=== PATIENT | female | born 1965 | race Caucasian/White ===

== ENCOUNTER 2017-03-19 07:57 | Day surgery (SDC) | payer MEDICARE, BC ==
[2017-03-17 13:07] VITALS: BMI 36.9
[2017-03-19] MEDS ORDERED: LACTATED RINGERS 1,000 ML IV SCH (08:45)
[2017-03-19 08:46] VITALS: RESP 16; TEMP 98.1
[2017-03-19] MEDS ORDERED: LIDOCAINE 1% 20 ML VIAL (10MG/ML) FOR IV START INTRADERMA ONE (08:51)
[2017-03-19] MEDS ORDERED: TRIAMCINOLONE ACETONIDE 40 MG/ML 1 ML VIAL ONE (08:53)
[2017-03-19] MEDS ORDERED: MIDAZOLAM 2 MG/2 ML VIAL ONE (08:53)
[2017-03-19] MEDS ORDERED: BUPIVACAINE (PF) 0.5% 30 ML VIAL ONE (08:53)
[2017-03-19] MEDS ORDERED: fentaNYL (PF) 50 MCG/ML 2 ML AMP ONE (08:53)
--- NOTE | 2017-03-19 09:04 | P.PCN ---
Date of Procedure: 03/19/17 Preoperative Diagnosis: Right sacroiliitis Postoperative Diagnosis: Right sacroiliitis Procedure(s) Performed: Right sacroiliac joint steroid injection under fluoroscopic guidance Anesthesia: other (Moderate sedation with Versed and fentanyl) Surgeon: Pieter Benson Pathology: none sent Condition: stable Disposition: PACU Description of Procedure: The patient was seen in preoperative holding area consent was obtained then she was brought into the procedure room and placed in prone position. Skin was prepped with Betadine 3 and draped in a sterile manner. Lidocaine 1% was used to numb the skin up at the entry site which was chosen the following Manner: The right sacroiliac joint was identified on the AP view of fluoroscopy then the C-arm was tilted to the left oblique position to superimpose the anterior and posterior joint lines on each other then the C-arm was tilted slightly cephalad to get a clear view of the inferior one third of this unified joint line. I then used Quincke spinal needle 22-gauge 3-1/2 inch to go through the skin and into the sacroiliac joint at the inferior one third of the joint line. I then injected 40 mg of Kenalog +2 MLS of Marcaine 0.5%. Patient tolerated procedure well.
--- NOTE | 2017-03-19 09:19 | FL ---
EXAMINATION TYPE: FL guided pain mgmt statistic DATE OF EXAM: 03/19/2017 9:08 AM HISTORY: Pain 1 image scanned, 9 sec fl time. rt si rachelt inj.
[2017-03-19 09:42] VITALS: BP 114/75; PULSE 55
[2017-03-19] MEDS ORDERED: IV FLUID CONTINUATION 1,000 ML IV ONE (09:47)
== END 2017-03-19 09:58 | disposition home or self-care (01) ==
LOC: ORPAIN 07:57
PROVIDERS: ATTEND Anesthesiology
DX: M46.1 Sacroiliitis, not elsewhere classified (principal); Z88.5 Allergy status to narcotic agent; Z88.8 Allergy status to other drugs, medicaments and biological substances
CPT/HCPCS: J2250; J3301; J3010; G0260; 27096

== ENCOUNTER → 2017-04-08 | Outpatient (CLI) | payer MEDICARE, BC ==
[2017-04-08 12:09] VITALS: BP 117/79; PULSE 80; RESP 18; TEMP 98.9
--- NOTE | 2017-04-08 12:48 | P.PN ---
Progress Note - Text Patient returns for followup for chronic neck and right-sided low back and hip pain. Patient recently underwent R SIJ injection, which provided some relief for XXX interval. Patient continues on [place] and Lyrica medications from her PCP for pain with good relief. Patient denies adverse drug effects from medications. Today, pt denies new-onset weakness, bowel/bladder incontinence, or any other signs or symptoms of cauda equina syndrome. There are no signs of acute intoxication, and no indications of medication diversion or overuse. In addition to above, 13-point review of systems is also negative for chest pain , shortness of breath, changes in vision, changes in hearing, new onset weakness , abdominal pain, diarrhea, extreme fatigue, malaise, fever, skin changes, homicidal or suicidal ideation, or bowel or bladder incontinence. Vital Signs: Reviewed in EMR Gen: WDWN, AAOx3, NAD HEENT: NCAT, EOMI, hearing grossly normal Pulm: resp unlabored Abd: soft, NT, ND Neck: supple, trachea midline ROM in flexion cervical spine: reduced ROM in extension cervical spine: reduced Cervical paravertebral tenderness: + Cervical Facet tenderness: + bilateral Spurling's: + RUE Upper extremity: decreased pump erector strength secondary to pain ROM in flexion lumbar spine: reduced ROM in extension lumbar spine: reduced Lumbar paravertebral tenderness: + Facet loading: + bilateral SI joint tenderness: + R >> L Lobo's test: + R >> L Straight leg raise: neg Neuro: CN II-XII grossly intact, muscle strength lower extremities PRESERVED Imaging: Reviewed in EMR Assessment: 1. cervical PLPS 2. SIJ dysfunction 3. chronic pain syndrome Plan: 1. Explanation: Opioid and psychological risk scores were reviewed. Diagnoses , prognoses, and multiple treatment options including but not limited to physical therapy, interventional therapies, adjuvant medical therapies, narcotic medication therapies, and surgery were discussed with the patient and all questions were answered to the patient's satisfaction. 2. Opioid agreement: no opioids prescribed today 3. Counseling: The patient was counseled extensively on SMOKING CESSATION, BODY MASS INDEX, EXERCISE. Specifically, the patient was instructed regarding the importance of smoking cessation, obesity, and exercise in the context of both chronic pain and overall health. 4. Procedures: repeat R SIJ injection, then cervical CHETAN 4-6 weeks after that 5. Consultations: None 6. Investigations: None 7. Medications: none prescribed 8. Disposition: f/u for procedure as scheduled PQRS measures: 1-Patient's medications are documented in the chart. 2-Tobacco use is negative 3-Patient has not had a pneumococcal vaccine. 4-Advanced care planning discussed, patient unable to give. 5-Opioid contract NOT signed with the patient. 6-Pain positive, follow-up visit or procedure scheduled 7-Patient's blood pressure measured and documented, and WNL. 8-Patient's weight was measured, and body mass index ABOVE the normal limits, and counseling was done. Patient instructed to follow up with PCP. 9-Patient WAS NOT identified as an unhealthy alcohol user.
== END | disposition home or self-care (01) ==
LOC: PNWHC3 11:56
PROVIDERS: ATTEND Anesthesiology
DX: M53.86 Other specified dorsopathies, lumbar region (principal); M53.3 Sacrococcygeal disorders, not elsewhere classified; G89.4 Chronic pain syndrome
CPT/HCPCS: 99211

== ENCOUNTER 2017-04-15 06:34 | Day surgery (SDC) | payer MEDICARE, BC ==
[2017-04-10 15:06] VITALS: BMI 36.6
[2017-04-15 06:42] VITALS: RESP 16; TEMP 98.3
[2017-04-15] MEDS ORDERED: LACTATED RINGERS 1,000 ML IV ONE (06:56)
[2017-04-15] MEDS ORDERED: LIDOCAINE 1% 20 ML VIAL (10MG/ML) FOR IV START INTRADERMA ONE (06:56)
[2017-04-15] MEDS ORDERED: MIDAZOLAM 2 MG/2 ML VIAL ONE (07:20)
[2017-04-15] MEDS ORDERED: IOHEXOL 180 MG/ML 1 ML ML ONE (07:20)
[2017-04-15] MEDS ORDERED: fentaNYL (PF) 50 MCG/ML 2 ML AMP ONE (07:20)
[2017-04-15] MEDS ORDERED: BUPIVACAINE (PF) 0.5% 30 ML VIAL ONE (07:20)
[2017-04-15] MEDS ORDERED: TRIAMCINOLONE ACETONIDE 40 MG/ML 1 ML VIAL ONE (07:20)
[2017-04-15] MEDS ORDERED: LACTATED RINGERS 1,000 ML IV SCH (07:30)
[2017-04-15] MEDS ORDERED: IV FLUID CONTINUATION 700 ML IV ONE (07:37)
--- NOTE | 2017-04-15 07:45 | P.PCN ---
Date of Procedure: 04/15/17 Preoperative Diagnosis: Postoperative Diagnosis: Procedure(s) Performed: Implants: Surgeon: Reddy Crystal Pathology: none sent Condition: stable Disposition: PACU Indications for Procedure: Operative Findings: Description of Procedure: PREOPERATIVE DIAGNOSIS: 1-Bilateral sacroiliitis. 2 Lumbar DDD POSTOPERATIVE DIAGNOSIS:. 1-Bilateral sacroiliitis. 2 Lumbar DDD PROCEDURES: RIGHT only Sacroiliac joint steroid injection with fluoroscopic guidance ANESTHESIA: Local with 1% lidocaine; conscious sedation EBL: Minimal. PROCEDURE INDICATIONS: This patient with a history of low back pain secondary to sacroiliitis and lumbar DDD unresponsive to conservative management. Patient had good relief for three weeks from previous R SIJ injection #1. No use of blood thinners. PROCEDURE DESCRIPTION: The patient was seen and identified in the preoperative area. Risks, benefits, complications, and alternatives were discussed with the patient (including but not limited to incomplete pain relief, bleeding, infection, nerve damage, and allergies to medications), the patient agreed to proceed with the procedure and signed the consent after all questions were answered. Patient was taken to the OR and time out was completed to verify proper patient , position, laterality of pain, and allergies. Pt was placed in the prone position and a pillow was placed under the abdomen to reduce lumbar lordosis. The lumbosacral area was prepped and draped in the usual sterile fashion. Critical pause was taken. Vital signs were closely monitored during the procedure. The fluoroscopic camera was placed in contralateral oblique view and right sacroiliiac joint lower pole was identified. After local infiltration with 1% lidocaine 2 ml, Subsequently, a 22-gauge 3.5 inch spinal needle was introduced into the posteroinferior aspect of the right sacroiliac joint under direct fluoroscopic visualization. Subsequently, 4 ml of a solution of a total of 4 ml solution containing total 2 mL of 0.5% preservative-free bupivicaine mixed with 80 mg of Kenalog was injected after negative aspiration for CSF, blood, and air and negative for paresthesia. Needle was withdrawn intact. Skin was cleansed, and bandages were applied. COMPLICATIONS: None. COMMENTS: DISPOSITION / PLANS: The patient was placed in a supine position and transferred to the recovery area in a stable condition for observation and was discharged from the recovery room after meeting discharge criteria. Home discharge instructions given to the patient by the staff. The patient was reexamined prior to discharge and already had significant relief. The patient will schedule a follow up in the clinic in 2-4 weeks.
[2017-04-15 08:03] VITALS: BP 128/75; PULSE 57
--- NOTE | 2017-04-15 10:09 | FL ---
EXAMINATION TYPE: FL guided pain mgmt statistic DATE OF EXAM: 04/15/2017 7:36 AM FLUOROSCOPY Fluoroscopy time of 28 seconds was used during right SI joint injection. 2 image/s document/s the luigi long.
== END 2017-04-15 08:25 | disposition home or self-care (01) ==
LOC: ORPAIN 06:34
PROVIDERS: ATTEND Anesthesiology
DX: M46.1 Sacroiliitis, not elsewhere classified (principal); M51.36 Other intervertebral disc degeneration, lumbar region; G89.4 Chronic pain syndrome; Z79.891 Long term (current) use of opiate analgesic; Z79.899 Other long term (current) drug therapy
CPT/HCPCS: 81025; J2250; J3301; Q9965; J3010; G0260; 27096

== ENCOUNTER 2017-05-13 08:23 | Day surgery (SDC) | payer MEDICARE, BC ==
[2017-05-09 10:25] VITALS: BMI 36.6
[~2017-05-13 08:23] MED LIST: LACTATED RINGERS 1,000 ML IV SCH
[2017-05-13 08:36] VITALS: TEMP 96.8
[2017-05-13] MEDS ORDERED: LIDOCAINE 1% 20 ML VIAL (10MG/ML) FOR IV START INTRADERMA ONE (08:44)
[2017-05-13] MEDS ORDERED: MIDAZOLAM 2 MG/2 ML VIAL ONE (09:30)
[2017-05-13] MEDS ORDERED: DEXAMETHASONE SOD PHOS (MDV) 100 MG/10 ML VIAL ONE (09:30)
[2017-05-13] MEDS ORDERED: fentaNYL (PF) 50 MCG/ML 2 ML AMP ONE (09:30)
[2017-05-13] MEDS ORDERED: IOHEXOL 180 MG/ML 1 ML ML ONE (09:30)
--- NOTE | 2017-05-13 09:50 | P.PCN ---
Date of Procedure: 05/13/17 Preoperative Diagnosis: Postoperative Diagnosis: Procedure(s) Performed: . PROCEDURE 1. Cervical epidural steroid injection under fluoroscopic guidance, C7-T1 2. Cervical epidurogram. PREOPERATIVE DIAGNOSIS: 1- Cervical radiculopathy. POSTOPERATIVE DIAGNOSIS: : 1-Cervical radiculopathy. ANESTHESIA: Local anesthesia with 1% lidocaine3 ml , and IV sedation with Versed 1 mg and Fentanyl 50 mcg. EBL 0 PROCEDURE INDICATION: The patient with neck pain and radiculitis unresponsive to conservative treatment consents for procedure. PROCEDURE DESCRIPTION / TECHNIQUE: The patient was seen and identified in the preoperative area. Risks, benefits, complications, including but not limited to infections ,bleeding , allergic reactions to the medications ,and not complete pain releife, and alternatives were discussed with the patient, the patient agreed to proceed with the procedure and signed the consent. Patient was taken to the OR and time out was completed. The patient was placed in the prone position on the procedure table. A pillow was placed under the patients chest to increase the cervical interlaminar space. The cervical area was prepped and draped in the usual sterile fashion. Vital signs were closely monitored during the procedure. Conscious sedation was used during the procedure to decrease patients anxiety. Using anterior-posterior fluoroscopy, the C7-T1 interlaminar space was identified and the skin over this site was marked and then infiltrated with 1% lidocaine subcutaneously. Subsequently, a 20-gauge 3-1/2-inch Tuohy epidural needle was inserted and advanced toward the epidural space by means of the `` hanging-drop technique and guided by AP and lateral fluoroscopy. The correct needle position in the epidural space was verified with the injection of 2 mL of the water soluble contrast dye Isovue-180 and observing an excellent epidurogram with the epidural spread of the dye, after negative aspiration for blood and CSF and in the absence of paresthesias. Again after negative aspiration, mixture containing 20 mg Dexamethasone and 2 ml of preservative- free normal saline injected and a washout of epidurogram was seen. Needle was withdrawn intact, skin was cleansed, and bandages were applied. Complications= none. Disposition= patient was placed in supine position and transferred to the recovery room area in stable condition and there was no evidence of upper or lower extremity motor or sensory deficit after the procedure patient was discharged from recovery room after discharge criteria met and home discharge instructions was given by the staff and patient will follow with the pain clinic in 2-4 weeks Implants: Indications for Procedure: Operative Findings: Description of Procedure:
[2017-05-13] MEDS ORDERED: IV FLUID CONTINUATION 1,000 ML IV ONE ×2 (09:55)
[2017-05-13 10:23] VITALS: BP 128/78; PULSE 61; RESP 20
--- NOTE | 2017-05-13 10:50 | FL ---
Fluoroscopy HISTORY: Pain 4 seconds fluoroscopy time supplied to the referring clinician. 2 intraoperative C-arm images docume nt the procedure. See dictated report from anesthesia.
== END 2017-05-13 10:33 | disposition home or self-care (01) ==
LOC: ORPAIN 08:23
PROVIDERS: ATTEND Specialist
DX: M54.12 Radiculopathy, cervical region (principal); I10 Essential (primary) hypertension; M79.7 Fibromyalgia; Z88.1 Allergy status to other antibiotic agents; Z88.5 Allergy status to narcotic agent
CPT/HCPCS: 62321; J2250; Q9965; J3010; J1100

== ENCOUNTER → 2017-06-03 | Outpatient (CLI) | payer MEDICARE, BC ==
[2017-06-03 14:46] VITALS: BP 128/91; RESP 16; TEMP 99.2
--- NOTE | 2017-06-03 15:01 | P.PN ---
Progress Note - Text Patient returns for followup for chronic neck and back pain with radiation to hips. Patient recently underwent LYNNE x 1 with some relief, but went home and lifted a 40-lb bag and had severe pain in her back and little relief in the neck. Patient has had several SIJ injections and CESIs, but noted that she got the most relief from lumbar RFAs done in 2013, which have not been repeated since then. Patient continues on [place] medications for pain with good relief. Patient denies adverse drug effects from medications. Today, pt denies new- onset weakness, bowel/bladder incontinence, or any other signs or symptoms of cauda equina syndrome. There are no signs of acute intoxication, and no indications of medication diversion or overuse. In addition to above, 13-point review of systems is also negative for chest pain , shortness of breath, changes in vision, changes in hearing, new onset weakness , abdominal pain, diarrhea, extreme fatigue, malaise, fever, skin changes, homicidal or suicidal ideation, or bowel or bladder incontinence. Vital Signs: Reviewed in EMR Gen: WDWN, AAOx3, NAD HEENT: NCAT, EOMI, hearing grossly normal Pulm: resp unlabored Abd: soft, NT, ND Neck: supple, trachea midline ROM in flexion lumbar spine: reduced ROM in extension lumbar spine: full Lumbar paravertebral tenderness: + Facet loading: + bilateral, R > L SI joint tenderness: neg Lobo's test: + R side Straight leg raise: neg Neuro: CN II-XII grossly intact, muscle strength lower extremities PRESERVED Imaging: Reviewed in EMR Assessment: 1. cervical radic 2. lumbar spondylosis without myelopathy 3. chronic pain syndrome Plan: 1. Explanation: Opioid and psychological risk scores were reviewed. Diagnoses , prognoses, and multiple treatment options including but not limited to physical therapy, interventional therapies, adjuvant medical therapies, narcotic medication therapies, and surgery were discussed with the patient and all questions were answered to the patient's satisfaction. 2. Opioid agreement: no opioids prescribed today 3. Counseling: The patient was counseled extensively on BODY MASS INDEX, EXERCISE. Specifically, the patient was instructed regarding the importance of weight control, and exercise in the context of both chronic pain and overall health. 4. Procedures: R lumbar RFA, then left 5. Consultations: None 6. Investigations: None 7. Medications: none prescribed 8. Disposition: f/u for procedure as scheduled PQRS measures: 1-Patient's medications are documented in the chart. 2-Tobacco use is negative 3-Patient has not had a pneumococcal vaccine. 4-Advanced care planning discussed, patient unable to give. 5-Opioid contract NOT signed with the patient. 6-Pain positive, follow-up visit or procedure scheduled 7-Patient's blood pressure measured and documented, and patient will follow up with the primary care due to hypertension. 8-Patient's weight was measured, and body mass index ABOVE the normal limits, and counseling was done. Patient instructed to follow up with PCP. 9-Patient WAS NOT identified as an unhealthy alcohol user.
== END | disposition home or self-care (01) ==
LOC: PNWHC3 14:26
PROVIDERS: ATTEND Anesthesiology
DX: M47.816 Spondylosis without myelopathy or radiculopathy, lumbar region (principal); G89.4 Chronic pain syndrome
CPT/HCPCS: 99211

== ENCOUNTER 2017-07-03 09:26 | Day surgery (SDC) | payer MEDICARE, BC ==
[2017-06-30 09:31] VITALS: BMI 36.9
[2017-07-03 09:37] VITALS: RESP 16; TEMP 98.6
[2017-07-03] MEDS ORDERED: LACTATED RINGERS 1,000 ML IV ONE (09:40)
[2017-07-03] MEDS ORDERED: LIDOCAINE 1% 20 ML VIAL (10MG/ML) FOR IV START INTRADERMA ONE (09:43)
[2017-07-03] MEDS ORDERED: LACTATED RINGERS 1,000 ML IV SCH (10:15)
[2017-07-03] MEDS ORDERED: IV FLUID CONTINUATION 1,000 ML IV ONE (10:57)
--- NOTE | 2017-07-03 11:07 | FL ---
EXAMINATION TYPE: FL guided pain mgmt statistic DATE OF EXAM: 07/03/2017 CLINICAL HISTORY: Low back pain. TECHNIQUE: Fluoroscopy. COMPARISON: None. FINDINGS: Fluoroscopic guidance was provided during pain relief procedure performed by Dr. Crystal . A total of 13 seconds of fluoroscopic time was utilized during the procedure and 3 spot images are ac quired. Images acquired shows needle localization at several levels in the lower lumbar spine. IMPRESSION: As Above.
[2017-07-03 11:13] VITALS: BP 119/78; PULSE 71
--- NOTE | 2017-07-03 12:30 | P.PCN ---
Date of Procedure: 07/03/17 Preoperative Diagnosis: Postoperative Diagnosis: Procedure(s) Performed: Implants: Surgeon: Reddy Crystal Pathology: none sent Condition: stable Disposition: PACU Indications for Procedure: Operative Findings: Description of Procedure: PREOPERATIVE DIAGNOSIS: Lumbar spondylosis without myelopathy and facet arthropathy POSTOPERATIVE DIAGNOSIS: Lumbar spondylosis without myelopathy and facet arthropathy PROCEDURES: Right Radiofrequency thermocoagulation, L3-L4, L4-L5, and L5-S1 medial branch, with fluoroscopic guidance. ANESTHESIA: 1% lidocaine plain; Conscious sedation with versed/fentanyl EBL: Minimal PROCEDURE INDICATION: The patient with low back pain secondary to lumbar arthropathy who had more than 50% relief of pain with previous diagnostic lumbar medial branch block with bupivacaine. Patient presents for RFA today after having good relief from lumbar RFAs in the past; no use of blood thinners. PROCEDURE DESCRIPTION / TECHNIQUE: The patient was seen and identified in the preoperative area. Risks, benefits, complications, and alternatives were discussed with the patient (including but not limited to incomplete pain relief , bleeding, infection, nerve damage, and allergies to medications), the patient agreed to proceed with the procedure and signed the consent after all questions were answered. Patient was taken to the OR and time out was completed to verify proper patient , position, laterality of pain, and allergies. Pt was placed in the prone position. IV was started. Vital signs remained stable throughout the procedure. A pillow was placed under the patients chest to decrease lordosis. The lumbosacral area was prepped and draped in the usual sterile fashion. Vital signs were closely monitored during the procedure. Conscious sedation was used during the procedure to decrease patients anxiety. Using AP and then oblique fluoroscopy, the eye of the Lawrence dog corresponding to the connection between the superior and transverse articular processes of right L4, L5 and top of the sacrum were identified, marked, and localized with 1% lidocaine. Subsequently, a 20 gauge, 100-mm radiofrequency cannula with a 10-mm active tip was advanced guided by fluoroscopy to each of the eyes of the Lawrence dog at right L3, L4, and L5 medial branches. Each site then underwent sensory testing at 50 Hz and 0 to 1 volt and motor testing at 2 Hz and 0 to 3 volt with local stimulation, but no radicular symptoms down the legs. Thereafter the right L3, L4, and L5 medial branch sites underwent radiofrequency thermocoagulation at 80 degrees Celsius for 90 seconds after injecting 0.5 ml of PF lidocaine 1%. After thermocoagulation, 1 ml of the block solution containing Kenalog 40 mg and 2 mL of preservative-free normal saline was injected at the right L3, L4, and L5 medial branch levels after negative aspiration of CSF and blood and with no paresthesias. Cannulas were retracted while injecting lidocaine 1% until the needles were removed. At the end of the procedure, the skin was cleansed and bandages were applied. COMPLICATIONS: No acute complications. DISPOSITION / PLANS: The patient was placed in a supine position and transferred to the recovery area in a stable condition for observation and was discharged from the recovery room after meeting discharge criteria. Home discharge instructions given to the patient by the staff. The patient was reexamined prior to discharge and there were no issues. The patient will schedule a left lumbar RFA at next visit.
== END 2017-07-03 11:28 | disposition home or self-care (01) ==
LOC: ORPAIN 09:26
PROVIDERS: ATTEND Anesthesiology
DX: G89.4 Chronic pain syndrome (principal); M47.816 Spondylosis without myelopathy or radiculopathy, lumbar region; M46.96 Unspecified inflammatory spondylopathy, lumbar region; Z79.891 Long term (current) use of opiate analgesic; Z88.6 Allergy status to analgesic agent; Z88.1 Allergy status to other antibiotic agents; Z88.7 Allergy status to serum and vaccine
CPT/HCPCS: 64635; 64636 ×2; 99152; J2250; J3010; 99153

== ENCOUNTER 2017-07-31 09:28 | Day surgery (SDC) | payer MEDICARE, BC ==
[2017-07-31 10:18] VITALS: RESP 16; TEMP 98.3
[2017-07-31] MEDS ORDERED: LIDOCAINE 1% 20 ML VIAL (10MG/ML) FOR IV START INTRADERMA ONE (10:22)
[2017-07-31] MEDS ORDERED: IV FLUID CONTINUATION 1,000 ML IV ONE (11:35)
--- NOTE | 2017-07-31 11:38 | FL ---
EXAMINATION TYPE: FL guided pain mgmt statistic DATE OF EXAM: 07/31/2017 CLINICAL HISTORY: Low back pain. TECHNIQUE: Fluoroscopy. COMPARISON: None. FINDINGS: Fluoroscopic guidance was provided during pain relief procedure performed by Dr. Jessica . A total of 12 seconds of fluoroscopic time was utilized during the procedure and 3 spot images are acquired. Images acquired shows needle localization at several levels off the midline in the lower lumbar spine. IMPRESSION: As Above.
[2017-07-31 11:53] VITALS: BP 127/70; PULSE 66
--- NOTE | 2017-07-31 13:04 | P.PCN ---
Date of Procedure: 07/31/17 Preoperative Diagnosis: Postoperative Diagnosis: Procedure(s) Performed: PREOPERATIVE DIAGNOSIS: 1-Lumbar Spondylosis with Facet Arthropathy without myelopathy. POSTOPERATIVE DIAGNOSIS: 1- Lumbar Spondylosis with Facet Arthropathy without myelopathy. PROCEDURES : Left Radiofrequency thermocoagulation, L3-L4, L4-L5, and L5-S1 medial branch, with fluoroscopic guidance ANESTHESIA: IV sedation with versed 2 mg and fentaneyl 100 mcg and local infiltration with lidocaine 1% 6 ml EBL: Minimal PROCEDURE INDICATION: The patient with low back pain secondary to lumbar facet arthropathy who had more than 50% relief of her pain with previous diagnostic lumbar medial branch block with bupivacaine. PROCEDURE DESCRIPTION / TECHNIQUE: The patient was seen and identified in the preoperative area. Risks, benefits, complications, including but not limited to risk of infection ,bleeding , allergic reactions to the medications and no complete pain releife , and alternatives were discussed with the patient, the patient agreed to proceed with the procedure and signed the consent. IV was started. Vital signs remained stable throughout the procedure. Patient was taken to the OR and time out was completed. The patient was placed in the prone position on the procedure table. The lumber area was prepped and draped in the usual sterile fashion. . Vital signs were closely monitored during the procedure .IV sedation was used during the procedure to decrease patients anxiety. Using AP and then oblique fluoroscopy, the ``eye of the [place] dog corresponding to the connection between the superior and transverse articular processes of left L3, L4, and L5 were identified, marked, and localized with 1 % lidocaine. Subsequently, a 18 [id number] radiofrequency cannula with a 10- mm active tip was advanced guided by fluoroscopy to each of the ``eyes of the Lawrence dog at left L3, L4, and L5. Each site then underwent sensory testing at 50 Hz and 0 to 1 volt and motor testing at 2.5 Hz and 0 to 3 volt with local stimulation, but no radicular symptoms down the legs. Thereafter the left L3-4, L4-5, and L5-S1 sites underwent radiofrequency thermocoagulation at 80 degrees celsius for 90 seconds after injecting 0.5 ml of PF lidocaine 1%. then After the thermocoagulation done , 1 ml of the block solution containing Kenalog 40 mg and 3 ml of marain 0.5% was injected at the left L3-4 , L4-5 , and L5-S1, levels after negative aspiration of CSF and blood and with no paresthesias. Cannulas were retracted while injecting lidocaine 1% until the needle is out. At the end of the procedure, the skin was cleansed and bandages were applied. COMPLICATIONS: No acute complications. DISPOSITION / PLANS: The patient was placed in a supine position and transferred to the recovery area in a stable condition for observation and was discharged from the recovery room after meeting discharge criteria. Home discharge instructions given to the patient by the staff. The patient was reexamined prior to discharge. The patient will schedule a follow up in the clinic in 2-4 weeks. Implants: Indications for Procedure: Operative Findings: Description of Procedure:
== END 2017-07-31 12:06 | disposition home or self-care (01) ==
LOC: ORPAIN 09:28
PROVIDERS: ATTEND Specialist
DX: M47.816 Spondylosis without myelopathy or radiculopathy, lumbar region (principal); M46.96 Unspecified inflammatory spondylopathy, lumbar region; I10 Essential (primary) hypertension; G47.33 Obstructive sleep apnea (adult) (pediatric); Z88.6 Allergy status to analgesic agent; Z88.5 Allergy status to narcotic agent; Z88.8 Allergy status to other drugs, medicaments and biological substances
CPT/HCPCS: 64635; 64636 ×2; 99152; J2250; J3301; J3010; 99153

== ENCOUNTER → 2017-10-23 | Outpatient (CLI) | payer MEDICARE, BC ==
[2017-10-23 12:42] VITALS: BP 126/75; PULSE 67; RESP 16
--- NOTE | 2017-10-23 13:54 | P.PN ---
Subjective Progress Note Date: 10/23/17 This is follow-up visit for this patient with a history of severe and chronic low back pain secondary to lumbar degenerative disc disease, lumbar facet arthropathy, we did interventional pain management injection,, radiofrequency ablation of the medial branch lumbar area , this helped her low back pain significantly , currently she is complaining of severe neck pain with radiation to the shoulder blade area bilaterally , she had cervical fusion surgery done in 2008 , and currently most of the pain localized in the cervical area , he denies any motor or sensory deficit she denies any liver or night sweats and there is no change in the bowel movement or urination , the pain is constant and increases with any activity Objective - Vital Signs Vital signs: Vital Signs Temp Pulse 67 10/23/17 12:37 Resp 16 10/23/17 12:37 BP 126/75 10/23/17 12:37 Pulse Ox 97 10/23/17 12:37 Intake & Output 10/22/17 10/23/17 10/23/17 18:59 06:59 18:59 Weight 91.626 kg - Exam Physical Examinations : 1-Constitutiona : Cooperative , not in acute distress . 2-HEENT : nech ; supple , no Lymphadenopathy , normal thyroid size . eyes : no ptosis , no icterus, no photophobia . ENT : normal of hearing , normal oropharynx , no Thrush . 3- Respiratory : Chest clear to auscultations Bilaterally , no wheezing , no Rhonchi . 4- Cardiovascular : regular rate and rhythem , S1 , S2 , no S3 , no S4. 5- Gastrointestinal : abdomen soft no tenderness , bowel sounds positive all four quadrents , no organomegally . 6- Genitourinary : Defferred . 7- neurologic : Cranial nerve II to XII intact , no focal neurological deffecit . 8-psychatric : alert , oriented X 3 , appropriate affect , intact judgment and insight . 9-Lymphatic : no Lymphadenopathy . 10- musculoskeltal : cervical spine = motor stregnth in the deltoid and biceps, motor stregnth biceps and the wrist extensors (C6) . motor stregnth in the triceps muscle . deep tendon reflexes normal at the biceps , normal at Brachioradialis , normal at the Triceps positive cervical facet loading test . 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
== END | disposition home or self-care (01) ==
LOC: PNWHC3 12:00
PROVIDERS: ATTEND Specialist
DX: M51.36 Other intervertebral disc degeneration, lumbar region (principal); M47.816 Spondylosis without myelopathy or radiculopathy, lumbar region; M46.86 Other specified inflammatory spondylopathies, lumbar region; M50.30 Other cervical disc degeneration, unspecified cervical region; Z79.899 Other long term (current) drug therapy; Z79.891 Long term (current) use of opiate analgesic
CPT/HCPCS: 99211

== ENCOUNTER 2017-12-16 06:30 | Day surgery (SDC) | payer MEDICARE, BC ==
[2017-12-10 11:46] VITALS: BMI 36.9
[2017-12-16 06:54] VITALS: TEMP 97.7
[2017-12-16] MEDS ORDERED: LIDOCAINE 1% 20 ML VIAL (10MG/ML) FOR IV START INTRADERMA ONE (07:09)
--- NOTE | 2017-12-16 07:30 | P.PCN ---
Date of Procedure: 12/16/17 Surgeon: Reddy Crystal Pathology: none sent Condition: stable Disposition: PACU Description of Procedure: PREOPERATIVE DIAGNOSIS: Cervical radiculopathy. POSTOPERATIVE DIAGNOSIS: Cervical radiculopathy. PROCEDURE 1. Cervical/high thoracic epidural steroid injection under fluoroscopic guidance , T1-T2 level. 2. Cervical epidurogram. ANESTHESIA: Local anesthesia with 1% lidocaine and IV sedation with Versed. EBL: Minimal PROCEDURE INDICATION: The patient with neck pain and radiculitis unresponsive to conservative treatment consents for procedure. No use of blood thinners. PROCEDURE DESCRIPTION / TECHNIQUE: The patient was seen and identified in the preoperative area. Risks, benefits, complications, and alternatives were discussed with the patient (including but not limited to incomplete pain relief, bleeding, infection, nerve damage, and allergies to medications), the patient agreed to proceed with the procedure and signed the consent after all questions were answered. Patient was taken to the OR and time out was completed to verify proper patient , position, laterality of pain, and allergies. Pt was placed in the prone position. A pillow was placed under the patients chest to increase the cervical interlaminar space. The cervical area was prepped and draped in the usual sterile fashion. Critical pause was taken. Vital signs were closely monitored during the procedure. Conscious sedation was used during the procedure to decrease patients anxiety. Using anterior-posterior fluoroscopy, the T1-T2 interlaminar space was identified and the skin over this site was marked and then infiltrated with 1% lidocaine subcutaneously in a paramedian fashion. Subsequently, a 20-gauge 3-1/2 -inch Tuohy epidural needle was inserted and advanced toward the epidural space by means of the loss of resistance technique and guided by AP and lateral fluoroscopy. After negative aspiration for blood or CSF and in the absence of paresthesias, the correct needle position in the epidural space was verified with the injection of 1 mL of the water soluble contrast dye Omnipaque-180 and observing an excellent epidurogram with the epidural spread of the dye, after negative aspiration for blood and CSF and in the absence of paresthesias. Again after negative aspiration, a 4 ml mixture containing 20 mg of Decadron and 2 ml of preservative free Normal Saline solution was injected and a washout of epidurogram was seen. Needle was withdrawn intact, skin was cleansed, and bandages were applied. COMPLICATIONS: None COMMENTS: DISPOSITION / PLANS: The patient was placed in a supine position and transferred to the recovery area in a stable condition for observation. There was no evidence of upper extremity motor or sensory deficit after the procedure. Patient was discharged from the recovery room after meeting discharge criteria. Home discharge instructions were given to the patient by the staff. The patient was reexamined prior to discharge and there were no issues. The patient will schedule a follow up in the clinic in 2-4 weeks.
[2017-12-16 07:41] VITALS: RESP 20
[2017-12-16 08:03] VITALS: BP 117/78; PULSE 56
[2017-12-16] MEDS ORDERED: IV FLUID CONTINUATION 1,000 ML IV ONE (08:03)
--- NOTE | 2017-12-16 08:31 | FL ---
EXAMINATION TYPE: FL guided pain mgmt statistic DATE OF EXAM: 12/16/2017 HISTORY: Pain 7 sec fl time used during rt side rt lumbar
== END 2017-12-16 08:12 | disposition home or self-care (01) ==
LOC: ORPAIN 06:30
PROVIDERS: ATTEND Anesthesiology
DX: M54.12 Radiculopathy, cervical region (principal); I10 Essential (primary) hypertension; E78.5 Hyperlipidemia, unspecified; F32.9 Major depressive disorder, single episode, unspecified; Z79.891 Long term (current) use of opiate analgesic; Z79.899 Other long term (current) drug therapy; Z88.1 Allergy status to other antibiotic agents; Z88.5 Allergy status to narcotic agent; Z88.8 Allergy status to other drugs, medicaments and biological substances
CPT/HCPCS: 62321; J2250; J1100; Q9965

== ENCOUNTER → 2018-01-07 | Outpatient (CLI) | payer MEDICARE, BC ==
[2018-01-07 12:37] VITALS: BP 117/82; PULSE 79; RESP 20; TEMP 98.9
--- NOTE | 2018-01-08 09:12 | P.PN ---
Subjective Progress Note Date: 01/07/18 This is a follow-up visit for this 52 years old female with a chronic history of severe neck pain, diagnosed with cervical degenerative disc disease and failed back surgery syndrome and cervical area, we have done a cervical epidural steroid injections , she had some improvement in her neck pain, and also patient complaining of severe low back pain , and she stayed closed with lumbar spondylosis we did radiofrequency ablation of the medial branch lumbar area, the most of the pain in the neck area and also between the shoulder blade area, he denies any motor or sensory deficit she denies any fever or night sweats and there is no change in the bowel movement or urination, she is currently on Neurontin 300 mg 2 times a day ,and [place] 5/325 every 12 hours when necessary, he denies any side effect of the medication she denies any excessive drowsiness and sleepiness and she reports the current medication is working to control her pain she denies any fever or night sweats and there is no motor or sensory deficit Objective - Vital Signs Vital signs: Vital Signs Temp 98.9 F 01/07/18 12:31 Pulse 79 01/07/18 12:31 Resp 20 01/07/18 12:31 BP 117/82 01/07/18 12:31 Pulse Ox 97 01/07/18 12:31 Intake & Output 01/07/18 01/08/18 01/08/18 18:59 06:59 18:59 Weight 93.44 kg - Exam Physical Examinations : 1-Constitutiona : Cooperative , not in acute distress . 2-HEENT : nech ; supple , no Lymphadenopathy , normal thyroid size . eyes : no ptosis , no icterus, no photophobia . ENT : normal of hearing , normal oropharynx , no Thrush . 3- Respiratory : Chest clear to auscultations Bilaterally , no wheezing , no Rhonchi . 4- Cardiovascular : regular rate and rhythem , S1 , S2 , no S3 , no S4. 5- Gastrointestinal : abdomen soft no tenderness , bowel sounds positive all four quadrents , no organomegally . 6- Genitourinary : Defferred . 7- neurologic : Cranial nerve II to XII intact , no focal neurological deffecit . 8-psychatric : alert , oriented X 3 , appropriate affect , intact judgment and insight . 9-Lymphatic : no Lymphadenopathy . 10- musculoskeltal : cervical spine = motor stregnth in the deltoid and biceps, motor stregnth biceps and the wrist extensors (C6) . motor stregnth in the triceps muscle . deep tendon reflexes normal at the biceps , normal at Brachioradialis , normal at the Triceps positive cervical facet loading test . , Lumber spine = normal moter stegnth lower extremities ,thigh and legs .5/5 Assessment and Plan Plan: Assessment and plan= Chronic neck pain, cervical failed back surgery syndrome, cervical degenerative disc disease chronic low back pain secondary to lumbar degenerative disc disease , lumbar spondylosis with lumbar facet arthropathy chronic and current use of high-risk medication (opioids) Patient denies any side effects of the current pain medication and the current treatment/medication ML and the patient to do activity of daily living , Diagnoses, prognosis, treatment options, including but not limited to physical therapy, medication management, interventional therapies, and surgery, were discussed with the patient All the questions answered Patient signed the narcotic agreement, and he was orally counseled, not to overuse, not to abuse, not to Divert , not tp sell pain medication, and to take it as prescribed only, Patient was counseled not to drive or operate heavy equipment while using narcotic medication, and advised not to use alcohol or any Illicit drugs while using the narcotis, the patient's verbalized understanding that lack of compliance with any of the above instructions and will likely to cause discharge from the pain service, not to renew his narcotic prescriptions Medication managements= patient will be given prescription refills for Neurontin 300 mg twice a day, [place] 5/325 every 12 hours dispense 30 with one refill Patient was referred to have physical therapy for evaluation and treatment, if she continued to have severe neck pain then we should consider doing diagnostic medial branch block cervical area , Time with Patient: Less than 30
== END | disposition home or self-care (01) ==
LOC: PNWHC3 12:17
PROVIDERS: ATTEND Specialist
DX: G89.29 Other chronic pain (principal); M54.2 Cervicalgia; M50.30 Other cervical disc degeneration, unspecified cervical region; M51.36 Other intervertebral disc degeneration, lumbar region; M47.816 Spondylosis without myelopathy or radiculopathy, lumbar region; M46.86 Other specified inflammatory spondylopathies, lumbar region; M96.1 Postlaminectomy syndrome, not elsewhere classified; Z79.899 Other long term (current) drug therapy; Z79.891 Long term (current) use of opiate analgesic
CPT/HCPCS: 99211

== ENCOUNTER → 2018-03-04 | Outpatient (CLI) | payer MEDICARE, BC ==
[2018-03-04 12:58] VITALS: BP 155/83; PULSE 88; RESP 18
--- NOTE | 2018-03-04 13:11 | P.PN ---
Progress Note - Text Progress Note Date: 03/04/18 Patient returns for followup for chronic neck and back pain with radiation to hips. Patient has had increasing pain in her low back that improved substantially after lumbar RFAs done in and is requesting them again. Patient consistently takes Klonopin daily and was prescribed Mumford for the last two months that she takes inconsistently. Patient denies adverse drug effects from medications. Today, pt denies new-onset weakness, bowel/bladder incontinence, or any other signs or symptoms of cauda equina syndrome. There are no signs of acute intoxication, and no indications of medication diversion or overuse. In addition to above, 13-point review of systems is also negative for chest pain , shortness of breath, changes in vision, changes in hearing, new onset weakness , abdominal pain, diarrhea, extreme fatigue, malaise, fever, skin changes, homicidal or suicidal ideation, or bowel or bladder incontinence. Vital Signs: Reviewed in EMR Gen: WDWN, AAOx3, NAD HEENT: NCAT, EOMI, hearing grossly normal Pulm: resp unlabored Abd: soft, NT, ND Neck: supple, trachea midline ROM in flexion lumbar spine: reduced ROM in extension lumbar spine: full Lumbar paravertebral tenderness: + Facet loading: + bilateral, R > L SI joint tenderness: + R side Lobo's test: neg Straight leg raise: neg Neuro: CN II-XII grossly intact, muscle strength lower extremities PRESERVED Imaging: Reviewed in EMR Assessment: 1. cervical radic 2. lumbar spondylosis without myelopathy 3. chronic pain syndrome Plan: 1. Explanation: Opioid and psychological risk scores were reviewed. Diagnoses , prognoses, and multiple treatment options including but not limited to physical therapy, interventional therapies, adjuvant medical therapies, narcotic medication therapies, and surgery were discussed with the patient and all questions were answered to the patient's satisfaction. 2. Opioid agreement: no opioids prescribed today 3. Counseling: The patient was counseled extensively on BODY MASS INDEX, EXERCISE. Specifically, the patient was instructed regarding the importance of weight control, and exercise in the context of both chronic pain and overall health. 4. Procedures: R lumbar RFA, then left 5. Consultations: None 6. Investigations: None 7. Medications: Neurontin 300 mg #60 with two refills. Will stop Mumford today as patient is taking Klonopin daily for anxiety and I am concerned for respiratory depression, which I did explain to the patient. 8. Disposition: f/u for procedure as scheduled PQRS measures: 1-Patient's medications are documented in the chart. 2-Tobacco use is negative 3-Patient has not had a pneumococcal vaccine. 4-Advanced care planning discussed, patient unable to give. 5-Opioid contract NOT signed with the patient. 6-Pain positive, follow-up visit or procedure scheduled 7-Patient's blood pressure measured and documented, and patient will follow up with the primary care due to hypertension. 8-Patient's weight was measured, and body mass index ABOVE the normal limits, and counseling was done. Patient instructed to follow up with PCP. 9-Patient WAS NOT identified as an unhealthy alcohol user.
== END | disposition home or self-care (01) ==
LOC: PNWHC3 12:14
PROVIDERS: ATTEND Anesthesiology
DX: G89.4 Chronic pain syndrome (principal); M47.816 Spondylosis without myelopathy or radiculopathy, lumbar region; M54.12 Radiculopathy, cervical region; Z79.899 Other long term (current) drug therapy
CPT/HCPCS: 99211

== ENCOUNTER 2018-04-01 08:41 | Day surgery (SDC) | payer MEDICARE, BC ==
[2018-03-30 10:32] VITALS: BMI 36.9
[2018-04-01 10:44] VITALS: TEMP 97.9
--- NOTE | 2018-04-01 11:10 | P.PCN ---
Date of Procedure: 04/01/18 Procedure(s) Performed: PREOPERATIVE DIAGNOSIS: 1-Lumbar spondylosis with Facet arthropathy without myelopathy POSTOPERATIVE DIAGNOSIS: Same as preoperative diagnosis . PROCEDURE 1. Lumbar epidural steroid injection under fluoroscopic guidance at the L5-S1 level. 2. Lumbar epidurogram. ANESTHESIA: Local with 1% lidocaine 3 ml and , moderate sedation with intravenous Versed 2 mg ,and fentanyle 100 Mcg EBL: Minimal PROCEDURE INDICATION: The patient with low back pain and radiculitis symptoms unresponsive to conservative treatment. Fluoroscopy was used to optimize visualization of the needle placement and to maximize safety. PROCEDURE DESCRIPTION / TECHNIQUE: The patient was seen and identified in the preoperative area. Risks, benefits , complications including but not limited to infections ,bleeding ,allergic reaction to the medications ,nerve damage and not complete pain releife , and alternatives were discussed with the patient. The patient agreed to proceed with the procedure and signed the consent. IV was started, and vital signs were stable. Patient was taken to the OR and time out was completed. The patient was placed in the prone position on procedure table and a pillow was placed under the abdomen to reduce lumbar lordosis. The lumbosacral area was prepped and draped in the usual sterile fashion.ere closely monitored during the procedure. Conscious sedation was used during the procedure to decrease patients anxiety. Vital signs was monitered during the entire procedure. Using anterior-posterior fluoroscopy, the L5-S1 interlaminar space was identified and the skin over this site was marked and then infiltrated with 1% lidocaine subcutaneously. Subsequently, a 20-gauge Tuohy epidural needle was inserted and advanced toward the epidural space using the ``Loss of resistance technique and guided by AP and lateral fluoroscopy. The correct needle position in the epidural space was verified with the injection of 2 mL of the water soluble contrast dye Isovue 200 contrast and observing an excellent epidurogram with the epidural spread of the dye, after negative aspiration for blood and CSF and in the absence of paresthesias. Again after negative aspiration, a 6 ml mixture containing 80 mg kenalog , and 2 ml of preservative free Normal Saline, and 2 ml of preservative free lidocaine 1% solution was injected and a washout of epidurogram was seen. Needle was withdrawn intact, skin was cleansed, and bandages were applied. COMPLICATIONS: None DISPOSITION / PLANS: The patient was placed in a supine position and transferred to the recovery area in a stable condition for observation. There was no evidence of lower extremity motor or sensory deficit after the procedure. Patient was discharged from the recovery room after meeting discharge criteria. Home discharge instructions were given to the patient by the staff. The patient was reexamined prior to discharge. The patient will schedule a follow up in the clinic in 2-4 weeks.
[2018-04-01] MEDS ORDERED: IV FLUID CONTINUATION 1,000 ML IV ONE ×2 (11:16)
[2018-04-01 11:20] VITALS: RESP 18
--- NOTE | 2018-04-01 11:31 | FL ---
EXAMINATION TYPE: FL guided pain mgmt statistic DATE OF EXAM: 04/01/2018 CLINICAL HISTORY: Low back pain. TECHNIQUE: Fluoroscopy. COMPARISON: None. FINDINGS: Fluoroscopic guidance was provided during pain relief procedure performed by Dr. Jessica . A total of 3 seconds of fluoroscopic time was utilized during the procedure and single spot image is acquired. Single image acquired shows needle localization at L5 level. IMPRESSION: As Above.
[2018-04-01 11:38] VITALS: BP 120/70; PULSE 68
== END 2018-04-01 11:50 | disposition home or self-care (01) ==
LOC: ORPAIN 08:41
PROVIDERS: ATTEND Specialist
DX: M47.816 Spondylosis without myelopathy or radiculopathy, lumbar region (principal); M51.16 Intervertebral disc disorders with radiculopathy, lumbar region; M47.812 Spondylosis without myelopathy or radiculopathy, cervical region; I10 Essential (primary) hypertension; G47.33 Obstructive sleep apnea (adult) (pediatric); R56.9 Unspecified convulsions; Z79.899 Other long term (current) drug therapy; Z88.1 Allergy status to other antibiotic agents; Z88.5 Allergy status to narcotic agent; Z88.8 Allergy status to other drugs, medicaments and biological substances
CPT/HCPCS: 62323; J2250; J3301; J3010; Q9966

== ENCOUNTER 2018-04-27 09:23 | Day surgery (SDC) | payer MEDICARE, BC ==
[2018-04-21 15:49] VITALS: BMI 37.8
[2018-04-27 09:59] VITALS: RESP 16; TEMP 98.1
[2018-04-27] MEDS ORDERED: LIDOCAINE 1% 20 ML VIAL (10MG/ML) FOR IV START INTRADERMA ONE (10:00)
--- NOTE | 2018-04-27 11:08 | P.PCN ---
Date of Procedure: 04/27/18 Procedure(s) Performed: PREOPERATIVE DIAGNOSIS: 1-Lumbar spondylosis with Facet arthropathy without myelopathy POSTOPERATIVE DIAGNOSIS: same as pre op diagnosis . PROCEDURE 1. Lumbar epidural steroid injection under fluoroscopic guidance at the L4-5 level. 2. Lumbar epidurogram. ANESTHESIA: Local with 1% lidocaine 3 ml and , moderate sedation with intravenous Versed 2 mg ,and fentanyle 100 Mcg EBL: Minimal PROCEDURE INDICATION: The patient with low back pain and radiculitis symptoms unresponsive to conservative treatment. Fluoroscopy was used to optimize visualization of the needle placement and to maximize safety. PROCEDURE DESCRIPTION / TECHNIQUE: The patient was seen and identified in the preoperative area. Risks, benefits , complications including but not limited to infections ,bleeding ,allergic reaction to the medications ,nerve damage and not complete pain releife , and alternatives were discussed with the patient. The patient agreed to proceed with the procedure and signed the consent. IV was started, and vital signs were stable. Patient was taken to the OR and time out was completed. The patient was placed in the prone position on procedure table and a pillow was placed under the abdomen to reduce lumbar lordosis. The lumbosacral area was prepped and draped in the usual sterile fashion.ere closely monitored during the procedure. Conscious sedation was used during the procedure to decrease patients anxiety. Vital signs was monitered during the entire procedure. Using anterior-posterior fluoroscopy, the L4-5 interlaminar space was identified and the skin over this site was marked and then infiltrated with 1% lidocaine subcutaneously. Subsequently, a 20-gauge Tuohy epidural needle was inserted and advanced toward the epidural space using the ``Loss of resistance technique and guided by AP and lateral fluoroscopy. The correct needle position in the epidural space was verified with the injection of 2 mL of the water soluble contrast dye Isovue 200 contrast and observing an excellent epidurogram with the epidural spread of the dye, after negative aspiration for blood and CSF and in the absence of paresthesias. Again after negative aspiration, a 6 ml mixture containing 80 mg of Depomedrol and 2 ml of preservative free Normal Saline, and 2 ml of preservative free lidocaine 1% solution was injected and a washout of epidurogram was seen. Needle was withdrawn intact, skin was cleansed, and bandages were applied. COMPLICATIONS: None DISPOSITION / PLANS: The patient was placed in a supine position and transferred to the recovery area in a stable condition for observation. There was no evidence of lower extremity motor or sensory deficit after the procedure. Patient was discharged from the recovery room after meeting discharge criteria. Home discharge instructions were given to the patient by the staff. The patient was reexamined prior to discharge. The patient will schedule a follow up in the clinic in 2-4 weeks.
--- NOTE | 2018-04-27 11:18 | FL ---
EXAMINATION TYPE: FL guided pain mgmt statistic DATE OF EXAM: 04/27/2018 HISTORY: Pain 2 secs fl time. [address] Oliver.
[2018-04-27] MEDS ORDERED: IV FLUID CONTINUATION 1,000 ML IV ONE (11:30)
[2018-04-27 11:39] VITALS: BP 127/74; PULSE 63
== END 2018-04-27 11:46 | disposition home or self-care (01) ==
LOC: ORPAIN 09:23
PROVIDERS: ATTEND Specialist
DX: M47.816 Spondylosis without myelopathy or radiculopathy, lumbar region (principal); I10 Essential (primary) hypertension; M51.36 Other intervertebral disc degeneration, lumbar region; Z88.1 Allergy status to other antibiotic agents; Z88.8 Allergy status to other drugs, medicaments and biological substances; Z88.6 Allergy status to analgesic agent
CPT/HCPCS: 62323; J2250; J1030; J3010; Q9966

== ENCOUNTER → 2018-05-19 | Outpatient (CLI) | payer MEDICARE, BC ==
[2018-05-19 13:13] VITALS: BP 123/83; PULSE 85; RESP 16
--- NOTE | 2018-05-19 13:58 | P.PAINPG ---
Subjective Progress Note Date: 05/19/18 This is follow-up visit for this patient with a history of severe and chronic low back pain secondary to lumbar degenerative disc disease, lumbar facet arthropathy, Status post lumbar epidural steroid injections and she had only short-term and partial benefit from it, then radiofrequency ablation of the median branch lumbar area than 6 months ago And she had good benefit from it, also patient diagnosed with cervical degenerative disc disease, cervical postlaminectomy pain syndrome and we have done in the past cervical epidural steroid injections The patient currently on [place] 7.5/325 every 8 hours when necessary, Neurontin 300 mg twice a day Patient denies any side effect of the medication , patient denies any excessive drowsiness or sleepiness, patient denies any suicidal ideation, Patient reported that the current medication is helping to control the pain and improve the activity of daily livings, Patient denies any motor or sensory deficit, denies any change in the bowel movement or urination, patient denies any fever or night sweats. Patient here today for follow-up visit and medication refill Objective - Vital Signs Vital signs: Vital Signs Temp Pulse 85 05/19/18 13:01 Resp 16 05/19/18 13:01 BP 123/83 05/19/18 13:01 Pulse Ox 95 05/19/18 13:01 Intake & Output 05/18/18 05/19/18 05/19/18 18:59 06:59 18:59 Weight 92.986 kg - Exam Physical Examinations : 1-Constitutiona : Cooperative , not in acute distress . 2-HEENT : nech ; supple , no Lymphadenopathy , normal thyroid size . eyes : no ptosis , no icterus , no photophobia . ENT : normal of hearing , normal oropharynx , no Thrush . 3- Respiratory : Chest clear to auscultations Bilaterally , no wheezing , no Rhonchi . 4- Cardiovascular : regular rate and rhythem , S1 , S2 , no S3 , no S4. 5- Gastrointestinal : abdomen soft no tenderness , bowel sounds , no organomegally . 6- Genitourinary : Defferred . 7- neurologic : Cranial nerve II to XII intact , no focal neurological deffecit . 8-psychatric : alert , oriented X 3 , appropriate affect , intact judgment and insight . 9-Lymphatic : no Lymphadenopathy . 10- musculoskeltal : cervical spine = motor stregnth in the deltoid and biceps, motor stregnth biceps and the wrist extensors (C6) . motor stregnth in the triceps muscle . deep tendon reflexes normal at the biceps Right , Left normal at the brachioradia Right , Left Normal at the triceps Right ,Left cervical facet loading test positive. , Lumber spine = normal moter stegnth lower extremities ,thigh and legs .5/5 deep tendon reflexes : normal Knee Jerk , normal ankle Jerk . lumber facet Loading Test positive strait leg raising test positive at 30 degree Right , positve at 30 degree Left Fabere test positive Right and positive Left Sever tenderness over the Sacroiliac joint on the Right , and Left side Assessment and Plan Plan: Assessment and plan= chronic low back pain secondary to lumbar degenerative disc disease , lumbar spondylosis with lumbar facet arthropathy . She had short-term benefit from lumbar epidural steroid injection 3, and she had good result after the radiofrequency ablation of the medial branch lumbar area done more than a year ago chronic and current use of high-risk medication (opioids) Patient denies any side effects of the current pain medication and the current treatment/medication helping the patient to do activity of daily living , Diagnoses, prognosis, treatment options, including but not limited to physical therapy, medication management, interventional therapies, and surgery, were discussed with the patient All the questions answered The narcotic consent was signed and patient agreed and understood the side effects and complications of opioid treatment. Patient signed the narcotic agreement, and was orally counseled, not to overuse, not to abuse, not to Divert , not tp sell pain medication, and to take it as prescribed only, Patient was counseled not to drive or operate heavy equipment while using narcotic medication, and advised not to use alcohol or any Illicit drugs while using the narcotis, the patient's verbalized understanding that lack of compliance with any of the above instructions, will likely to cause discharge from, the pain service, not to renew his narcotic prescriptions Medication managements= patient will be given prescription refills for [place] 7.5/325 one tablet by mouth every 8 hours dispense 20 with 1 refill, and Neurontin 300 mg every 12 hours dispense 60 with 1 refill, and she will be scheduled to have repeat radiofrequency ablation of the medial branch lumbar area at L3/L4 5/L5-S1 we will start the right side later on to the left side , Time with Patient: Less than 30 PQRS Measure Charge Sheet Measure #130: Documentation of Current Meds in Medical Chart: Patient's medications documented in chart Measure #226: Tobacco Use: Screen & Cessation Intervention: Pt not a tobacco user Measure #111: Pneumonia Vaccination: Pneumococcal vaccine NOT administered or previously given Measure #47: Advance Care Plan: Advance care planning discussed & documented, plan or surrogate given Measure #412: Opioid Treatment Agreement: Documented signed opioid trtmnt agreemnt min once during opioid trtmnt Measure #408: Opioid Therapy Follow-up Evaluation: Patient had f/u eval minimum every 3 months during opioid therapy Measure #317: Preventitive Care & Scrn High Bld Press & F/U: Normal blood pressure, f/u not required Measure #128: Body Mass Index (BMI) Screening & Follow-up: BMI documented ABOVE normal parameters - f/u documented Measure #131: Pain Assessment & Follow-up: Pain positive & plan documented, Follow-up scheduled Measure #431: Unhealthy Alcohol Use Preventative Care & Scrn: Patient not identified as an unhealthy alcohol user PQRS Narrative: Smoking Status Never smoker Blood Pressure 123/83 Pain Intensity [Bilateral 4 Lower Back] Scale Used Numeric (1 - 10) Hx Alcohol Use (MH) No Home Medications: Ambulatory Orders Metoprolol Succinate [Toprol XL] 50 mg PO HS 04/14/14 PARoxetine HCL [Paxil Cr] 37.5 mg PO QAM 04/14/14 clonazePAM [KlonoPIN] 1 mg PO BID 04/14/14 [place]-3 Fatty Acids [[place]-3] 2 cap PO TID 11/15/15 Atorvastatin Calcium [Lipitor] 20 mg PO AC-SUPPER 05/22/16 Multivitamins, Thera [Multivitamin] 1 tab PO DAILY 06/17/16 Ziprasidone [Geodon] 40 mg PO BID 06/17/16 Diclofenac Sodium Gel [Voltaren Gel] 1 applic TOPICAL DIRECTED 10/23/17 Hydrocodone/Acetaminophen [[place] 7.5-325] 1 each PO Q6HR PRN #30 tab 01/07/18 Gabapentin [Neurontin] 300 mg PO BID #60 cap 03/04/18 Controlled Substance Measures - Controlled Substance Measures Is patient prescribed a controlled substance at discharge?: Yes When asked, does pt state using other controlled substances?: Yes If prescribed controlled substance>3 days was MAPS reviewed?: Yes If Rx opioid, was Start Talking consent form obtained?: Yes If opioid is for acute pain is fill amount 7 days or less?: No Was information provided regarding opioid addiction?: Yes
== END | disposition home or self-care (01) ==
LOC: PNWHC3 12:27
PROVIDERS: ATTEND Specialist
DX: G89.29 Other chronic pain (principal); M51.36 Other intervertebral disc degeneration, lumbar region; M47.816 Spondylosis without myelopathy or radiculopathy, lumbar region; M46.96 Unspecified inflammatory spondylopathy, lumbar region; Z79.891 Long term (current) use of opiate analgesic; Z79.899 Other long term (current) drug therapy
CPT/HCPCS: 99211

== ENCOUNTER 2018-06-11 06:53 | Day surgery (SDC) | payer MEDICARE, BC ==
[2018-06-08 10:59] VITALS: BMI 37.6
[2018-06-11 07:15] VITALS: TEMP 98
[2018-06-11] MEDS ORDERED: LIDOCAINE 1% 20 ML VIAL (10MG/ML) FOR IV START INTRADERMA ONE (07:15)
[2018-06-11] MEDS ORDERED: LACTATED RINGERS 1,000 ML IV ONE ×2 (07:15→09:03)
--- NOTE | 2018-06-11 09:13 | FL ---
EXAMINATION TYPE: FL guided pain mgmt statistic DATE OF EXAM: 06/11/2018 FLUOROSCOPY Fluoroscopy time of 11 seconds was used during right lumbar radiofrequency ablation. 3 image/s docum ent/s the procedure.
[2018-06-11 09:18] VITALS: BP 124/85; PULSE 80; RESP 18
--- NOTE | 2018-06-11 09:19 | P.PCN ---
Date of Procedure: 06/11/18 Procedure(s) Performed: PREOPERATIVE DIAGNOSIS: 1-Lumbar Spondylosis with Facet Arthropathy without myelopathy. POSTOPERATIVE DIAGNOSIS: 1- Lumbar Spondylosis with Facet Arthropathy without myelopathy. PROCEDURES : Right Radiofrequency thermocoagulation, L3-L4, L4-L5, and L5-S1 medial branch, with fluoroscopic guidance ANESTHESIA: Moderate sedation with intravenous versed 2 mg and fentaneyl 100 mcg and local infiltration with lidocaine 1% 6 ml EBL: Minimal PROCEDURE INDICATION: The patient with low back pain secondary to lumbar facet arthropathy who had more than 50% relief of her pain with previous diagnostic lumbar medial branch block with bupivacaine. PROCEDURE DESCRIPTION / TECHNIQUE: The patient was seen and identified in the preoperative area. Risks, benefits, complications, including but not limited to risk of infection ,bleeding , allergic reactions to the medications and no complete pain releife , and alternatives were discussed with the patient, the patient agreed to proceed with the procedure and signed the consent. IV was started. Vital signs remained stable throughout the procedure. Patient was taken to the OR and time out was completed. The patient was placed in the prone position on the procedure table. The lumber area was prepped and draped in the usual sterile fashion. . Vital signs were closely monitored during the procedure .IV sedation was used during the procedure to decrease patients anxiety. Using AP and then oblique fluoroscopy, the ``eye of the [place] dog corresponding to the connection between the superior and transverse articular processes of right L3, L4, and L5 were identified, marked, and localized with 1 % lidocaine. Subsequently, a 18 -ak radiofrequency cannula with a 10- mm active tip was advanced guided by fluoroscopy to each of the ``eyes of the [place] dog at right L3, L4, and L5. Each site then underwent sensory testing at 50 Hz and 0 to 1 volt and motor testing at 2.5 Hz and 0 to 3 volt with local stimulation, but no radicular symptoms down the legs. Thereafter the right L3-4, L4-5, and L5-S1 sites underwent radiofrequency thermocoagulation at 80 degrees celsius for 90 seconds after injecting 0.5 ml of PF lidocaine 1%. then After the thermocoagulation done , 1 ml of the block solution containing Kenalog 40 mg and 3 ml of marcain 0.5% was injected at the right L3-4 , L4-5 , and L5-S1, levels after negative aspiration of CSF and blood and with no paresthesias. Cannulas were retracted while injecting lidocaine 1% until the needle is out. At the end of the procedure, the skin was cleansed and bandages were applied. COMPLICATIONS: No acute complications. DISPOSITION / PLANS: The patient was placed in a supine position and transferred to the recovery area in a stable condition for observation and was discharged from the recovery room after meeting discharge criteria. Home discharge instructions given to the patient by the staff. The patient was reexamined prior to discharge. The patient will schedule a follow up in the clinic in 2-4 weeks.
== END 2018-06-11 09:31 | disposition home or self-care (01) ==
LOC: ORPAIN 06:53
PROVIDERS: ATTEND Specialist
DX: M47.816 Spondylosis without myelopathy or radiculopathy, lumbar region (principal)
CPT/HCPCS: 64635; 64636 ×2; J3301; 99152

== ENCOUNTER 2018-07-01 07:26 | Day surgery (SDC) | payer MEDICARE, BC ==
[2018-06-24 16:40] VITALS: BMI 37.3
[2018-07-01 07:48] VITALS: RESP 18; TEMP 97.8
--- NOTE | 2018-07-01 08:46 | P.PCN ---
Date of Procedure: 07/01/18 Procedure(s) Performed: PREOPERATIVE DIAGNOSIS: 1-Lumbar Spondylosis with Facet Arthropathy without myelopathy. POSTOPERATIVE DIAGNOSIS: 1- Lumbar Spondylosis with Facet Arthropathy without myelopathy. PROCEDURES : Left Radiofrequency thermocoagulation, L3-L4, L4-L5, and L5-S1 medial branch, with fluoroscopic guidance ANESTHESIA: Moderate sedation with intravenous versed 2 mg and fentaneyl 50 mcg and local infiltration with lidocaine 1% 6 ml EBL: Minimal PROCEDURE INDICATION: The patient with low back pain secondary to lumbar facet arthropathy who had more than 50% relief of her pain with previous diagnostic lumbar medial branch block with bupivacaine. PROCEDURE DESCRIPTION / TECHNIQUE: The patient was seen and identified in the preoperative area. Risks, benefits, complications, including but not limited to risk of infection ,bleeding , allergic reactions to the medications and no complete pain releife , and alternatives were discussed with the patient, the patient agreed to proceed with the procedure and signed the consent. IV was started. Vital signs remained stable throughout the procedure. Patient was taken to the OR and time out was completed. The patient was placed in the prone position on the procedure table. The lumber area was prepped and draped in the usual sterile fashion. . Vital signs were closely monitored during the procedure .IV sedation was used during the procedure to decrease patients anxiety. Using AP and then oblique fluoroscopy, the ``eye of the [place] dog corresponding to the connection between the superior and transverse articular processes of left L3, L4, and L5 were identified, marked, and localized with 1 % lidocaine. Subsequently, a 18 -sr radiofrequency cannula with a 10- mm active tip was advanced guided by fluoroscopy to each of the ``eyes of the [place] dog at left L3, L4, and L5. Each site then underwent sensory testing at 50 Hz and 0 to 1 volt and motor testing at 2.5 Hz and 0 to 3 volt with local stimulation, but no radicular symptoms down the legs. Thereafter the leftL3-4, L4-5, and L5-S1 sites underwent radiofrequency thermocoagulation at 80 degrees celsius for 90 seconds after injecting 0.5 ml of PF lidocaine 1%. then After the thermocoagulation done , 1 ml of the block solution containing Kenalog 40 mg and 3 ml of Ropivacaine 0.5% was injected at the left L3-4 , L4-5 , and L5-S1, levels after negative aspiration of CSF and blood and with no paresthesias. Cannulas were retracted while injecting lidocaine 1% until the needle is out. . At the end of the procedure, the skin was cleansed and bandages were applied. COMPLICATIONS: No acute complications. DISPOSITION / PLANS: The patient was placed in a supine position and transferred to the recovery area in a stable condition for observation and was discharged from the recovery room after meeting discharge criteria. Home discharge instructions given to the patient by the staff. The patient was reexamined prior to discharge. The patient will schedule a follow up in the clinic in 2-4 weeks.
--- NOTE | 2018-07-01 09:03 | FL ---
EXAMINATION TYPE: FL guided pain mgmt statistic DATE OF EXAM: 07/01/2018 CLINICAL HISTORY: Low back pain. TECHNIQUE: Fluoroscopy. COMPARISON: None. FINDINGS: Fluoroscopic guidance was provided during pain relief procedure performed by Dr. Jessica . A total of 10 seconds of fluoroscopic time was utilized during the procedure and 3 spot images are acquired. Images acquired shows needle localization at several levels in the lower lumbar spine. IMPRESSION: As Above.
[2018-07-01] MEDS ORDERED: IV FLUID CONTINUATION 1,000 ML IV ONE (09:09)
[2018-07-01 09:12] VITALS: PULSE 63
[2018-07-01 09:51] VITALS: BP 131/73
== END 2018-07-01 09:57 | disposition home or self-care (01) ==
LOC: ORPAIN 07:26
PROVIDERS: ATTEND Anesthesiology
DX: M47.816 Spondylosis without myelopathy or radiculopathy, lumbar region (principal); Z79.51 Long term (current) use of inhaled steroids; Z88.1 Allergy status to other antibiotic agents; Z88.5 Allergy status to narcotic agent; Z88.8 Allergy status to other drugs, medicaments and biological substances
CPT/HCPCS: 64635; 64636 ×2; J2250; J3301; J3010; 99152

== ENCOUNTER → 2018-07-22 | Outpatient (CLI) | payer MEDICARE, BC ==
[2018-07-22 13:40] VITALS: BP 119/75; RESP 16
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
== END | disposition home or self-care (01) ==
LOC: PNWHC3 12:38
PROVIDERS: ATTEND Specialist
DX: G89.29 Other chronic pain (principal); M51.36 Other intervertebral disc degeneration, lumbar region; M47.816 Spondylosis without myelopathy or radiculopathy, lumbar region; M46.96 Unspecified inflammatory spondylopathy, lumbar region; Z79.899 Other long term (current) drug therapy; Z79.891 Long term (current) use of opiate analgesic
CPT/HCPCS: 99211

== ENCOUNTER → 2018-08-13 | Outpatient (CLI) | payer MEDICARE, BC ==
--- NOTE | 2018-08-13 22:57 | MR ---
MRI CERVICAL SPINE: CLINICAL HISTORY: Spondylosis without myelopathy per order. Neck pain with history of cervical fusion per order. Headache with neck pain and stiffness with prior surgery per patient. TECHNIQUE: Multiplanar, multisequence imaging of the cervical spine is performed without and with IV contrast, 9 cc of gadolinium was given intravenously. COMPARISON: Prior MRI cervical spine February 20, 2016.. FINDINGS: Sagittal images of the cervical spine show the craniocervical junction to remain within nor mal limits. The cervical and upper thoracic spinal cord remains normal in course, caliber, and signa l. Vertebral alignment is stable and satisfactory. There is redemonstration of artifact from anterio r fusion plate C4-C7 levels. Vertebral body heights and disc space heights are preserved above and be low surgical levels. There is persistent small hemangioma in the inferior T3 vertebra sagittal image 8. No suspicious new posterior disc herniations are seen. No suspicious enhancement is noted. Axial images show the C2-C3 level to remain within normal limits. Axial images at C3-C4 level redemonstrate small right paracentral disc protrusion mildly effacing the anterior thecal sac with right-sided uncovertebral facet degenerative changes causing mild right-roosevelt ed neural foraminal narrowing. Left-sided neural foramen is patent. No significant change from prior. Axial images at C4-C5 level shows a right paracentral focal intense projection presumed bony mildly e ffacing anterior thecal sac and estimates 40, no significant change from prior. Bilateral neural fora ahsan are patent. Axial images at the C5-C6 level show loculated paracentral/foraminal disc protrusions are ossific pro jections effacing anterolateral thecal sac and adnexa measures 32 this is not significantly changed f rom prior and is causing [id number] bilateral neural foraminal narrowing. Axial images at C6-C7 and C7-T1 levels redemonstrated artifact from surgical change but otherwise are felt within normal limits. Somewhat poorly visualized small thyroid is redemonstrated. IMPRESSION: Postsurgical changes C4-C7 level redemonstrated. Overall stable findings from prior MRI. No significant interval progression is noted.
== END | disposition home or self-care (01) ==
LOC: RADMRIMAIN 16:05
PROVIDERS: ATTEND Specialist
DX: M54.2 Cervicalgia (principal); Z98.890 Other specified postprocedural states
CPT/HCPCS: 82565; 72156; 36415; A9581

== ENCOUNTER → 2018-09-16 | Outpatient (CLI) | payer MEDICARE, BC ==
[2018-09-16 12:43] VITALS: BP 121/81; PULSE 92; RESP 18
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
== END | disposition home or self-care (01) ==
LOC: PNWHC3 12:04
PROVIDERS: ATTEND Specialist
DX: G89.29 Other chronic pain (principal); M54.5 Low back pain; M51.36 Other intervertebral disc degeneration, lumbar region; M47.816 Spondylosis without myelopathy or radiculopathy, lumbar region; M46.86 Other specified inflammatory spondylopathies, lumbar region; M99.71 Connective tissue and disc stenosis of intervertebral foramina of cervical region; M96.1 Postlaminectomy syndrome, not elsewhere classified; M46.82 Other specified inflammatory spondylopathies, cervical region; F11.90 Opioid use, unspecified, uncomplicated; Z98.890 Other specified postprocedural states; Z98.1 Arthrodesis status; Z79.899 Other long term (current) drug therapy
CPT/HCPCS: 99211

== ENCOUNTER → 2018-10-13 | Day surgery (SDC) | payer MEDICARE, BC ==
[2018-10-08 11:34] VITALS: BMI 38.0
[~2018-10-13] MED LIST changes: -LACTATED RINGERS 1,000 ML IV SCH; +SODIUM CHLORIDE 0.9% 500 ML 500 ML IV ONE
[2018-10-13 07:47] VITALS: TEMP 98.1
[2018-10-13 08:14] LABS: Glucose,Whole Blood 110 mg/dL (75-99)
--- NOTE | 2018-10-13 08:46 | P.PCN ---
Date of Procedure: 10/13/18 Surgeon: Christopher Deshpande Description of Procedure: PREOPERATIVE DIAGNOSIS: Cervical radiculopathy Cervical degenerative disc disease POSTOPERATIVE DIAGNOSIS: Cervical radiculopathy Cervical degenerative disc disease PROCEDURE Cervical epidural steroid injection under fluoroscopic guidance at the C7-T1 interspace. ANESTHESIA: Local with 1% lidocaine 3 ml and IV sedation with Versed 2 mg and fentanyl 50 mg EBL: Minimal PROCEDURE INDICATION: The patient with cervical radicular symptoms unresponsive to conservative treatment. Fluoroscopy was used to optimize visualization of the needle placement and to maximize safety. Her pain is mainly in her neck and radiating into both shoulders. Her MRI demonstrates a new disc bulge at C3 4. PROCEDURE DESCRIPTION / TECHNIQUE: The patient was seen and identified in the preoperative area. Risks, benefits , complications including but not limited to infections ,bleeding ,allergic reaction to the medications ,nerve damage and incomplete pain relief, and alternatives were discussed with the patient. The patient agreed to proceed with the procedure and signed the consent. IV was started, and vital signs were stable. Patient was taken to the OR and time out was completed. The patient was placed in the prone position on procedure table and a pillow was placed under the chest area.. The cervical area was prepped and draped in the usual sterile fashion. Conscious sedation was used during the procedure to decrease patient s anxiety. Vital signs was monitered during the entire procedure. Using anterior-posterior fluoroscopy, the C7-T1 interlaminar space was identified and the skin over this site was marked and then infiltrated with 1% lidocaine subcutaneously. Subsequently, a 20-gauge Tuohy epidural needle was inserted and advanced toward the epidural space using the loss of resistance technique and guided by AP and lateral fluoroscopy. The correct needle position in the epidural space was verified with the injection of contrast and observing an excellent epidurogram with the epidural spread of the dye, after negative aspiration for blood and CSF and in the absence of paresthesias. Again after negative aspiration, a 4 ml mixture containing 20 mg of Dexamethasone was injected. Needle was withdrawn intact, skin was cleansed, and bandages were applied. COMPLICATIONS: None DISPOSITION / PLANS: The patient was placed in a supine position and transferred to the recovery area in a stable condition for observation. There was no evidence of lower extremity motor or sensory deficit after the procedure. Patient was discharged from the recovery room after meeting discharge criteria. Home discharge instructions were given to the patient by the staff. The patient was reexamined prior to discharge. The patient will schedule a follow up in the clinic in 2-4 weeks.
[2018-10-13 08:56] VITALS: PULSE 77
--- NOTE | 2018-10-13 09:08 | FL ---
EXAMINATION TYPE: FL guided pain mgmt statistic DATE OF EXAM: 10/13/2018 CLINICAL HISTORY: Neck pain. TECHNIQUE: Fluoroscopy. COMPARISON: None. FINDINGS: Fluoroscopic guidance was provided during pain relief procedure performed by Dr. Deshpande . A total of 2 seconds of fluoroscopic time was utilized during the procedure and single spot fluorosc opic image is acquired. Single image acquired shows needle localization near cervicothoracic junctio n with cervical fusion hardware noted. IMPRESSION: As Above.
[2018-10-13 09:29] VITALS: BP 113/70; RESP 18
== END | disposition home or self-care (01) ==
LOC: ORPAIN 07:34
PROVIDERS: ATTEND Pain Medicine Pain Medicine
DX: G89.29 Other chronic pain (principal); M50.10 Cervical disc disorder with radiculopathy, unspecified cervical region; M96.1 Postlaminectomy syndrome, not elsewhere classified; M48.02 Spinal stenosis, cervical region; Z79.899 Other long term (current) drug therapy; Z88.5 Allergy status to narcotic agent; Z88.1 Allergy status to other antibiotic agents; Z88.8 Allergy status to other drugs, medicaments and biological substances
CPT/HCPCS: 62321; J2250; J1100; J3010; 99152

== ENCOUNTER 2018-11-02 09:45 | Day surgery (SDC) | payer MEDICARE, BC ==
[2018-10-29 14:24] VITALS: BMI 37.5
[~2018-11-02 09:45] MED LIST changes: -SODIUM CHLORIDE 0.9% 500 ML 500 ML IV ONE; +SODIUM CHLORIDE 0.9% 500 ML 500 ML IV SCH
[2018-11-02] MEDS ORDERED: LACTATED RINGERS 1,000 ML IV ONE (10:41)
[2018-11-02 10:43] VITALS: TEMP 98.2
[2018-11-02 10:50] LABS: Glucose,Whole Blood 117 mg/dL (75-99)
--- NOTE | 2018-11-02 11:49 | P.PCN ---
Date of Procedure: 11/02/18 Procedure(s) Performed: . PROCEDURE 1. Cervical epidural steroid injection under fluoroscopic guidance, C7-T1 2. Cervical epidurogram. PREOPERATIVE DIAGNOSIS: 1- Cervical Degenerative Disc Diseases 2- Cervical radiculopathy. POSTOPERATIVE DIAGNOSIS: : 1- Cervical Degenerative Disc Diseases , 2- Cervical radiculopathy. ANESTHESIA: Local anesthesia with lidocaine 1 % , and moderate sedation, with Versed 2 mg and Fentanyl 50 mcg. EBL 0 PROCEDURE INDICATION: The patient with neck pain and radiculitis unresponsive to conservative treatment consents for procedure. PROCEDURE DESCRIPTION / TECHNIQUE: The patient was seen and identified in the preoperative area. Risks, benefits, complications, including but not limited to infections ,bleeding , allergic reactions to the medications ,and not complete pain releife, and alternatives were discussed with the patient, the patient agreed to proceed with the procedure and signed the consent. Patient was taken to the OR and time out was completed. The patient was placed in the prone position on the procedure table. A pillow was placed under the patients chest to increase the cervical interlaminar space. The cervical area was prepped and draped in the usual sterile fashion. Vital signs were closely monitored during the procedure. Conscious sedation was used during the procedure to decrease patients anxiety. Using anterior-posterior fluoroscopy, the C7-T1 interlaminar space was identified and the skin over this site was marked and then infiltrated with 1% lidocaine subcutaneously. Subsequently, a 20-gauge 3-1/2-inch Tuohy epidural needle was inserted and advanced toward the epidural space by means of the `` hanging-drop technique and guided by AP and lateral fluoroscopy. The correct needle position in the epidural space was verified with the injection of 2 mL of the water soluble contrast dye Isovue-200 and observing an excellent epidurogram with the epidural spread of the dye, after negative aspiration for blood and CSF and in the absence of paresthesias. Again after negative aspiration, mixture containing 20 mg Dexamethasone and 2 ml of preservative- free normal saline injected and a washout of epidurogram was seen. Needle was withdrawn intact, skin was cleansed, and bandages were applied. Complications= none. Disposition= patient was placed in supine position and transferred to the recovery room area in stable condition and there was no evidence of upper or lower extremity motor or sensory deficit after the procedure patient was discharged from recovery room after discharge criteria met and home discharge instructions was given by the staff and patient will follow with the pain clinic in 2-4 weeks
[2018-11-02] MEDS ORDERED: IV FLUID CONTINUATION 800 ML IV ONE (11:54)
[2018-11-02 12:03] VITALS: PULSE 72; RESP 18
[2018-11-02 12:15] VITALS: BP 111/79
--- NOTE | 2018-11-02 13:19 | FL ---
Fluoroscopy HISTORY: Pain 2 seconds fluoroscopy time supplied to the referring clinician. 2 intraoperative C-arm images docume nt the procedure. See dictated report from anesthesia.
== END 2018-11-02 12:24 | disposition home or self-care (01) ==
LOC: ORPAIN 09:45
PROVIDERS: ATTEND Specialist
DX: M50.10 Cervical disc disorder with radiculopathy, unspecified cervical region (principal); I10 Essential (primary) hypertension; G47.33 Obstructive sleep apnea (adult) (pediatric); E11.9 Type 2 diabetes mellitus without complications; Z88.1 Allergy status to other antibiotic agents; Z88.5 Allergy status to narcotic agent; Z88.8 Allergy status to other drugs, medicaments and biological substances
CPT/HCPCS: 62321; J2250; J1100; J3010; Q9966

== ENCOUNTER → 2018-11-11 | Outpatient (CLI) | payer MEDICARE, BC ==
[2018-11-11 13:16] VITALS: BP 107/69; PULSE 81; RESP 18
--- NOTE | 2018-11-11 14:18 | P.PN ---
Subjective Progress Note Date: 11/11/18 Gali Ramirez is a 53-year-old female presents today for follow-up. She has a history of neck pain and low back pain. She recently had a cervical epidural steroid injection with significantly improved her pain. She's also had radiofrequency ablation done to her lumbar spine with excellent relief. She also has a long history of seizures which she's been doing well and is stable on with her medications. She currently uses Verdon 7.5 mg as needed sometimes once a day for her pain. Her urine drug screens have been appropriate in the past. She denies any side effects from the current medications. She does use Klonopin 1-2 mg per day chronically for her seizure disorder. She denies any side effects from the medication and understands the risks associated with taking the medications together. On today's visit she continues to complain of some low back pain which she reports a started come back since her radiofrequency ablation is starting to wear off. She had the right side radiofrequency ablation done in May in the left side was done in June. She reports pain with extension and flexion of the lumbar spine and with side bending. She denies any significant radicular symptoms down her lower extremities. She also denies any weakness in her lower extremities. Also 12 point review of systems was done and is negative except as noted in the HPI Objective - Vital Signs Vital signs: Vital Signs Temp Pulse 81 11/11/18 13:05 Resp 18 11/11/18 13:05 BP 107/69 11/11/18 13:05 Pulse Ox 95 11/11/18 13:05 Intake & Output 11/10/18 11/11/18 11/11/18 18:59 06:59 18:59 Weight 96.162 kg - Exam General: Awake and alert oriented 3 no distress Respiratory exam: No audible wheezing no accessory muscle usage Cardiovascular exam: regular rate, palpable bilateral pulses, no lower extremity edema Abdominal exam: No distention nontender to palpation Cervical spine: Normal alignment, Spurling's negative, facet loading negative Lumbar spine: Loss of lumbar lordosis, normal alignment, tender to palpation over bilateral paraspinal muscles, facet loading is positive bilaterally. Straight leg raise is negative. Sacroiliac joints: Nontender to palpation, ANAT is negative, [place] negative Neuro exam: Normal sensation in bilateral upper extremities, deep tendon reflexes are 2+ bilateral upper extremities. Normal sensation in bilateral lower extremities. Deep tendon reflexes are 2+ in lower extremities Psych exam: Cooperative, appropriate mood Assessment and Plan Assessment: #1 lumbar spondylosis without myelopathy #2 cervical radiculopathy #3 obesity #4 chronic seizure disorder Plan: After discussion and physical exam patient is requesting to repeat her radiofrequency ablation of lumbar spine. I discussed with her that the right side was done about 6 months ago we can repeat that at this time. We'll continue her medications as prescribed in the past. I discussed the risk of using benzodiazepines and narcotics as they can increase the risk of respiratory depression as well as . Patient understands risks associated the medication is willing to accept the risk because she does not use the opioids regularly. Urine drug screen was taken on today's visit she could follow up on the results the next visit. Maps was checked and is appropriate. Opioid start talking forms also noted in the chart. Schedule patient for right- sided radiofrequency ablation repeat as soon as possible and then a left side repeat in the future.
== END | disposition home or self-care (01) ==
LOC: PNWHC3 12:41
PROVIDERS: ATTEND Hospitalist
DX: M47.816 Spondylosis without myelopathy or radiculopathy, lumbar region (principal); M54.12 Radiculopathy, cervical region; E66.9 Obesity, unspecified; M54.2 Cervicalgia; G40.909 Epilepsy, unspecified, not intractable, without status epilepticus; Z79.891 Long term (current) use of opiate analgesic; Z98.890 Other specified postprocedural states; Z79.899 Other long term (current) drug therapy
CPT/HCPCS: 80307; G0482; G0463; 99211

== ENCOUNTER 2018-12-02 09:20 | Day surgery (SDC) | payer MEDICARE, BC ==
[2018-11-30 14:32] VITALS: BMI 37.6
[2018-12-02 10:02] VITALS: RESP 18; TEMP 98
[2018-12-02] MEDS ORDERED: LACTATED RINGERS 1,000 ML IV ONE (10:02)
[2018-12-02] MEDS ORDERED: LIDOCAINE 1% 20 ML VIAL (10MG/ML) FOR IV START INTRADERMA ONE (10:02)
[2018-12-02 10:16] LABS: Glucose,Whole Blood 106 mg/dL (75-99)
--- NOTE | 2018-12-02 11:33 | P.PCN ---
Date of Procedure: 12/02/18 Procedure(s) Performed: PREOPERATIVE DIAGNOSIS: 1-Lumbar Spondylosis with Facet Arthropathy without myelopathy. POSTOPERATIVE DIAGNOSIS: 1- Lumbar Spondylosis with Facet Arthropathy without myelopathy. PROCEDURES : Right Radiofrequency thermocoagulation, L3-L4, L4-L5, and L5-S1 medial branch, with fluoroscopic guidance ANESTHESIA: Moderate sedation with intravenous versed 2 mg and fentaneyl 50 mcg and local infiltration with lidocaine 1% 6 ml EBL: Minimal PROCEDURE INDICATION: The patient with low back pain secondary to lumbar facet arthropathy who had more than 50% relief of her pain with previous diagnostic lumbar medial branch block with bupivacaine. PROCEDURE DESCRIPTION / TECHNIQUE: The patient was seen and identified in the preoperative area. Risks, benefits, complications, including but not limited to risk of infection ,bleeding , allergic reactions to the medications and no complete pain releife , and alternatives were discussed with the patient, the patient agreed to proceed with the procedure and signed the consent. IV was started. Vital signs remained stable throughout the procedure. Patient was taken to the OR and time out was completed. The patient was placed in the prone position on the procedure table. The lumber area was prepped and draped in the usual sterile fashion. . Vital signs were closely monitored during the procedure .IV sedation was used during the procedure to decrease patients anxiety. Using AP and then oblique fluoroscopy, the ``eye of the Lawrence dog corresponding to the connection between the superior and transverse articular processes of right L3, L4, and L5 were identified, marked, and localized with 1 % lidocaine. Subsequently, a 18 [id number] radiofrequency cannula with a 10- mm active tip was advanced guided by fluoroscopy to each of the ``eyes of the [place] dog at right L3, L4, and L5. Each site then underwent sensory testing at 50 Hz and 0 to 1 volt and motor testing at 2.5 Hz and 0 to 3 volt with local stimulation, but no radicular symptoms down the legs. Thereafter the right L3-4, L4-5, and L5-S1 sites underwent radiofrequency thermocoagulation at 80 degrees celsius for 90 seconds after injecting 0.5 ml of PF lidocaine 1%. then After the thermocoagulation done , 1 ml of the block solution containing Kenalog 40 mg and 3 ml of marcain 0.5% was injected at the right L3-4 , L4-5 , and L5-S1, levels after negative aspiration of CSF and blood and with no paresthesias. Cannulas were retracted while injecting lidocaine 1% until the needle is out. At the end of the procedure, the skin was cleansed and bandages were applied. COMPLICATIONS: No acute complications. DISPOSITION / PLANS: The patient was placed in a supine position and transferred to the recovery area in a stable condition for observation and was discharged from the recovery room after meeting discharge criteria. Home discharge instructions given to the patient by the staff. The patient was reexamined prior to discharge. The patient will schedule a follow up in the clinic in few weeks.
--- NOTE | 2018-12-02 11:46 | FL ---
EXAMINATION TYPE: FL guided pain mgmt statistic DATE OF EXAM: 12/02/2018 CLINICAL HISTORY: Low back pain. TECHNIQUE: Fluoroscopy. COMPARISON: None. FINDINGS: Fluoroscopic guidance was provided during pain relief procedure performed by Dr. Jessica . A total of seconds of fluoroscopic time was utilized during the procedure and 3 spot images are ac quired. Images acquired shows needle localization at several levels in the lower lumbar spine. IMPRESSION: As Above.
[2018-12-02 12:07] VITALS: BP 130/60; PULSE 70
[2018-12-02] MEDS ORDERED: IV FLUID CONTINUATION 1,000 ML IV ONE (12:15)
== END 2018-12-02 12:24 | disposition home or self-care (01) ==
LOC: ORPAIN 09:20
PROVIDERS: ATTEND Specialist
DX: M47.816 Spondylosis without myelopathy or radiculopathy, lumbar region (principal); Z88.8 Allergy status to other drugs, medicaments and biological substances; Z88.1 Allergy status to other antibiotic agents; Z88.5 Allergy status to narcotic agent
CPT/HCPCS: 64636 ×2; 64635; J2250; J3301; J3010; 99152

== ENCOUNTER → 2019-01-06 | Outpatient (CLI) | payer MEDICARE, BC ==
[2019-01-06 13:35] VITALS: BP 130/88; PULSE 70; RESP 18
--- NOTE | 2019-01-06 14:25 | P.PN ---
Subjective Progress Note Date: 01/06/19 This is a follow-up visit for this 53-year-old female , She has a history of neck pain, and low back pain. She recently had a cervical epidural steroid injection with significantly improved her pain. She's also had radiofrequency ablation done to her lumbar spine with excellent relief. She also has a long history of seizures which she's been doing well and is stable on with her medications. She currently uses [place] 7.5 mg as needed sometimes once a day for her pain. Neurontin 300 mg twice a day and Voltaren gel to be applied to the low back area Her urine drug screens have been appropriate in the past. She denies any side effects from the current medications. She does use Klonopin 1-2 mg per day chronically for her seizure disorder. She denies any side effects from the medication and understands the risks associated with taking the medications together. She is very satisfied with the results of the radiofrequency Also 12 point review of systems was done and is negative except as noted in the HPI Physical Examinations : -Constitutiona : Cooperative , not in acute distress . -HEENT : nech ; supple , no Lymphadenopathy , normal thyroid size . eyes : no ptosis , no icterus, no photophobia . - neurologic : Cranial nerve II to XII intact , no focal neurological deffecit . -psychatric : alert , oriented X 3 , appropriate affect , intact judgment and insight . -Lymphatic : no Lymphadenopathy . - musculoskeltal : . Lumber spine moter stegnth lower extremities ,thigh and legs 5/5 Right side , 5/5 Left side Assessment and Plan Assessment: #1 lumbar spondylosis without myelopathy #2 cervical radiculopathy #3 obesity #4 chronic seizure disorder Plan: Neck pain Improved after cervical epidural steroid injection Low back pain improved after the radiofrequency ablation of the right-sided medial branch lumbar area Patient currently using [place] 7.5 when necessary daily, and Neurontin 300 mg twice a day and Voltaren gel to be applied to the lumbar area twice a day Prescription refills given for 2 months and she will follow up in the pain clinic in 2 months - PQRS measures = - Patient's medications are documented in the chart. -Tobacco use is negative and counseling.Given. -Patient's has not received pneumococcal vaccine. -Advanced care planning discussed, patient not eligible. -Opiate contract signed. -Pain positive and follow-up visit/procedure is scheduled. -Patient's blood pressure measured [ 130/88 ] , and documented in the record ,and patient will follow up with the primary care. -Patient's weight was measured and body mass index [ 36.4 ] above the, within the normal limits and counseling was done. and patient instructed to follow-up with the primary care physician. -Patient was not identified as an unhealthy alcohol user Objective - Vital Signs Vital signs: Vital Signs Temp Pulse 70 01/06/19 13:33 Resp 18 01/06/19 13:33 BP 130/88 01/06/19 13:33 Pulse Ox 96 01/06/19 13:33 Intake & Output 01/05/19 01/06/19 01/06/19 18:59 06:59 18:59 Weight 90.265 kg
== END | disposition home or self-care (01) ==
LOC: PNWHC3 12:55
PROVIDERS: ATTEND Specialist
DX: M47.816 Spondylosis without myelopathy or radiculopathy, lumbar region (principal); M54.12 Radiculopathy, cervical region; G40.909 Epilepsy, unspecified, not intractable, without status epilepticus; E66.9 Obesity, unspecified; Z79.891 Long term (current) use of opiate analgesic; Z79.899 Other long term (current) drug therapy; Z68.36 Body mass index [BMI] 36.0-36.9, adult
CPT/HCPCS: 99211

== ENCOUNTER → 2019-02-23 | Outpatient (CLI) | payer MEDICARE, BC ==
[2019-02-23 12:54] VITALS: BP 125/83; PULSE 73; RESP 16
--- NOTE | 2019-02-23 13:08 | P.PAINPG ---
Subjective Progress Note Date: 02/23/19 Gali is a 53-year-old female presents today for follow-up. She continues to have back pain as well as neck pain. She reports her back feels significantly better after the last ablation. She reports that she uses pain medication only as needed as well as a heating pad. Were set her neck is starting to bother her significantly. She had an epidural injection in October of last year and the pain is starting to come back now. She reports pain with extension and flexion of her cervical spine. She's had multiple neck surgeries in the past including anterior cervical fusion. She reports she uses [place] as needed as well as Voltaren gel as needed. She denies any side effects from the pain medications. She is interested in having another cervical epidural steroid injection. Objective - Vital Signs Vital signs: Vital Signs Temp Pulse 73 02/23/19 12:45 Resp 16 02/23/19 12:45 BP 125/83 02/23/19 12:45 Pulse Ox 98 02/23/19 12:45 Intake & Output 02/22/19 02/23/19 02/23/19 18:59 06:59 18:59 Weight 92.986 kg - Exam General: Awake and alert oriented 3 no distress Respiratory exam: No audible wheezing no accessory muscle usage Cardiovascular exam: regular rate, palpable bilateral pulses, no lower extremity edema Abdominal exam: No distention nontender to palpation Cervical spine: Normal alignment, cervical straining his present, Spurling's positive bilateral. Anterior cervical scar is well-healed Lumbar spine: Loss of lumbar lordosis, normal alignment, tender to palpation over bilateral paraspinal muscles, facet loading is positive bilaterally. Straight leg raise is negative. Sacroiliac joints: Nontender to palpation, ANAT is negative, [place] negative Neuro exam: Normal sensation in bilateral upper extremities, deep tendon reflexes are 1+ + bilateral upper extremities. Normal sensation in bilateral lower extremities. Deep tendon reflexes are 2+ in lower extremities Psych exam: Cooperative, appropriate mood Assessment and Plan Assessment: #1 cervical radiculopathy #2 lumbar spondylosis without myelopathy #3 chronic opioid dependence Plan: At this point we will move forward the cervical epidural steroid injection. I refill the patient's [place] with 1 refill after reviewing the maps and appropriate documentation. We'll follow-up with the patient in about 8 weeks' time after the procedure. I again discussed the importance of diet and exercise at the patient. I discussed that she should increase exercise incrementally daily in order to improve her overall health and her pain. Patient is agreement and will work on moving a little bit more than she normally does. PQRS Measure Charge Sheet Measure #130: Documentation of Current Meds in Medical Chart: Patient's medications documented in chart Measure #226: Tobacco Use: Screen & Cessation Intervention: Pt not a tobacco user Measure #111: Pneumonia Vaccination: Pneumococcal vaccine administered or previously received Measure #47: Advance Care Plan: Advance care planning discussed & documented, plan or surrogate given Measure #412: Opioid Treatment Agreement: Documented signed opioid trtmnt agreemnt min once during opioid trtmnt Measure #408: Opioid Therapy Follow-up Evaluation: Patient had f/u eval minimum every 3 months during opioid therapy Measure #317: Preventitive Care & Scrn High Bld Press & F/U: Normal blood pressure, f/u not required Measure #128: Body Mass Index (BMI) Screening & Follow-up: BMI documented ABOVE normal parameters - f/u documented Measure #131: Pain Assessment & Follow-up: Pain positive & plan documented, Follow-up scheduled Measure #431: Unhealthy Alcohol Use Preventative Care & Scrn: Patient not identified as an unhealthy alcohol user PQRS Narrative: Smoking Status Never smoker Do You Want the Pneumonia No Vaccine AT THIS TIME? Narcotic Agreement Date Signed 05/19/18 Blood Pressure 125/83 Pain Intensity [Bilateral 6 Posterior Neck] Scale Used Numeric (1 - 10) Hx Alcohol Use (MH) No Home Medications: Ambulatory Orders Metoprolol Succinate [Toprol XL] 50 mg PO HS 04/14/14 clonazePAM [KlonoPIN] 1 mg PO BID 04/14/14 Atorvastatin Calcium [Lipitor] 20 mg PO PC-SUPPER 05/22/16 Multivitamins, Thera [Multivitamin] 1 tab PO DAILY 06/17/16 Ziprasidone [Geodon] 40 mg PO BID 06/17/16 Diclofenac Sodium Gel [Voltaren Gel] 1 applic TOPICAL DIRECTED PRN 10/23/17 Gabapentin [Neurontin] 300 mg PO BID #60 cap 05/19/18 Ascorbic Acid [Vitamin C] 500 mg PO DAILY 06/08/18 Cholecalciferol [Vitamin D3] 5,000 unit PO DAILY 06/08/18 Cyanocobalamin (Vitamin B-12) [Vitamin B12] 2,500 mcg PO DAILY 06/08/18 [place] Xl 600 mg PO TID 06/08/18 PARoxetine HCL [Paxil Cr] 50 mg PO DAILY 06/08/18 Vitamin C/Biotin [Hair, Skin and Nails] 2 tab PO DAILY 06/08/18 Hydrocodone/Acetaminophen [[place] 7.5-325] 1 each PO DAILY PRN 02/23/19 Controlled Substance Measures - Controlled Substance Measures Is patient prescribed a controlled substance at discharge?: Yes When asked, does pt state using other controlled substances?: No If prescribed controlled substance>3 days was MAPS reviewed?: Yes If Rx opioid, was Start Talking consent form obtained?: Yes Was information provided regarding opioid addiction?: Yes
== END | disposition home or self-care (01) ==
LOC: PNWHC3 12:28
PROVIDERS: ATTEND Hospitalist
DX: M47.816 Spondylosis without myelopathy or radiculopathy, lumbar region (principal); M54.12 Radiculopathy, cervical region; F11.20 Opioid dependence, uncomplicated; Z98.1 Arthrodesis status; Z98.890 Other specified postprocedural states; Z79.899 Other long term (current) drug therapy
CPT/HCPCS: 99211

== ENCOUNTER → 2019-03-18 | Day surgery (SDC) | payer MEDICARE, BC ==
[2019-03-16 11:01] VITALS: BMI 38.2
[~2019-03-18] MED LIST changes: +IV FLUID CONTINUATION 1,000 ML IV ONE; +LACTATED RINGERS 1,000 ML IV SCH; +LIDOCAINE 1% 20 ML VIAL (10MG/ML) FOR IV START INTRADERMA ONE; -SODIUM CHLORIDE 0.9% 500 ML 500 ML IV SCH
[2019-03-18 10:08] VITALS: TEMP 98.5
[2019-03-18 10:23] LABS: Glucose,Whole Blood 129 mg/dL (75-99)
--- NOTE | 2019-03-18 10:56 | P.PCN ---
Date of Procedure: 03/18/19 Procedure(s) Performed: . PROCEDURE 1. Cervical epidural steroid injection under fluoroscopic guidance, C7-T1 2. Cervical epidurogram. PREOPERATIVE DIAGNOSIS: 1- Cervical failed back surgery syndrome 2- Cervical radiculopathy. POSTOPERATIVE DIAGNOSIS: : 1- Cervical failed back surgery syndrome 2- Cervical radiculopathy. ANESTHESIA: Local anesthesia with lidocaine 1 % , and moderate sedation, with Versed 2 mg and Fentanyl 50 mcg. EBL 0 PROCEDURE INDICATION: The patient with neck pain and radiculitis unresponsive to conservative treatment consents for procedure. PROCEDURE DESCRIPTION / TECHNIQUE: The patient was seen and identified in the preoperative area. Risks, benefits, complications, including but not limited to infections ,bleeding , allergic reactions to the medications ,and not complete pain releife, and alternatives were discussed with the patient, the patient agreed to proceed with the procedure and signed the consent. Patient was taken to the OR and time out was completed. The patient was placed in the prone position on the procedure table. A pillow was placed under the patients chest to increase the cervical interlaminar space. The cervical area was prepped and draped in the usual sterile fashion. Vital signs were closely monitored during the procedure. Conscious sedation was used during the procedure to decrease patients anxiety. Using anterior-posterior fluoroscopy, the C7-T1 interlaminar space was identified and the skin over this site was marked and then infiltrated with 1% lidocaine subcutaneously. Subsequently, a 20-gauge 3-1/2-inch Tuohy epidural needle was inserted and advanced toward the epidural space by means of the ``hanging-drop technique and guided by AP and lateral fluoroscopy. The correct needle position in the epidural space was verified with the injection of 2 mL of the water soluble contrast dye Isovue-200 and observing an excellent epidurogram with the epidural spread of the dye, after negative aspiration for blood and CSF and in the absence of paresthesias. Again after negative aspiration, mixture containing 20 mg Dexamethasone and 2 ml of preservative- free normal saline injected and a washout of epidurogram was seen. Needle was withdrawn intact, skin was cleansed, and bandages were applied. Complications= none. Disposition= patient was placed in supine position and transferred to the recovery room area in stable condition and there was no evidence of upper or lower extremity motor or sensory deficit after the procedure patient was discharged from recovery room after discharge criteria met and home discharge instructions was given by the staff and patient will follow with the pain clinic in 2-4 weeks
[2019-03-18 11:16] VITALS: BP 111/67; PULSE 70; RESP 16
--- NOTE | 2019-03-18 11:36 | FL ---
EXAMINATION TYPE: FL guided pain mgmt statistic DATE OF EXAM: 03/18/2019 CLINICAL HISTORY: Neck pain. TECHNIQUE: Fluoroscopy. COMPARISON: None. FINDINGS: Fluoroscopic guidance was provided during pain relief procedure performed by Dr. Jessica . A total of 2 seconds of fluoroscopic time was utilized during the procedure and 1 spot image was a cquired. Image acquired shows needle localization of the cervical spine and partial visualization of a cervical fusion device. IMPRESSION: As Above.
== END ==
LOC: ORPAIN 09:18
PROVIDERS: ATTEND Specialist
DX: M96.1 Postlaminectomy syndrome, not elsewhere classified (principal); M50.10 Cervical disc disorder with radiculopathy, unspecified cervical region; Z88.1 Allergy status to other antibiotic agents; Z88.8 Allergy status to other drugs, medicaments and biological substances
CPT/HCPCS: 62321; J2250; J1100; J3010; Q9966

== ENCOUNTER 2019-04-13 09:24 | Day surgery (SDC) | payer MEDICARE, BC ==
[2019-04-09 10:09] VITALS: BMI 37.3
[2019-04-13 09:45] VITALS: RESP 16; TEMP 97.3
--- NOTE | 2019-04-13 10:08 | P.PCN ---
Date of Procedure: 04/13/19 Anesthesia: none Description of Procedure: PROCEDURE 1. Cervical epidural steroid injection under fluoroscopic guidance, C7-T1 2. Cervical epidurogram. PREOPERATIVE DIAGNOSIS: Cervical radiculopathy POSTOPERATIVE DIAGNOSIS: Cervical radiculopathy ANESTHESIA: Local anesthesia with 1% lidocaine PROCEDURE DESCRIPTION / TECHNIQUE: The patient was seen and identified in the preoperative area. Risks, benefits, and alternatives were discused with the patient and the patient has consented to the procedure. Risks of the procedure include potential for bleeding, infection, nerve damage, and incomplete pain relief Rall discussed with the patient. All questions were answered for the patient Patient was taken to the OR and time out was completed. The patient was placed in the prone position on the procedure table. A pillow was placed under the patients chest to increase the cervical interlaminar space. The cervical area was prepped and draped in the usual sterile fashion. Vital signs were closely monitored during the procedure. Using anterior-posterior fluoroscopy, the C7-T1 interlaminar space was identified and the skin over this site was marked and then infiltrated with 1% lidocaine subcutaneously. Subsequently, a 20-gauge 3-1/2-inch Tuohy epidural needle was inserted and advanced toward the epidural space by means of the [id number] technique and guided by AP and lateral fluoroscopy. The correct needle position in the epidural space was verified with the injection of 1 mL of the water soluble contrast dye Isovue-180 and observing an excellent epidurogram with the epidural spread of the dye, after negative aspiration for blood and CSF and in the absence of paresthesias. Again after negative aspiration, a mixture containing 10 mg Dexamethasone and 2 ml of preservative- free normal saline injected and a washout of epidurogram was seen. Needle was withdrawn intact, skin was cleansed, and bandages were applied. Complications: none. Disposition: patient was placed in supine position and transferred to the recovery room area in stable condition and there was no evidence of upper or lower extremity motor or sensory deficit after the procedure patient was discharged from recovery room after discharge criteria met and home discharge instructions was given by the staff and patient will follow with the pain as directed.
--- NOTE | 2019-04-13 10:14 | FL ---
EXAMINATION TYPE: FL guided pain mgmt statistic DATE OF EXAM: 04/13/2019 HISTORY: Flouroscopy time 3 seconds of fluoroscopy provided. IMPRESSION: 1. Fluoroscopy time.
[2019-04-13 10:37] VITALS: BP 120/60; PULSE 74
== END 2019-04-13 10:39 | disposition home or self-care (01) ==
LOC: ORPAIN 09:24
PROVIDERS: ATTEND Hospitalist
DX: M54.12 Radiculopathy, cervical region (principal)
CPT/HCPCS: 62321; J1100; Q9966

== ENCOUNTER → 2019-04-22 | Outpatient (CLI) | payer MEDICARE, BC ==
--- NOTE | 2019-04-22 14:36 | P.PN ---
Subjective Progress Note Date: 04/22/19 This is follow-up visit for this patient with a history of severe and chronic low back pain secondary to lumbar degenerative disc disease, lumbar facet arthropathy, We have done an interventional pain procedure frequency ablation of the medial branch lumbar area, the pain improved significantly , also patient complaining of neck pain , and she is diagnosed with cervical radiculopathy, and failed back surgery syndrome cervical, recently we have done cervical epidural steroid injections 2, and she reported that her neck pain improved significantly ,Currently she is on [place] 7.5/325 every 6 hours when necessary , and Voltaren gel to be applied to the lumbar area twice a day Patient denies any side effect of the medication , patient denies any excessive drowsiness or sleepiness, patient denies any suicidal ideation, Patient reported that the current medication is helping to control the pain and improve the activity of daily livings, Patient denies any motor or sensory deficit, denies any change in the bowel movement or urination, patient denies any fever or night sweats. Patient here today for follow-up visit and medication refill Physical Examinations : 1-Constitutiona : Cooperative , not in acute distress . 2-HEENT : nech ; supple , no Lymphadenopathy , normal thyroid size . eyes : no ptosis , no icterus, no photophobia . ENT : normal of hearing , normal oropharynx , no Thrush . 3- Respiratory : Chest clear to auscultations Bilaterally , no wheezing , no Rhonchi . 4- Cardiovascular : regular rate and rhythem , S1 , S2 , no S3 , no S4. 5- Gastrointestinal : abdomen soft no tenderness , bowel sounds , no organomegally . 6- Genitourinary : Defferred . 7- neurologic : Cranial nerve II to XII intact , no focal neurological deffecit . 8-psychatric : alert , oriented X 3 , appropriate affect , intact judgment and insight . 9-Lymphatic : no Lymphadenopathy . 10- musculoskeltal : Cervical Spine motor stregnth in the deltoid and biceps, normal right side , normal Left side motor stregnth biceps and the wrist extensors normal right side ,normal left side . motor stregnth in the triceps muscle . normal Right side , normal Left side deep tendon reflexes normal at the biceps , normal at Brachioradialis , normal at triceps. positive cervical facet loading test . Lumber spine moter stegnth lower extremities ,thigh and legs 5/5 Right side , 5/5 Left side deep tendon reflexes : normal Knee Jerk , normal ankle Jerk Assessment and Plan Plan: Assessment and plan= chronic low back pain secondary to lumbar degenerative disc disease , lumbar spondylosis with lumbar facet arthropathy . Pain improved ,after the radiofrequency . 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, cervical radiculopathy , pain improved after cervical epidural steroid injections chronic and current use of high-risk medication (opioids) Patient denies any side effects of the current pain medication and the current treatment/medication helping the patient to do activity of daily living , Diagnoses, prognosis, treatment options, including but not limited to physical therapy, medication management, interventional therapies, and surgery, were discussed with the patient All the questions answered The narcotic consent was signed and patient agreed and understood the side effects and complications of opioid treatment. Patient signed the narcotic agreement, and was orally counseled, not to overuse, not to abuse, not to Divert , not tp sell pain medication, and to take it as prescribed only, Patient was counseled not to drive or operate heavy equipment while using narcotic medication, and advised not to use alcohol or any Illicit drugs while using the narcotis, the patient's verbalized understanding that lack of compliance with any of the above instructions, will likely to cause discharge from, the pain service, not to renew his narcotic prescriptions Medication managements= patient will be given prescription refills for [place] 7.5/325 dispense 15 with 2 refill, Voltaren gel 1% to be applied to the painful area every 8 hours PRN Interventions= none MAPS reviewed and it was appropriat - PQRS measures = - Patient's medications are documented in the chart. -Tobacco use is negative and counseling.Given. -Patient's has not received pneumococcal vaccine. -Advanced care planning discussed, patient not eligible. -Opiate contract signed. -Pain positive and follow-up visit/procedure is scheduled. -Patient's blood pressure measured [ 125/88 ] , and documented in the record ,and patient will follow up with the primary care. -Patient's weight was measured and body mass index above the normal li mits and counseling was done. and patient instructed to follow-up with the primary care physician. -Patient was not identified as an unhealthy alcohol user Objective - Vital Signs Vital signs: Intake & Output 04/21/19 04/22/19 04/22/19 18:59 06:59 18:59 Weight 205 kg
== END ==
LOC: PNWHC3 13:42
PROVIDERS: ATTEND Specialist
DX: G89.29 Other chronic pain (principal); M51.16 Intervertebral disc disorders with radiculopathy, lumbar region; M47.26 Other spondylosis with radiculopathy, lumbar region; M46.96 Unspecified inflammatory spondylopathy, lumbar region; M96.1 Postlaminectomy syndrome, not elsewhere classified; M54.12 Radiculopathy, cervical region; Z79.891 Long term (current) use of opiate analgesic; Z79.899 Other long term (current) drug therapy
CPT/HCPCS: 99211

== ENCOUNTER → 2019-07-15 | Outpatient (CLI) | payer MEDICARE, BC ==
[2019-07-15 13:27] VITALS: BP 100/67; PULSE 77; RESP 16
--- NOTE | 2019-07-15 14:14 | P.PN ---
Subjective Progress Note Date: 07/15/19 This is follow-up visit for this patient with a history of severe and chronic low back pain secondary to lumbar degenerative disc disease, lumbar spondylosis with facet arthropathy, We have done an interventional pain procedure frequency ablation of the medial branch lumbar area, and she gets excellent pain relief for 6 months,, also patient complaining of severe low back pain ,Currently she is on Eagle Nest 7.5/325 every 6 hours when necessary , and Voltaren gel to be applied to the lumbar area twice a day , Neurontin 300 mg daily Patient denies any side effect of the medication , patient denies any excessive drowsiness or sleepiness, patient denies any suicidal ideation, Patient reported that the current medication is helping to control the pain and improve the activity of daily livings, Patient denies any motor or sensory deficit, denies any change in the bowel movement or urination, patient denies any fever or night sweats. Patient here today for follow-up visit and medication refill Physical Examinations : 1-Constitutiona : Cooperative , not in acute distress . 2-HEENT : nech ; supple , no Lymphadenopathy , normal thyroid size . eyes : no ptosis , no icterus, no photophobia . ENT : normal of hearing , normal oropharynx , no Thrush . 3- Respiratory : Chest clear to auscultations Bilaterally , no wheezing , no Rhonchi . 4- Cardiovascular : regular rate and rhythem , S1 , S2 , no S3 , no S4. 5- Gastrointestinal : abdomen soft no tenderness , bowel sounds , no organomegally . 6- Genitourinary : Defferred . 7- neurologic : Cranial nerve II to XII intact , no focal neurological deffecit . 8-psychatric : alert , oriented X 3 , appropriate affect , intact judgment and insight . 9-Lymphatic : no Lymphadenopathy . 10- musculoskeltal : Cervical Spine motor stregnth in the deltoid and biceps, normal right side , normal Left side motor stregnth biceps and the wrist extensors normal right side ,normal left side . motor stregnth in the triceps muscle . normal Right side , normal Left side deep tendon reflexes normal at the biceps , normal at Brachioradialis , normal at triceps. positive cervical facet loading test . Lumber spine moter stegnth lower extremities ,thigh and legs 5/5 Right side , 5/5 Left side deep tendon reflexes : normal Knee Jerk , normal ankle Jerk Facet loading test positive bilaterally. Straight leg raising test negative bilaterally. Lobo test negative bilaterally Assessment and plan= chronic low back pain secondary to lumbar degenerative disc disease , lumbar spondylosis with lumbar facet arthropathy . 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, cervical radiculopathy , pain improved after cervical epidural steroid injections chronic and current use of high-risk medication (opioids) Patient denies any side effects of the current pain medication and the current treatment/medication helping the patient to do activity of daily living , Diagnoses, prognosis, treatment options, including but not limited to physical therapy, medication management, interventional therapies, and surgery, were discussed with the patient All the questions answered The narcotic consent was signed and patient agreed and understood the side effects and complications of opioid treatment. Patient signed the narcotic agreement, and was orally counseled, not to overuse, not to abuse, not to Divert , not tp sell pain medication, and to take it as prescribed only, Patient was counseled not to drive or operate heavy equipment while using narcotic medication, and advised not to use alcohol or any Illicit drugs while using the narcotis, the patient's verbalized understanding that lack of compliance with any of the above instructions, will likely to cause discharge from, the pain service, not to renew his narcotic prescriptions Medication managements= patient will be given prescription refills for Eagle Nest 7.5/325 dispense 60 with 1 refill, Voltaren gel 1% to be applied to the painful area every 8 hours PRN Neurontin 300 mg 3 times a day Interventions= patient could benefit from repeat radiofrequency ablation of the medial branch lumbar area L3, L4, L5 (to cover the facet joint at L4-L5/L5-S1 ) right side first then left MAPS reviewed and it was appropriat - PQRS measures = - Patient's medications are documented in the chart. -Tobacco use is negative and counseling.Given. -Patient's has not received pneumococcal vaccine. -Advanced care planning discussed, patient not eligible. -Opiate contract signed. -Pain positive and follow-up visit/procedure is scheduled. -Patient's blood pressure measured [100/67 ] , and documented in the record ,and patient will follow up with the primary care. -Patient's weight was measured and body mass index above the normal limits and counseling was done. and patient instructed to follow-up with the primary care physician. -Patient was not identified as an unhealthy alcohol user Objective - Vital Signs Vital signs: Vital Signs Temp Pulse 77 07/15/19 13:19 Resp 16 07/15/19 13:19 BP 100/67 07/15/19 13:19 Pulse Ox 95 07/15/19 13:19 Intake & Output 07/14/19 07/15/19 07/15/19 18:59 06:59 18:59 Weight 89.811 kg
== END | disposition home or self-care (01) ==
LOC: PNWHC3 12:43
PROVIDERS: ATTEND Specialist
DX: G89.29 Other chronic pain (principal); M51.36 Other intervertebral disc degeneration, lumbar region; M47.816 Spondylosis without myelopathy or radiculopathy, lumbar region; M46.96 Unspecified inflammatory spondylopathy, lumbar region; M54.12 Radiculopathy, cervical region; M96.1 Postlaminectomy syndrome, not elsewhere classified; Z98.890 Other specified postprocedural states; Z79.891 Long term (current) use of opiate analgesic
CPT/HCPCS: 99211

== ENCOUNTER 2019-07-28 09:30 | Day surgery (SDC) | payer MEDICARE, BC ==
[2019-07-21 11:04] VITALS: BMI 36.2
[~2019-07-28 09:30] MED LIST changes: -IV FLUID CONTINUATION 1,000 ML IV ONE; -LIDOCAINE 1% 20 ML VIAL (10MG/ML) FOR IV START INTRADERMA ONE
[2019-07-28 10:11] LABS: Glucose,Whole Blood 113 mg/dL (75-99)
[2019-07-28 10:12] VITALS: TEMP 97.3
--- NOTE | 2019-07-28 11:14 | P.PCN ---
Date of Procedure: 07/28/19 Procedure(s) Performed: PREOPERATIVE DIAGNOSIS: 1-Lumbar Spondylosis with Facet Arthropathy without myelopathy. 2- Lumber degenerative disc disease POSTOPERATIVE DIAGNOSIS: 1- Lumbar Spondylosis with Facet Arthropathy without myelopathy. 2- Lumber degenerative disc disease PROCEDURES : Right Radiofrequency thermocoagulation, L3, L4, and L5 medial branch, with fluoroscopic guidance (fluoroscopy images available in the radiology department) (To cover the right facet joint at L4- 5, and L5-S1 ) ANESTHESIA: Moderate sedation with intravenous versed 2 mg and fentaneyl 50 mcg, and local infiltration with Ropivacaine 0.5 % . EBL: Minimal PROCEDURE INDICATION: The patient with low back pain secondary to lumbar facet arthropathy who had more than 50% relief of her pain with previous diagnostic lumbar medial branch block with bupivacaine. PROCEDURE DESCRIPTION / TECHNIQUE: The patient was seen and identified in the preoperative area. Risks, benefits, complications, including but not limited to risk of infection ,bleeding , allergic reactions to the medications and no complete pain releife , and alternatives were discussed with the patient, the patient agreed to proceed with the procedure and signed the consent. IV was started. Vital signs remained stable throughout the procedure. Patient was taken to the OR and time out was completed. The patient was placed in the prone position on the procedure table. The lumber area was prepped and draped in the usual sterile fashion. . Vital signs were closely monitored during the procedure .IV sedation was used during the procedure to decrease patients anxiety. Using AP and then oblique fluoroscopy, the ``eye of the Lawrence dog corresponding to the connection between the superior and transverse articular processes of right L3, L4, and L5 were identified, marked, and localized with 1% lidocaine. Subsequently, a 18 -qi radiofrequency cannula with a 10- mm active tip was advanced guided by fluoroscopy to each of the``eyes of the [place] dog at right L3, L4, and L5. Each site then underwent sensory testing at 50 Hz and 0 to 1 volt and motor testing at 2.5 Hz and 0 to 3 volt with local stimulation, but no radicular symptoms down the legs. Thereafter the right L3, L4, and L5 sites underwent radiofrequency thermocoagulation at 80 degrees celsius for 90 seconds after injecting 0.5 ml of PF Ropivacaine 1ml, then after the thermocoagulation done , 1 ml of the block solution containing Depo-Medrol 40 mg and 3 ml of Ropivacaine 0.5% was injected at the right L3 , L4 , and L5, levels after negative aspiration of CSF and blood and with no paresthesias. Cannulas were retracted while injecting lidocaine 1% until the needle is out. At the end of the procedure, the skin was cleansed and bandages were applied. COMPLICATIONS: No acute complications. DISPOSITION / PLANS: The patient was placed in a supine position and transferred to the recovery area in a stable condition for observation and was discharged from the recovery room after meeting discharge criteria. Home discharge instructions given to the patient by the staff. The patient was reexamined prior to discharge. The patient will schedule a follow up in the clinic in 2-4 weeks.
[2019-07-28] MEDS ORDERED: IV FLUID CONTINUATION 1,000 ML IV ONE ×2 (11:25)
[2019-07-28 11:32] VITALS: RESP 18
--- NOTE | 2019-07-28 11:51 | FL ---
Fluoroscopy INDICATION: Pain FINDINGS: Fluoroscopy time: 6 seconds. Images obtained: 3 IMPRESSIONS: 1. Documentation of fluoroscopy.
[2019-07-28 12:06] VITALS: BP 116/68; PULSE 65
== END 2019-07-28 11:55 | disposition home or self-care (01) ==
LOC: ORPAIN 09:30
PROVIDERS: ATTEND Specialist
DX: M47.816 Spondylosis without myelopathy or radiculopathy, lumbar region (principal); M51.36 Other intervertebral disc degeneration, lumbar region; Z88.8 Allergy status to other drugs, medicaments and biological substances; R56.9 Unspecified convulsions
CPT/HCPCS: 64635; 64636; J2250; J1030; J3010; 99152

== ENCOUNTER → 2019-08-18 | Day surgery (SDC) | payer MEDICARE, BC ==
[2019-08-16 15:15] VITALS: BMI 36.7
[~2019-08-18] MED LIST changes: +IV FLUID CONTINUATION 1,000 ML IV ONE; +LIDOCAINE 1% 20 ML VIAL (10MG/ML) FOR IV START INTRADERMA ONE
[2019-08-18 08:39] LABS: Glucose,Whole Blood 112 mg/dL (75-99)
[2019-08-18 08:40] VITALS: RESP 16; TEMP 98.2
--- NOTE | 2019-08-18 09:45 | FL ---
EXAMINATION TYPE: FL guided pain mgmt statistic DATE OF EXAM: 08/18/2019 CLINICAL HISTORY: Low back pain. TECHNIQUE: Fluoroscopy. COMPARISON: None. FINDINGS: Fluoroscopic guidance was provided during pain relief procedure performed by Dr. Sauer . A total of 14 seconds of fluoroscopic time was utilized during the procedure and 7 spot images are acqu ired. Images acquired shows needle localization at multiple levels in the lower lumbar spine and upp er sacrum. IMPRESSION: As Above.
[2019-08-18 09:46] VITALS: BP 98/67; PULSE 69
--- NOTE | 2019-08-18 10:01 | P.PCN ---
Date of Procedure: 08/18/19 Procedure(s) Performed: PREOPERATIVE DIAGNOSIS: Lumbar Spondylosis POSTOPERATIVE DIAGNOSIS: Same PROCEDURES: Radiofrequency ablation of the L3, L4, L5 medial branches for facets L4-5 and L5-S1 with fluoroscopic guidance on the left side SURGEON: Avelina Sauer MD. ANESTHESIA: Lidocaine 1% 5 mL, Moderate sedation with intravenous Versed and fentanyl, sedation time 22 minutes EBL: Minimal Fluoroscopy was used for the procedure and images were saved in the radiology portion of the chart. PROCEDURE INDICATION: The patient with low back pain secondary to lumbar facet arthropathy who had more than 50% relief of pain with previous diagnostic lumbar medial branch block X2. PROCEDURE DESCRIPTION / TECHNIQUE: The patient was seen and identified in the preoperative area. Risks, benefits, complications, including but not limited to risk of infection ,bleeding , allergic reactions to the medications and incomplete pain relief , and alternatives were discussed with the patient, the patient agreed to proceed with the procedure and signed the consent. IV was started. The operative site was marked. Patient was taken to the OR and time out was completed. The patient was placed in the prone position on the procedure table. The lumbar area was prepped and draped in the usual sterile fashion. . Vital signs were closely monitored during the procedure .IV sedation was used during the procedure to decrease patients anxiety. Using AP and then oblique fluoroscopy, the "eye of the Lawrence dog" corresponding to the connection between the superior and transverse articular processes of the left L4 and L5 as well as the sacral ala were identified, marked, and localized with 1% lidocaine. Subsequently, an 18 guage and 150-mm radiofrequency cannula with a 10-mm active tip was advanced guided by fluoroscopy to the identified target at each site. Needle positioning was confirmed on AP, oblique and lateral fluoroscopy. Motor testing at 2.5 Hz was done with paraspinal muscle stimulation only, and no radicular symptoms down the legs. Then 1 mL of 4% lidocaine was injected in each site. Radiofrequency thermocoagulation at 80 degrees celsius for 90 seconds was then performed. [place] were removed. Sterile dressings were applied. COMPLICATIONS: No acute complications. DISPOSITION / PLANS: The patient was placed in a supine position and transferred to the recovery area in a stable condition for observation and was discharged from the recovery room after meeting discharge criteria. Home discharge instructions given to the patient by the staff. The patient will follow up in clinic in 4 weeks.
== END ==
LOC: ORPAIN 08:03
PROVIDERS: ATTEND Anesthesiology
DX: M47.816 Spondylosis without myelopathy or radiculopathy, lumbar region (principal); R73.03 Prediabetes; Z78.0 Asymptomatic menopausal state
CPT/HCPCS: 64635; 64636; J2250; J3010; 99152

== ENCOUNTER → 2019-09-07 | Outpatient (CLI) | payer MEDICARE, BC ==
[2019-09-07 14:46] VITALS: BP 123/75; PULSE 76; RESP 15
--- NOTE | 2019-09-14 11:00 | P.PAINPG ---
Subjective Progress Note Date: 09/07/19 This is a follow-up visit for this patient with a history of severe and chronic low back pain secondary to lumbar degenerative disc disease, lumbar spondylosis with facet arthropathy, We have recently done radiofrequency ablation of the medial branch lumbar area, and she reports that her pain score is down to 2/10. Currently she is on Schlater 7.5/325 every 6 hours when necessary , and Voltaren gel to be applied to the lumbar area twice a day , Neurontin 300 mg 3 times a day Patient denies any side effect of the medication , patient denies any excessive drowsiness or sleepiness, patient denies any suicidal ideation, Patient reported that the current medication is helping to control the pain and improve the activity of daily living, Patient denies any motor or sensory deficit, denies any change in the bowel movement or urination, patient denies any fever or night sweats. Patient here today for follow-up visit and medication management Review of systems is negative for chest pain, shortness of breath, new onset weakness, numbness/tingling, abdominal pain, malaise, fever, night sweats, chills, homicidal or suicidal ideation, or bowel or bladder incontinence. Physical exam: Vitals: Reviewed in EMR GENERAL: Well appearing, in no acute distress, obese PSYCH: Mood and affect is appropriate. Awake, alert, and oriented SKIN: Skin color, texture, turgor normal, no rashes or lesions HEENT: Normocephalic, atraumatic. EOM intact CV: No pedal edema RESP: Respirations are unlabored, no audible wheezing GI: Abdomen non-distended MUSCULOSKELETAL: Bilateral lower extremity strength is normal and symmetric. No atrophy or tone abnormalities are noted. Lumbar spine: Straight leg raising in the sitting position is negative for radicular pain. Tenderness to palpation over the lumbar spine and paraspinous muscles bilaterally. Erythema from rich from heating pad present over entire l ow back. Negative for pain with facet loading and back extension/rotation. Buttocks: No pain to palpation over the PSIS, sacroiliac joint maneuvers are negative for pain. Extremities: Peripheral joint ROM is full and pain free without obvious instability or laxity in all four extremities. No edema or skin discolorations noted. Gait: Gait is normal NEUR: Bilateral upper and lower extremity coordination and muscle stretch reflexes are physiologic and symmetric. Negative clonus bilaterally. No loss of sensation is noted. Assessment and plan= chronic low back pain secondary to lumbar degenerative disc disease , lumbar spondylosis with lumbar facet arthropathy, pain has improved following lumbar radiofrequency ablation . 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 MAPS reviewed and it was appropriate The narcotic consent was signed and patient agreed and understood the side effects and complications of opioid treatment. UDS ordered today Medication management= patient will be given prescription refills for Schlater 5/325 dispense 60 with 1, this is reduced from 7.5 mg twice a day Neurontin 300 mg 3 times a day, she was also counseled to take Tylenolup to 5 tablets of extra strength Tylenol per day. Interventions= none currently, in the future we will plan on using low-dose steroids for any further injections as the patient does obtain steroid injections in the shoulders with other providers. Counseling: On weight loss and the importance of exercise as it pertains to pain Referrals: To physical therapy for low back strengthening and core strengthening exercises. - PQRS measures = - Patient's medications are documented in the chart. -Tobacco use is negativ -Patient's has not received pneumococcal vaccine. -Advanced care planning discussed, patient not eligible. -Opiate contract signed. -Pain positive and follow-up visit/procedure is scheduled. -Patient's blood pressure measured, normal blood pressure follow-up not required -Patient's weight was measured and body mass index above the normal limits and counseling was done. and patient instructed to follow-up with the primary care physician. -Patient was not identified as an unhealthy alcohol user PQRS Measure Charge Sheet PQRS Narrative: Smoking Status Never smoker Narcotic Agreement Date Signed 05/19/18 Pain Intensity [None] 0 Hx Alcohol Use (MH) No Home Medications: Ambulatory Orders Metoprolol Succinate [Toprol XL] 50 mg PO HS 04/14/14 clonazePAM [KlonoPIN] 1 mg PO BID 04/14/14 Atorvastatin Calcium [Lipitor] 20 mg PO PC-SUPPER 05/22/16 Multivitamins, Thera [Multivitamin] 2 tab PO DAILY 06/17/16 Ziprasidone [Geodon] 40 mg PO BID 06/17/16 Diclofenac Sodium Gel [Voltaren Gel] 1 applic TOPICAL DIRECTED PRN 10/23/17 Cholecalciferol [Vitamin D3] 5,000 unit PO DAILY 06/08/18 Cyanocobalamin (Vitamin B-12) [Vitamin B12] 2,500 mcg PO DAILY 06/08/18 [place] Xl 600 mg PO TID 06/08/18 PARoxetine HCL [Paxil Cr] 50 mg PO DAILY 06/08/18 Vitamin C/Biotin [Hair, Skin and Nails] 2 tab PO DAILY 06/08/18 Hydrocodone/Acetaminophen [Schlater 7.5-325] 1 each PO BID PRN 02/23/19 Gabapentin [Neurontin] 300 mg PO TID 03/16/19 metFORMIN HCL [Glucophage] 500 mg PO BID 04/13/19 Ascorbic Acid [Vitamin C] 500 mg PO DAILY 07/21/19 Controlled Substance Measures - Controlled Substance Measures Is patient prescribed a controlled substance at discharge?: Yes When asked, does pt state using other controlled substances?: No If prescribed controlled substance>3 days was MAPS reviewed?: Yes If Rx opioid, was Start Talking consent form obtained?: Yes If opioid is for acute pain is fill amount 7 days or less?: No Was information provided regarding opioid addiction?: Yes
== END | disposition home or self-care (01) ==
LOC: PNWHC3 13:08
PROVIDERS: ATTEND Anesthesiology
DX: G89.29 Other chronic pain (principal); M51.36 Other intervertebral disc degeneration, lumbar region; M47.816 Spondylosis without myelopathy or radiculopathy, lumbar region; M46.96 Unspecified inflammatory spondylopathy, lumbar region; M96.1 Postlaminectomy syndrome, not elsewhere classified; M54.12 Radiculopathy, cervical region; Z79.1 Long term (current) use of non-steroidal anti-inflammatories (NSAID); Z79.891 Long term (current) use of opiate analgesic; Z79.84 Long term (current) use of oral hypoglycemic drugs; Z79.899 Other long term (current) drug therapy
CPT/HCPCS: 80307; G0482; G0463; 99211

== ENCOUNTER → 2019-11-25 | Outpatient (CLI) | payer MEDICARE, BC ==
[2019-11-25 13:21] VITALS: BP 115/79; PULSE 81
--- NOTE | 2019-11-26 09:46 | P.PAINPG ---
Subjective Progress Note Date: 11/25/19 This is a follow-up visit for this patient with a history of severe and chronic low back pain secondary to lumbar degenerative disc disease, lumbar spondylosis with facet arthropathy. She is managed with common additional interventional pain procedures and medication management. At her last visit, [place] was reduced from 7.5 to 5 mg twice a day when necessary. She was also given a referral to physical therapy. She returns today for follow-up. She reports that the physical therapy has been working well. She would like a renewal in physical therapy. Today, her primary complaint is bilateral hip pain, radiating to bilateral groin, described as sharp and stabbing, worse on the left side. This pain has been present for approximately one month, she denies any inciting events. Pain is rated as 2-6/10. Most recently, in terms of procedures, we have done radiofrequency ablation of the medial branch lumbar area. Currently she is on [place] 5/325 every 12 hours when necessary , and Voltaren gel to be applied to the lumbar area twice a day , Neurontin 300 mg 3 times a day Patient denies any side effect of the medication , patient denies any excessive drowsiness or sleepiness, patient denies any suicidal ideation, Patient reported that the current medication is helping to control the pain and improve the activity of daily living, Patient denies any motor or sensory deficit, denies any change in the bowel movement or urination, patient denies any fever or night sweats. Patient here today for follow-up visit and medication management Review of systems is negative for chest pain, shortness of breath, new onset weakness, numbness/tingling, abdominal pain, malaise, fever, night sweats, chills, homicidal or suicidal ideation, or bowel or bladder incontinence. Physical exam: Vitals: Reviewed in EMR GENERAL: Well appearing, in no acute distress, obese PSYCH: Mood and affect is appropriate. Awake, alert, and oriented SKIN: Skin color, texture, turgor normal, no rashes or lesions HEENT: Normocephalic, atraumatic. EOM intact CV: No pedal edema RESP: Respirations are unlabored, no audible wheezing GI: Abdomen non-distended MUSCULOSKELETAL: Bilateral lower extremity strength is normal and symmetric. No atrophy or tone abnormalities are noted. Bilateral FADIR test is positive. Bilateral greater trochanter bursa tenderness noted. Lumbar spine: Straight leg raising in the sitting position is negative for radicular pain. Tenderness to palpation over the lumbar spine and paraspinous muscles bilaterally. Erythema from rich from heating pad present over entire low back. Negative for pain with facet loading and back extension/rotation. Buttocks: Tenderness to palpation over the bilateral PSIS, sacroiliac joint maneuvers are negative for pain. Extremities: Peripheral joint ROM is full and pain free without obvious instability or laxity in all four extremities. No edema or skin discolorations noted. Gait: Gait is normal NEUR: Bilateral lower extremity coordination and muscle stretch reflexes are physiologic and symmetric. Negative clonus bilaterally. No loss of sensation is noted. Assessment and plan= chronic low back pain secondary to lumbar degenerative disc disease , lumbar spondylosis with lumbar facet arthropathy, pain has improved following lumbar radiofrequency ablation . 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 MAPS reviewed and it was appropriate The narcotic consent was signed and patient agreed and understood the side effects and complications of opioid treatment. UDS reviewed, of note gabapentin was not present, however patient reports that she was running low on the gabapentin at the time of UDS. We will plan on rechecking at next visit. Also, of note, she is on Klonopin for bipolar disorder. Medication management= patient will be given prescription refills for [place] 5/325 dispense 60 with 1 refill. This was weaned from [place] 7.5/325 at last visit. We will plan on continuing to wean, next wean Will be at her next visit. She is amenable to this plan She was also given prescriptions for Neurontin 300 mg 3 times a day, Interventions= none currently, in the future we will plan on using low-dose steroids for any further injections as the patient does obtain steroid injections in the shoulders with other providers. She will likely benefit from bilateral hip injections, hip x-rays were ordered today, to be reviewed at next visit. Counseling: On weight loss and the importance of exercise as it pertains to pain, physical therapy prescription was refilled today - PQRS measures = - Patient's medications are documented in the chart. -Tobacco use is negative -Patient's has not received pneumococcal vaccine. -Advanced care planning discussed, patient not eligible. -Opiate contract signed. -Pain positive and follow-up visit/procedure is scheduled. -Patient's blood pressure measured, normal blood pressure follow-up not required -Patient's weight was measured and body mass index above the normal limits and counseling was done. and patient instructed to follow-up with the primary care physician. -Patient was not identified as an unhealthy alcohol user Objective - Vital Signs Vital signs: Intake & Output 11/22/19 11/23/19 11/23/19 18:59 06:59 18:59 Weight 91.626 kg PQRS Measure Charge Sheet PQRS Narrative: Smoking Status Never smoker Narcotic Agreement Date Signed 05/19/18 Pain Intensity [Neck] 4 Pain Intensity [Bilateral Hip] 8 Pain Intensity [Lower Back] 4 Scale Used Numeric (1 - 10) Hx Alcohol Use (MH) Yes Home Medications: Ambulatory Orders Metoprolol Succinate [Toprol XL] 50 mg PO HS 04/14/14 clonazePAM [KlonoPIN] 1 mg PO BID 04/14/14 Atorvastatin Calcium [Lipitor] 20 mg PO PC-SUPPER 05/22/16 Multivitamins, Thera [Multivitamin] 2 tab PO DAILY 06/17/16 Ziprasidone [Geodon] 40 mg PO BID 06/17/16 Diclofenac Sodium Gel [Voltaren Gel] 1 applic TOPICAL DIRECTED PRN 10/23/17 Cholecalciferol [Vitamin D3] 5,000 unit PO DAILY 06/08/18 Cyanocobalamin (Vitamin B-12) [Vitamin B12] 2,500 mcg PO DAILY 06/08/18 [place] Xl 600 mg PO TID 06/08/18 PARoxetine HCL [Paxil Cr] 50 mg PO DAILY 06/08/18 Vitamin C/Biotin [Hair, Skin and Nails] 2 tab PO DAILY 06/08/18 Hydrocodone/Acetaminophen [[place] 7.5-325] 1 each PO BID PRN 02/23/19 Gabapentin [Neurontin] 300 mg PO TID 03/16/19 metFORMIN HCL [Glucophage] 500 mg PO BID 04/13/19 Ascorbic Acid [Vitamin C] 500 mg PO DAILY 07/21/19 Timolol 0.5% Ophth Soln [Timoptic 0.5% Ophth Soln] 1 drop BOTH EYES DAILY 11/22/19 Controlled Substance Measures - Controlled Substance Measures Is patient prescribed a controlled substance at discharge?: Yes When asked, does pt state using other controlled substances?: No If prescribed controlled substance>3 days was MAPS reviewed?: Yes If Rx opioid, was Start Talking consent form obtained?: Yes If opioid is for acute pain is fill amount 7 days or less?: No Was information provided regarding opioid addiction?: Yes
== END | disposition home or self-care (01) ==
LOC: PNWHC3 12:58
PROVIDERS: ATTEND Anesthesiology
DX: G89.29 Other chronic pain (principal); M51.36 Other intervertebral disc degeneration, lumbar region; M47.816 Spondylosis without myelopathy or radiculopathy, lumbar region; M46.96 Unspecified inflammatory spondylopathy, lumbar region; Z98.890 Other specified postprocedural states; M96.1 Postlaminectomy syndrome, not elsewhere classified; M54.12 Radiculopathy, cervical region; Z79.891 Long term (current) use of opiate analgesic; Z79.1 Long term (current) use of non-steroidal anti-inflammatories (NSAID); Z79.4 Long term (current) use of insulin; Z79.899 Other long term (current) drug therapy
CPT/HCPCS: 99211

== ENCOUNTER → 2020-01-20 | Outpatient (CLI) | payer MEDICARE, BC ==
[2020-01-20 13:58] VITALS: BP 118/80; PULSE 77; RESP 18
--- NOTE | 2020-01-20 14:29 | P.PAINPG ---
Subjective Progress Note Date: 01/20/20 This is a follow-up visit for this patient with a history of severe and chronic low back pain secondary to lumbar degenerative disc disease, lumbar spondylosis with facet arthropathy. She is managed with interventional pain procedures and medication management. She is currently on Neurontin 300 mg 3 times a day, and [place] 5/325 every 12 hours. She finished 2 courses of physical therapy. Which helped her low back pain, patient continued to have some hip pain more prominent on the left side and increased with any movement, she had bilateral hip x-ray which showed that she had osteoarthritis of both hips. Patient denies any side effect of the medication , patient denies any excessive drowsiness or sleepiness, patient denies any suicidal ideation,Patient reported that the current medication is helping to control the pain and improve the activity of daily living,Patient denies any motor or sensory deficit, denies any change in the bowel movement or urination, patient denies any fever or night sweats.Patient here today for follow-up visit and medication management Review of systems is negative for chest pain, shortness of breath, new onset weakness, numbness/tingling, abdominal pain, malaise, fever, night sweats, chills, homicidal or suicidal ideation, or bowel or bladder incontinence. Objective - Vital Signs Vital signs: Vital Signs Temp Pulse 77 01/20/20 13:44 Resp 18 01/20/20 13:44 BP 118/80 01/20/20 13:44 Pulse Ox 98 01/20/20 13:44 - Exam Physical Examinations : -Constitutiona : Cooperative , not in acute distress . -HEENT : nech : supple , no Lymphadenopathy , normal thyroid size . : eyes : no ptosis , no icterus, no photophobia . - neurologic : Cranial nerve II to XII intact , no focal neurological deffecit . -psychatric : alert , oriented X 3 , appropriate affect , intact judgment and insight . -Lymphatic : no Lymphadenopathy . - musculoskeltal : Lumber spine moter stegnth lower extremities ,thigh and legs 5/5 Right side , 5/5 Left side deep tendon reflexes : normal Knee Jerk , normal ankle Jerk lumber facet Loading Test =positive Right , positive Left Range of motion of the lumbar spine Flexion 30 degrees, extension 10 degrees strait leg raising test = positive at 60 degree Fabere test= positive Right , and positive LT . Sever tenderness over the trochanteric bursa on the Left sides Flexion, abduction and adduction of the left hip associated with severe pain Assessment and Plan Plan: Assessment and plan= chronic low back pain secondary to lumbar degenerative disc disease , lumbar spondylosis with lumbar facet arthropathy . 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, cervical foraminal stenosis, cervical facet arthropathy Neck pain, mostly secondary to cervical spondylosis, pain increased over the last few weeks chronic and current use of high-risk medication (opioids) Patient denies any side effects of the current pain medication and the current treatment/medication helping the patient to do activity of daily living , Diagnoses, prognosis, treatment options, including but not limited to physical therapy, medication management, interventional therapies, and surgery, were discussed with the patient All the questions answered The narcotic consent was signed and patient agreed and understood the side effects and complications of opioid treatment. Patient signed the narcotic agreement, and was orally counseled, not to overuse, not to abuse, not to Divert , not tp sell pain medication, and to take it as prescribed only, Patient was counseled not to drive or operate heavy equipment while using narcotic medication, and advised not to use alcohol or any Illicit drugs while using the narcotis, the patient's verbalized understanding that lack of compliance with any of the above instructions, will likely to cause discharge from, the pain service, not to renew his narcotic prescriptions Medication managements= patient will be given prescription refills for [place] 5/325 dispense 60 with 1 refill, Neurontin 300 mg 3 times a day Interventions= patient could benefit from left trochanteric bursa steroid injection, and left hip joints intra-articular steroid injection MAPS reviewed and it was appropriate Time with Patient: Less than 30 PQRS Measure Charge Sheet Measure #130: Documentation of Current Meds in Medical Chart: Patient's medications documented in chart Measure #226: Tobacco Use: Screen & Cessation Intervention: Pt not a tobacco user Measure #111: Pneumonia Vaccination: Pneumococcal vaccine NOT administered or previously given Measure #47: Advance Care Plan: Advance care planning discussed & documented, pt chose/unable to give Measure #412: Opioid Treatment Agreement: Documented signed opioid trtmnt agreemnt min once during opioid trtmnt Measure #408: Opioid Therapy Follow-up Evaluation: Patient had f/u eval minimum every 3 months during opioid therapy Measure #317: Preventitive Care & Scrn High Bld Press & F/U: Normal blood pressure, f/u not required Measure #128: Body Mass Index (BMI) Screening & Follow-up: BMI documented ABOVE normal parameters - f/u documented Measure #131: Pain Assessment & Follow-up: Pain positive & plan documented, Follow-up scheduled Measure #431: Unhealthy Alcohol Use Preventative Care & Scrn: Patient not identified as an unhealthy alcohol user PQRS Narrative: Smoking Status Never smoker Narcotic Agreement Date Signed 07/15/19 Blood Pressure 118/80 Pain Intensity [Left Hip] 10 Pain Intensity [Lower Back] 3 Scale Used Numeric (1 - 10) Hx Alcohol Use (MH) Yes: RARE Home Medications: Ambulatory Orders Metoprolol Succinate [Toprol XL] 50 mg PO HS 04/14/14 clonazePAM [KlonoPIN] 1 mg PO BID 04/14/14 Atorvastatin Calcium [Lipitor] 20 mg PO PC-SUPPER 05/22/16 Multivitamins, Thera [Multivitamin] 2 tab PO DAILY 06/17/16 Ziprasidone [Geodon] 40 mg PO BID 06/17/16 Diclofenac Sodium Gel [Voltaren Gel] 1 applic TOPICAL QID 10/23/17 Cholecalciferol [Vitamin D3] 5,000 unit PO DAILY 06/08/18 Cyanocobalamin (Vitamin B-12) [Vitamin B12] 2,500 mcg PO DAILY 06/08/18 [place] Xl 600 mg PO TID 06/08/18 PARoxetine HCL [Paxil Cr] 50 mg PO DAILY 06/08/18 Vitamin C/Biotin [Hair, Skin and Nails] 2 tab PO DAILY 06/08/18 metFORMIN HCL [Glucophage] 500 mg PO BID 04/13/19 Ascorbic Acid [Vitamin C] 500 mg PO DAILY 07/21/19 Timolol 0.5% Ophth Soln [Timoptic 0.5% Ophth Soln] 1 drop BOTH EYES DAILY 11/22/19 Gabapentin [Neurontin] 300 mg PO TID #90 cap 01/20/20 HYDROcodone/APAP 5-325MG [[place] 5-325] 1 tab PO Q8HR PRN 30 Days #60 tab 01/20/20 HYDROcodone/APAP 5-325MG [[place] 5-325] 1 tab PO Q8HR PRN 30 Days #60 tab 01/20/20 Controlled Substance Measures - Controlled Substance Measures Is patient prescribed a controlled substance at discharge?: Yes When asked, does pt state using other controlled substances?: No If prescribed controlled substance>3 days was MAPS reviewed?: Yes If Rx opioid, was Start Talking consent form obtained?: Yes If opioid is for acute pain is fill amount 7 days or less?: No Was information provided regarding opioid addiction?: Yes
== END | disposition home or self-care (01) ==
LOC: PNWHC3 13:29
PROVIDERS: ATTEND Specialist
DX: G89.29 Other chronic pain (principal); M48.02 Spinal stenosis, cervical region; M51.36 Other intervertebral disc degeneration, lumbar region; M47.816 Spondylosis without myelopathy or radiculopathy, lumbar region; M46.92 Unspecified inflammatory spondylopathy, cervical region; M46.96 Unspecified inflammatory spondylopathy, lumbar region; M70.62 Trochanteric bursitis, left hip; M16.0 Bilateral primary osteoarthritis of hip; M96.1 Postlaminectomy syndrome, not elsewhere classified; Z79.891 Long term (current) use of opiate analgesic; Z79.1 Long term (current) use of non-steroidal anti-inflammatories (NSAID); Z79.84 Long term (current) use of oral hypoglycemic drugs; Z79.899 Other long term (current) drug therapy
CPT/HCPCS: 99211

== ENCOUNTER 2020-01-31 08:14 | Day surgery (SDC) | payer MEDICARE, BC ==
[2020-01-28 09:55] VITALS: BMI 36.7
[2020-01-31] MEDS ORDERED: LACTATED RINGERS 1,000 ML IV SCH (08:31)
[2020-01-31 08:56] VITALS: TEMP 96.8
[2020-01-31 08:56] LABS: Glucose,Whole Blood 119 mg/dL (75-99)
--- NOTE | 2020-01-31 09:12 | P.PCN ---
Date of Procedure: 01/31/20 Description of Procedure: Preoperative diagnoses: 1. Left hip osteoarthritis Postoperative diagnoses: 1. Left hip osteoporosis Procedure: Right hip intra-articular steroid injection with fluoroscopy Anesthesia: IV conscious sedation with Versed 2 mg Description of the procedure: Patient was seen and identified in the preoperative holding area, risk and benefits, complications ,and alternatives of the procedure were discussed with the patient and patient agreed with the preceding, patient signed the consent and IV was started and vital signs were monitored throughout the procedure and it was stable. The patient was taken to the operating room and placed in supine position the groin area was prepped with chlorhexidine 3 and draped with the standard fashion. Local anesthetic was used with lidocaine 1% then using 25 -gauge needle, under direct fluoroscopy and anterior posterior image of the hip joint was ascertained. A 22-gauge Quincke needle was then advanced to the femoral neck until contact with bone was made. After negative aspiration for blood, 2 mL of Isovue 200 was then injected to confirm placement of needle into the joint capsule. Once correct position was confirmed and after negative aspiration for blood, a solution consisting of 5 ML's of 0.5% Marcaine with 40 mg/1 mL of Depo- Medrol 40 mg was administered. A washout image was then obtained to confirm adequate spread within the joint capsule. Needle was removed, and a Band-Aid was placed. Patient tolerated procedure well with no complications Disposition: We'll see patient in clinic in 4 weeks' time to assess efficacy of right hip injection, patient will also have an MRI of her lumbar spine without contrast to evaluate for her radicular pain in her left leg as well.
--- NOTE | 2020-01-31 09:14 | P.PCN ---
Date of Procedure: 01/31/20 Preoperative Diagnosis: Trochanteric bursitis Postoperative Diagnosis: Greater trochanteric bursitis Procedure(s) Performed: Left greater trochanteric bursa injection Surgeon: Genaro Meza Condition: stable Disposition: PACU Description of Procedure: Patient was brought into the procedure room and appropriate asymmetry monitors were placed. Under direct fluoroscopy the left trochanteric bursa was identified and local anesthetic with 1% lidocaine 3 ML's was given with a 25- gauge needle. A 22-gauge 3-1/2 inch spinal needle was then advanced to the la teral aspect of the left trochanteric bursa. Once bone was contacted it was withdrawn half an inch. After negative aspiration for blood solution consisting of 3 ML's of half percent Marcaine and 40 mg Depo-Medrol was then injected. Patient tolerated procedure well with no complications. Imaging was saved and stored.
[2020-01-31] MEDS ORDERED: BUPIVACAINE (PF) 0.5% 30 ML VIAL ONE (09:17)
[2020-01-31] MEDS ORDERED: methylPREDNISolone ACETATE 80 MG/ML 1 ML VIAL ONE (09:17)
[2020-01-31] MEDS ORDERED: IOPAMIDOL M200 10 ML VIAL ONE (09:17)
[2020-01-31] MEDS ORDERED: MIDAZOLAM 2 MG/2 ML VIAL ONE (09:17)
[2020-01-31] MEDS ORDERED: LIDOCAINE 4% (PF) 5 ML AMP ONE (09:20)
[2020-01-31] MEDS ORDERED: IV FLUID CONTINUATION 700 ML IV ONE (09:36)
[2020-01-31 09:55] VITALS: BP 115/79; PULSE 72; RESP 18
--- NOTE | 2020-01-31 12:09 | FL ---
EXAMINATION TYPE: FL guided pain mgmt statistic DATE OF EXAM: 01/31/2020 FLUOROSCOPY Fluoroscopy time of 7 seconds was used during left hip injection. 2 image/s document/s the procedure .
--- NOTE | 2020-02-02 10:22 | CDI ---
Date: 02.02.20 CDS/Detailer Furniture Name: Beverly Rivera Phone: If any questions, call Virgie Galeas Drift Miner at [phone] Patient Name: Gali Ramirez Admit Date: 01.31.20 Discharge Date: 01.31.20 ATTENTION: The [facility] Coding Staff appreciate your assistance in clarifying documentation. Please respond to the clarification below the line at the bottom and electronically sign. The [facility] Coding staff will review the response and follow-up if needed. Please note: Queries are made part of the Legal Health Record. If you have any questions, please contact the Drift Miner. Dear Dr. Seaman On your Procedure note for steroid injection of the hip intra-articular the preop dx is left hip OA, but the post op dx is left hip osteoporosis. Was this a typographical error? What is the post op dx for clarification. Thank you for your kind consideration. MTDD
--- NOTE | 2020-02-24 11:10 | CDI ---
Date: 02.07.20 CDS/Rougher For [employer]ement Name: Beverly Rivera Phone: If any questions, call Virgie Galeas Vendor Representatives at [phone] Patient Name: Gali Ramirez Admit Date: 01.31.20 Discharge Date: 01.31.20 ATTENTION: The [facility] Coding Staff appreciate your assistance in clarifying documentation. Please respond to the clarification below the line at the bottom and electronically sign. The [facility] Coding staff will review the response and follow-up if needed. Please note: Queries are made part of the Legal Health Record. If you have any questions, please contact the Vendor Representatives. Dear Dr. Meza On your Procedure note for steroid injection of the hip intra-articular the preop dx is left hip OA, but the post op dx is left hip osteoporosis. Was this a typographical error? What is the post op dx for clarification. Thank you for your kind consideration. typo MTDD
== END 2020-01-31 10:10 | disposition home or self-care (01) ==
LOC: ORPAIN 08:14
PROVIDERS: ATTEND Anesthesiology
DX: M70.62 Trochanteric bursitis, left hip (principal); M16.12 Unilateral primary osteoarthritis, left hip; Z88.8 Allergy status to other drugs, medicaments and biological substances
CPT/HCPCS: 20610; 77002; J2001; J2250; J1040; Q9966; J2795

== ENCOUNTER → 2020-04-26 | Outpatient (CLI) | payer MEDICARE, BC ==
--- NOTE | 2020-04-26 13:05 | P.PAINPG ---
Subjective Progress Note Date: 04/26/20 Gali braga is 54 y/o female seen via telemedicine visit. She reports her pain is ok when at rest, but with any activity she begins to have back and neck pain, mostly when standing to long, walking to long, or bending over for long periods. She finds walking does help a bit, but unable to go for long periods. No new radicular symptoms. She uses the pain medication without any side effects, she uses voltaren gel as well. She had bursa injections b/l done at the orthopedic surgeon 2 weeks ago. Objective - Exam GENERAL: Awake, alert, oriented, no distress HENT: atraumatic, normocephalic, trachea midline, nose midline RESP: NO audible wheezing, no coughing CARDIO: Reg rate (per patient palpation), no edema ABDOMEN: Non tender (per patient), no distension CERVICAL SPINE: Range of motion limited secondary to pain, Spurling Negative LUMBAR SPINE: Limited range of motion secondary to pain, pain with flexion and extension of the Lumbar spine. TTP over trochanteric bursa b/l. NEURO: Gait is Normal, Sensation in Lower ext normal (per patient) PSYCH: Cooperative, normal affect. Assessment and Plan Assessment: Cervical spondylosis without myelopathy lumbar spondylosis without myelopathy hip osteoarthritis trochanteric bursitis opioid dependence Plan: We will refill meds for 4-6 weeks, f/u in 6 weeks. no injections at this time since she recently had injections. She has an MRI l spine scheduled soon. PQRS Measure Charge Sheet Measure #130: Documentation of Current Meds in Medical Chart: Patient's medications documented in chart Measure #226: Tobacco Use: Screen & Cessation Intervention: Pt not a tobacco user Measure #111: Pneumonia Vaccination: Pneumococcal vaccine administered or previously received Measure #47: Advance Care Plan: Advance care planning discussed & documented, plan or surrogate given Measure #412: Opioid Treatment Agreement: Documented signed opioid trtmnt agreemnt min once during opioid trtmnt Measure #408: Opioid Therapy Follow-up Evaluation: Patient had f/u eval minimum every 3 months during opioid therapy Measure #317: Preventitive Care & Scrn High Bld Press & F/U: Blood pressure not documented, patient not eligible Measure #128: Body Mass Index (BMI) Screening & Follow-up: BMI documented within normal parameters Measure #131: Pain Assessment & Follow-up: Pain positive & plan documented Measure #431: Unhealthy Alcohol Use Preventative Care & Scrn: Patient not identified as an unhealthy alcohol user PQRS Narrative: Smoking Status Never smoker Narcotic Agreement Date Signed 07/15/19 Pain Intensity [Lower Back] 4 Pain Intensity [Neck] 4 Scale Used Numeric (1 - 10) Hx Alcohol Use (MH) Yes: RARE Home Medications: Ambulatory Orders Metoprolol Succinate [Toprol XL] 50 mg PO HS 04/14/14 clonazePAM [KlonoPIN] 1 mg PO BID 04/14/14 Atorvastatin Calcium [Lipitor] 20 mg PO PC-SUPPER 05/22/16 Multivitamins, Thera [Multivitamin] 2 tab PO DAILY 06/17/16 Ziprasidone [Geodon] 40 mg PO BID 06/17/16 Diclofenac Sodium Gel [Voltaren Gel] 1 applic TOPICAL QID 10/23/17 Cholecalciferol [Vitamin D3] 5,000 unit PO DAILY 06/08/18 Cyanocobalamin (Vitamin B-12) [Vitamin B12] 2,500 mcg PO DAILY 06/08/18 [place] Xl 600 mg PO TID 06/08/18 PARoxetine HCL [Paxil Cr] 50 mg PO DAILY 06/08/18 Vitamin C/Biotin [Hair, Skin and Nails] 2 tab PO DAILY 06/08/18 metFORMIN HCL [Glucophage] 500 mg PO BID 04/13/19 Ascorbic Acid [Vitamin C] 500 mg PO DAILY 07/21/19 Timolol 0.5% Ophth Soln [Timoptic 0.5% Ophth Soln] 1 drop BOTH EYES DAILY 11/22/19 Biotin 10,000 mcg PO DAILY 01/28/20 Ciprofloxacin Ophth Soln [Cipro 0.3% Ophth Soln] 1 drops LEFT EYE Q6H 04/24/20 Gabapentin [Neurontin] 300 mg PO TID #90 cap 04/26/20 HYDROcodone/APAP 5-325MG [[place] 5-325] 1 tab PO Q8HR PRN 30 Days #60 tab 04/26/20 Controlled Substance Measures - Controlled Substance Measures Is patient prescribed a controlled substance at discharge?: Yes When asked, does pt state using other controlled substances?: No If prescribed controlled substance>3 days was MAPS reviewed?: Yes If Rx opioid, was Start Talking consent form obtained?: Yes If opioid is for acute pain is fill amount 7 days or less?: No Was information provided regarding opioid addiction?: Yes
== END | disposition home or self-care (01) ==
LOC: PNWHC3 07:04
PROVIDERS: ATTEND Hospitalist
DX: Z53.9 Procedure and treatment not carried out, unspecified reason (principal)

== ENCOUNTER → 2020-05-03 | Outpatient (CLI) | payer MEDICARE, BC ==
--- NOTE | 2020-05-03 13:25 | MR ---
EXAMINATION TYPE: MR lumbar spine wo con DATE OF EXAM: 05/03/2020 COMPARISON: 07/08/2014 HISTORY: Lower back pain, lumbar radiculopathy TECHNIQUE: T1 and T2 axial and sagittal images of the lumbar spine are submitted. FINDINGS: There is no abnormal signal seen within the visualized spinal cord or paraspinal soft tissu es. Alignment is anatomic. Vertebral hemangiomas are seen at multiple levels. There is a mass seen in the anterior margin of the left kidney measuring 2.3 cm. Does not meet the criteria of a simple cyst . Possibly related to hemorrhagic or complicated cyst. Incidental note made of a retroaortic left giorgio al vein. At L1-2 there is no disc herniation or canal stenosis. No foraminal encroachment. At L2-3 there is no disc herniation or canal stenosis. No foraminal encroachment. At L3-4 there is no disc herniation or canal stenosis. No foraminal encroachment. Mild hypertrophic c hanges facets. At L4-5 there is there is mild to moderate facet arthropathy. No disc herniation. Mild circumferentia l disc bulging with no canal stenosis. Neural foramina remain patent. No nerve root impingement. At L5-S1 there is mild to moderate facet arthropathy with no disc herniation or canal stenosis. Neura l foramina remain patent IMPRESSION: 1. Multilevel mild degenerative disc disease. No evidence of canal stenosis or foraminal encroachment . Mild circumferential disc bulging L4-L5. 2. There is a mass measuring 2.3 cm within the left kidney which does not meet the criteria of a simp le cyst. Still likely benign as appears to been present on the exam of 2013 but does appear to be sli ghtly increased in size. Recommend follow-up CT scan of the abdomen. 3. Multilevel facet arthropathy
== END | disposition home or self-care (01) ==
LOC: RADMRIMAIN 12:28
PROVIDERS: ATTEND Anesthesiology
DX: M51.26 Other intervertebral disc displacement, lumbar region (principal); M51.16 Intervertebral disc disorders with radiculopathy, lumbar region; M47.26 Other spondylosis with radiculopathy, lumbar region
CPT/HCPCS: 72148

== ENCOUNTER → 2020-05-24 | Outpatient (CLI) | payer MEDICARE, BC ==
--- NOTE | 2020-05-24 15:01 | P.PAINPG ---
Subjective Progress Note Date: 05/24/20 This is a follow-up visit for this patient with a history of severe and chronic low back pain secondary to lumbar degenerative disc disease, lumbar spondylosis with facet arthropathy, left hip osteoarthritis, left greater trochanter bursitis. She is managed with interventional pain procedures and medication management. She most recently underwent left hip and left greater trochanter injections on 01/31/2020. In March, she underwent bursa injections with orthopedic surgeon. He last underwent lumbar radiofrequency ablation in July 2019. She reports excellent benefit from this procedure, lasting more than 6 months. She is interested in having the procedure repeated. Today, her pain is located in the low back, rated as 4/10, pain is worse with bending, standing, turning and better with medications. Pain is described as aching and throbbing. She is currently on Neurontin 300 mg 3 times a day, and [place] 5/325 every 12 hours. Patient denies any side effect of the medication ,Patient reports that the current medication is helping to control the pain and improve the activity of daily living Patient denies any motor or sensory deficit, denies any change in the bowel movement or urination Review of systems is negative for chest pain, shortness of breath, new onset weakness, numbness/tingling, abdominal pain, malaise, fever, night sweats, chills, homicidal or suicidal ideation, or bowel or bladder incontinence. Objective Physical exam: Vitals: Reviewed in EMR GENERAL: Well appearing, in no acute distress, obese PSYCH: Mood and affect is appropriate. Awake, alert, and oriented SKIN: Skin color, texture, turgor normal, no rashes or lesions HEENT: Normocephalic, atraumatic. EOM intact CV: No pedal edema RESP: Respirations are unlabored, no audible wheezing GI: Abdomen non-distended MUSCULOSKELETAL: Bilateral lower extremity strength is normal and symmetric. No atrophy or tone abnormalities are noted. Lumbar spine: Straight leg raising in the sitting position is negative for radicular pain. Tenderness to palpation over the lumbar spine and paraspinous muscles bilaterally. Positive for pain with facet loading and back extension/rotation. Extremities: Peripheral joint ROM is full and pain free without obvious instability or laxity in all four extremities. No edema or skin discolorations noted. Gait: Gait is normal NEUR: Cranial nerves are grossly intact. No loss of sensation is noted. Imaging: MRI lumbar spine done at [facility] in April 2020 shows stable multilevel mild degenerative disc disease, multilevel facet arthropathy. Incidental renal mass noted which is also present in MRI from 2013. She is following with primary care physician regarding this. Assessment and Plan Plan: Assessment and plan= chronic low back pain secondary to lumbar degenerative disc disease , lumbar spondylosis with lumbar facet arthropathy . 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, cervical foraminal stenosis, cervical facet arthropathy chronic and current use of high-risk medication (opioids) Patient denies any side effects of the current pain medication and the current treatment/medication helping the patient to do activity of daily living , Patient signed the narcotic agreement, and this is on file Medication managements= patient will be given prescription refills for [place] 5/325 dispense 60 with 1 refill, Neurontin 300 mg 3 times a day dispense 90 with one refill, Voltaren gel with one refill Interventions= patient will be scheduled for repeat lumbar radiofrequency ablation, on the right side, L3, L4, L5 for facets L4-5 and L5-S1 MAPS reviewed and it was appropriate, urine drug screen ordered today PQRS Measure Charge Sheet Measure #130: Documentation of Current Meds in Medical Chart: Patient's medications documented in chart Measure #226: Tobacco Use: Screen & Cessation Intervention: Pt not a tobacco user Measure #111: Pneumonia Vaccination: Pneumococcal vaccine NOT administered or previously given Measure #47: Advance Care Plan: Advance care planning discussed & documented, pt chose/unable to give Measure #412: Opioid Treatment Agreement: Documented signed opioid trtmnt agreemnt min once during opioid trtmnt Measure #408: Opioid Therapy Follow-up Evaluation: Patient had f/u eval minimum every 3 months during opioid therapy Measure #317: Preventitive Care & Scrn High Bld Press & F/U: Normal blood pressure, f/u not required Measure #128: Body Mass Index (BMI) Screening & Follow-up: BMI documented ABOVE normal parameters - f/u documented Measure #131: Pain Assessment & Follow-up: Pain positive & plan documented, Follow-up scheduled Measure #431: Unhealthy Alcohol Use Preventative Care & Scrn: Patient not identified as an unhealthy alcohol user PQRS Measure Charge Sheet PQRS Narrative: Smoking Status Never smoker Narcotic Agreement Date Signed 07/15/19 Pain Intensity [Right Neck] 4 Pain Intensity [Lower Back] 4 Hx Alcohol Use (MH) Yes: RARE Home Medications: Ambulatory Orders Metoprolol Succinate [Toprol XL] 50 mg PO HS 04/14/14 clonazePAM [KlonoPIN] 1 mg PO BID 04/14/14 Atorvastatin Calcium [Lipitor] 20 mg PO PC-SUPPER 05/22/16 Multivitamins, Thera [Multivitamin] 2 tab PO DAILY 06/17/16 Ziprasidone [Geodon] 40 mg PO BID 06/17/16 Cholecalciferol [Vitamin D3] 5,000 unit PO DAILY 06/08/18 Cyanocobalamin (Vitamin B-12) [Vitamin B12] 2,500 mcg PO DAILY 06/08/18 [place] Xl 600 mg PO TID 06/08/18 PARoxetine HCL [Paxil Cr] 50 mg PO DAILY 06/08/18 Vitamin C/Biotin [Hair, Skin and Nails] 2 tab PO DAILY 06/08/18 metFORMIN HCL [Glucophage] 500 mg PO BID 04/13/19 Ascorbic Acid [Vitamin C] 500 mg PO DAILY 07/21/19 Timolol 0.5% Ophth Soln [Timoptic 0.5% Ophth Soln] 1 drop BOTH EYES DAILY 11/22/19 Biotin 10,000 mcg PO DAILY 01/28/20 Diclofenac Sodium Gel [Voltaren Gel] 1 applic TOPICAL QID PRN #2 tube 05/24/20 Gabapentin [Neurontin] 300 mg PO TID #90 cap 05/24/20 HYDROcodone/APAP 5-325MG [[place] 5-325] 1 tab PO Q8HR PRN 30 Days #60 tab 05/24/20 HYDROcodone/APAP 5-325MG [[place] 5-325] 1 tab PO Q8HR PRN 30 Days #60 tab 05/24/20 Controlled Substance Measures - Controlled Substance Measures Is patient prescribed a controlled substance at discharge?: Yes When asked, does pt state using other controlled substances?: No If prescribed controlled substance>3 days was MAPS reviewed?: Yes If Rx opioid, was Start Talking consent form obtained?: Yes If opioid is for acute pain is fill amount 7 days or less?: No Was information provided regarding opioid addiction?: Yes
[2020-05-24 15:24] VITALS: PULSE 89; RESP 16; TEMP 98.2
== END | disposition home or self-care (01) ==
LOC: PNWHC3 13:51
PROVIDERS: ATTEND Anesthesiology
DX: M51.36 Other intervertebral disc degeneration, lumbar region (principal); M47.816 Spondylosis without myelopathy or radiculopathy, lumbar region; M46.96 Unspecified inflammatory spondylopathy, lumbar region; M70.62 Trochanteric bursitis, left hip; M16.0 Bilateral primary osteoarthritis of hip; M96.1 Postlaminectomy syndrome, not elsewhere classified; M48.02 Spinal stenosis, cervical region; Z79.891 Long term (current) use of opiate analgesic; Z79.899 Other long term (current) drug therapy; Z79.84 Long term (current) use of oral hypoglycemic drugs
CPT/HCPCS: 99211

== ENCOUNTER 2020-06-13 06:48 | Day surgery (SDC) | payer MEDICARE, BC ==
[2020-06-09 15:23] VITALS: BMI 36.3
[~2020-06-13 06:48] MED LIST changes: -IV FLUID CONTINUATION 1,000 ML IV ONE; -LIDOCAINE 1% 20 ML VIAL (10MG/ML) FOR IV START INTRADERMA ONE
[2020-06-13] MEDS ORDERED: LIDOCAINE 1% (10MG/ML) FOR IV START INTRADERMA ONE (07:25)
[2020-06-13 07:30] VITALS: TEMP 97.1
[2020-06-13 07:33] LABS: Glucose,Whole Blood 113 mg/dL (75-99)
[2020-06-13] MEDS ORDERED: MIDAZOLAM 2 MG/2 ML VIAL ONE (08:19)
[2020-06-13] MEDS ORDERED: LIDOCAINE 4% (PF) 5 ML AMP ONE (08:19)
[2020-06-13] MEDS ORDERED: fentaNYL (PF) 50 MCG/ML 2 ML AMP ONE (08:19)
--- NOTE | 2020-06-13 08:47 | P.PCN ---
Date of Procedure: 06/13/20 Procedure(s) Performed: PREOPERATIVE DIAGNOSIS: Lumbar Spondylosis POSTOPERATIVE DIAGNOSIS: Same PROCEDURES: Radiofrequency ablation of the L3, L4, L5 medial branches with fluoroscopic guidance on the right side SURGEON: Avelina Sauer MD. ANESTHESIA: Lidocaine 1% 5 mL, Moderate sedation with intravenous Versed and fentanyl, sedation time 17 minutes EBL: Minimal Fluoroscopy was used for the procedure and images were saved in the radiology portion of the chart. PROCEDURE INDICATION: The patient with low back pain secondary to lumbar facet arthropathy who had more than 50% relief of pain with previous diagnostic lumbar medial branch block X2. PROCEDURE DESCRIPTION / TECHNIQUE: The patient was seen and identified in the preoperative area. Risks, benefits, complications, including but not limited to risk of infection ,bleeding , allergic reactions to the medications and incomplete pain relief , and alternatives were discussed with the patient, the patient agreed to proceed with the procedure and signed the consent. IV was started. The operative site was marked. Patient was taken to the OR and time out was completed. The patient was placed in the prone position on the procedure table. The lumbar area was prepped and draped in the usual sterile fashion. . Vital signs were closely monitored during the procedure .IV sedation was used during the procedure to decrease patients anxiety. Using AP and then oblique fluoroscopy, the "eye of the [place] dog" corresponding to the connection between the superior and transverse articular processes of the L4 and L5 as well as the sacral ala were identified, marked, and localized with 1% lidocaine. Subsequently, an 18 guage 100 mm radiofrequency cannula with a 10-mm active tip was advanced guided by fluoroscopy to the identified target at each site. Needle positioning was confirmed on AP, oblique and lateral fluoroscopy. Motor testing at 2.5 Hz was done with paraspinal muscle stimulation only, and no radicular symptoms down the legs. Then 1 mL of 4% lidocaine was injected in each site. Radiofrequency thermocoagulation at 80 degrees celsius for 90 seconds was then performed. [place] were removed. Sterile dressings were applied. COMPLICATIONS: No acute complications. DISPOSITION / PLANS: The patient was placed in a supine position and transferred to the recovery area in a stable condition for observation and was discharged from the recovery room after meeting discharge criteria. Home discharge instructions given to the patient by the staff. The patient will follow up in clinic in 4 weeks.
[2020-06-13] MEDS ORDERED: IV FLUID CONTINUATION 300 ML IV ONE (08:53)
[2020-06-13 09:10] VITALS: RESP 20
--- NOTE | 2020-06-13 09:15 | FL ---
Fluoroscopy HISTORY: Pain 9 seconds fluoroscopy time supplied to the referring clinician. 7 intraoperative C-arm images docume nt the procedure. See dictated report from anesthesia.
[2020-06-13 09:20] VITALS: BP 108/78; PULSE 77
== END 2020-06-13 09:20 | disposition home or self-care (01) ==
LOC: ORPAIN 06:48
PROVIDERS: ATTEND Anesthesiology
DX: G89.29 Other chronic pain (principal); M47.896 Other spondylosis, lumbar region; M51.36 Other intervertebral disc degeneration, lumbar region; M70.62 Trochanteric bursitis, left hip; M16.0 Bilateral primary osteoarthritis of hip; M54.2 Cervicalgia; M96.1 Postlaminectomy syndrome, not elsewhere classified; M48.02 Spinal stenosis, cervical region; M47.892 Other spondylosis, cervical region; E11.9 Type 2 diabetes mellitus without complications; Z98.890 Other specified postprocedural states; Z79.899 Other long term (current) drug therapy; Z79.891 Long term (current) use of opiate analgesic; Z79.84 Long term (current) use of oral hypoglycemic drugs; Y93.9 Activity, unspecified
CPT/HCPCS: 64635; 64636; J2001; J2250; J3010; 99152

== ENCOUNTER → 2020-07-19 | Outpatient (CLI) | payer MEDICARE, BC ==
[2020-07-19 13:37] VITALS: BP 109/71; PULSE 79; RESP 18; TEMP 98.3
--- NOTE | 2020-07-20 08:52 | P.PAINPG ---
Subjective Progress Note Date: 07/19/20 This is a follow-up visit for this patient with a history of severe and chronic low back pain secondary to lumbar degenerative disc disease, lumbar spondylosis with facet arthropathy. She is managed with interventional pain procedures and medication management. She is currently on Neurontin 300 mg 3 times a day, and [place] 5/325 every 12 hours, patient currently complaining of severe neck pain mainly on the right side with radiation to the right shoulder blade area increased with any movement. Previously she has done physical therapy with some improvement Patient denies any side effect of the medication , patient denies any excessive drowsiness or sleepiness, patient denies any suicidal ideation,Patient reported that the current medication is helping to control the pain and improve the activity of daily living,Patient denies any motor or sensory deficit, denies any change in the bowel movement or urination, patient denies any fever or night sweats.Patient here today for follow-up visit and medication management Review of systems is negative for chest pain, shortness of breath, new onset weakness, numbness/tingling, abdominal pain, malaise, fever, night sweats, chills, homicidal or suicidal ideation, or bowel or bladder incontinence. Objective - Vital Signs Vital signs: Vital Signs Temp 98.3 F 07/19/20 13:24 Pulse 79 07/19/20 13:24 Resp 18 07/19/20 13:24 BP 109/71 07/19/20 13:24 Pulse Ox 96 07/19/20 13:24 - Exam -Constitutiona : Cooperative , not in acute distress . -HEENT : nech : supple , no Lymphadenopathy , normal thyroid size . : eyes : no ptosis , no icterus, no photophobia . - neurologic : Cranial nerve II to XII intact , no focal neurological deffecit . -psychatric : alert , oriented X 3 , appropriate affect , intact judgment and insight . -Lymphatic : no Lymphadenopathy . - musculoskeltal : Examination of the cervical spine: Normal motor strength in the upper extremity Normal sensation. Multiple trigger point identified in the right side cervical paraspinal muscles, and the right shoulder blade area. Lumber spine moter stegnth lower extremities ,thigh and legs 5/5 Right side , 5/5 Left side deep tendon reflexes : normal Knee Jerk , normal ankle Jerk lumber facet Loading Test =positive Right , positive Left Range of motion of the lumbar spine Flexion 30 degrees, extension 10 degrees strait leg raising test = positive at 60 degree Fabere test= positive Right , and positive LT . tenderness over the trochanteric bursa on the Left sides Flexion, abduction and adduction of the left hip associated with severe pain Assessment and Plan Plan: chronic low back pain secondary to lumbar degenerative disc disease , lumbar spondylosis with lumbar facet arthropathy . 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, cervical foraminal stenosis, cervical facet arthropathy Myofascial pain syndrome and cervical area and right shoulder blade area cervical spondylosis, pain increased over the last few weeks chronic and current use of high-risk medication (opioids) Patient denies any side effects of the current pain medication and the current treatment/medication helping the patient to do activity of daily living , Diagnoses, prognosis, treatment options, including but not limited to physical therapy, medication management, interventional therapies, and surgery, were discussed with the patient All the questions answered The narcotic consent was signed and patient agreed and understood the side effects and complications of opioid treatment. Patient signed the narcotic agreement, and was orally counseled, not to overuse, not to abuse, not to Divert , not tp sell pain medication, and to take it as prescribed only, Patient was counseled not to drive or operate heavy equipment while using narcotic medication, and advised not to use alcohol or any Illicit drugs while using the narcotis, the patient's verbalized understanding that lack of compliance with any of the above instructions, will likely to cause discharge from, the pain service, not to renew his narcotic prescriptions Medication managements= patient will be given prescription refills for [place] 5/325 dispense 60 with 1 refill, Neurontin 300 mg 3 times a day Interventions= patient could benefit from trigger point injection right side cervical paraspinal and shoulder blade., Also she could benefit from physical therapy referral for physical therapy was given MAPS reviewed and it was appropriate Time with Patient: Less than 30 PQRS Measure Charge Sheet Measure #130: Documentation of Current Meds in Medical Chart: Patient's medications documented in chart Measure #226: Tobacco Use: Screen & Cessation Intervention: Pt not a tobacco user Measure #111: Pneumonia Vaccination: Pneumococcal vaccine NOT administered or previously given Measure #47: Advance Care Plan: Advance care planning discussed & documented, pt chose/unable to give Measure #412: Opioid Treatment Agreement: Documented signed opioid trtmnt agreemnt min once during opioid trtmnt Measure #408: Opioid Therapy Follow-up Evaluation: Patient had f/u eval minimum every 3 months during opioid therapy Measure #317: Preventitive Care & Scrn High Bld Press & F/U: Normal blood pressure, f/u not required Measure #128: Body Mass Index (BMI) Screening & Follow-up: BMI documented ABOVE normal parameters - f/u documented Measure #131: Pain Assessment & Follow-up: Pain positive & plan documented, Follow-up scheduled Measure #431: Unhealthy Alcohol Use Preventative Care & Scrn: Patient not identified as an unhealthy alcohol user PQRS Narrative: Smoking Status Never smoker Narcotic Agreement Date Signed 05/24/20 Blood Pressure 109/71 Pain Intensity [Neck] 4 Pain Intensity [Right Lower 4 Back] Scale Used Numeric (1 - 10) Hx Alcohol Use (MH) Yes: RARE Home Medications: Ambulatory Orders Metoprolol Succinate [Toprol XL] 50 mg PO HS 04/14/14 clonazePAM [KlonoPIN] 1 mg PO BID 04/14/14 Atorvastatin Calcium [Lipitor] 20 mg PO PC-SUPPER 05/22/16 Multivitamins, Thera [Multivitamin] 2 tab PO DAILY 06/17/16 Ziprasidone [Geodon] 40 mg PO BID 06/17/16 Cholecalciferol [Vitamin D3] 5,000 unit PO DAILY 06/08/18 Cyanocobalamin (Vitamin B-12) [Vitamin B12] 2,500 mcg PO DAILY 06/08/18 [place] Xl 600 mg PO TID 06/08/18 PARoxetine HCL [Paxil Cr] 50 mg PO DAILY 06/08/18 metFORMIN HCL [Glucophage] 850 mg PO BID 04/13/19 Ascorbic Acid [Vitamin C] 500 mg PO DAILY 07/21/19 Timolol 0.5% Ophth Soln [Timoptic 0.5% Ophth Soln] 1 drop BOTH EYES DAILY 11/22/19 Biotin 10,000 mcg PO DAILY 07/12/20 Diclofenac Sodium Gel [Voltaren Gel] 1 applic TOPICAL QID PRN #2 tube 07/19/20 Gabapentin [Neurontin] 300 mg PO TID #90 cap 07/19/20 HYDROcodone/APAP 5-325MG [[place] 5-325] 1 tab PO Q8HR PRN 30 Days #60 tab 07/19/20 HYDROcodone/APAP 5-325MG [[place] 5-325] 1 tab PO Q8HR PRN 30 Days #60 tab 07/19/20 Controlled Substance Measures - Controlled Substance Measures Is patient prescribed a controlled substance at discharge?: Yes
== END | disposition home or self-care (01) ==
LOC: PNWHC3 12:56
PROVIDERS: ATTEND Specialist
DX: G89.29 Other chronic pain (principal); M48.02 Spinal stenosis, cervical region; M51.36 Other intervertebral disc degeneration, lumbar region; M47.812 Spondylosis without myelopathy or radiculopathy, cervical region; M47.816 Spondylosis without myelopathy or radiculopathy, lumbar region; M96.1 Postlaminectomy syndrome, not elsewhere classified; M70.62 Trochanteric bursitis, left hip; M16.0 Bilateral primary osteoarthritis of hip; M79.18 Myalgia, other site; F11.90 Opioid use, unspecified, uncomplicated; Z79.899 Other long term (current) drug therapy; Z79.1 Long term (current) use of non-steroidal anti-inflammatories (NSAID)
CPT/HCPCS: 99211

== ENCOUNTER 2020-08-15 09:01 | Day surgery (SDC) | payer MEDICARE, BC ==
[2020-08-11 15:27] VITALS: BMI 37.3
[2020-08-15 09:32] VITALS: RESP 18; TEMP 96.9
[2020-08-15 09:33] LABS: Glucose,Whole Blood 98 mg/dL (75-99)
[2020-08-15] MEDS ORDERED: LACTATED RINGERS 1,000 ML IV SCH (09:36)
[2020-08-15] MEDS ORDERED: ROPIVACAINE 5MG/ML 20ML VIAL ONE (09:51)
[2020-08-15] MEDS ORDERED: TRIAMCINOLONE ACETONIDE 40 MG/ML 1 ML VIAL ONE (09:51)
[2020-08-15 10:02] VITALS: PULSE 70
[2020-08-15 10:19] VITALS: BP 117/79
--- NOTE | 2020-08-18 12:52 | P.PCN ---
Date of Procedure: 08/15/20 Preoperative Diagnosis: Myofascial pain Postoperative Diagnosis: Cervical myofascial pain Procedure(s) Performed: Right paraspinal, levator scapula, rhomboid trigger point injections 4 muscles Anesthesia: none Surgeon: Michoacano Hahn Condition: stable Disposition: same day Indications for Procedure: Myofascial pain Description of Procedure: Patient is brought to the procedure area and monitors were attached. Patient was cleaned with chlorhexidine swab in the right neck, shoulder, cervical, paraspinal region. 4 trigger point were palpated and identified with a positive jump sign. A total of 4 mL of ropivacaine 0.5% (3 mL) and 40 mg of Kenalog were injected into 4 specific trigger points located in the cervical rhomboid, levator scapulae, paraspinal musculature. Patient tolerated the procedure well with no complications. Patient is due for clinic follow-up in one month.
== END 2020-08-15 10:24 | disposition home or self-care (01) ==
LOC: ORPAIN 09:01
PROVIDERS: ATTEND Anesthesiology
DX: M79.18 Myalgia, other site (principal); Z78.0 Asymptomatic menopausal state; Z88.5 Allergy status to narcotic agent; Z88.8 Allergy status to other drugs, medicaments and biological substances; Z91.040 Latex allergy status
CPT/HCPCS: 20553; J3301; J2795

== ENCOUNTER → 2020-09-13 | Outpatient (CLI) | payer MEDICARE, BC ==
[2020-09-13 14:06] VITALS: BP 127/86; PULSE 76; RESP 18; TEMP 98.5
--- NOTE | 2020-09-14 11:37 | P.PN ---
Subjective Progress Note Date: 09/13/20 This is a follow-up visit for this patient with a history of severe and chronic low back pain secondary to lumbar degenerative disc disease, lumbar spondylosis with facet arthropathy. She is managed with interventional pain procedures and medication management. She is currently on Neurontin 300 mg 3 times a day, and [place] 5/325 every 12 hours, patient currently complaining of severe neck pain mainly on the right side with radiation to the right shoulder blade area increased with any movement. Previously she has done physical therapy with some improvement Patient denies any side effect of the medication , patient denies any excessive drowsiness or sleepiness, patient denies any suicidal ideation,Patient reported that the current medication is helping to control the pain and improve the activity of daily living,Patient denies any motor or sensory deficit, denies any change in the bowel movement or urination, patient denies any fever or night sweats.Patient here today for follow-up visit and medication management Review of systems is negative for chest pain, shortness of breath, new onset weakness, numbness/tingling, abdominal pain, malaise, fever, night sweats, chills, homicidal or suicidal ideation, or bowel or bladder incontinence. Physical examination -Constitutiona : Cooperative , not in acute distress . -HEENT : nech : supple , no Lymphadenopathy , normal thyroid size . : eyes : no ptosis , no icterus, no photophobia . - neurologic : Cranial nerve II to XII intact , no focal neurological deffecit . -psychatric : alert , oriented X 3 , appropriate affect , intact judgment and insight . -Lymphatic : no Lymphadenopathy . - musculoskeltal : Examination of the cervical spine: Normal motor strength in the upper extremity Normal sensation. Multiple trigger point identified in the right side cervical paraspinal muscles, and the right shoulder blade area. Lumber spine moter stegnth lower extremities ,thigh and legs 5/5 Right side , 5/5 Left side deep tendon reflexes : normal Knee Jerk , normal ankle Jerk lumber facet Loading Test =positive Right , positive Left Range of motion of the lumbar spine Flexion 30 degrees, extension 10 degrees strait leg raising test = positive at 60 degree Fabere test= positive Right , and positive LT . tenderness over the trochanteric bursa on the Left sides Flexion, abduction and adduction of the left hip associated with severe pain Assessment and Plan= chronic low back pain secondary to lumbar degenerative disc disease , lumbar spondylosis with lumbar facet arthropathy . 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, cervical foraminal stenosis, cervical facet arthropathy Myofascial pain syndrome and cervical area and right shoulder blade area cervical spondylosis, pain increased over the last few weeks chronic and current use of high-risk medication (opioids) Patient denies any side effects of the current pain medication and the current treatment/medication helping the patient to do activity of daily living , Diagnoses, prognosis, treatment options, including but not limited to physical therapy, medication management, interventional therapies, and surgery, were discussed with the patient All the questions answered The narcotic consent was signed and patient agreed and understood the side effects and complications of opioid treatment. Patient signed the narcotic agreement, and was orally counseled, not to overuse, not to abuse, not to Divert , not tp sell pain medication, and to take it as prescribed only, Patient was counseled not to drive or operate heavy equipment while using narcotic medication, and advised not to use alcohol or any Illicit drugs while using the narcotis, the patient's verbalized understanding that lack of compliance with any of the above instructions, will likely to cause discharge from, the pain service, not to renew his narcotic prescriptions Medication managements= patient will be given prescription refills for [place] 5/325 dispense 60 with 1 refill, Neurontin 300 mg 3 times a day dispense 90 with 1 refill Interventions= none MAPS reviewed and it was appropriate Time with Patient: Less than 30 PQRS Measure Charge Sheet Measure #130: Documentation of Current Meds in Medical Chart: Patient's medications documented in chart Measure #226: Tobacco Use: Screen & Cessation Intervention: Pt not a tobacco user Measure #111: Pneumonia Vaccination: Pneumococcal vaccine NOT administered or previously given Measure #47: Advance Care Plan: Advance care planning discussed & documented, pt chose/unable to give Measure #412: Opioid Treatment Agreement: Documented signed opioid trtmnt agreemnt min once during opioid trtmnt Measure #408: Opioid Therapy Follow-up Evaluation: Patient had f/u eval minimum every 3 months during opioid therapy Measure #317: Preventitive Care & Scrn High Bld Press & F/U: Normal blood pressure, f/u not required Measure #128: Body Mass Index (BMI) Screening & Follow-up: BMI documented ABOVE normal parameters - f/u documented Measure #131: Pain Assessment & Follow-up: Pain positive & plan documented, Follow-up scheduled Measure #431: Unhealthy Alcohol Use Preventative Care & Scrn: Patient not identified as an unhealthy alcohol user PQRS Narrative: Objective - Vital Signs Vital signs: Vital Signs Temp 98.5 F 09/13/20 14:01 Pulse 76 09/13/20 14:01 Resp 18 09/13/20 14:01 BP 127/86 09/13/20 14:01 Pulse Ox 95 09/13/20 14:01
== END | disposition home or self-care (01) ==
LOC: PNWHC3 13:09
PROVIDERS: ATTEND Specialist
DX: M96.1 Postlaminectomy syndrome, not elsewhere classified (principal); M48.02 Spinal stenosis, cervical region; M51.36 Other intervertebral disc degeneration, lumbar region; M47.816 Spondylosis without myelopathy or radiculopathy, lumbar region; M16.0 Bilateral primary osteoarthritis of hip; M79.18 Myalgia, other site
CPT/HCPCS: 99211

== ENCOUNTER → 2020-10-12 | Outpatient (CLI) | payer MEDICARE, BC ==
[2020-10-12 10:37] VITALS: BP 104/73; PULSE 91; RESP 18
--- NOTE | 2020-10-12 10:52 | P.PAINPG ---
Subjective Progress Note Date: 10/12/20 This is a follow-up visit for this patient with a history of severe and chronic low back pain secondary to lumbar degenerative disc disease, lumbar spondylosis with facet arthropathy. She is managed with interventional pain procedures and medication management. She complains of severe left groin pain that has been going on for several weeks. He is described as burning and constant and even present as rest. Only located in the groin and occasionally in the low back. She said that this pain is not necessarily new, she has had this pain in the past on the right side which is helped lumbar radiofrequency ablation. She also complains that she is having a little bit of neck pain although she is scheduled to do physical therapy so she'll address her pain after that. She is also scheduled to have her greater trochanteric bursa was injected bilaterally by her orthopedic doctor. She is currently on Neurontin 300 mg 3 times a day, and [place] 5/325 every 12 hours, patient currently complaining of severe neck pain mainly on the right side with radiation to the right shoulder blade area increased with any movement. Previously she has done physical therapy with some improvement Patient denies any side effect of the medication , patient denies any excessive drowsiness or sleepiness, patient denies any suicidal ideation,Patient reported that the current medication is helping to control the pain and improve the activity of daily living,Patient denies any motor or sensory deficit, denies any change in the bowel movement or urination, patient denies any fever or night sweats.Patient here today for follow-up visit and medication management Review of systems is negative for chest pain, shortness of breath, new onset weakness, numbness/tingling, abdominal pain, malaise, fever, night sweats, chills, homicidal or suicidal ideation, or bowel or bladder incontinence. Physical examination -Constitutiona : Cooperative , not in acute distress . -HEENT : nech : supple , no Lymphadenopathy , normal thy roid size . : eyes : no ptosis , no icterus, no photophobia . - neurologic : Cranial nerve II to XII intact , no focal neurological deffecit . -psychatric : alert , oriented X 3 , appropriate affect , intact judgment and insight . -Lymphatic : no Lymphadenopathy . - musculoskeltal : Examination of the cervical spine: Normal motor strength in the upper extremity Normal sensation. Multiple trigger point identified in the right side cervical paraspinal muscles, and the right shoulder blade area. Lumber spine moter stegnth lower extremities ,thigh and legs 5/5 Right side , 5/5 Left side deep tendon reflexes : normal Knee Jerk , normal ankle Jerk lumber facet Loading Test =positive Right , positive Left Range of motion of the lumbar spine Flexion 30 degrees, extension 10 degrees strait leg raising test = positive at 60 degree Fabere test= positive Right , and positive LT . tenderness over the trochanteric bursa on the Left sides Flexion, abduction and adduction of the left hip associated with severe pain Assessment and Plan= chronic low back pain secondary to lumbar degenerative disc disease , lumbar spondylosis with lumbar facet arthropathy . 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, cervical foraminal stenosis, cervical facet arthropathy Myofascial pain syndrome and cervical area and right shoulder blade area cervical spondylosis, pain increased over the last few weeks chronic and current use of high-risk medication (opioids) Patient denies any side effects of the current pain medication and the current treatment/medication helping the patient to do activity of daily living , Diagnoses, prognosis, treatment options, including but not limited to physical therapy, medication management, interventional therapies, and surgery, were discussed with the patient All the questions answered The narcotic consent was signed and patient agreed and understood the side effects and complications of opioid treatment. Patient signed the narcotic agreement, and was orally counseled, not to overuse, not to abuse, not to Divert , not tp sell pain medication, and to take it as prescribed only, Patient was counseled not to drive or operate heavy equipment while using narcotic medication, and advised not to use alcohol or any Illicit drugs while using the narcotis, the patient's verbalized understanding that lack of compliance with any of the above instructions, will likely to cause discharge from, the pain service, not to renew his narcotic prescriptions Schedule her for left RFA at L3-L4, L4-5, L5-S1. She had this procedure last in July of last year. She had the same exact groin pain stated above on her right side which was helped by right-sided RFA slime hopeful that the artificial hope the pain this time. If this is not working consider ilioinguinal nerve block. Medication managements= patient is on [place] 5/325 dispense 60 with 1 refill, Neurontin 300 mg 3 times a day dispense 90 with 1 refill. no refills needed today MAPS reviewed and it was appropriate PQRS Measure Charge Sheet Measure #130: Documentation of Current Meds in Medical Chart: Patient's medications documented in chart Measure #226: Tobacco Use: Screen & Cessation Intervention: Pt not a tobacco user Measure #111: Pneumonia Vaccination: Pneumococcal vaccine NOT administered or previously given Measure #47: Advance Care Plan: Advance care planning discussed & documented, pt chose/unable to give Measure #412: Opioid Treatment Agreement: Documented signed opioid trtmnt agreemnt min once during opioid trtmnt Measure #408: Opioid Therapy Follow-up Evaluation: Patient had f/u eval minimum every 3 months during opioid therapy Measure #317: Preventitive Care & Scrn High Bld Press & F/U: Normal blood pressure, f/u not required Measure #128: Body Mass Index (BMI) Screening & Follow-up: BMI documented ABOVE normal parameters - f/u documented Measure #131: Pain Assessment & Follow-up: Pain positive & plan documented, Follow-up scheduled Measure #431: Unhealthy Alcohol Use Preventative Care & Scrn: Patient not identified as an unhealthy alcohol user PQRS Narrative: PQRS Measure Charge Sheet PQRS Narrative: Smoking Status Never smoker Narcotic Agreement Date Signed 05/24/20 Hx Alcohol Use (MH) Yes: RARE Home Medications: Ambulatory Orders Metoprolol Succinate [Toprol XL] 50 mg PO HS 04/14/14 clonazePAM [KlonoPIN] 1 mg PO BID 04/14/14 Atorvastatin Calcium [Lipitor] 20 mg PO PC-SUPPER 05/22/16 Multivitamins, Thera [Multivitamin] 2 tab PO DAILY 06/17/16 Ziprasidone [Geodon] 40 mg PO BID 06/17/16 Cholecalciferol [Vitamin D3] 5,000 unit PO DAILY 06/08/18 Cyanocobalamin (Vitamin B-12) [Vitamin B12] 2,500 mcg PO DAILY 06/08/18 [place] Xl 600 mg PO TID 06/08/18 metFORMIN HCL [Glucophage] 850 mg PO BID 04/13/19 Ascorbic Acid [Vitamin C] 500 mg PO DAILY 07/21/19 Timolol 0.5% Ophth Soln [Timoptic 0.5% Ophth Soln] 1 drop BOTH EYES DAILY 11/22/19 Biotin 10,000 mcg PO DAILY 07/12/20 PARoxetine HCL [Paxil Cr] 50 mg PO DAILY 09/11/20 Diclofenac Sodium Gel [Voltaren Gel] 1 applic TOPICAL QID PRN #2 tube 09/13/20 Gabapentin [Neurontin] 300 mg PO TID #90 cap 09/13/20 HYDROcodone/APAP 5-325MG [[place] 5-325] 1 tab PO Q8HR PRN 30 Days #60 tab 09/13/20 HYDROcodone/APAP 5-325MG [[place] 5-325] 1 tab PO Q8HR PRN 30 Days #60 tab 09/13/20 Dicyclomine [Bentyl] 10 mg PO BID 10/11/20 Controlled Substance Measures - Controlled Substance Measures Is patient prescribed a controlled substance at discharge?: No
== END | disposition home or self-care (01) ==
LOC: PNWHC3 10:24
PROVIDERS: ATTEND Anesthesiology
DX: M47.816 Spondylosis without myelopathy or radiculopathy, lumbar region (principal); M51.36 Other intervertebral disc degeneration, lumbar region; M70.62 Trochanteric bursitis, left hip; M16.0 Bilateral primary osteoarthritis of hip; M96.1 Postlaminectomy syndrome, not elsewhere classified; M48.02 Spinal stenosis, cervical region; M79.18 Myalgia, other site; M47.812 Spondylosis without myelopathy or radiculopathy, cervical region; G89.29 Other chronic pain; Z79.891 Long term (current) use of opiate analgesic; Z79.899 Other long term (current) drug therapy; Z79.52 Long term (current) use of systemic steroids
CPT/HCPCS: 99211

== ENCOUNTER 2020-11-03 06:33 | Day surgery (SDC) | payer MEDICARE, BC ==
[2020-11-03 07:35] LABS: Glucose,Whole Blood 118 mg/dL (75-99)
[2020-11-03 07:39] VITALS: RESP 16; TEMP 98.5
[2020-11-03] MEDS ORDERED: methylPREDNISolone ACETATE 40 MG/ML 1 ML VIAL ONE (07:58)
[2020-11-03] MEDS ORDERED: MIDAZOLAM 2 MG/2 ML VIAL ONE (07:58)
[2020-11-03] MEDS ORDERED: ROPIVACAINE 5MG/ML 20ML VIAL ONE (07:58)
[2020-11-03] MEDS ORDERED: TRIAMCINOLONE ACETONIDE 40 MG/ML 1 ML VIAL ONE ×2 (07:58)
--- NOTE | 2020-11-03 08:21 | P.PCN ---
Date of Procedure: 11/03/20 Procedure(s) Performed: PREOPERATIVE DIAGNOSIS: 1-Lumbar Spondylosis with Facet Arthropathy without myelopathy. POSTOPERATIVE DIAGNOSIS: 1- Lumbar Spondylosis with Facet Arthropathy without myelopathy. PROCEDURES : Left Radiofrequency thermocoagulation, L3 , L4 , and L5 medial branch, with fluoroscopic guidance (fluoroscopy images available in the radiology department) ( to denervate the facet joint at left L4-5 ,and L5-S1 levels ). ANESTHESIA: Monitored anesthesia care ,provided by anesthesia department. EBL: Minimal PROCEDURE INDICATION: The patient with low back pain secondary to lumbar facet arthropathy who had more than 50% relief of her pain with previous diagnostic lumbar medial branch block with bupivacaine. PROCEDURE DESCRIPTION / TECHNIQUE: The patient was seen and identified in the preoperative area. Risks, benefits, complications, including but not limited to risk of infection ,bleeding , allergic reactions to the medications and no complete pain releife , and alternatives were discussed with the patient, the patient agreed to proceed with the procedure and signed the consent. IV was started. Vital signs remained stable throughout the procedure. Patient was taken to the OR and time out was completed. The patient was placed i n the prone position on the procedure table. The lumber area was prepped and draped in the usual sterile fashion. . Vital signs were closely monitored during the procedure .IV sedation was used during the procedure to decrease patients anxiety. Using AP and then oblique fluoroscopy, the ``eye of the [place] dog corresponding to the connection between the superior and transverse articular processes of Left L3, L4, and L5 were identified, marked, and localized with 1% lidocaine. Subsequently, a [id number] radiofrequency cannula with a 10-mm active tip was advanced guided by fluoroscopy to each of the``eyes of the [place] dog at Left L3, L4, and L5. Each site then underwent sensory testing at 50 Hz and 0 to 1 volt and motor testing at 2.5 Hz and 0 to 3 volt with local stimulation, but no radicular symptoms down the legs. Thereafter each sites underwent radiofrequency thermocoagulation at 80 degrees celsius for 90 seconds after injecting 0.5 ml of PF Ropivacaine 1ml, then after the thermocoagulation done , 1 ml of the block solution containing Depo-Medrol 40 mg and 3 ml of Ropivacaine 0.5% was injected at the Left L3,L4, L5 , levels after negative aspiration of CSF and blood and with no paresthesias. Cannulas were retracted while injecting lidocaine 1% until the needle is out. At the end of the procedure, the skin was cleansed and bandages were applied. COMPLICATIONS: No acute complications. DISPOSITION / PLANS: The patient was placed in a supine position and transferred to the recovery area in a stable condition for observation and was discharged from the recovery room after meeting discharge criteria. Home discharge instructions given to the patient by the staff. The patient was reexamined prior to discharge. The patient will schedule a follow up in the clinic in 2-4 weeks.
[2020-11-03] MEDS ORDERED: IV FLUID CONTINUATION 700 ML IV ONE (08:29)
--- NOTE | 2020-11-03 08:33 | FL ---
EXAMINATION TYPE: FL guided pain mgmt statistic DATE OF EXAM: 11/03/2020 FLUOROSCOPY Fluoroscopy time of 10 seconds was used during left lumbar radiofrequency ablation. 3 image/s docume nt/s the procedure.
[2020-11-03 08:47] VITALS: BP 123/82; PULSE 57
== END 2020-11-03 09:07 | disposition home or self-care (01) ==
LOC: ORPAIN 06:33
PROVIDERS: ATTEND Specialist
DX: M47.816 Spondylosis without myelopathy or radiculopathy, lumbar region (principal); I10 Essential (primary) hypertension; E78.5 Hyperlipidemia, unspecified; G47.33 Obstructive sleep apnea (adult) (pediatric); E11.9 Type 2 diabetes mellitus without complications; M79.7 Fibromyalgia; Z88.5 Allergy status to narcotic agent; Z88.6 Allergy status to analgesic agent; Z99.89 Dependence on other enabling machines and devices; Z86.69 Personal history of other diseases of the nervous system and sense organs; Z79.84 Long term (current) use of oral hypoglycemic drugs; Z79.899 Other long term (current) drug therapy; Z78.0 Asymptomatic menopausal state
CPT/HCPCS: 64635; 64636; J2250; J3301; J2795

== ENCOUNTER → 2020-11-08 | Outpatient (CLI) | payer MEDICARE, BC ==
[2020-11-08 13:11] VITALS: BP 138/90; PULSE 81; RESP 18; TEMP 99
--- NOTE | 2020-11-08 13:37 | P.PN ---
Subjective Progress Note Date: 11/08/20 This is a follow-up visit for this patient with a history of severe and chronic low back pain secondary to lumbar degenerative disc disease, lumbar spondylosis with facet arthropathy. She is managed with interventional pain procedures and medication management. She is currently on Neurontin 300 mg 3 times a day, and [place] 5/325 every 12 hours, recently we have done RFA of the medial branch lumbar area on the left side ,and her pain improved significantly Patient denies any side effect of the medication , patient denies any excessive drowsiness or sleepiness, patient denies any suicidal ideation,Patient reported that the current medication is helping to control the pain and improve the ac tivity of daily living,Patient denies any motor or sensory deficit, denies any change in the bowel movement or urination, patient denies any fever or night sweats.Patient here today for follow-up visit and medication management Review of systems is negative for chest pain, shortness of breath, new onset weakness, numbness/tingling, abdominal pain, malaise, fever, night sweats, chills, homicidal or suicidal ideation, or bowel or bladder incontinence. Objective - Vital Signs Vital signs: Vital Signs Temp 99.0 F 11/08/20 13:08 Pulse 81 11/08/20 13:08 Resp 18 11/08/20 13:08 BP 138/90 11/08/20 13:08 Pulse Ox 96 11/08/20 13:08 Intake & Output 11/07/20 11/08/20 11/08/20 18:59 06:59 18:59 Weight 90.265 kg - Exam -Constitutiona : Cooperative , not in acute distress . -HEENT : nech : supple , no Lymphadenopathy , normal thyroid size . : eyes : no ptosis , no icterus, no photophobia . - neurologic : Cranial nerve II to XII intact , no focal neurological deffecit . -psychatric : alert , oriented X 3 , appropriate affect , intact judgment and insight . -Lymphatic : no Lymphadenopathy . - musculoskeltal : Examination of the cervical spine: Normal motor strength in the upper extremity Normal sensation. Multiple trigger point identified in the right side cervical paraspinal muscles, and the right shoulder blade area. Lumber spine moter stegnth lower extremities ,thigh and legs 5/5 Right side , 5/5 Left side Assessment and Plan Plan: chronic low back pain secondary to lumbar degenerative disc disease , lumbar spondylosis with lumbar facet arthropathy . 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, cervical foraminal stenosis, cervical facet arthropathy Myofascial pain syndrome and cervical area and right shoulder blade area cervical spondylosis, pain increased over the last few weeks chronic and current use of high-risk medication (opioids) Patient denies any side effects of the current pain medication and the current treatment/medication helping the patient to do activity of daily living , Diagnoses, prognosis, treatment options, including but not limited to physical therapy, medication management, interventional therapies, and surgery, were discussed with the patient All the questions answered The narcotic consent was signed and patient agreed and understood the side effects and complications of opioid treatment. Patient signed the narcotic agreement, and was orally counseled, not to overuse, not to abuse, not to Divert , not tp sell pain medication, and to take it as prescribed only, Patient was counseled not to drive or operate heavy equipment while using narcotic medication, and advised not to use alcohol or any Illicit drugs while using the narcotis, the patient's verbalized understanding that lack of compliance with any of the above instructions, will likely to cause discharge from, the pain service, not to renew his narcotic prescriptions Medication managements= patient will be given prescription refills for [place] 5/325 dispense 60 with 1 refill, Neurontin 300 mg 3 times a day dispense 90 with 1 refill Interventions= none, status post RFA of the medial branch lumbar area on the left side MAPS reviewed and it was appropriate Time with Patient: Less than 30 PQRS Measure Charge Sheet Measure #130: Documentation of Current Meds in Medical Chart: Patient's medications documented in chart Measure #226: Tobacco Use: Screen & Cessation Intervention: Pt not a tobacco user Measure #111: Pneumonia Vaccination: Pneumococcal vaccine NOT administered or previously given Measure #47: Advance Care Plan: Advance care planning discussed & documented, pt chose/unable to give Measure #412: Opioid Treatment Agreement: Documented signed opioid trtmnt agreemnt min once during opioid trtmnt Measure #408: Opioid Therapy Follow-up Evaluation: Patient had f/u eval minimum every 3 months during opioid therapy Measure #317: Preventitive Care & Scrn High Bld Press & F/U: Normal blood pressure, f/u not required Measure #128: Body Mass Index (BMI) Screening & Follow-up: BMI documented ABOVE normal parameters - f/u documented Measure #131: Pain Assessment & Follow-up: Pain positive & plan documented, Follow-up scheduled Measure #431: Unhealthy Alcohol Use Preventative Care & Scrn: Patient not identified as an unhealthy alcohol user PQRS Narrative: Time with Patient: Less than 30
== END | disposition home or self-care (01) ==
LOC: PNWHC3 13:00
PROVIDERS: ATTEND Specialist
DX: M48.02 Spinal stenosis, cervical region (principal); M47.812 Spondylosis without myelopathy or radiculopathy, cervical region; M51.36 Other intervertebral disc degeneration, lumbar region; M47.816 Spondylosis without myelopathy or radiculopathy, lumbar region; M96.1 Postlaminectomy syndrome, not elsewhere classified; M79.18 Myalgia, other site; G89.29 Other chronic pain; M70.62 Trochanteric bursitis, left hip; M16.0 Bilateral primary osteoarthritis of hip; Z79.891 Long term (current) use of opiate analgesic
CPT/HCPCS: 99211

== ENCOUNTER → 2020-11-09 | Outpatient (CLI) | payer MEDICARE, BC ==
--- NOTE | 2020-11-09 15:57 | CONS ---
CONSULTATION DATE OF SERVICE: 11/09/2020 A 55-year-old lady who has been evaluated in the [facility] for obstructive sleep apnea-hypopnea syndrome. HISTORY OF PRESENT ILLNESS/SLEEP-WAKE EVALUATION: Patient has history of obstructive sleep apnea for about 8 years, since that time on treatment with CPAP. About 2 months ago she had a home sleep apnea test which confirmed obstructive sleep apnea. Her sleep schedule from 11 p.m. to 9:30 am basically 7 days a week. Sometimes she has problems with falling asleep, although no TV in bedroom. She usually sleeps on the side position. She wakes up from sleep up to 4 times with one episode of nocturia and sometimes snoring when she is using her CPAP equipment. She may feel sleepiness and tiredness during the day and take a nap, usually in the morning hours. She usually feels refreshed after nap. No history of hypnagogic hallucinations, sleep paralysis or cataplexy. Butterfield Sleepiness Scale significantly increased to 14. She has problems with concentration, irritability, episodes of depression and anxiety. PAST MEDICAL HISTORY: Hypertension, hyperlipidemia, arthritis, diabetes mellitus, fibromyalgia. PAST SURGICAL HISTORY: Cervical fusion on different levels. MEDICATIONS: Toprol-XL 50 mg once a day, Lipitor 20 mg once a day, Klonopin 1 mg 1-2 times a day, Neurontin 300 mg 3 times a day and Geodon 40 mg twice a day, metformin 500 mg once a day, Paxil 25 mg twice a day, timolol once a day. SOCIAL HISTORY: Negative for smoking, alcohol consumption occasional. FAMILY HISTORY: Hypertension, hyperlipidemia, asthma, cancer, diabetes, mental illness. REVIEW OF SYSTEMS: Awakenings from sleep, sleepiness during the day. PHYSICAL EXAM: lady without distress, BP 146/77, HR 76, RR 15, height 5 foot, 2-1/2 inches, weight 197 pounds, BMI 35.4, temperature 97.1, oxygen saturation at room air 96%. OROPHARYNX: Extremely low position of soft palate. Mallampati 4. NECK: 16 inches in circumference. ABDOMEN: Obese. LUNGS: Clear to percussion and to auscultation. Good air exchange. No wheezing or rhonchi. HEART: S1, S2 regular. No murmurs, gallops, or rubs. EXTREMITIES: No clubbing or cyanosis. 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 Cranial nerves 2 to 7 intact. There is no fasciculation or atrophy. noted. No focal deficits observed. IMPRESSION: 1. Obstructive sleep apnea for 8 years. Patient continues to use her CPAP, but has awakenings from sleep. Occasional snoring and sleepiness. Extremely low position of soft palate. wide neck. Butterfield Sleepiness Scale increased to 14. Obstructive sleep apnea-hypopnea syndrome. 2. Obesity. BMI 35.4. 3. Hypertension. 4. Hyperlipidemia. 5. Diabetes mellitus. 6. Fibromyalgia. 7. History of polyarthritis. 8. History of depression. 9. History of anxiety. 10.History of seizures. 11.Status post cervical fusion. PLAN: 1. We will get the results of previous sleep studies. 2. Will repeat CPAP titration for re-evaluation of effective CPAP pressure at the present time, proper fitting mask. 3. Following plan after reviewing results of sleep study and titration. 4. I will see patient for followup visit to explain the results of the test and make a decision about this necessity to replace her CPAP unit to new one. 5. No driving if feeling sleepiness. Thank you very much for referring this patient for consultation. Sincerely, John Queen MD, PhD, FAASM Diplomat of [employer] [facility] [place] MMODL / CAINN: [id number] /
== END | disposition home or self-care (01) ==
LOC: SLEEP 13:24
PROVIDERS: ATTEND Internal Medicine
DX: G47.33 Obstructive sleep apnea (adult) (pediatric) (principal); E66.9 Obesity, unspecified; I10 Essential (primary) hypertension; E78.5 Hyperlipidemia, unspecified; E11.9 Type 2 diabetes mellitus without complications; M79.7 Fibromyalgia; Z99.89 Dependence on other enabling machines and devices; Z79.899 Other long term (current) drug therapy; Z79.84 Long term (current) use of oral hypoglycemic drugs; Z68.35 Body mass index [BMI] 35.0-35.9, adult; Z86.59 Personal history of other mental and behavioral disorders; Z87.39 Personal history of other diseases of the musculoskeletal system and connective tissue; Z98.1 Arthrodesis status

== ENCOUNTER → 2021-01-15 | Outpatient (CLI) | payer MEDICARE, BC ==
[2021-01-15 13:27] VITALS: BP 124/85; PULSE 85; RESP 18; TEMP 98.4
--- NOTE | 2021-01-15 13:36 | P.PN ---
Subjective Progress Note Date: 01/15/21 This is a 55-year-old lady with history of chronic lower back pain and left groin pain. The patient had RFA on the lumbar medial branch which has not helped her pain well. She is going to see an orthopedic surgeon for greater trochanter bursa steroid injection on the left side as she states. She has sky in pain for 6 months now on the medial aspect of her left groin anteriorly. The patient takes Nenzel 5 mg twice a day plus Neurontin 300 mg 3 times a day. She denies any side effects to these medications. Patient denies new-onset weakness, bowel/bladder incontinence, or any other signs or symptoms of cauda equina syndrome. There are no signs of acute intoxi cation, and no indications of medication diversion or overuse. In addition to above, 13-point review of systems is also negative for chest pain, shortness of breath, changes in vision, changes in hearing, new onset weakness, abdominal pain, diarrhea, extreme fatigue, malaise, fever, skin changes, homicidal or suicidal ideation, or bowel or bladder incontinence. Vital Signs: Reviewed in EMR Gen: AAOx3, NAD HEENT: PERRLA,hearing grossly normal Pulm: resp unlabored Neck: supple, trachea midline Neuro exam of the lower extremities: Normal muscle strength in the lower extremities bilaterally Straight leg raising test: Lobo's test: Range of motion of the lumbar spine: Facet loading test: Tenderness in the paravertebral musculature: Positive on the left side of the lumbar spine Positive tenderness around the left greater trochanter Neuro: CN II-XII grossly intact, Imaging: Reviewed in EMR/chart Assessment: Morbid obesity Lumbar spondylosis without myelopathy Left greater trochanter bursitis Cervical spondylosis without myelopathy Plan: 1. Explanation: Opioid and psychological risk scores were reviewed. Diagnoses, prognoses, and multiple treatment options including but not limited to physical therapy, interventional therapies, adjuvant medical therapies, narcotic medication therapies, and surgery were discussed with the patient and all questions were answered to the patient's satisfaction. 2. Opioid agreement: Signed with the patient and the patient is warned not to use opioids while driving or before driving and not to combine opioids with benzodiazepines or alcohol. 3. Counseling: The patient was counseled extensively on SMOKING CESSATION, BODY MASS INDEX, EXERCISE. Specifically, the patient was instructed regarding the importance of smoking cessation, obesity, and exercise in the context of both chronic pain and overall health. 4. Procedures: None for now 5. Consultations: None 6. Investigations: None 7. Medications: Continue Nenzel 5 mg twice a day, Neurontin 300 mg 3 times a day and I will add Flexeril 5 mg at night 8. Disposition: Return to clinic in 2 months 9. Maps were reviewed and were appropriate. Controlled Substance Measures Is patient prescribed a controlled substance at discharge?: Yes When asked, does pt state using other controlled substances?: No If prescribed controlled substance>3 days was MAPS reviewed?: Yes If Rx opioid, was Start Talking consent form obtained?: Yes If opioid is for acute pain is fill amount 7 days or less?: No Was information provided regarding opioid addiction?: Yes Objective - Vital Signs Vital signs: Vital Signs Temp 98.4 F 01/15/21 13:18 Pulse 85 01/15/21 13:18 Resp 18 01/15/21 13:18 BP 124/85 01/15/21 13:18 Pulse Ox 95 01/15/21 13:18
== END | disposition home or self-care (01) ==
LOC: PNWHC3 13:01
PROVIDERS: ATTEND Anesthesiology
DX: M47.812 Spondylosis without myelopathy or radiculopathy, cervical region (principal); M47.816 Spondylosis without myelopathy or radiculopathy, lumbar region; E66.01 Morbid (severe) obesity due to excess calories; M70.62 Trochanteric bursitis, left hip; Z79.891 Long term (current) use of opiate analgesic; Z79.899 Other long term (current) drug therapy
CPT/HCPCS: 80307; G0482; G0463; 99212

== ENCOUNTER → 2021-03-12 | Outpatient (CLI) | payer MEDICARE, BC ==
[2021-03-12 13:26] VITALS: BP 137/89; PULSE 83; RESP 18; TEMP 98
--- NOTE | 2021-03-12 13:39 | P.PN ---
Subjective Progress Note Date: 03/12/21 This is a follow-up visit for this patient with a history of severe, and chronic low back pain secondary to lumbar degenerative disc disease, lumbar spondylosis with facet arthropathy. She is managed with interventional pain procedures and medication management. She is currently on Neurontin 300 mg 3 times a day, and [place] 5/325 every 12 hours, previously we have done RFA of the medial branch lumbar area Patient denies any side effect of the medication , patient denies any excessive drowsiness or sleepiness, patient denies any suicidal ideation,Patient reported that the current medication is helping to control the pain and improve the activity of daily living,Patient denies any motor or sensory deficit, denies any change in the bowel movement or urination, patient denies any fever or night sweats.Patient here today for follow-up visit and medication management Review of systems is negative for chest pain, shortness of breath, new onset weakness, numbness/tingling, abdominal pain, malaise, fever, night sweats, chills, homicidal or suicidal ideation, or bowel or bladder incontinence. Physical examination= -Constitutiona : Cooperative , not in acute distress . -HEENT : nech : supple , no Lymphadenopathy , normal thyroid size . : eyes : no ptosis , no icterus, no photophobia . - neurologic : Cranial nerve II to XII intact , no focal neurological deffecit . -psychatric : alert , oriented X 3 , appropriate affect , intact judgment and insight . -Lymphatic : no Lymphadenopathy . - musculoskeltal : Examination of the cervical spine: Normal motor strength in the upper extremity Normal sensation. Multiple trigger point identified in the right side cervical paraspinal muscles, and the right shoulder blade area. Lumber spine moter stegnth lower extremities ,thigh and legs 5/5 Right side , 5/5 Left side Assessment and Plan= chronic low back pain secondary to lumbar degenerative disc disease , lumbar spondylosis with lumbar facet arthropathy . Bilateral hips artharalgia 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, cervical foraminal stenosis, cervical facet arthropathy Myofascial pain syndrome and cervical area and right shoulder blade area cervical spondylosis, pain increased over the last few weeks chronic and current use of high-risk medication (opioids) Patient denies any side effects of the current pain medication and the current treatment/medication helping the patient to do activity of daily living , Diagnoses, prognosis, treatment options, including but not limited to physical therapy, medication management, interventional therapies, and surgery, were discussed with the patient All the questions answered The narcotic consent was signed and patient agreed and understood the side effects and complications of opioid treatment. Patient signed the narcotic agreement, and was orally counseled, not to overuse, not to abuse, not to Divert , not tp sell pain medication, and to take it as prescribed only, Patient was counseled not to drive or operate heavy equipment while using narcotic medication, and advised not to use alcohol or any Illicit drugs while using the narcotis, the patient's verbalized understanding that lack of compliance with any of the above instructions, will likely to cause discharge from, the pain service, not to renew his narcotic prescriptions Medication managements= patient will be given prescription refills for [place] 5/325 dispense 60 with 1 refill, Neurontin 300 mg 3 times a day dispense 90 with 1 refill Interventions= none. MAPS reviewed and it was appropriate Time with Patient: Less than 30 PQRS Measure Charge Sheet Measure #130: Documentation of Current Meds in Medical Chart: Patient's medications documented in chart Measure #226: Tobacco Use: Screen & Cessation Intervention: Pt not a tobacco user Measure #111: Pneumonia Vaccination: Pneumococcal vaccine NOT administered or previously given Measure #47: Advance Care Plan: Advance care planning discussed & documented, pt chose/unable to give Measure #412: Opioid Treatment Agreement: Documented signed opioid trtmnt agreemnt min once during opioid trtmnt Measure #408: Opioid Therapy Follow-up Evaluation: Patient had f/u eval minimum every 3 months during opioid therapy Measure #317: Preventitive Care & Scrn High Bld Press & F/U: Normal blood pressure, f/u not required Measure #128: Body Mass Index (BMI) Screening & Follow-up: BMI documented ABOVE normal parameters - f/u documented Measure #131: Pain Assessment & Follow-up: Pain positive & plan documented, Follow-up scheduled Measure #431: Unhealthy Alcohol Use Preventative Care & Scrn: Patient not identified as an unhealthy alcohol user PQRS Narrative: Objective - Vital Signs Vital signs: Vital Signs Temp 98.0 F 03/12/21 13:24 Pulse 83 03/12/21 13:24 Resp 18 03/12/21 13:24 BP 137/89 03/12/21 13:24 Pulse Ox 95 03/12/21 13:24
== END ==
LOC: PNWHC3 13:11
PROVIDERS: ATTEND Specialist
DX: M47.816 Spondylosis without myelopathy or radiculopathy, lumbar region (principal); M51.36 Other intervertebral disc degeneration, lumbar region; G89.29 Other chronic pain; M25.552 Pain in left hip; M25.551 Pain in right hip; M96.1 Postlaminectomy syndrome, not elsewhere classified; M48.02 Spinal stenosis, cervical region; M79.18 Myalgia, other site; M47.812 Spondylosis without myelopathy or radiculopathy, cervical region; Z79.891 Long term (current) use of opiate analgesic
CPT/HCPCS: 99211

== ENCOUNTER → 2021-03-28 | Outpatient (CLI) | payer MEDICARE, BC ==
--- NOTE | 2021-03-28 22:00 | SFUN ---
SLEEP CENTER FOLLOW UP NOTE DATE OF SERVICE: 03/28/2021 This 55-year-old lady has been followed in Sleep Center for treatment of obstructive sleep apnea-hypopnea syndrome. This is the first visit after the patient received her new CPAP unit. She likes her will ice her machine. It is working well for her. She is using it every night. No complaints about equipment or supplies. I checked her CPAP unit. CPAP pressure is 6 cm of water, usage 29/30 nights for more than 4 hours with average usage 8.2 hours per night. Leak is 18 L/minute. Apnea- hypopnea index is 3.4. MEDICATIONS: 1. Toprol-XL 50 mg once a day. 2. Lipitor 20 mg once a day. 3. Klonopin 1 mg one to two times a day. 4. Neurontin 300 mg 3 times a day. 5. Geodon 40 mg twice a day. 6. Metformin 500 mg once a day. 7. Paxil 25 mg twice a day. 8. Timolol once a day. PHYSICAL EXAMINATION: GENERAL: A pleasant patient in no distress. VITAL SIGNS: BP 118/68, HR 83, RR 16, weight 203.8, temperature 98.5, oxygen saturation at room air 93%. HEENT: PERRLA, EOMI. Evaluation of oropharynx showed tongue protrudes midline. Extremely low position of soft palate. Mallampati IV. NECK: Supple. No JVD. Thyroid is not palpable. LUNGS: Clear to percussion and to auscultation. Good air exchange. No wheezing or rhonchi. HEART: S1, S2 regular. No murmurs, gallops or rubs. ABDOMEN: Obese. EXTREMITIES: No clubbing or cyanosis. INDUSTRIAL PARAMEDIC: Awake, alert, and oriented X3. Cranial nerves 2 to 7 intact. There is no fasciculation or atrophy. noted. No focal deficits observed. IMPRESSION: 1. Obstructive sleep apnea-hypopnea syndrome. Patient demonstrated 100% compliance with treatment, benefitting from treatment. 2. Obesity. 3. Hypertension. 4. Hyperlipidemia. 5. Diabetes mellitus. 6. Fibromyalgia. 7. History of polyarthritis. 8. History of depression. 9. History of anxiety. 10.History of seizures. 11.Status post cervical fusion. PLAN: 1. Patient will continue to use PAP equipment every night for the whole night. 2. Sleep hygiene with regular time in bed for at least 7-1/2 to 8 hours. 3. Precautions related to driving. No driving if feeling sleepiness. 4. I will maintain all necessary prescription for PAP supplies including mask, tube, filters. 5. Watching weight. 6. Follow-up visit in 6 months or earlier if patient has any problems. Thank you very much for allowing me to participate in the management of your patient. Sincerely, John Queen MD, PhD, FAASM Diplomat of [place] [facility] [place] MMODL / IJN: [id number] /
== END ==
LOC: SLEEP 16:38
PROVIDERS: ATTEND Internal Medicine
DX: G47.33 Obstructive sleep apnea (adult) (pediatric) (principal); E66.9 Obesity, unspecified; I10 Essential (primary) hypertension; E78.5 Hyperlipidemia, unspecified; E11.9 Type 2 diabetes mellitus without complications; M79.7 Fibromyalgia; Z87.39 Personal history of other diseases of the musculoskeletal system and connective tissue; F41.9 Anxiety disorder, unspecified; F32.9 Major depressive disorder, single episode, unspecified; M96.1 Postlaminectomy syndrome, not elsewhere classified; Z86.69 Personal history of other diseases of the nervous system and sense organs

== ENCOUNTER → 2021-05-07 | Outpatient (CLI) | payer MEDICARE, BC ==
--- NOTE | 2021-05-08 12:37 | P.PN ---
Subjective Progress Note Date: 05/07/21 This is a follow-up visit for this patient with a history of severe, and chronic low back pain secondary to lumbar degenerative disc disease, lumbar spondylosis with facet arthropathy. She is managed with interventional pain procedures and medication management. She is currently on Neurontin 300 mg 3 times a day, and Balm 5/325 every 12 hours, previously we have done RFA of the medial branch lumbar area ,she is complaining of severe low back pain in the low back area with radiation to the buttock bilaterally, the pain increases with any activity and interfere with activities of daily livings, Patient denies any side effect of the medication , patient denies any excessive drowsiness or sleepiness, patient denies any suicidal ideation,Patient reported that the current medication is helping to control the pain and improve the activity of daily living,Patient denies any motor or sensory deficit, denies any change in the bowel movement or urination, patient denies any fever or night sweats.Patient here today for follow-up visit and medication management Review of systems is negative for chest pain, shortness of breath, new onset weakness, numbness/tingling, abdominal pain, malaise, fever, night sweats, chills, homicidal or suicidal ideation, or bowel or bladder incontinence. Objective - Vital Signs Vital signs: Vital Signs Temp 97.9 F 05/07/21 13:27 Pulse 80 05/07/21 13:27 Resp 18 05/07/21 13:27 BP 112/77 05/07/21 13:27 Pulse Ox 96 05/07/21 13:27 - Exam Physical Examinations : -Constitutiona : Cooperative , not in acute distress . -HEENT : nech : supple , no Lymphadenopathy , normal thyroid size . : eyes : no ptosis , no icterus, no p hotophobia . - neurologic : Cranial nerve II to XII intact , no focal neurological deffecit . -psychatric : alert , oriented X 3 , appropriate affect , intact judgment and insight . -Lymphatic : no Lymphadenopathy . - musculoskeltal : . Lumber spine moter stegnth lower extremities ,thigh and legs 5/5 Right side , 5/5 Left side deep tendon reflexes : normal Knee Jerk , normal ankle Jerk lumber facet Loading Test =positive Right , positive Left Range of motion of the lumbar spine Flexion 30 degrees, extension 10 degrees strait leg raising test = positive at 45 degree Fabere test= positive Right , and positive LT . Sever tenderness over the Sacroiliac joint on the Right , and Left sides Gaenslen test= positive right ,and p ositive left . Seated flexion test= positive right ,and positive Left . Distraction test= positive bilaterally Assessment and Plan Plan: Assessment and Plan= chronic low back pain secondary to lumbar degenerative disc disease , lumbar spondylosis with lumbar facet arthropathy . 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, cervical foraminal stenosis, cervical facet arthropathy Myofascial pain syndrome and cervical area and right shoulder blade area cervical spondylosis, pain increased over the last few weeks chronic and current use of high-risk medication (opioids) Patient denies any side effects of the current pain medication and the current treatment/medication helping the patient to do activity of daily living , Diagnoses, prognosis, treatment options, including but not limited to physical therapy, medication management, interventional therapies, and surgery, were discussed with the patient All the questions answered The narcotic consent was signed and patient agreed and understood the side effects and complications of opioid treatment. Patient signed the narcotic agreement, and was orally counseled, not to overuse, not to abuse, not to Divert , not tp sell pain medication, and to take it as prescribed only, Patient was counseled not to drive or operate heavy equipment while using narcotic medication, and advised not to use alcohol or any Illicit drugs while using the narcotis, the patient's verbalized understanding that lack of compliance with any of the above instructions, will likely to cause discharge from, the pain service, not to renew his narcotic prescriptions Medication managements= patient will be given prescription refills for Balm 5/325 dispense 60 with 1 refill, Neurontin 300 mg 3 times a day dispense 90 with 1 refill Interventions= she couls benefit from bilateral sacroiliac joint steroid injections under fluoroscopy guidance MAPS reviewed and it was appropriate Time with Patient: Less than 30 PQRS Measure Charge Sheet Measure #130: Documentation of Current Meds in Medical Chart: Patient's medicat ions documented in chart Measure #226: Tobacco Use: Screen & Cessation Intervention: Pt not a tobacco user Measure #111: Pneumonia Vaccination: Pneumococcal vaccine NOT administered or previously given Measure #47: Advance Care Plan: Advance care planning discussed & documented, pt chose/unable to give Measure #412: Opioid Treatment Agreement: Documented signed opioid trtmnt agreemnt min once during opioid trtmnt Measure #408: Opioid Therapy Follow-up Evaluation: Patient had f/u eval minimum every 3 months during opioid therapy Measure #317: Preventitive Care & Scrn High Bld Press & F/U: Normal blood pressure, f/u not required Measure #128: Body Mass Index (BMI) Screening & Follow-up: BMI documented ABOVE normal parameters - f/u documented Measure #131: Pain Assessment & Follow-up: Pain positive & plan documented, Follow-up scheduled Measure #431: Unhealthy Alcohol Use Preventative Care & Scrn: Patient not identified as an unhealthy alcohol user Time with Patient: Less than 30
== END ==
CPT/HCPCS: 99211

== ENCOUNTER 2021-05-24 11:13 | Day surgery (SDC) | payer MEDICARE, BC ==
[2021-05-23 13:00] VITALS: BMI 37.5
[2021-05-24 11:34] VITALS: RESP 16; TEMP 97.5
[2021-05-24 11:37] LABS: Glucose,Whole Blood 117 mg/dL (75-99)
[2021-05-24] MEDS ORDERED: methylPREDNISolone ACETATE 40 MG/ML 1 ML VIAL ONE (12:17)
[2021-05-24] MEDS ORDERED: ROPIVACAINE 5MG/ML 20ML VIAL ONE (12:17)
--- NOTE | 2021-05-24 12:33 | P.PCN ---
Date of Procedure: 05/24/21 Procedure(s) Performed: Procedure= bilateral sacroiliac joints steroid injection under fluoroscopy guidance (fluoroscopy image stored on file in the radiology Department ) Preoperative diagnosis= 1-sacroiliitis 2-lumbar spondylosis with facet arthropathy Postoperative diagnosis=Same as preop Diagnosis . Complication = none Condition= stable Anesthesia= local infiltrations with Lidocaine 1% 4 ml only . Indication for the procedure= patient complaining of low back pain , examination was positive for severe tenderness over the sacroiliac joints bilaterally and patient diagnosed with sacroiliitis, for this reason, she was good candidate for sacroiliac joint steroid injection. Description of the procedure= procedure risk and benefits discussed with the patient, including but not limited, risk of infection and bleeding, and ALLERGIC reaction to the medication and not complete pain relief and patient agreed with the preceding patient taken to the operating room, placed in prone position or standard monitors applied to the patient then after induction of anesthesia back prepped with chlorhexidine 3 times , Then under strict sterile technique, first I did the right sacroiliac joint the which was identified under fluoroscopy guidance been local infiltration of the skin and subcu interstitial with lidocaine 1% then 25-gauge Quincke Needle advanced slowly under fluoroscopy and placed in the right sacroiliac joint needle placement confirmed with AP and oblique and lateral view and after appropriate needle placement confirmed and after negative aspiration, or heme , then Ropivacaine 0.5% 4 mL, and 40 mg of Depo-Medrol mixed together and injected in the right sacroiliac joint after negative aspiration patient tolerated the procedure well without any complication. Then the left sacroiliac joint steroid injection done under strict sterile technique local infiltration of the skin and subcu interstitial at the location of the left sacroiliac joint then a 22-gauge Quincke Needle advanced slowly under fluoroscopy time placed in the left sacroiliac joint, needle placement confirmed with AP and oblique and lateral view then after appropriate needle placement confirmed and after negative aspiration 0.5% Ropivacaine 4 mL and 40 mg of Depo-Medrol injected in the left sacroiliac joint after negative aspiration patient tolerated the procedure well that any complications and she will follow up in clinic 3 weeks
[2021-05-24 13:02] VITALS: BP 110/77; PULSE 71
--- NOTE | 2021-05-24 19:36 | FL ---
EXAMINATION TYPE: FL guided pain mgmt statistic DATE OF EXAM: 05/24/2021 FLUOROSCOPY Fluoroscopy time of 9 seconds was used during bilateral SI joint injections. 2 image/s document/s th e procedure.
== END 2021-05-24 13:05 | disposition home or self-care (01) ==
LOC: ORPAIN 11:13
PROVIDERS: ATTEND Specialist
DX: M46.1 Sacroiliitis, not elsewhere classified (principal); M47.816 Spondylosis without myelopathy or radiculopathy, lumbar region; Z88.6 Allergy status to analgesic agent; Z88.5 Allergy status to narcotic agent; Z88.8 Allergy status to other drugs, medicaments and biological substances
CPT/HCPCS: J1030; J2795; G0260

== ENCOUNTER → 2021-07-02 | Outpatient (CLI) | payer MEDICARE, BC ==
[2021-07-02 14:06] VITALS: BP 117/69; PULSE 80; RESP 18; TEMP 98.2
--- NOTE | 2021-07-02 14:15 | P.PAINPG ---
Subjective Progress Note Date: 07/02/21 This is a follow-up visit for this patient with a history of severe, and chronic low back pain secondary to lumbar degenerative disc disease, lumbar spondylosis with facet arthropathy. She is managed with interventional pain procedures and medication management. She is currently on Neurontin 300 mg 3 times a day, and [place] 5/325 every 12 hours, previously we have done RFA of the medial branch lumbar area ,she is complaining of severe low back pain in the low back area with radiation to the buttock bilaterally, the pain increases with any activity and interfere with activities of daily livings. Recently we performed bilateral SIJ injections for her. She experienced 100% relief with these procedures. Since then she is at about 50% relief level and is happy with the results overall. She would like to hold off on any injections for now. Overall she is satisfied with her medication regimen and no changes in her overall health. Patient denies any side effect of the medication , patient denies any excessive drowsiness or sleepiness, patient denies any suicidal ideation,Patient reported that the current medication is helping to control the pain and improve the activity of daily living,Patient denies any motor or sensory deficit, denies any change in the bowel movement or urination, patient denies any fever or night sweats.Patient here today for follow-up visit and medication management Review of systems is negative for chest pain, shortness of breath, new onset weakness, numbness/tingling, abdominal pain, malaise, fever, night sweats, chills, homicidal or suicidal ideation, or bowel or bladder incontinence. Objective - Exam Physical Examinations : -Constitutiona : Cooperative , not in acute distress . -HEENT : nech : supple , no Lymphadenopathy , normal thyroid size . : eyes : no ptosis , no icterus, no photophobia . - neurologic : Cranial nerve II to XII intact , no focal neurological deffecit . -psychatric : alert , oriented X 3 , appropriate affect , intact judgment and insight . -Lymphatic : no Lymphadenopathy . - musculoskeltal : . Lumber spine moter stegnth lower extremities ,thigh and legs 5/5 Right side , 5/5 Left side deep tendon reflexes : normal Knee Jerk , normal ankle Jerk lumber facet Loading Test =positive Right , positive Left Range of motion of the lumbar spine Flexion 30 degrees, extension 10 degrees strait leg raising test = positive at 45 degree Fabere test= positive Right , and positive LT . Sever tenderness over the Sacroiliac joint on the Right , and Left sides Gaenslen test= positive right ,and positive left . Seated flexion test= positive right ,and positive Left . Assessment and Plan Plan: Assessment and Plan= chronic low back pain secondary to lumbar degenerative disc disease , lumbar spondylosis with lumbar facet arthropathy . 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, ce rvical foraminal stenosis, cervical facet arthropathy Myofascial pain syndrome and cervical area and right shoulder blade area cervical spondylosis, pain increased over the last few weeks chronic and current use of high-risk medication (opioids) Patient denies any side effects of the current pain medication and the current treatment/medication helping the patient to do activity of daily living , Diagnoses, prognosis, treatment options, including but not limited to physical therapy, medication management, interventional therapies, and surgery, were discussed with the patient All the questions answered The narcotic consent was signed and patient agreed and understood the side effects and complications of opioid treatment. Patient signed the narcotic agreement, and was orally counseled, not to overuse, not to abuse, not to Divert , not tp sell pain medication, and to take it as prescribed only, Patient was counseled not to drive or operate heavy equipment while using narcotic medication, and advised not to use alcohol or any Illicit drugs while using the narcotis, the patient's verbalized understanding that lack of compliance with any of the above instructions, will likely to cause discharge from, the pain service, not to renew his narcotic prescriptions Medication managements= patient will be given prescription refills for [place] 5/325 dispense 60 with 1 refill, Neurontin 300 mg 3 times a day dispense 90 with 1 refill Interventions= repeat bilateral SIJ injection as needed. MAPS reviewed and it was appropriate I have spent 25 minutes on patient care today. The time was used to review the medical records including relevant urine studies and prescription history, review of the available imaging, evaluation and examination of the patient, coordination of care with the medical staff and if applicable referring physicians, as well as creation of the medical record. PQRS Measure Charge Sheet Measure #130: Documentation of Current Meds in Medical Chart: Patient's medications documented in chart Measure #226: Tobacco Use: Screen & Cessation Intervention: Pt not a tobacco user Measure #111: Pneumonia Vaccination: Pneumococcal vaccine NOT administered or previously given Measure #47: Advance Care Plan: Advance care planning discussed & documented, pt chose/unable to give Measure #412: Opioid Treatment Agreement: Documented signed opioid trtmnt agreemnt min once during opioid trtmnt Measure #408: Opioid Therapy Follow-up Evaluation: Patient had f/u eval minimum every 3 months during opioid therapy Measure #317: Preventitive Care & Scrn High Bld Press & F/U: Normal blood pressure, f/u not required Measure #128: Body Mass Index (BMI) Screening & Follow-up: BMI documented ABOVE normal parameters - f/u documented Measure #131: Pain Assessment & Follow-up: Pain positive & plan documented, Follow-up scheduled Measure #431: Unhealthy Alcohol Use Preventative Care & Scrn: Patient not identified as an unhealthy alcohol user PQRS Measure Charge Sheet PQRS Narrative: Smoking Status Never smoker Narcotic Agreement Date Signed 05/24/20 Pain Intensity [Back] 3 Hx Alcohol Use (MH) Yes: RARE Home Medications: Ambulatory Orders Metoprolol Succinate [Toprol XL] 50 mg PO HS 04/14/14 clonazePAM [KlonoPIN] 1 mg PO QAM 04/14/14 Atorvastatin Calcium [Lipitor] 20 mg PO PC-SUPPER 05/22/16 Multivitamins, Thera [Multivitamin] 2 tab PO DAILY 06/17/16 Ziprasidone [Geodon] 40 mg PO BID 06/17/16 Cholecalciferol [Vitamin D3] 2,000 unit PO DAILY 06/08/18 Cyanocobalamin (Vitamin B-12) [Vitamin B12] 2,500 mcg PO DAILY 06/08/18 [place] Xl 300 mg PO TID 06/08/18 Ascorbic Acid [Vitamin C] 500 mg PO DAILY 07/21/19 Timolol 0.5% Ophth Soln [Timoptic 0.5% Ophth Soln] 1 drop BOTH EYES DAILY 11/22/19 Biotin 10,000 mcg PO DAILY 07/12/20 PARoxetine HCL [Paxil Cr] 50 mg PO QAM 09/11/20 Diclofenac Sodium Gel [Voltaren Gel] 1 applic TOPICAL QID PRN #2 tube 09/13/20 Dicyclomine [Bentyl] 10 mg PO BID 10/11/20 Neuro B Complex 1 tab PO DAILY 11/02/20 clonazePAM [KlonoPIN] 1 mg PO HS 03/07/21 metFORMIN HCL [Glucophage XR] 750 mg PO BID 06/28/21 Gabapentin [Neurontin] 300 mg PO TID #90 cap 07/02/21 HYDROcodone/APAP 5-325MG [Jackman 5-325] 1 tab PO Q12HR PRN 30 Days #60 tab HYDROcodone/APAP 5-325MG [[place] 5-325] 1 tab PO Q6HR PRN 3 Days #12 tab 07/02/21 Controlled Substance Measures - Controlled Substance Measures Is patient prescribed a controlled substance at discharge?: Yes When asked, does pt state using other controlled substances?: No If prescribed controlled substance>3 days was MAPS reviewed?: Yes If Rx opioid, was Start Talking consent form obtained?: Yes If opioid is for acute pain is fill amount 7 days or less?: No Was information provided regarding opioid addiction?: No
== END | disposition home or self-care (01) ==
LOC: PNWHC3 13:51
PROVIDERS: ATTEND Anesthesiology
DX: M51.36 Other intervertebral disc degeneration, lumbar region (principal); M47.896 Other spondylosis, lumbar region; M46.96 Unspecified inflammatory spondylopathy, lumbar region; M46.1 Sacroiliitis, not elsewhere classified; M48.02 Spinal stenosis, cervical region; M79.18 Myalgia, other site
CPT/HCPCS: 80307; G0482; G0463; 99212

== ENCOUNTER → 2021-08-27 | Outpatient (CLI) | payer MEDICARE, BC ==
--- NOTE | 2021-08-27 14:35 | P.PAINPG ---
Subjective Progress Note Date: 08/27/21 Principal diagnosis: Lumbar back pain Mrs. Ramirez is a 56-year-old pleasant female came to the [facility] pain clinic for prescription refill. Patient has ongoing pain for many years. Patient describes pain is aching, throbbing, constant type of pain. Pain is radiating to up to mid thigh area. Patient rated pain levels are 7-8 out of 10 in severity. With the help of medications pain levels are 4-5 out of 10 in severity. Activities making pain worse. Medications, resting, interventional procedures helping in relieving patient's pain. Patient pain some days better than others. Overall activities decreased secondary to pain. Because of the pain sometimes patient is feeling lack of sleep, interest, and energy. With the help of pain medication she can able to perform her activities at home as tolerated. Denied any side effects with the medications. Denied any bowel or bladder problems at this time. Patient is not using any for walking support. Patient denies any suicidal or homicidal ideations intent or plan. Patient mynor es any auditory or visual hallucinations. Patient denied any red flag symptoms related to pain. Objective - Vital Signs Vital signs: Intake & Output 08/26/21 08/27/21 08/27/21 18:59 06:59 18:59 Weight 92.986 kg - Exam General: Well-developed, well-nourished, no acute distress HEENT: Normocephalic, and atraumatic Neck: Supple, no neck swelling Psychiatric: Appropriate mood, and affect ALUMINUM POLISHER: No noticeable focal neurological deficits Musculoskeletal: Upper extremity: Normal strength, and range of motion. Sensation grossly intact Lower extremity: Normal strength, and decreased range of motion secondary to pain Lumbar spine: Paravertebral tenderness: positive Lumbar facet load test : positive Sacroiliac joint tenderness: Positive Thigh thrust test: Not done Multiple trigger points positive and lumbar area [ ] - Constitutional Constitutional Comment(s): 13 point review of symptoms negative except as mentioned in the history of present illness Assessment and Plan Assessment: Lumbar spondylosis without myelopathy Chronic pain syndrome, and myofascial pain syndrome Sacroiliac joint dysfunction History of depression and anxiety Plan: 1 Opioid, and psychological risk tools, and scores were reviewed. Diagnoses, prognosis, and multiple treatment options including but not limited to physical therapy, interventional therapy, adjunct medication therapy, narcotic medication, and surgical options were discussed with the patient. And all quest ions were answered to the patient's satisfaction. #2 Opioid agreement: Patient was discussed regarding the medication side effects, and complications associated with narcotic use. Also counsels against driving while using narcotic medications, and also against using any alcohol or illicit or recreational drugs in conjunction with opioids. Patient understood the consequences. Patient has signed narcotic agreement and was again asked to re-read this document and will be given a copy to take home if requested. This document outlines the policies of the [facility]. It specifically counsels the patient to not misuse, overuse, abuse, divert, or sell medications, and to take them as prescribed by only one healthcare provider and store the medications in a safe and preferably locked location. This document also counsels against driving while using narcotic medications and also against using any alcohol or illicit or recreational drugs in conjunction with opioids. The patient verbalized understanding to staff that lack of compliance with any of the above will likely result in failure to renew narcotic prescriptions, possible discharge from the clinic, and possible legal ramifications thereafter. #3 Patient was counseled on importance of regular exercise. Including fior chi, aerobic exercises as tolerated. Which helps for chronic pain, and overall well-being. Patient also counseled regarding importance of weight control rolling chronic pain, and overall other health issues. By altering diet habits, minimizing sugar intake, and processed foods helps in minimizing Inflammation. Also discussed with the patient regarding intermittent fasting. Patient also counseled regarding the importance of regular use of CPAP at home any time during the sleep while on narcotic medications. #4 consultation: None #5 investigations: MAPS , urine drug test- reviewed #6 interventional procedures: Patient refused. #7 medications #1 [place] 5/325 by mouth every 12 hours as needed dispense 60 with no refill #2 Neurontin 300 mg by mouth every 12 hours and decreased from every 8 hours as patient wants to lose weight dispense 60 with no refill #3 naloxone 4 mg intranasal for respiratory depression dispense #2, discussed with the patient how to use it by family member if needed. #4 Klonopin 1 mg by mouth every 8 hours from her primary care physician Medication side effects, complications, long-term consequences discussed with the patient. Patient recommended to contact the pain clinic if noticed any issues with given medications. Had a lengthy discussion with the patient regarding Klonopin, and other pain medication interactions including respiratory depression and . Patient clearly understood.. Patient wants to talk to her primary care physician and sutured to the different anti-depressant medication in future visits. Patient also increased not to discontinue Klonopin certainly need to taper slowly to avoid history of seizures disc patient. #8 morphine milligrams equivalents dose ( MME) per day: 10. #09 disposition scheduled to follow up with pain clinic in 4 weeks duration. I have spent 20 minutes with this patient. Including but not limited to: [id number] time, on physical examination, electronic medical record review, counseling, and documentation. Time with Patient: Less than 30 PQRS Measure Charge Sheet Measure #130: Documentation of Current Meds in Medical Chart: Patient's medications documented in chart Measure #226: Tobacco Use: Screen & Cessation Intervention: Pt not a tobacco user Measure #111: Pneumonia Vaccination: Pneumococcal vaccine NOT administered or previously given Measure #47: Advance Care Plan: Advance care planning discussed & documented, pt chose/unable to give Measure #412: Opioid Treatment Agreement: Documented signed opioid trtmnt agreemnt min once during opioid trtmnt Measure #408: Opioid Therapy Follow-up Evaluation: Patient had f/u eval minimum every 3 months during opioid therapy Measure #317: Preventitive Care & Scrn High Bld Press & F/U: Pre-hypertensive or hypertensive BP documented, pt will f/u with PCP Measure #128: Body Mass Index (BMI) Screening & Follow-up: BMI documented ABOVE normal parameters - f/u documented Measure #131: Pain Assessment & Follow-up: Pain positive & plan documented Measure #431: Unhealthy Alcohol Use Preventative Care & Scrn: Patient not identified as an unhealthy alcohol user PQRS Narrative: Smoking Status Never smoker Narcotic Agreement Date Signed 07/02/21 Hx Alcohol Use (MH) Yes: RARE Home Medications: Ambulatory Orders Metoprolol Succinate [Toprol XL] 50 mg PO HS 04/14/14 clonazePAM [KlonoPIN] 1 mg PO QAM 04/14/14 Atorvastatin Calcium [Lipitor] 20 mg PO PC-SUPPER 05/22/16 Multivitamins, Thera [Multivitamin] 2 tab PO DAILY 06/17/16 Ziprasidone [Geodon] 40 mg PO BID 06/17/16 Cholecalciferol [Vitamin D3] 2,000 unit PO DAILY 06/08/18 Cyanocobalamin (Vitamin B-12) [Vitamin B12] 2,500 mcg PO DAILY 06/08/18 [place] Xl 300 mg PO TID 06/08/18 Ascorbic Acid [Vitamin C] 500 mg PO DAILY 07/21/19 Timolol 0.5% Ophth Soln [Timoptic 0.5% Ophth Soln] 1 drop BOTH EYES DAILY 11/22/19 Biotin 10,000 mcg PO DAILY 07/12/20 PARoxetine HCL [Paxil Cr] 50 mg PO QAM 09/11/20 Diclofenac Sodium Gel [Voltaren Gel] 1 applic TOPICAL QID PRN #2 tube 09/13/20 Dicyclomine [Bentyl] 10 mg PO BID 10/11/20 Neuro B Complex 1 tab PO DAILY 11/02/20 clonazePAM [KlonoPIN] 1 mg PO HS 03/07/21 Gabapentin [Neurontin] 300 mg PO TID #90 cap 07/02/21 HYDROcodone/APAP 5-325MG [[place] 5-325] 1 tab PO Q12HR PRN 30 Days #60 tab 07/02/21 HYDROcodone/APAP 5-325MG [[place] 5-325] 1 tab PO Q12HR PRN 30 Days #60 tab 07/02/21 Atomoxetine HCl [Strattera] 25 mg PO DAILY 08/23/21 Cbd Gummies 1 dose PO DIRECTED 08/23/21 metFORMIN HCL [Glucophage] 850 mg PO BID 08/23/21 Controlled Substance Measures - Controlled Substance Measures Is patient prescribed a controlled substance at discharge?: Yes When asked, does pt state using other controlled substances?: Yes If prescribed controlled substance>3 days was MAPS reviewed?: Yes If Rx opioid, was Start Talking consent form obtained?: Yes If opioid is for acute pain is fill amount 7 days or less?: No Was information provided regarding opioid addiction?: Yes
[2021-08-27 14:46] VITALS: BP 121/85; PULSE 91; RESP 20; TEMP 96.8
== END | disposition home or self-care (01) ==
LOC: PNWHC3 13:58
PROVIDERS: ATTEND Anesthesiology
DX: M47.816 Spondylosis without myelopathy or radiculopathy, lumbar region (principal); M79.18 Myalgia, other site; M46.1 Sacroiliitis, not elsewhere classified
CPT/HCPCS: 99211

== ENCOUNTER → 2021-09-24 | Outpatient (CLI) | payer MEDICARE, BC ==
[2021-09-24 13:33] VITALS: BP 115/79; PULSE 91; RESP 18; TEMP 96.9
--- NOTE | 2021-09-24 14:03 | P.PN ---
Subjective Progress Note Date: 09/24/21 Gali is a 56-year-old female presenting to clinic today for follow-up visit and medication refill. She has had bilateral SI joint injections as well as bilateral radiofrequency ablation of the lumbar region at L4 5 and L5-S1. She's had significant relief greater than 50% over 6 months since her last RFA. Today she reports that she is beginning to have lower back pain greater on the left and right. She rates her pain a 6 out of 10 overall. She reports her pain is worse with certain movements and especially bending over. Pain is relieved with medication, interventions, heat, and walking. She has had physical therapy in the past and continues to do at home exercises. She denies any adverse effects or complications from her medication. She denies any bowel or bladder dysfunction, saddle anesthesia, or any other red flag symptoms. Objective - Exam Physical Examinations : -Constitutiona : Cooperative , not in acute distress . -HEENT : nech : supple , no Lymphadenopathy , normal thyroid size . : eyes : no ptosis , no icterus, no photophobia . - neurologic : Cranial nerve II to XII intact , no focal neurological deffecit . -psychatric : alert , oriented X 3 , appropriate affect , intact judgment and insight . -Lymphatic : no Lymphadenopathy . - musculoskeltal : Lumber spine moter stegnth lower extremities ,thigh and legs 5/5 Right side , 5/5 Left side deep tendon reflexes : normal Knee Jerk , normal ankle Jerk lumber facet Loading Test =positive Right , positive Left Range of motion of the lumbar spine Flexion 30 degrees, extension 10 degrees strait leg raising test = negative Fabere test= positive Right , and positive LT . Sever tenderness over the Sacroiliac joint on the Right , and Left sides Gaenslen test= positive right ,and positive left . Seated flexion test= positive right ,and positive Left . Distraction test= positive bilaterally Sacroiliac compression test= positive bilaterally Assessment and Plan Assessment: Assessment and plan Assessment: Assessment: Lumbar spondylosis without myelopathy Chronic pain syndrome, and myofascial pain syndrome Sacroiliac joint dysfunction History of depression and anxiety Plan: Patient could benefit from repeat bilateral RFA at L4 5 and L5-S1. Refill her [place] 5 mg every 12 hours 60 pills no refills Refill Neurontin 300 mg every 12 hours #60 pills no refills Refill Voltaren gel 100 g apply as directed one refill - PQRS measures = - Patient's medications are documented in the chart. -Tobacco use is negative -Patient's has not received pneumococcal vaccine. -Advanced care planning discussed, patient not eligible. -Opiate contract signed. -Pain positive and follow-up visit/procedure is scheduled. -Patient's blood pressure measured [ 115/79 ] , and documented in the record ,and patient will follow up with the primary care. -Patient was not identified as an unhealthy alcohol user Time with Patient: Less than 30
== END | disposition home or self-care (01) ==
LOC: PNWHC3 13:05
PROVIDERS: ATTEND Student in an Organized Health Care Education/Training Program
DX: M47.816 Spondylosis without myelopathy or radiculopathy, lumbar region (principal)
CPT/HCPCS: 99211

== ENCOUNTER → 2021-10-17 | Outpatient (CLI) | payer MEDICARE, BC ==
[2021-10-17 11:21] VITALS: BP 119/75; PULSE 95; RESP 18; TEMP 98.2
--- NOTE | 2021-10-17 11:27 | P.PN ---
Subjective Progress Note Date: 10/17/21 Gali is a 56-year-old female presenting to clinic today for follow-up visit and medication refill. She has a history of lumbar degenerative disc disease, lumbar spondylosis with facet arthropathy without myelopathy and SI joint dysfunction. Reports interventions and pain medications help reduce her pain and allow her to increase her daily activities. She is scheduled for 11/02/2021 to have a repeat lumbar radiofrequency ablation. She denies any adverse effects or complications from her medication. She denies any bowel or bladder dysfunction, saddle anesthesia, or any other red flag symptoms. Objective - Exam Physical Examinations : -Constitutiona : Cooperative , not in acute distress . -HEENT : nech : supple , no Lymphadenopathy , normal thyroid size . : eyes : no ptosis , no icterus, no photophobia . - neurologic : Cranial nerve II to XII intact , no focal neurological deffecit . -psychatric : alert , oriented X 3 , appropriate affect , intact judgment and insight . -Lymphatic : no Lymphadenopathy . - musculoskeltal : Lumber spine moter stegnth lower extremities ,thigh and legs 5/5 Right side , 5/5 Left side deep tendon reflexes : normal Knee Jerk , normal ankle Jerk lumber facet Loading Test =positive Right , positive Left Range of motion of the lumbar spine Flexion 30 degrees, extension 10 degrees strait leg raising test = negative Fabere test= positive Right , and positive LT . Sever tenderness over the Sacroiliac joint on the Right , and Left sides Gaenslen test= positive right ,and positive left . Seated flexion test= positive right ,and positive Left . Distraction test= positive bilaterally Sacroiliac compression test= positive bilaterally Assessment and Plan Assessment: Assessment: Assessment and plan Assessment: Assessment: Lumbar spondylosis without myelopathy Chronic pain syndrome, and myofascial pain syndrome Sacroiliac joint dysfunction History of depression and anxiety Plan: Refill her [place] 5 mg every 12 hours 60 pills no refills Refill Neurontin 300 mg every 12 hours #60 pills one refill - PQRS measures = - Patient's medications are documented in the chart. -Tobacco use is negative -Patient's has not received pneumococcal vaccine. -Advanced care planning discussed, patient not eligible. -Opiate contract signed. -Pain positive and follow-up visit/procedure is scheduled. -Patient's blood pressure measured 119/75, and documented in the record ,and patient will follow up with the primary care. -Patient was not identified as an unhealthy alcohol user Time with Patient: Less than 30
== END | disposition home or self-care (01) ==
LOC: PNWHC3 10:56
PROVIDERS: ATTEND Student in an Organized Health Care Education/Training Program
DX: M47.816 Spondylosis without myelopathy or radiculopathy, lumbar region (principal); G89.4 Chronic pain syndrome; M79.18 Myalgia, other site; M53.3 Sacrococcygeal disorders, not elsewhere classified; Z86.59 Personal history of other mental and behavioral disorders
CPT/HCPCS: 99212

== ENCOUNTER → 2021-10-17 | Outpatient (CLI) | payer MEDICARE, BC ==
--- NOTE | 2021-10-18 08:26 | SFUN ---
SLEEP CENTER FOLLOW UP NOTE DATE OF SERVICE: 10/17/2021 This 56-year-old lady has been followed in Sleep Center for treatment of obstructive sleep apnea-hypopnea syndrome. Patient continues to use her CPAP equipment every night. She sleeps well. Getting her supplies on time. No snoring with the machine. [place] Sleepiness Scale is 7. I checked her CPAP unit. CPAP pressure is 6 cm of water, usage 29/30 nights for more than 4 hours, average 8.8 hours per night. Leak is 29 L/minute, which is borderline. Apnea-hypopnea index is 2.5, which is perfect. MEDICATIONS: 1. Toprol-XL 50 mg once a day. 2. Dicyclomine twice a day. 3. Strattera 25 mg once a day. 4. Lipitor 20 mg once a day. 5. Vicodin as needed. 6. Klonopin 1 mg twice a day. 7. Multivitamins. 8. Biotin. 9. Geodon 40 mg twice a day. 10.Metformin 500 mg twice a day. 11.Paxil 25 mg twice a day. 12.Timolol eye drops. PHYSICAL EXAMINATION: GENERAL: Pleasant patient in no distress. VITAL SIGNS: BP 121/84, HR 82, RR 14, height 5 feet 1-3/4 inches, weight 206.4 pounds, body mass index 38, temperature 98.4, oxygen saturation at room air 95%. HEENT: PERRLA, EOMI, evaluation of oropharynx showed tongue protrudes midline. Extremely low position of soft palate; Mallampati IV. NECK: Supple, no JVD. Thyroid is not palpable. LUNGS: Clear to percussion and to auscultation. Good air exchange. No wheezing or rhonchi. HEART: S1, S2 regular. No murmurs, gallops, or rubs. ABDOMEN: Obese. EXTREMITIES: No clubbing or cyanosis. PRODUCT DEVELOPMENT CHEMIST: Awake, alert, and oriented X3. Cranial nerves 2 to 7 intact. There is no fasciculation or atrophy. noted. No focal deficits observed. IMPRESSION: 1. Obstructive sleep apnea-hypopnea syndrome. Patient demonstrated great compliance with treatment, benefitting from treatment. Normal respiration on CPAP. 2. Hypertension. 3. Diabetes mellitus. 4. Obesity. 5. Hyperlipidemia. 6. Fibromyalgia. 7. History of polyarthritis. 8. History of depression. 9. History of anxiety. 10.History of seizures. 11.Status post cervical fusion. PLAN: 1. Patient will continue to use PAP equipment every night for the whole night. 2. Sleep hygiene with regular time in bed for at least 7-1/2 to 8 hours. 3. Precautions related to driving. No driving if feeling sleepiness. 4. I will maintain all necessary prescription for PAP supplies including mask, tube, filters. 5. Watching weight. 6. Follow-up visit in 6 months or earlier if patient has any problems. Thank you very much for allowing me to participate in the management of your patient. Sincerely, John Queen MD, PhD, FAASM Diplomat of [employer] Sleep Medicine Board of [place] [employer] Paper Bundler of [facility] MMISAL / CAINN: [id number] /
== END | disposition home or self-care (01) ==
LOC: SLEEP 13:07
PROVIDERS: ATTEND Internal Medicine
DX: G47.33 Obstructive sleep apnea (adult) (pediatric) (principal); I10 Essential (primary) hypertension; E11.9 Type 2 diabetes mellitus without complications; E66.9 Obesity, unspecified; E78.5 Hyperlipidemia, unspecified; M79.7 Fibromyalgia; Z86.59 Personal history of other mental and behavioral disorders; Z86.69 Personal history of other diseases of the nervous system and sense organs; Z98.890 Other specified postprocedural states

== ENCOUNTER 2021-11-02 11:24 | Day surgery (SDC) | payer MEDICARE, BC ==
[2021-11-01 08:53] VITALS: BMI 37.5
[2021-11-02 11:50] VITALS: TEMP 98
[2021-11-02] MEDS ORDERED: LACTATED RINGERS 1,000 ML IV ONE (11:50)
[2021-11-02 11:56] LABS: Glucose,Whole Blood 124 mg/dL (75-99)
[2021-11-02] MEDS ORDERED: TRIAMCINOLONE ACETONIDE 40 MG/ML 1 ML VIAL ONE (12:10)
[2021-11-02] MEDS ORDERED: ROPIVACAINE 5MG/ML 20ML VIAL ONE (12:10)
[2021-11-02] MEDS ORDERED: .fentaNYL (PF) 50 MCG/ML 2 ML AMP ONE (12:12)
[2021-11-02] MEDS ORDERED: MIDAZOLAM 2 MG/2 ML VIAL ONE (12:12)
--- NOTE | 2021-11-02 12:46 | P.PCN ---
Date of Procedure: 11/02/21 Procedure(s) Performed: PREOPERATIVE DIAGNOSIS: 1-Lumbar Spondylosis with Facet Arthropathy without myelopathy. POSTOPERATIVE DIAGNOSIS: 1- Lumbar Spondylosis with Facet Arthropathy without myelopathy. PROCEDURES : Bilateral Radiofrequency thermocoagulation, L3 , L4 , and L5 medial branch, with fluoroscopic guidance (fluoroscopy images available in the radiology department) ( to denervate the facet joint at Bilateral L4-5 ,and L5-S1 levels ). ANESTHESIA: Monitored anesthesia care as per anesthesia department . EBL: Minimal PROCEDURE INDICATION: The patient with low back pain secondary to lumbar facet arthropathy who had more than 50% relief of her pain with previous diagnostic lumbar medial branch block with bupivacaine. PROCEDURE DESCRIPTION / TECHNIQUE: The patient was seen and identified in the preoperative area. Risks, benefits, complications, including but not limited to risk of infection ,bleeding , allergic reactions to the medications and no complete pain releife , and alternatives were discussed with the patient, the patient agreed to proceed with the procedure and signed the consent. IV was started. Vital signs remained stable throughout the procedure. Patient was taken to the OR and time out was completed. The patient was placed in the prone position on the procedure table. The lumber area was prepped and draped in the usual sterile fashion. . Vital signs were closely monitored during the procedure .IV sedation was used during the procedure to decrease patients anxiety. Using AP and then oblique fluoroscopy, the ``eye of the Lawrence dog corresponding to the connection between the superior and transverse articular processes of right L3, L4, and L5 were identified, marked, and localized with 1% lidocaine. Subsequently, a 18 -ko radiofrequency cannula with a 10- mm active tip was advanced guided by fluoroscopy to each of the``eyes of the Lawrence dog at right L3, L4, and L5. Each site then underwent sensory testing at 50 Hz and 0 to 1 volt and motor testing at 2.5 Hz and 0 to 3 volt with local stimulation, but no radicular symptoms down the legs. Thereafter each sites underwent radiofrequency thermocoagulation at 80 degrees celsius for 90 seconds after injecting 0.5 ml of PF Ropivacaine 1ml, then after the thermocoagulation done , 1 ml of the block solution containing Kenalog 20 mg and 3 ml of Ropivacaine 0.5% was injected at the right L3 , L4 , and L5 , levels after negative aspiration of CSF and blood and with no paresthesias. Cannulas were retracted while injecting lidocaine 1% until the needle is out. The same procedure was repeated at the level of Left L3, L4, and L5 levels. At the end of the procedure, the skin was cleansed and bandages were applied. COMPLICATIONS: No acute complications. DISPOSITION / PLANS: The patient was placed in a supine position and trans ferred to the recovery area in a stable condition for observation and was discharged from the recovery room after meeting discharge criteria. Home discharge instructions given to the patient by the staff. The patient was reexamined prior to discharge. The patient will schedule a follow up in the clinic in 2-4 weeks.
[2021-11-02] MEDS ORDERED: IV FLUID CONTINUATION 1,000 ML IV ONE (12:48)
[2021-11-02 12:50] VITALS: RESP 18
[2021-11-02 13:07] VITALS: BP 138/78; PULSE 78
--- NOTE | 2021-11-02 15:41 | FL ---
Fluoroscopy HISTORY: Pain 17 seconds fluoroscopy time supplied to the referring clinician. 6 intraoperative C-arm images docum ent the procedure. See dictated report from anesthesia.
== END 2021-11-02 13:22 | disposition home or self-care (01) ==
LOC: ORPAIN 11:24
PROVIDERS: ATTEND Specialist
DX: M47.816 Spondylosis without myelopathy or radiculopathy, lumbar region (principal); I10 Essential (primary) hypertension; G47.33 Obstructive sleep apnea (adult) (pediatric); M79.7 Fibromyalgia; E11.9 Type 2 diabetes mellitus without complications; R56.9 Unspecified convulsions; Z78.0 Asymptomatic menopausal state; Z79.84 Long term (current) use of oral hypoglycemic drugs; Z79.891 Long term (current) use of opiate analgesic; Z79.899 Other long term (current) drug therapy; Z98.890 Other specified postprocedural states; Z88.5 Allergy status to narcotic agent; Z88.8 Allergy status to other drugs, medicaments and biological substances
CPT/HCPCS: 64635; 64636; J2250; J3301; J3010; J2795

== ENCOUNTER → 2021-12-12 | Outpatient (CLI) | payer MEDICARE, BC ==
--- NOTE | 2021-12-12 13:36 | P.PN ---
Subjective Progress Note Date: 12/12/21 Principal diagnosis: A 56 yr old female with a history of severe and chronic low back pain secondary to lumbar degenerative disc diseases and lumbar spondylosis with facet arthropathy presents today for follow up s/p RFA and medication refills. Pain level went from an 8 /10 to a 4 /10 currently. Pain is dull & achy in the lower lumbar spine and almost eliminated any sharp/ shooting pain she had radiating with the BL L4-L5/ L5-S1 procedure completed recently. Pain is provoked by standing and climbing stairs. Pain is alleviated with medications, topicals, injections, rest, heat, walking and stretching. Interventional pain procedures completed include BL RFA of L4-L5/ L5-S1 Patient is currently on Merrill 5/325mg #60 & Neurontin 300mg #60 Patient denies any side effects of the medication(s), denies excessive drowsiness or sleepiness, denies suicidal ideation and reports that the current pain medication is helping to control the pain and improve activities of daily living. Patient denies any motor or sensory deficits. Patient denies any fever or night sweats, denies any change in the bowel movements or urination. Physical Examination: -Constitutional: Cooperative. Not in acute distress . -HEENT: Neck is supple. No lymphadenopathy. No thyromegaly. Normal thyroid size. Eyes: No ptosis , no icterus, no photophobia. ENT: No auditory deficits. Normal oropharynx. No Thrush. - Respiratory: Chest clear to auscultations bilaterally. No wheezing. No rhonchi. - Cardiovascular: Regular rate and rhythm. S1 / S2 , no S3 , no S4. - Gastrointestinal: Abdomen soft no tenderness. Bowel sounds positive in all four quadrants. No organomegaly. - Genitourinary: Deferred. - Neurologic: Cranial nerve II to XII intact. No focal neurological deficits. - Psychatric: Alert & oriented x 3. Matching mood & appropriate affect. Judgment and insight intact. - Lymphatic: No Lymphadenopathy. - Musculoskeletal: Cervical spine: Muscle bulk/ tone/ strength in the bilateral upper extremities normal. Facet loading test cervical area positive. Lumbar spine: Motor bulk/ tone/ strength lower extremities , thigh and legs : 5/5 Deep tendon reflexes : Normal Knee Jerk. Normal Ankle Jerk . Mild L5 vertebral body tenderness to palpation Lumbar Facet Loading Test positive Straight Leg Raise: positive at 30 degree right side/ left side Faraz test: positive right side / left side Range of motion: Flexion of the lumbar spine 90 degrees Range of motion: Extension of the lumbar spine <20 degrees Severe tenderness over the Sacroiliac joint: right side / left side Assessment and plan: Chronic low back pain secondary to lumbar degenerative disc disease , lumbar spondylosis with facet arthropathy without myelopathy Chronic and current use of high-risk medication (Opioids). The patient was counseled about risk of opioid use, psychological risk associated with opioids and was orally counseled to not overuse , divert or sell medications. Pt is to store medication in a safe location. The patient is counseled against driving while using narcotic medications and also not to use alcohol or any illicit recreational drugs. Patient verbalized understanding that the lack of compliance will result in failure to renew narcotic prescription(s) as well as possible discharge from the clinic Diagnoses, prognosis and treatment options including but not limited to physical therapy, surgical interventions, interventional therapies and medication management including narcotics and adjuvant medication were discussed. All patient questions answered MAPS reviewed and it was appropriate. Prescription refill for Merrill 5/ 325mg BID prn #60 with one refill and Neurontin 300mg BID #60 with refill I have spent 31 minutes on patient care today. Dr Jessica was available by phone for the evaluation of this patient. The time was used to review the medical records including relevant urine studies and Prescription history (MAPs), review of the available imaging, evaluation and examination of the patient, coordination of care with the medical staff and if applicable referring physicians, as well as creation of the medical record PQRS Measure Charge Sheet PQRS Narrative: Smoking Status Never smoker Narcotic Agreement Date Signed 07/02/21 Pain Intensity [Lower Back] 4 Scale Used Numeric (1 - 10) Hx Alcohol Use (MH) Yes: RARE Home Medications: Ambulatory Orders Metoprolol Succinate [Toprol XL] 50 mg PO HS 04/14/14 clonazePAM [KlonoPIN] 1 mg PO QAM 04/14/14 Atorvastatin Calcium [Lipitor] 20 mg PO PC-SUPPER 05/22/16 Multivitamins, Thera [Multivitamin] 2 tab PO DAILY 06/17/16 Ziprasidone [Geodon] 40 mg PO BID 06/17/16 Cyanocobalamin (Vitamin B-12) [Vitamin B12] 2,500 mcg PO DAILY 06/08/18 [place] Xl 300 mg PO TID 06/08/18 Ascorbic Acid [Vitamin C] 500 mg PO DAILY 07/21/19 Timolol 0.5% Ophth Soln [Timoptic 0.5% Ophth Soln] 1 drop BOTH EYES DAILY 11/22/19 Biotin 10,000 mcg PO DAILY 07/12/20 PARoxetine HCL [Paxil Cr] 50 mg PO QAM 09/11/20 Diclofenac Sodium Gel [Voltaren Gel] 1 applic TOPICAL QID PRN #2 tube 09/13/20 Dicyclomine [Bentyl] 10 mg PO BID 10/11/20 Neuro B Complex 1 tab PO DAILY 11/02/20 clonazePAM [KlonoPIN] 1 mg PO HS 03/07/21 HYDROcodone/APAP 5-325MG [Merrill 5-325] 1 tab PO Q12HR PRN 30 Days #60 tab 07/02 Atomoxetine HCl [Strattera] 25 mg PO DAILY 08/23/21 metFORMIN HCL [Glucophage] 850 mg PO BID 08/23/21 Calcium Carbonate/Vitamin D3 [Calcium 600 mg-D3 10 Mcg (400 Iu)] 2 each PO DAILY 11/01/21 Gabapentin [Neurontin] 300 mg PO BID 11/01/21
[2021-12-12 13:43] VITALS: BP 128/84; PULSE 94; RESP 18
== END | disposition home or self-care (01) ==
LOC: PNWHC3 12:57
PROVIDERS: ATTEND Physician Assistant Medical
DX: M47.896 Other spondylosis, lumbar region (principal)
CPT/HCPCS: 99211

== ENCOUNTER → 2022-02-18 | Outpatient (CLI) | payer MEDICARE, BC ==
--- NOTE | 2022-02-18 13:40 | P.PN ---
Subjective Progress Note Date: 02/18/22 Principal diagnosis: A 56 yr old female with a history of severe and chronic low back pain secondary to lumbar degenerative disc diseases and lumbar spondylosis with facet arthropathy presents today for medication refills. Pain level is currently at 4 out of 10 in intensity, constant, sore in the lower center aspects of her lumbar spine of which she complains of since 1988 when lifting. Denies radiation of pain. Pain is provoked by bending. Pain is alleviated with medications, topicals, heat, physical therapy years ago, use of a reclining chair and rest. Patient is currently on Tea 5/325 #60 and Lyrica 300mg #60. Patient denies any side effects of the medication(s), denies excessive drowsiness or sleepiness, denies suicidal ideation and reports that the current pain medication is helping to control the pain and improve activities of daily living. Patient denies any motor or sensory deficits. Patient denies any fever or night sweats, denies any change in the bowel movements or urination. Physical Examination: -Constitutional: Cooperative. Not in acute distress . -HEENT: Neck is supple. No lymphadenopathy. No thyromegaly. Normal thyroid size. Eyes: No ptosis , no icterus, no photophobia. ENT: No auditory deficits. Normal oropharynx. No Thrush. - Respiratory: Chest clear to auscultations bilaterally. No wheezing. No rhonchi. - Cardiovascular: Regular rate and rhythm. S1 / S2 , no S3 , no S4. - Gastrointestinal: Abdomen soft no tenderness. Bowel sounds positive in all four quadrants. No organomegaly. - Genitourinary: Deferred. - Neurologic: Cranial nerve II to XII intact. No focal neurological deficits. - Psychatric: Alert & oriented x 3. Matching mood & appropriate affect. Judgment and insight intact. - Lymphatic: No Lymphadenopathy. - Musculoskeletal: Cervical spine: Muscle bulk/ tone/ strength in the bilateral upper extremities normal. Facet loading test cervical area positive. Lumbar spine: Motor bulk/ tone/ strength lower extremities , thigh and legs : 5/5 Deep tendon reflexes : Normal Knee Jerk. Normal Ankle Jerk . Vertebral body tenderness to palpation over L4, L5 Lumbar Facet Loading Test positive Straight Leg Raise: positive at 30 degrees right side/ left side Gaenslen's Test positive Sacral spine : Severe tenderness over the Sacroiliac joint: right side / left side Range of motion: Flexion of the lumbar spine <60 degrees Range of motion: Extension of the lumbar spine <20 degrees Gaenslen's Test positive Faraz test: positive right side / left side Assessment and plan: Chronic low back pain secondary to lumbar degenerative disc disease , lumbar spondylosis with facet arthropathy without myelopathy Chronic and current use of high-risk medication (Opioids). The patient was counseled about risk of opioid use, psychological risk associated with opioids and was orally counseled to not overuse , divert or sell medications. Pt is to store medication in a safe location. The patient is counseled against driving while using narcotic medications and also not to use alcohol or any illicit recreational drugs. Patient verbalized understanding that the lack of compliance will result in failure to renew narcotic prescription(s) as well as possible discharge from the clinic Diagnoses, prognosis and treatment options including but not limited to physical therapy, surgical interventions, interventional therapies and medication management including narcotics and adjuvant medication were discussed. All patient questions answered MAPS reviewed and it was appropriate. Collected urine for UDS today, 02/18/22 Prescription refill for Tea 5/325mg #60 w 1 refill & Lyrica 300mg #60 w 1 refill. I have spent 31 minutes on patient care today. Dr Jessica was available by phone for the evaluation of this patient. The time was used to review the medical records including relevant urine studies and Prescription history (MAPs), review of the available imaging, evaluation and examination of the patient, coordination of care with the medical staff and if applicable referring physicians, as well as creation of the medical record PQRS Measure Charge Sheet PQRS Narrative: Smoking Status Never smoker Narcotic Agreement Date Signed 07/02/21 Hx Alcohol Use (MH) Yes: RARE Home Medications: Ambulatory Orders Metoprolol Succinate [Toprol XL] 50 mg PO HS 04/14/14 clonazePAM [KlonoPIN] 1 mg PO QAM 04/14/14 Atorvastatin Calcium [Lipitor] 20 mg PO PC-SUPPER 05/22/16 Multivitamins, Thera [Multivitamin] 2 tab PO DAILY 06/17/16 Ziprasidone [Geodon] 40 mg PO BID 06/17/16 Cyanocobalamin (Vitamin B-12) [Vitamin B12] 2,500 mcg PO DAILY 06/08/18 [place] Xl 300 mg PO TID 06/08/18 Ascorbic Acid [Vitamin C] 500 mg PO DAILY 07/21/19 Timolol 0.5% Ophth Soln [Timoptic 0.5% Ophth Soln] 1 drop BOTH EYES DAILY 11/22/19 Biotin 10,000 mcg PO DAILY 07/12/20 PARoxetine HCL [Paxil Cr] 50 mg PO QAM 09/11/20 Diclofenac Sodium Gel [Voltaren Gel] 1 applic TOPICAL QID PRN #2 tube 09/13/20 Dicyclomine [Bentyl] 10 mg PO BID 10/11/20 Neuro B Complex 1 tab PO DAILY 11/02/20 clonazePAM [KlonoPIN] 1 mg PO HS 03/07/21 Atomoxetine HCl [Strattera] 25 mg PO DAILY 08/23/21 metFORMIN HCL [Glucophage] 850 mg PO BID 08/23/21 Calcium Carbonate/Vitamin D3 [Calcium 600 mg-D3 10 Mcg (400 Iu)] 2 each PO DAILY 11/01/21 HYDROcodone/APAP 5-325MG [Tea 5-325] 1 tab PO Q12HR PRN 30 Days #60 tab 12/13/21 Gabapentin [Neurontin] 300 mg PO BID 30 Days #60 cap 02/18/22 HYDROcodone/APAP 5-325MG [Tea 5-325] 1 tab PO Q12HR PRN 30 Days #60 tab 02/18/22 HYDROcodone/APAP 5-325MG [Tea 5-325] 1 tab PO Q12HR PRN 30 Days #60 tab 02/18/22
[2022-02-18 14:44] VITALS: BP 128/89; PULSE 86; RESP 18; TEMP 98.6
== END | disposition home or self-care (01) ==
LOC: PNWHC3 12:39
PROVIDERS: ATTEND Specialist
DX: M47.896 Other spondylosis, lumbar region (principal); M51.36 Other intervertebral disc degeneration, lumbar region
CPT/HCPCS: 80307; G0482; G0463; 99212

== ENCOUNTER → 2022-04-24 | Outpatient (CLI) | payer MEDICARE, BC ==
--- NOTE | 2022-04-24 18:46 | SFUN ---
SLEEP CENTER FOLLOW UP NOTE DATE OF SERVICE: 04/24/2022 This 56-year-old lady has been followed in Sleep Center for treatment of obstructive sleep apnea-hypopnea syndrome. The patient continues to use her CPAP equipment every night for the whole night without significant problems and is getting her CPAP supplies on time. [place] Sleepiness Scale today is 5, which is normal. I checked her CPAP unit. Pressure is 6 cm of water. Usage is 30/30 nights for more than 4 hours, average 8.9 hours per night; great compliance. Leak is 17 L/minute, which is borderline. Apnea-hypopnea index is 1.6, which is normal. MEDICATIONS: Toprol-XL 50 mg once a day, Vicodin as needed, Strattera once a day, Lipitor 20 mg once a day, Klonopin 1 mg twice a day, Geodon 40 mg twice a day, Neurontin 300 mg 3 times a day, metformin once a day, timolol eye drops. PHYSICAL EXAMINATION: GENERAL: Pleasant patient in no distress. VITAL SIGNS: BP 138/87, HR 79, RR 12, height 5 feet 2 inches, weight 194.4 pounds, body mass index 35.8, temperature 96.7, oxygen saturation at room air 97%. HEENT: PERRLA, EOMI, evaluation of oropharynx showed tongue protrudes midline. Extremely low position of soft palate; Mallampati IV. NECK: Supple, no JVD. Thyroid is not palpable. LUNGS: Clear to percussion and to auscultation. Good air exchange. No wheezing or rhonchi. HEART: S1, S2 regular. No murmurs, gallops, or rubs. ABDOMEN: Obese. EXTREMITIES: No clubbing or cyanosis. WARP COILER: Awake, alert, and oriented X3. Cranial nerves 2 to 7 intact. There is no fasciculation or atrophy. noted. No focal deficits observed. IMPRESSION: 1. Obstructive sleep apnea-hypopnea syndrome. Patient demonstrated 100% compliance with treatment, benefitting from treatment. 2. Obesity. Patient lost about 12 pounds since previous visit. 3. Hypertension. 4. Diabetes mellitus. 5. Hyperlipidemia. 6. Fibromyalgia. 7. History of polyarthritis. 8. History of depression. 9. History of anxiety. 10.History of seizures. 11.Status post cervical fusion. PLAN: 1. Patient will continue to use PAP equipment every night for the whole night. 2. Sleep hygiene with regular time in bed for at least 7-1/2 to 8 hours. 3. Precautions related to driving. No driving if feeling sleepiness. 4. I will maintain all necessary prescription for PAP supplies including mask, tube, filters. 5. Watching weight. 6. Follow-up visit in 6 months or earlier if patient has any problems. Thank you very much for allowing me to participate in the management of your patient. Sincerely, John Queen MD, PhD, FAASM Diplomat of [place] [employer] Sleep Medicine Board of [place] [employer] Oncology Nurse of [facility] MMODL / IJN: [id number] /
== END | disposition home or self-care (01) ==
LOC: SLEEP 14:02
PROVIDERS: ATTEND Internal Medicine
DX: G47.33 Obstructive sleep apnea (adult) (pediatric) (principal); E66.9 Obesity, unspecified; I10 Essential (primary) hypertension; E78.5 Hyperlipidemia, unspecified; E11.9 Type 2 diabetes mellitus without complications; M79.7 Fibromyalgia; Z87.39 Personal history of other diseases of the musculoskeletal system and connective tissue; Z86.69 Personal history of other diseases of the nervous system and sense organs; Z86.59 Personal history of other mental and behavioral disorders

== ENCOUNTER → 2022-05-23 | Outpatient (CLI) | payer MEDICARE, BC ==
[2022-05-23 15:20] VITALS: BP 125/79; PULSE 101; RESP 18; TEMP 97.9
--- NOTE | 2022-05-23 15:20 | P.PAINPG ---
PQRS Measure Charge Sheet Comment: A 56 yr old female with a history of severe and chronic low back pain secondary to lumbar degenerative disc diseases and lumbar spondylosis with facet arthropathy presents today for medication refills. Pain level is currently at 5 out of 10 in intensity, localized in the left lower aspect of the lumbar spine 1 month, achy, shooting in character towards the left groin and left lower extremity. Pain is provoked by sitting, twisting and bending. Pain is alleviated with medications, topicals, injections in the past, heat, ice, walking, repositioning and rest. She states Ibuprofen is ineffective in managing pain . Interventional pain procedures completed include BL RFA L3-L5 Patient is currently on Deweese 5/325 #60, Neurontin 300 mg #60, ibuprofen 800 mg #90 Patient denies any side effects of the medication(s), denies excessive drowsiness or sleepiness, denies suicidal ideation and reports that the current pain medication is helping to control the pain and improve activities of daily living. Patient denies any motor or sensory deficits. Patient denies any fever or night sweats, denies any change in the bowel movements or urination. Physical Examination: -Constitutional: Cooperative. Not in acute distress . - Neurologic: Cranial nerve II to XII intact. No focal neurological deficits. - Psychatric: Alert & oriented x 3. Matching mood & appropriate affect. Judgment and insight intact. - Musculoskeletal: Cervical spine: Muscle bulk/ tone/ strength in the bilateral upper extremities normal Vertebral body tenderness to palpation over Spurling test positive Distraction test positive Facet loading test positive Thoracic spine Muscle bulk / tone/ strength in the bilateral paraspinal muscles normal Vertebral body tender to palpation over Facet loading test positive Lumbar spine: Motor bulk/ tone/ strength lower extremities , thigh and legs : 5/5 Deep tendon reflexes : Normal Knee Jerk. Normal Ankle Jerk . Vertebral body tenderness to palpation over Lumbar Facet Loading Test positive over BL L4-L5, L5-S1 w paraspinal TTP Straight Leg Raise: positive at 30 degrees right side/ left side Gaenslen's Test positive Sacral spine : Severe tenderness over the Sacroiliac joint: right side / left side Range of motion: Flexion of the lumbar spine <60 degrees Range of motion: Extension of the lumbar spine <20 degrees Gaenslen's Test positive Lobo's Test positive Faraz test: positive right side / left side Thigh Thrust Test Sacral Thrust Test Assessment and plan: Chronic low back pain secondary to lumbar degenerative disc disease , lumbar spondylosis with facet arthropathy without myelopathy Recommendation of BL RFA L4-L5, L5-S1. Pt experienced sufficient and optimal pain relief with the procedure, last completed on Oct 2021. Risks, benefits of procedure discussed and pt verbalized understanding. Denies anticoagulant use or medical history of diabetes. Chronic and current use of high-risk medication (Opioids). The patient was counseled about risk of opioid use, psychological risk associated with opioids and was orally counseled to not overuse , divert or sell medications. Pt is to store medication in a safe location. The patient is counseled against driving while using narcotic medications and also not to use alcohol or any illicit recreational drugs. Patient verbalized understanding that the lack of compliance will result in failure to renew narcotic prescription(s) as well as possible discharge from the clinic Diagnoses, prognosis and treatment options including but not limited to physical therapy, surgical interventions, interventional therapies and medication management including narcotics and adjuvant medication were discussed. All patient questions answered MAPS reviewed and it was appropriate. Prescription refill for Deweese 5/325 #60, Neurontin 300 mg #60 w 1 refill I have spent less than 30 minutes on patient care today. Dr Jessica was available by phone for the evaluation of this patient. The time was used to review the medical records including relevant urine studies and Prescription history (MAPs), review of the available imaging, evaluation and examination of the patient, coordination of care with the medical staff and if applicable referring physicians, as well as creation of the medical record PQRS Narrative: Smoking Status Never smoker Narcotic Agreement Date Signed 07/02/21 Hx Alcohol Use (MH) Yes: RARE Home Medications: Ambulatory Orders Metoprolol Succinate [Toprol XL] 25 mg PO HS 04/14/14 clonazePAM [KlonoPIN] 1 mg PO QAM 04/14/14 Atorvastatin Calcium [Lipitor] 20 mg PO PC-SUPPER 05/22/16 Multivitamins, Thera [Multivitamin] 2 tab PO DAILY 06/17/16 Ziprasidone [Geodon] 40 mg PO BID 06/17/16 Cyanocobalamin (Vitamin B-12) [Vitamin B12] 2,500 mcg PO DAILY 06/08/18 Caraway Xl 300 mg PO TID 06/08/18 Ascorbic Acid [Vitamin C] 500 mg PO DAILY 07/21/19 Timolol 0.5% Ophth Soln [Timoptic 0.5% Ophth Soln] 1 drop BOTH EYES DAILY 11/22/19 Biotin 10,000 mcg PO DAILY 07/12/20 PARoxetine HCL [Paxil Cr] 50 mg PO QAM 09/11/20 Diclofenac Sodium Gel [Voltaren Gel] 1 applic TOPICAL QID PRN #2 tube 09/13/20 Dicyclomine [Bentyl] 10 mg PO BID 10/11/20 Neuro B Complex 1 tab PO DAILY 11/02/20 clonazePAM [KlonoPIN] 1 mg PO HS 03/07/21 Atomoxetine HCl [Strattera] 25 mg PO DAILY 08/23/21 metFORMIN HCL [Glucophage] 850 mg PO BID 08/23/21 Calcium Carbonate/Vitamin D3 [Calcium 600 mg-D3 10 Mcg (400 Iu)] 2 each PO DAILY 11/01/21 HYDROcodone/APAP 5-325MG [Deweese 5-325] 1 tab PO Q12HR PRN 30 Days #60 tab 12/13/21 Gabapentin [Neurontin] 300 mg PO BID 30 Days #60 cap 02/18/22 HYDROcodone/APAP 5-325MG [Deweese 5-325] 1 tab PO Q12HR PRN 30 Days #60 tab 02/18/22 HYDROcodone/APAP 5-325MG [Deweese 5-325] 1 tab PO Q12HR PRN 30 Days #60 tab 02/18/22 Controlled Substance Measures - Controlled Substance Measures Is patient prescribed a controlled substance at discharge?: Yes When asked, does pt state using other controlled substances?: No If prescribed controlled substance>3 days was MAPS reviewed?: Yes If Rx opioid, was Start Talking consent form obtained?: Yes If opioid is for acute pain is fill amount 7 days or less?: Yes Was information provided regarding opioid addiction?: Yes
== END ==
LOC: PNWHC3 13:34
PROVIDERS: ATTEND Specialist
DX: M51.36 Other intervertebral disc degeneration, lumbar region (principal); M47.816 Spondylosis without myelopathy or radiculopathy, lumbar region; G89.29 Other chronic pain; Z79.891 Long term (current) use of opiate analgesic; Z88.5 Allergy status to narcotic agent; Z88.8 Allergy status to other drugs, medicaments and biological substances
CPT/HCPCS: 99211

== ENCOUNTER 2022-06-21 07:37 | Day surgery (SDC) | payer MEDICARE, BC ==
[~2022-06-21 07:37] MED LIST changes: +LIDOCAINE 1% (10MG/ML) FOR IV START INTRADERMA PRN
[2022-06-21 08:11] VITALS: TEMP 97.4
[2022-06-21 08:25] LABS: Glucose,Whole Blood 120 mg/dL (70-110)
[2022-06-21] MEDS ORDERED: fentaNYL (PF) 50 MCG/ML 2 ML AMP ONE (08:43)
[2022-06-21] MEDS ORDERED: methylPREDNISolone ACETATE 40 MG/ML 1 ML VIAL ONE (08:43)
[2022-06-21] MEDS ORDERED: MIDAZOLAM 2 MG/2 ML VIAL ONE (08:43)
[2022-06-21] MEDS ORDERED: ROPIVACAINE 5MG/ML 20ML VIAL ONE (08:43)
--- NOTE | 2022-06-21 09:08 | P.PCN ---
Date of Procedure: 06/21/22 Procedure(s) Performed: PREOPERATIVE DIAGNOSIS: 1-Lumbar Spondylosis with Facet Arthropathy without myelopathy. POSTOPERATIVE DIAGNOSIS: 1- Lumbar Spondylosis with Facet Arthropathy without myelopathy. PROCEDURES : Bilateral Radiofrequency thermocoagulation, L3 , L4 , and L5 medial branch, with fluoroscopic guidance (fluoroscopy images available in the radiology department) ( to denervate the facet joint at Bilateral L4-5 ,and L5-S1 levels ). ANESTHESIA: Monitored anesthesia care as per anesthesia department . EBL: Minimal PROCEDURE INDICATION: The patient with low back pain secondary to lumbar facet arthropathy who had more than 50% relief of her pain with previous diagnostic lumbar medial branch block with bupivacaine. PROCEDURE DESCRIPTION / TECHNIQUE: The patient was seen and identified in the preoperative area. Risks, benefits, complications, including but not limited to risk of infection ,bleeding , allergic reactions to the medications and no complete pain releife , and alternatives were discussed with the patient, the patient agreed to proceed with the procedure and signed the consent. IV was started. Vital signs remained stable throughout the procedure. Patient was taken to the OR and time out was completed. The patient was placed in the prone position on the procedure table. The lumber area was prepped and draped in the usual sterile fashion. . Vital signs were closely monitored during the procedure .IV sedation was used during the procedure to decrease patients anxiety. Using AP and then oblique fluoroscopy, the ``eye of the Lawrence dog corresponding to the connection between the superior and transverse articular processes of right L3, L4, and L5 were identified, marked, and localized with 1% lidocaine. Subsequently, a 18 [id number] radiofrequency cannula with a 10- mm active tip was advanced guided by fluoroscopy to each of the``eyes of the [place] dog at right L3, L4, and L5. Each site then underwent sensory testing at 50 Hz and 0 to 1 volt and motor testing at 2.5 Hz and 0 to 3 volt with loca l stimulation, but no radicular symptoms down the legs. Thereafter each sites underwent radiofrequency thermocoagulation at 80 degrees celsius for 90 seconds after injecting 0.5 ml of PF Ropivacaine 1ml, then after the thermocoagulation done , 1 ml of the block solution containing Depo-Medrol 20 mg and 3 ml of Ropivacaine 0.5% was injected at the right L3 , L4 , and L5 , levels after negative aspiration of CSF and blood and with no paresthesias. Cannulas were retracted while injecting lidocaine 1% until the needle is out. The same procedure was repeated at the level of Left L3, L4, and L5 levels. At the end of the procedure, the skin was cleansed and bandages were applied. COMPLICATIONS: No acute complications. DISPOSITION / PLANS: The patient was placed in a supine position and t ransferred to the recovery area in a stable condition for observation and was discharged from the recovery room after meeting discharge criteria. Home discharge instructions given to the patient by the staff. The patient was reexamined prior to discharge. The patient will schedule a follow up in the clinic in 2-4 weeks.
[2022-06-21] MEDS ORDERED: IV FLUID CONTINUATION 900 ML IV ONE (09:13)
[2022-06-21 09:15] VITALS: RESP 16
[2022-06-21 09:32] VITALS: BP 121/83; PULSE 88
--- NOTE | 2022-06-21 10:58 | FL ---
EXAMINATION TYPE: FL guided pain mgmt statistic DATE OF EXAM: 06/21/2022 FLUOROSCOPY Fluoroscopy time of 13 seconds was used during lumbar facet radiofrequency ablation. 6 image/s docum ent/s the procedure.
== END 2022-06-21 09:45 | disposition home or self-care (01) ==
LOC: ORPAIN 07:37
PROVIDERS: ATTEND Specialist
DX: M47.816 Spondylosis without myelopathy or radiculopathy, lumbar region (principal); I10 Essential (primary) hypertension; E78.5 Hyperlipidemia, unspecified; G47.33 Obstructive sleep apnea (adult) (pediatric); E11.9 Type 2 diabetes mellitus without complications; Z87.442 Personal history of urinary calculi; F41.8 Other specified anxiety disorders; F31.9 Bipolar disorder, unspecified; Z86.69 Personal history of other diseases of the nervous system and sense organs; Z79.84 Long term (current) use of oral hypoglycemic drugs; Z79.899 Other long term (current) drug therapy; Z98.890 Other specified postprocedural states; Z88.5 Allergy status to narcotic agent; Z88.8 Allergy status to other drugs, medicaments and biological substances
CPT/HCPCS: 64635; 64636; J2250; J1030; J3010; J2795

== ENCOUNTER 2022-08-15 07:47 | Day surgery (SDC) | payer MEDICARE, BC ==
[2022-08-13 14:20] VITALS: BMI 35.8
[2022-08-15 08:22] VITALS: TEMP 97
[2022-08-15 08:31] LABS: Glucose,Whole Blood 122 mg/dL (70-110)
[2022-08-15] MEDS ORDERED: LACTATED RINGERS 1,000 ML IV ONE (08:38)
[2022-08-15] MEDS ORDERED: DEXAMETHASONE SOD PHOSPHATE 10 MG/ML 1 ML VIAL ONE (08:55)
[2022-08-15] MEDS ORDERED: IOPAMIDOL M200 10 ML VIAL ONE (08:55)
[2022-08-15] MEDS ORDERED: fentaNYL (PF) 50 MCG/ML 2 ML AMP ONE (08:55)
[2022-08-15] MEDS ORDERED: MIDAZOLAM 2 MG/2 ML VIAL ONE (08:55)
--- NOTE | 2022-08-15 09:11 | P.PCN ---
Date of Procedure: 08/15/22 Procedure(s) Performed: PROCEDURE 1. Cervical epidural steroid injection under fluoroscopic guidance, C6-7 2. Cervical epidurogram. PREOPERATIVE DIAGNOSIS: 1- Cervical failed back surgery syndrome 2- Cervical radiculopathy. 3-cervical degenerative disc disease POSTOPERATIVE DIAGNOSIS: : 1- Cervical failed back surgery syndrome 2- Cervical radiculopathy. 3-cervical degenerative disc disease ANESTHESIA: Local anesthesia with lidocaine 1 % , and moderate sedation, with Versed 2 mg and Fentanyl 100 mcg. Sedation start time 0859. Sedation stop time 0908 EBL 0 PROCEDURE INDICATION: The patient with neck pain and radiculitis unresponsive to conservative treatment consents for procedure. PROCEDURE DESCRIPTION / TECHNIQUE: The patient was seen and identified in the preoperative area. Risks, benefits, complications, including but not limited to infections ,bleeding , allergic reactions to the medications ,and not complete pain releife, and alternatives were discussed with the patient, the patient agreed to proceed with the procedure and signed the consent. Patient was taken to the OR and time out was completed. The patient was placed in the prone position on the procedure table. A pillow was placed under the patients chest to increase the cervical interlaminar space. The cervical area was prepped and draped in the usual sterile fashion. Vital signs were closely monitored during the procedure. Conscious sedation was used during the procedure to decrease patients anxiety. Using anterior-posterior fluoroscopy, the C6-7 interlaminar space was identified and the skin over this site was marked and then infiltrated with 1% lidocaine subcutaneously. Subsequently, a 20-gauge 3-1/2-inch Tuohy epidural needle was inserted and advanced toward the epidural space by means of the ``hanging-drop technique and guided by AP and lateral fluoroscopy. The correct needle position in the epidural space was verified with the injection of 2 mL of the water soluble contrast dye [id number]-200 and observing an excellent epidurogram with the epidural spread of the dye, after negative aspiration for blood and CSF and in the absence of paresthesias. Again after negative aspiration, mixture containing 20 mg Dexamethasone and 2 ml of preservative-free normal saline injected and a washout of epidurogram was seen. Needle was withdrawn intact, skin was cleansed, and bandages were applied. Complications= none. Disposition= patient was placed in supine position and transferred to the recovery room area in stable condition and there was no evidence of upper or lower extremity motor or sensory deficit after the procedure patient was discharged from recovery room after discharge criteria met and home discharge instructions was given by the staff and patient will follow with the pain clinic in 2-4 weeks
[2022-08-15] MEDS ORDERED: IV FLUID CONTINUATION 1,000 ML IV ONE ×2 (09:15)
[2022-08-15 09:32] VITALS: BP 121/59; PULSE 86; RESP 20
--- NOTE | 2022-08-15 09:46 | FL ---
Intraoperative/procedural fluoroscopic services were provided. Total fluoroscopy time is 1 seconds wi th a total of 1 submitted images to PACS. Please see the operative/procedural note for further detail s.
== END 2022-08-15 09:45 | disposition home or self-care (01) ==
LOC: ORPAIN 07:47
PROVIDERS: ATTEND Specialist
DX: M50.123 Cervical disc disorder at C6-C7 level with radiculopathy (principal); M96.1 Postlaminectomy syndrome, not elsewhere classified
CPT/HCPCS: 62321; J2250; J1100; J3010; Q9966

== ENCOUNTER → 2022-09-16 | Outpatient (CLI) | payer MEDICARE, BC ==
[2022-09-16 14:00] VITALS: BP 119/72; PULSE 93; RESP 16; TEMP 98.6
--- NOTE | 2022-09-16 14:54 | P.PAINPG ---
PQRS Measure Charge Sheet Comment: A 57 yr old female with a history of severe and chronic neck pain secondary to cervical degenerative disc diseases and spondylosis with facet arthropathy without myelopathy presents today for medication refills and evaluation s/p C6- 7. Pt states she experienced 100% pain relief x 2 wks s/p procedure. Pain level is currently at 6/10 in intensity, constant, localized in the L lower lumbar spine, sharp in character w shooting towards the LLE. Pain is provoked by bending/ twisting. Pain is alleviated with medications, heat, topicals, walking, home stretching regimen, repositioning and rest. Interventional pain procedures completed include LYNNE C6-C7, BL RFA L3-L5 Patient is currently on [place] 5/325mg #60, Neurontin 300mg #60 Patient denies any side effects of the medication(s), denies excessive drowsiness or sleepiness, denies suicidal ideation and reports that the current pain medication is helping to control the pain and improve activities of daily living. Patient denies any motor or sensory deficits. Patient denies any fever or night sweats, denies any change in the bowel movements or urination. Physical Examination: -Constitutional: Cooperative. Not in acute distress . - Neurologic: Cranial nerve II to XII intact. No focal neurological deficits. - Psychatric: Alert & oriented x 3. Matching mood & appropriate affect. Judgment and insight intact. - Musculoskeletal: Cervical spine: Muscle bulk/ tone/ strength in the bilateral upper extremities normal Vertebral body tenderness to palpation over Spurling test positive Distraction test positive Facet loading test positive Thoracic spine Muscle bulk / tone/ strength in the bilateral paraspinal muscles normal Vertebral body tender to palpation over Facet loading test positive Lumbar spine: Motor bulk/ tone/ strength lower extremities , thigh and legs : 5/5 Deep tendon reflexes : Normal Knee Jerk. Normal Ankle Jerk . Vertebral body tenderness to palpation over L3, L4, L5 Lumbar Facet Loading Test positive Straight Leg Raise: positive at 30 degrees right side/ left side Gaenslen's Test positive Sacral spine : Severe tenderness over the Sacroiliac joint: right side / left side Range of motion: Flexion of the lumbar spine <60 degrees Range of motion: Extension of the lumbar spine <20 degrees Gaenslen's Test positive Lobo's Test positive Faraz test: positive right side / left side Thigh Thrust Test Sacral Thrust Test Assessment and plan: Chronic neck & lower back pain secondary to cervical & lumbar degenerative disc disease, spondylosis with facet arthropathy without myelopathy Chronic and current use of high-risk medication (Opioids). The patient was counseled about risk of opioid use, psychological risk associated with opioids and was orally counseled to not overuse , divert or sell medications. Pt is to store medication in a safe location. The patient is counseled against driving while using narcotic medications and also not to use alcohol or any illicit recreational drugs. Patient verbalized understanding that the lack of compliance will result in failure to renew narcotic prescription(s) as well as possible discharge from the clinic Diagnoses, prognosis and treatment options including but not limited to physical therapy, surgical interventions, interventional therapies and medication management including narcotics and adjuvant medication were discussed. All patient questions answered MAPS reviewed and it was appropriate. Prescription refill for [place] 5/325mg #60, Neurontin 300mg #60, Voltaren gel w 1 RF I have spent less than 30 minutes on patient care today. Dr Jessica was available by phone for the evaluation of this patient. The time was used to review the medical records including relevant urine studies and Prescription history (MAPs), review of the available imaging, evaluation and examination of the patient, coordination of care with the medical staff and if applicable referring physicians, as well as creation of the medical record - Pain Location Lower Back Non-Pharmacological Interventions: Heat, Home Exercise, Inactivity, Position/Reposition, Stretching Pharmacological Interventions: Block, PRN Medication, Scheduled Medication, Topical Medication PQRS Narrative: Smoking Status Never smoker Narcotic Agreement Date Signed 07/02/21 Hx Alcohol Use (MH) Yes: RARE Home Medications: Ambulatory Orders Metoprolol Succinate [Toprol XL] 50 mg PO HS 04/14/14 clonazePAM [KlonoPIN] 1 mg PO BID 04/14/14 Atorvastatin Calcium [Lipitor] 20 mg PO PC-SUPPER 05/22/16 Multivitamins, Thera [Multivitamin] 2 tab PO DAILY 06/17/16 Ziprasidone [Geodon] 40 mg PO BID 06/17/16 Cyanocobalamin (Vitamin B-12) [Vitamin B12] 2,500 mcg PO DAILY 06/08/18 Lula Xl 300 mg PO TID 06/08/18 Ascorbic Acid [Vitamin C] 500 mg PO DAILY 07/21/19 Timolol 0.5% Ophth Soln [Timoptic 0.5% Ophth Soln] 1 drop BOTH EYES DAILY 11/22/19 Biotin 10,000 mcg PO DAILY 07/12/20 PARoxetine HCL [Paxil Cr] 50 mg PO QAM 09/11/20 Dicyclomine [Bentyl] 10 mg PO BID 10/11/20 Neuro B Complex 1 tab PO DAILY 11/02/20 Atomoxetine HCl [Strattera] 25 mg PO BID 08/23/21 metFORMIN HCL [Glucophage] 850 mg PO BID 08/23/21 Calcium Carbonate/Vitamin D3 [Calcium 600 mg-D3 10 Mcg (400 Iu)] 2 each PO DAILY 11/01/21 Diclofenac Sodium Gel [Voltaren Gel] 1 applic TOPICAL QID PRN 30 Days #2 gm 09/16/22 Gabapentin [Neurontin] 300 mg PO BID 30 Days #60 cap 09/16/22 HYDROcodone/APAP 5-325MG [D[place] 5-325] 1 tab PO Q12HR PRN 30 Days #60 tab 09/16/22 HYDROcodone/APAP 5-325MG [D[place] 5-325] 1 tab PO Q12HR PRN 30 Days #60 tab Controlled Substance Measures - Controlled Substance Measures Is patient prescribed a controlled substance at discharge?: Yes When asked, does pt state using other controlled substances?: No If prescribed controlled substance>3 days was MAPS reviewed?: Yes If Rx opioid, was Start Talking consent form obtained?: Yes Was information provided regarding opioid addiction?: Yes
== END ==
LOC: PNWHC3 12:57
PROVIDERS: ATTEND Specialist
DX: M47.816 Spondylosis without myelopathy or radiculopathy, lumbar region (principal); M51.36 Other intervertebral disc degeneration, lumbar region; G89.29 Other chronic pain; Z79.891 Long term (current) use of opiate analgesic; Z88.5 Allergy status to narcotic agent; Z88.8 Allergy status to other drugs, medicaments and biological substances; Z88.6 Allergy status to analgesic agent
CPT/HCPCS: 80307; G0482; G0463; 99212

== ENCOUNTER → 2022-10-30 | Outpatient (CLI) | payer MEDICARE, BC ==
--- NOTE | 2022-10-30 15:41 | P.PN ---
Subjective DATE: 10/30/2022 FOLLOW UP VISIT. Patient with obstructive sleep apnea hypopnea syndrome return to sleep center for follow-up visit. Information from previous visit have been reviewed. Patient is using PAP equipment every night for the whole night, getting PAP supplies in time. The patient does not have significant problems with the mask, PAP unit and humidification. [place] sleepiness scale is increased to 13. I checked information from PAP unit. PAP unit pressure 6 cm H2O. Usage is 100 % for more then 4 hours, average 9 hours per night. Leak is 13 l/m, which is in acceptable range. Apnea Hypopnea Index is 1.7, which is normal. MEDICATIONS:1. Toprol 50 mg once a day 2. Vicodin 3. Lipitor 20 mg once a day 4. Klonopin 1 mg twice a day 5. Metformin 6. Neurontin 7. Timolol eyedrops During physical exam: GENERAL: A pleasant patient without any distress. VITAL SIGNS: BP 126/84, HR 88, RR 16 , weight 191.0, temperature 96.8, oxygen saturation at room air 95 % . HEENT: PERRLA, EOMI.low position of soft palate, Mallapati 4 . NECK: Supple. No JVD. LUNGS: Clear to percussion and to auscultation. Good air exchange. No wheezing or rhonchi. HEART: S1, S2 regular. ABDOMEN: Soft and nontender. Obese EXTREMITIES: No clubbing or cyanosis. OPTICAL GLASS SAWYER: Awake, alert, and oriented x3. No focal deficit. Impressions: 1. Obstructive sleep apnea-hypopnea syndrome. Patient demonstrated great compliance with treatment, benefiting from treatment. 2. Obesity. 3. Diabetes mellitus. 4. Hypertension. 5. Hyperlipidemia. 6. Fibromyalgia. 7. History of depression and anxiety. 8. History of polyarthritis. 9. History of surgeries. 10. Status post cervical fusion. Plan: 1. Continue using PAP equipment every night for the whole night. 2. To change air filter at least 1-2 times per month. 3. PAP unit should stay lower then position of the head. 4. Advised patient to remove all remaining water from humidifier canister daily and make it dry after each usage. Refill canister with fresh distilled water before each usage. 5. Sleep hygiene with regular time in bed for at least 8 hours. 6. Precautions related to driving. No driving if feel any sleepiness. 7. I will maintain prescription for PAP supplies including mask, tube, filters. 8. Follow up visit in 6 months or earlier if patient has any problems. 9. Watching and continue losing weight. Thank you very much for allowing me to participate in the management of your patient. John Queen MD, PhD, FAASM. Diplomat of [employer], Sleep Medicine Board by [employer] [facility] [place]
== END ==
LOC: SLEEP 14:34
PROVIDERS: ATTEND Internal Medicine
DX: G47.33 Obstructive sleep apnea (adult) (pediatric) (principal); E66.9 Obesity, unspecified; E11.9 Type 2 diabetes mellitus without complications; I10 Essential (primary) hypertension; E78.5 Hyperlipidemia, unspecified; M79.7 Fibromyalgia; F32.A Depression, unspecified; F41.9 Anxiety disorder, unspecified; M13.0 Polyarthritis, unspecified; Z98.890 Other specified postprocedural states; Z98.1 Arthrodesis status; Z79.84 Long term (current) use of oral hypoglycemic drugs; Z88.8 Allergy status to other drugs, medicaments and biological substances; Z88.5 Allergy status to narcotic agent; Z88.6 Allergy status to analgesic agent
CPT/HCPCS: 99212

== ENCOUNTER → 2022-11-11 | Outpatient (CLI) | payer MEDICARE, BC ==
[2022-11-11 14:40] VITALS: BP 123/82; PULSE 91; RESP 18; TEMP 97.9
--- NOTE | 2022-11-11 14:58 | P.PAINPG ---
Objective - Vital Signs Vital signs: Intake & Output 11/10/22 11/11/22 11/11/22 18:59 06:59 18:59 Weight 86.636 kg PQRS Measure Charge Sheet Comment: A 57 yr old female with a history of severe and chronic neck pain secondary to cervical DDD and spondylosis with facet arthropathy without myelopathy presents today for medication refills. Pain level is currently at 8 /10 in intensity, constant, localized in the lower cervical spine, dull/ achy in character w s hooting towards the BLEs. Pain is provoked by over activity and standing for periods of 20 min or more. Pain is alleviated with heat, medications, topicals, home stretching regimen and rest. Patient is currently on [place], Neurontin, Voltaren gel Patient denies any side effects of the medication(s), denies excessive drowsiness or sleepiness, denies suicidal ideation and reports that the current pain medication is helping to control the pain and improve activities of daily living. Patient denies any motor or sensory deficits. Patient denies any fever or night sweats, denies any change in the bowel movements or urination. Physical Examination: -Constitutional: Cooperative. Not in acute distress . - Neurologic: Cranial nerve II to XII intact. No focal neurological deficits. - Psychatric: Alert & oriented x 3. Matching mood & appropriate affect. Judgment and insight intact. - Musculoskeletal: Cervical spine: Muscle bulk/ tone/ strength in the bilateral upper extremities normal Vertebral body tenderness to palpation over Spurling test positive Distraction test positive Facet loading test positive Thoracic spine Muscle bulk / tone/ strength in the bilateral paraspinal muscles normal Vertebral body tender to palpation over Facet loading test positive Lumbar spine: Motor bulk/ tone/ strength lower extremities , thigh and legs : 5/5 Deep tendon reflexes : Normal Knee Jerk. Normal Ankle Jerk . Vertebral body tenderness to palpation over L4, L5 Lumbar Facet Loading Test positive Straight Leg Raise: positive at 30 degrees right side/ left side Gaenslen's Test positive Sacral spine : Severe tenderness over the Sacroiliac joint: right side / left side Range of motion: Flexion of the lumbar spine <60 degrees Range of motion: Extension of the lumbar spine <20 degrees Gaenslen's Test positive Faraz test: positive right side / left side Thigh Thrust Test Sacral Thrust Test Assessment and plan: Chronic low back pain secondary to lumbar degenerative disc disease, spondylosis with facet arthropathy without myelopathy Chronic and current use of high-risk medication (Opioids). The patient was counseled about risk of opioid use, psychological risk associated with opioids and was orally counseled to not overuse , divert or sell medications. Pt is to store medication in a safe location. The patient is counseled against driving while using narcotic medications and also not to use alcohol or any illicit recreational drugs. Patient verbalized understanding that the lack of compliance will result in failure to renew narcotic prescription(s) as well as possible discharge from the clinic Diagnoses, prognosis and treatment options including but not limited to physical therapy, surgical interventions, interventional therapies and medication management including narcotics and adjuvant medication were discussed. All patient questions answered MAPS reviewed and it was appropriate. Prescription refill for Norco5/325mg #60, Neurontin 300mg #60, Voltaren gel w 1 RF I have spent less than 30 minutes on patient care today. Dr Jessica was available by phone for the evaluation of this patient. The time was used to review the medical records including relevant urine studies and Prescription history (MAPs), review of the available imaging, evaluation and examination of the patient, coordination of care with the medical staff and if applicable referring physicians, as well as creation of the medical record - Pain Location Lower Back Non-Pharmacological Interventions: Heat, Inactivity, Position/Reposition Pharmacological Interventions: Block, Epidural, PRN Medication, Topical Medication PQRS Narrative: Smoking Status Never smoker Narcotic Agreement Date Signed 09/16/22 Hx Alcohol Use (MH) Yes: RARE Home Medications: Ambulatory Orders Metoprolol Succinate [Toprol XL] 50 mg PO HS 04/14/14 clonazePAM [KlonoPIN] 1 mg PO BID 04/14/14 Atorvastatin Calcium [Lipitor] 20 mg PO PC-SUPPER 05/22/16 Multivitamins, Thera [Multivitamin] 2 tab PO DAILY 06/17/16 Ziprasidone [Geodon] 40 mg PO BID 06/17/16 Cyanocobalamin (Vitamin B-12) [Vitamin B12] 2,500 mcg PO DAILY 06/08/18 [place] Xl 300 mg PO TID 06/08/18 Ascorbic Acid [Vitamin C] 500 mg PO DAILY 07/21/19 Timolol 0.5% Ophth Soln [Timoptic 0.5% Ophth Soln] 1 drop BOTH EYES DAILY 11/22/19 Biotin 10,000 mcg PO DAILY 07/12/20 PARoxetine HCL [Paxil Cr] 50 mg PO QAM 09/11/20 Dicyclomine [Bentyl] 10 mg PO BID 10/11/20 Neuro B Complex 1 tab PO DAILY 11/02/20 Atomoxetine HCl [Strattera] 25 mg PO BID 08/23/21 metFORMIN HCL [Glucophage] 850 mg PO BID 08/23/21 Calcium Carbonate/Vitamin D3 [Calcium 600 mg-D3 10 Mcg (400 Iu)] 2 each PO DAILY 11/01/21 Diclofenac Sodium Gel [Voltaren Gel] 1 applic TOPICAL QID PRN 30 Days #2 gm 11/11/22 Gabapentin [Neurontin] 300 mg PO BID 30 Days #60 cap 11/11/22 HYDROcodone/APAP 5-325MG [[place] 5-325] 1 tab PO Q12HR PRN 30 Days #60 tab 11/11/22 HYDROcodone/APAP 5-325MG [[place] 5-325] 1 tab PO Q12HR PRN 30 Days #60 tab 11/11/22 Controlled Substance Measures - Controlled Substance Measures Is patient prescribed a controlled substance at discharge?: Yes When asked, does pt state using other controlled substances?: Yes If prescribed controlled substance>3 days was MAPS reviewed?: Yes If Rx opioid, was Start Talking consent form obtained?: Yes Was information provided regarding opioid addiction?: Yes
== END ==
LOC: PNWHC3 14:12
PROVIDERS: ATTEND Specialist
DX: M47.816 Spondylosis without myelopathy or radiculopathy, lumbar region (principal); M51.36 Other intervertebral disc degeneration, lumbar region; Z79.891 Long term (current) use of opiate analgesic; Z88.5 Allergy status to narcotic agent; Z88.8 Allergy status to other drugs, medicaments and biological substances; Z88.6 Allergy status to analgesic agent
CPT/HCPCS: 99211

== ENCOUNTER → 2023-03-03 | Outpatient (CLI) | payer MEDICARE, BC ==
[2023-03-03 14:48] VITALS: BP 118/76; PULSE 97; RESP 18; TEMP 97.8
--- NOTE | 2023-03-03 16:29 | P.PAINPG ---
PQRS Measure Charge Sheet Comment: A 57 yr old female with a history of severe and chronic LBP secondary to cervical DDD and spondylosis with facet arthropathy without myelopathy presents today for medication refills. Pain level is provoked at 8/10 in intensity, constant, localized in the lumbar spine, dull/ achy in character w/o shooting p ain. Pain is provoked by standing, bending, lifting. Pain is alleviated with medications, topical, heat, home stretching regimen, repositioning and rest. Interventional pain procedures completed include BL RFA L3-L5 (May 2022), CHETAN C6-C7 (Jun 2022), BL SI injection Patient is currently on [place] 5/325mg #60, Neurontin 300mg #60 Patient denies any side effects of the medication(s), denies excessive drowsiness or sleepiness, denies suicidal ideation and reports that the current pain medication is helping to control the pain and improve activities of daily living. Patient denies any motor or sensory deficits. Patient denies any fever or night sweats, denies any change in the bowel movements or urination. Physical Examination: -Constitutional: Cooperative. Not in acute distress . - Neurologic: Cranial nerve II to XII intact. No focal neurological deficits. - Psychatric: Alert & oriented x 3. Matching mood & appropriate affect. Judgment and insight intact. - Musculoskeletal: Cervical spine: Muscle bulk/ tone/ strength in the bilateral upper extremities normal Vertebral body tenderness to palpation over Spurling test positive Distraction test positive Facet loading test positive TTP Thoracic spine Muscle bulk / tone/ strength in the bilateral paraspinal muscles normal Vertebral body tender to palpation over Facet loading test positive TTP Lumbar spine: Motor bulk/ tone/ strength lower extremities , thigh and legs : 5/5 Deep tendon reflexes : Normal Knee Jerk. Normal Ankle Jerk . Vertebral body tenderness to palpation over Lumbar Facet Loading Test positive Straight Leg Raise: positive at 30 degrees right side/ left side Gaenslen's Test positive Sacral spine : Severe tenderness over the Sacroiliac joint: right side / left side Range of motion: Flexion of the lumbar spine <60 degrees Range of motion: Extension of the lumbar spine <20 degrees Gaenslen's Test positive R / L Faraz test: positive right side / left side Thigh Thrust Test positive R / L Sacral Thrust Test positive R/ L Assessment and plan: Chronic neck pain secondary to cervical DDD, spondylosis with facet arthropathy without myelopathy Chronic and current use of high-risk medication (Opioids). The patient was counseled about risk of opioid use, psychological risk associated with opioids and was orally counseled to not overuse , divert or sell medications. Pt is to store medication in a safe location. The patient is counseled against driving while using narcotic medications and also not to use alcohol or any illicit recreational drugs. Patient verbalized understanding that the lack of compliance will result in failure to renew narcotic prescription(s) as well as possible discharge from the clinic Diagnoses, prognosis and treatment options including but not limited to physical therapy, surgical interventions, interventional therapies and medication management including narcotics and adjuvant medication were discussed. All patient questions answered MAPS reviewed and it was appropriate. Prescription refill for Neurontin 300mg #60, [place] 5/325mg #60 w 1 RF. I have spent less than 30 minutes on patient care today. Dr Jessica was available by phone for the evaluation of this patient. The time was used to review the medical records including relevant urine studies and Prescription history (MAPs), review of the available imaging, evaluation and examination of the patient, coordination of care with the medical staff and if applicable referring physicians, as well as creation of the medical record PQRS Narrative: Smoking Status Never smoker Narcotic Agreement Date Signed 09/16/22 Hx Alcohol Use (MH) Yes: RARE Home Medications: Ambulatory Orders Metoprolol Succinate [Toprol XL] 50 mg PO HS 04/14/14 clonazePAM [KlonoPIN] 1 mg PO BID 04/14/14 Atorvastatin Calcium [Lipitor] 20 mg PO PC-SUPPER 05/22/16 Multivitamins, Thera [Multivitamin] 2 tab PO DAILY 06/17/16 Ziprasidone [Geodon] 40 mg PO BID 06/17/16 Cyanocobalamin (Vitamin B-12) [Vitamin B12] 2,500 mcg PO DAILY 06/08/18 [place] Xl 300 mg PO TID 06/08/18 Ascorbic Acid [Vitamin C] 500 mg PO DAILY 07/21/19 Timolol 0.5% Ophth Soln [Timoptic 0.5% Ophth Soln] 1 drop BOTH EYES DAILY 11/22/19 Biotin 10,000 mcg PO DAILY 07/12/20 PARoxetine HCL [Paxil Cr] 50 mg PO QAM 09/11/20 Dicyclomine [Bentyl] 10 mg PO BID 10/11/20 Neuro B Complex 1 tab PO DAILY 11/02/20 Atomoxetine HCl [Strattera] 25 mg PO BID 08/23/21 metFORMIN HCL [Glucophage] 850 mg PO BID 08/23/21 Calcium Carbonate/Vitamin D3 [Calcium 600 mg-D3 10 Mcg (400 Iu)] 2 each PO DAILY 11/01/21 Diclofenac Sodium Gel [Voltaren Gel] 1 applic TOPICAL QID PRN 30 Days #2 gm 11/11/22 Gabapentin [Neurontin] 300 mg PO BID 30 Days #60 cap 11/11/22 HYDROcodone/APAP 5-325MG [[place] 5-325] 1 tab PO Q12HR PRN 30 Days #60 tab 11/11/22 HYDROcodone/APAP 5-325MG [[place] 5-325] 1 tab PO Q12HR PRN 30 Days #60 tab 11/11/22 Controlled Substance Measures - Controlled Substance Measures Is patient prescribed a controlled substance at discharge?: Yes
== END ==
LOC: PNWHC3 13:27
PROVIDERS: ATTEND Specialist
DX: M50.30 Other cervical disc degeneration, unspecified cervical region (principal); M47.812 Spondylosis without myelopathy or radiculopathy, cervical region; G89.29 Other chronic pain; Z79.891 Long term (current) use of opiate analgesic; Z79.899 Other long term (current) drug therapy; Z88.8 Allergy status to other drugs, medicaments and biological substances; Z88.5 Allergy status to narcotic agent
CPT/HCPCS: 99211

== ENCOUNTER → 2023-04-28 | Outpatient (CLI) | payer MEDICARE, BC ==
[2023-04-28 14:40] VITALS: BP 125/85; PULSE 76; RESP 18; TEMP 98.2
[2023-04-29 06:59] LABS: Serum Amphetamine Negative; Serum Barbiturates Negative; Serum Benzodiazepine Negative; Serum Cocaine Negative; Serum Methadone Negative; Serum Opiates Negative; Serum Phencyclidine Negative; Serum Propoxyphene Negative; Serum THC (Cannabis) Negative
--- NOTE | 2023-05-01 07:46 | P.PAINPG ---
PQRS Measure Charge Sheet Comment: A 57 yr old female with a history of severe and chronic LBP secondary to cervical DDD and spondylosis with facet arthropathy without myelopathy presents today for medication refills and LBP. Pt states she experienced 100 % pain relief x 8-9 mo s/p procedure. Pain level is provoked at 10/10 in intensity, co nstant, localized in the lumbar spine, achy in character w shooting towards the BL lumbar spine. Pt states "it feels like a band of pain." Pain is provoked by standing, bending, lifting. Pain is alleviated with medications, topical, heat, home stretching regimen, repositioning and rest. Interventional pain procedures completed include BL RFA L3-L5 (May 2022), CHETAN C6-C7 (Jun 2022), BL SI injection Patient is currently on [place] 5/325mg #60, Neurontin 300mg #60, Voltaren gel Patient denies any side effects of the medication(s), denies excessive drowsiness or sleepiness, denies suicidal ideation and reports that the current pain medication is helping to control the pain and improve activities of daily living. Patient denies any motor or sensory deficits. Patient denies any fever or night sweats, denies any change in the bowel movements or urination. Physical Examination: -Constitutional: Cooperative. Not in acute distress . - Neurologic: Cranial nerve II to XII intact. No focal neurological deficits. - Psychatric: Alert & oriented x 3. Matching mood & appropriate affect. Judgment and insight intact. - Musculoskeletal: Cervical spine: Muscle bulk/ tone/ strength in the bilateral upper extremities normal Vertebral body tenderness to palpation over Spurling test positive Distraction test positive Facet loading test positive TTP Thoracic spine Muscle bulk / tone/ strength in the bilateral paraspinal muscles normal Vertebral body tender to palpation over Facet loading test positive TTP Lumbar spine: Motor bulk/ tone/ strength lower extremities , thigh and legs : 5/5 Deep tendon reflexes : Normal Knee Jerk. Normal Ankle Jerk . Vertebral body tenderness to palpation over Lumbar Facet Loading Test positive Straight Leg Raise: positive at 30 degrees right side/ left side Gaenslen's Test positive Sacral spine : Severe tenderness over the Sacroiliac joint: right side / left side Range of motion: Flexion of the lumbar spine <60 degrees Range of motion: Extension of the lumbar spine <20 degrees Gaenslen's Test positive R / L Faraz test: positive right side / left side Thigh Thrust Test positive R / L Sacral Thrust Test positive R/ L Assessment and plan: Chronic neck pain secondary to cervical DDD, spondylosis with facet arthropathy without myelopathy Chronic and current use of high-risk medication (Opioids). The patient was counseled about risk of opioid use, psychological risk associated with opioids and was orally counseled to not overuse , divert or sell medications. Pt is to store medication in a safe location. The patient is counseled against driving while using narcotic medications and also not to use alcohol or any illicit recreational drugs. Patient verbalized understanding that the lack of compliance will result in failure to renew narcotic prescription(s) as well as possible discharge from the clinic Diagnoses, prognosis and treatment options including but not limited to physical therapy, surgical interventions, interventional therapies and medication management including narcotics and adjuvant medication were discussed. All patient questions answered MAPS reviewed and it was appropriate. Blood tox screen ordered today 04/28/23 Prescription refill for Neurontin 300mg #60, [place] 5/325mg #60, Voltaren gel w 1 RF. I have spent less than 30 minutes on patient care today. Dr Jessica was available by phone for the evaluation of this patient. The time was used to review the medical records including relevant urine studies and Prescription history (MAPs), review of the available imaging, evaluation and examination of the patient, coordination of care with the medical staff and if applicable referring physicians, as well as creation of the medical record PQRS Narrative: Smoking Status Never smoker Narcotic Agreement Date Signed 09/16/22 Hx Alcohol Use (MH) Yes: RARE Home Medications: Ambulatory Orders Metoprolol Succinate [Toprol XL] 50 mg PO HS 04/14/14 clonazePAM [KlonoPIN] 1 mg PO BID 04/14/14 Atorvastatin Calcium [Lipitor] 20 mg PO PC-SUPPER 05/22/16 Multivitamins, Thera [Multivitamin] 2 tab PO DAILY 06/17/16 Ziprasidone [Geodon] 40 mg PO BID 06/17/16 Cyanocobalamin (Vitamin B-12) [Vitamin B12] 2,500 mcg PO DAILY 06/08/18 [place] Xl 300 mg PO TID 06/08/18 Ascorbic Acid [Vitamin C] 500 mg PO DAILY 07/21/19 Timolol 0.5% Ophth Soln [Timoptic 0.5% Ophth Soln] 1 drop BOTH EYES DAILY 11/22/19 Biotin 10,000 mcg PO DAILY 07/12/20 PARoxetine HCL [Paxil Cr] 50 mg PO QAM 09/11/20 Dicyclomine [Bentyl] 10 mg PO BID 10/11/20 Neuro B Complex 1 tab PO DAILY 11/02/20 Atomoxetine HCl [Strattera] 25 mg PO BID 08/23/21 metFORMIN HCL [Glucophage] 850 mg PO BID 08/23/21 Calcium Carbonate/Vitamin D3 [Calcium 600 mg-D3 10 Mcg (400 Iu)] 2 each PO DAILY 11/01/21 Diclofenac Sodium Gel [Voltaren Gel] 2 - 3 gm TOPICAL BID 30 Days #100 gm 04/28/23 Gabapentin [Neurontin] 300 mg PO BID 30 Days #60 cap 04/28/23 HYDROcodone/APAP 5-325MG [[place] 5-325] 1 tab PO Q12HR PRN 30 Days #60 tab 04/28/23 HYDROcodone/APAP 5-325MG [[place] 5-325] 1 tab PO Q12HR PRN 30 Days #60 tab 04/28/23 Controlled Substance Measures - Controlled Substance Measures Is patient prescribed a controlled substance at discharge?: Yes When asked, does pt state using other controlled substances?: Yes If prescribed controlled substance>3 days was MAPS reviewed?: Yes
== END ==
LOC: PNWHC3 12:55
PROVIDERS: ATTEND Specialist
DX: Z02.83 Encounter for blood-alcohol and blood-drug test (principal); Z88.5 Allergy status to narcotic agent; Z88.8 Allergy status to other drugs, medicaments and biological substances; Z88.1 Allergy status to other antibiotic agents
CPT/HCPCS: 80307; G0463; 99211

== ENCOUNTER → 2023-04-30 | Outpatient (CLI) | payer MEDICARE, BC ==
--- NOTE | 2023-04-30 15:45 | P.PN ---
Subjective DATE: 04/30/2023 FOLLOW UP VISIT. Patient with obstructive sleep apnea hypopnea syndrome return to sleep center for follow-up visit. Information from previous visit have been reviewed. Patient is using PAP equipment every night for the whole night, getting PAP supplies in time. The patient does not have significant problems with the mask, PAP unit and humidification. [place]oster sleepiness scale is 12. I checked information from PAP unit. PAP unit pressure 6 cm H2O. Usage is 100 % for more then 4 hours, average 9.2 hours per night. Leak is 12 l/m, which is in acceptable range. Apnea Hypopnea Index is 1.5, which is normal. MEDICATIONS:1. Oxybutynin 2. Toprol 3. Vicodin 4. Lipitor 5. Klonopin 6. Metformin 7. Neurontin 8. Timolol eyedrops During physical exam: GENERAL: A pleasant patient without any distress. VITAL SIGNS: BP 111/76, HR 90, RR 12 , weight 184.6, temperature 97.2, oxygen saturation at room air 97 % . HEENT: PERRLA, EOMI.low position of soft palate, Mallapati 4 . NECK: Supple. No JVD. LUNGS: Clear to percussion and to auscultation. Good air exchange. No wheezing or rhonchi. HEART: S1, S2 regular. ABDOMEN: Soft and nontender. Obese EXTREMITIES: No clubbing or cyanosis. 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 No focal deficit. Impressions: 1. Obstructive sleep apnea-hypopnea syndrome. Patient demonstrated great compliance with treatment, benefiting from treatment. 2. Hypertension. 3. Diabetes mellitus. 4. Obesity, patient lost 7 pounds comparing to the previous visit. 5. History of fibromyalgia. 6. History of depression and anxiety. 7. History of polyarthritis. 8. History of the nephrolithiasis on the left side, status post surgical treatment in December 2022. Plan: 1. Continue using PAP equipment every night for the whole night. 2. To change air filter at least 1-2 times per month. 3. PAP unit should stay lower then position of the head. 4. Advised patient to remove all remaining water from humidifier canister daily and make it dry after each usage. Refill canister with fresh distilled water before each usage. 5. Sleep hygiene with regular time in bed for at least 8 hours. 6. Precautions related to driving. No driving if feel any sleepiness. 7. I will maintain prescription for PAP supplies including mask, tube, filters. 8. Watching and losing weight. 9. Follow up visit in 6 months or earlier if patient has any problems. Thank you very much for allowing me to participate in the management of your patient. John Queen MD, PhD, FAASM. Diplomat of [employer] [place] [employer], Sleep Medicine Board by [employer] [place] [employer] Electrical And [employer] of [facility] [place]
== END ==
LOC: 3 N SLEEP 15:20
PROVIDERS: ATTEND Internal Medicine
DX: G47.33 Obstructive sleep apnea (adult) (pediatric) (principal); I10 Essential (primary) hypertension; M13.0 Polyarthritis, unspecified; M79.7 Fibromyalgia; E11.9 Type 2 diabetes mellitus without complications; F32.A Depression, unspecified; F41.9 Anxiety disorder, unspecified; Z99.89 Dependence on other enabling machines and devices; Z98.890 Other specified postprocedural states; Z79.84 Long term (current) use of oral hypoglycemic drugs; Z88.5 Allergy status to narcotic agent; Z88.8 Allergy status to other drugs, medicaments and biological substances
CPT/HCPCS: 99212

== ENCOUNTER 2023-07-04 06:55 | Day surgery (SDC) | payer MEDICARE, BC ==
[2023-07-04 07:30] VITALS: RESP 16; TEMP 97.9
[2023-07-04] MEDS ORDERED: MIDAZOLAM 2 MG/2 ML VIAL ONE (07:45)
[2023-07-04] MEDS ORDERED: fentaNYL (PF) 50 MCG/ML 2 ML AMP ONE (07:45)
[2023-07-04 07:48] LABS: Glucose,Whole Blood 112 mg/dL (70-110)
[2023-07-04] MEDS ORDERED: methylPREDNISolone ACETATE 40 MG/ML 1 ML VIAL ONE (07:50)
[2023-07-04] MEDS ORDERED: ROPIVACAINE 5 MG/ML 20 ML AMPULE ONE (07:50)
--- NOTE | 2023-07-04 08:09 | P.PCN ---
Date of Procedure: 07/04/23 Procedure(s) Performed: PREOPERATIVE DIAGNOSIS: 1-Lumbar Spondylosis with Facet Arthropathy without myelopathy. 2- Lumber degenerative disc disease. POSTOPERATIVE DIAGNOSIS: 1- Lumbar Spondylosis with Facet Arthropathy without myelopathy. 2- Lumber degenerative disc disease. PROCEDURES : Bilateral Radiofrequency thermocoagulation, L3 , L4 , and L5 medial branch, with fluoroscopic guidance (fluoroscopy images available in the radiology department) ( to denervate the facet joint at bilateral L4-5 ,and L5- S1 levels ). ANESTHESIA: Monitored anesthesia care as per anesthesia department . EBL: Minimal PROCEDURE INDICATION: The patient with low back pain secondary to lumbar facet arthropathy who had more than 50% relief of her pain with previous diagnostic lumbar medial branch block with bupivacaine. PROCEDURE DESCRIPTION / TECHNIQUE: The patient was seen and identified in the preoperative area. Risks, benefits, complications, including but not limited to risk of infection ,bleeding , allergic reactions to the medications and no complete pain releife , and alternatives were discussed with the patient, the patient agreed to proceed with the procedure and signed the consent. IV was started. Vital signs remained stable throughout the procedure. Patient was taken to the OR and time out was completed. The patient was placed in the prone position on the procedure table. The lumber area was prepped and draped in the usual sterile fashion. . Vital signs were closely monitored during the procedure .IV sedation was used during the procedure to decrease patients anxiety. Using AP and then oblique fluoroscopy, the ``eye of the [place] dog corresponding to the connection between the superior and transverse articular processes of right L3, L4, and L5 were identified, marked, and localized with 1% lidocaine. Subsequently, a [id number] radiofrequency cannula with a 10- mm active tip was advanced guided by fluoroscopy to each of the``eyes of the [place] dog at right L3, L4, and L5. Each site then underwent sensory testing at 50 Hz and 0 to 1 volt and motor testing at 2.5 Hz and 0 to 3 volt with local stimulation, but no radicular symptoms down the legs. Thereafter each sites underwent radiofrequency thermocoagulation at 80 degrees celsius for 90 seconds after injecting 0.5 ml of PF Ropivacaine 1ml, then after the thermocoagulation done , 1 ml of the block solution containing Depo-Medrol 20 mg and 3 ml of Ropivacaine 0.5% was injected at the right L3 , L4 , and L5 , levels after negative aspiration of CSF and blood and with no paresthesias. Cannulas were retracted while injecting lidocaine 1% until the needle is out. The same procedure was repeated at the level of Left L3, L4, and L5 levels. At the end of the procedure, the skin was cleansed and bandages were applied. COMPLICATIONS: No acute complications. DISPOSITION / PLANS: The patient was placed in a supine position and transferred to the recovery area in a stable condition for observation and was discharged from the recovery room after meeting discharge criteria. Home discharge instructions given to the patient by the staff. The patient was reexamined prior to discharge. The patient will schedule a follow up in the [facility] in 2-4 weeks.
[2023-07-04] MEDS ORDERED: IV FLUID CONTINUATION 1,000 ML IV ONE (08:12)
--- NOTE | 2023-07-04 08:21 | FL ---
EXAMINATION TYPE: FL guided pain mgmt statistic DATE OF EXAM: 07/04/2023 FLUOROSCOPY Fluoroscopy time of 14 seconds was used during bilateral lumbar radiofrequency ablation. 6 image/s d ocument/s the procedure. DAP [id number] mGycm2.
[2023-07-04 08:37] VITALS: BP 105/78; PULSE 78
== END 2023-07-04 08:48 | disposition home or self-care (01) ==
LOC: ORPAIN 06:55
PROVIDERS: ATTEND Specialist
DX: M51.36 Other intervertebral disc degeneration, lumbar region (principal); M47.816 Spondylosis without myelopathy or radiculopathy, lumbar region; I10 Essential (primary) hypertension; E78.5 Hyperlipidemia, unspecified; G47.33 Obstructive sleep apnea (adult) (pediatric); Z98.890 Other specified postprocedural states; Z79.899 Other long term (current) drug therapy
CPT/HCPCS: 64635; 64636 ×2; J2250; J1030; J3010; J2795

== ENCOUNTER → 2023-07-09 | Outpatient (CLI) | payer MEDICARE, BC ==
[2023-07-09 13:34] VITALS: BP 123/75; PULSE 89; RESP 15; TEMP 98.2
--- NOTE | 2023-07-09 14:44 | P.PAINPG ---
PQRS Measure Charge Sheet Comment: A 57 yr old female with a history of severe and chronic LBP secondary to cervical DDD and spondylosis with facet arthropathy without myelopathy presents today for medication refills and evaluation s/p BL RFA L4-L5, L5-S1 on Jul 04 2023. Pt states she experienced 95 % pain relief s/p procedure. Pain level is provoked at 5/10 in intensity, constant, localized in the lumbar spine, achy in character w shooting towards the BL lumbar spine. Pain is provoked by standing, bending, lifting. Pain is alleviated with medications, topical, heat, home stretching regimen, repositioning and rest. Oswestry axial pain score of 25. Interventional pain procedures completed include BL RFA L3-L5 (06/14, 07/16), CHETAN C6-C7 (Jun 2022), BL SI injection Patient is currently on [place] 5/325mg #60, Neurontin 300mg #60, Voltaren gel Patient denies any side effects of the medication(s), denies excessive drowsiness or sleepiness, denies suicidal ideation and reports that the current pain medication is helping to control the pain and improve activities of daily living. Patient denies any motor or sensory deficits. Patient denies any fever or night sweats, denies any change in the bowel movements or urination. Physical Examination: -Constitutional: Cooperative. Not in acute distress . - Neurologic: Cranial nerve II to XII intact. No focal neurological deficits. - Psychatric: Alert & oriented x 3. Matching mood & appropriate affect. Judgment and insight intact. - Musculoskeletal: Cervical spine: Muscle bulk/ tone/ strength in the bilateral upper extremities normal Vertebral body tenderness to palpation over Spurling test positive Distraction test positive Facet loading test positive TTP Thoracic spine Muscle bulk / tone/ strength in the bilateral paraspinal muscles normal Vertebral body tender to palpation over Facet loading test positive TTP Lumbar spine: Motor bulk/ tone/ strength lower extremities , thigh and legs : 5/5 Deep tendon reflexes : Normal Knee Jerk. Normal Ankle Jerk . Vertebral body tenderness to palpation over L4, L5 Lumbar Facet Loading Test positive Straight Leg Raise: positive at 30 degrees right side/ left side Gaenslen's Test positive Sacral spine : Severe tenderness over the Sacroiliac joint: right side / left side Range of motion: Flexion of the lumbar spine <60 degrees Range of motion: Extension of the lumbar spine <20 degrees Gaenslen's Test positive R / L Faraz test: positive right side / left side Thigh Thrust Test positive R / L Sacral Thrust Test positive R/ L Assessment and plan: Chronic neck pain secondary to cervical DDD, spondylosis with facet arthropathy without myelopathy Chronic and current use of high-risk medication (Opioids). The patient was counseled about risk of opioid use, psychological risk associated with opioids and was orally counseled to not overuse , divert or sell medications. Pt is to store medication in a safe location. The patient is counseled against driving while using narcotic medications and also not to use alcohol or any illicit recreational drugs. Patient verbalized understanding that the lack of compliance will result in failure to renew narcotic prescription(s) as well as possible discharge from the clinic Diagnoses, prognosis and treatment options including but not limited to physical therapy, surgical interventions, interventional therapies and medication management including narcotics and adjuvant medication were discussed. All patient questions answered MAPS reviewed and it was appropriate. Blood tox screen from 04/28/23 reviewed and consistent. Prescription refill for Neurontin 300mg #60, [place] 5/325mg #60, Voltaren gel w 1 RF. I have spent less than 30 minutes on patient care today. Dr Jessica was available by phone for the evaluation of this patient. The time was used to review the medical records including relevant urine studies and Prescription history (MAPs), review of the available imaging, evaluation and examination of the patient, coordination of care with the medical staff and if applicable referring physicians, as well as creation of the medical record PQRS Narrative: Smoking Status Never smoker Narcotic Agreement Date Signed 09/16/22 Hx Alcohol Use (MH) Yes: RARE Home Medications: Ambulatory Orders Metoprolol Succinate [Toprol XL] 50 mg PO HS 04/14/14 clonazePAM [KlonoPIN] 1 mg PO BID 04/14/14 Atorvastatin Calcium [Lipitor] 40 mg PO PC-SUPPER 05/22/16 Multivitamins, Thera [Multivitamin] 2 tab PO QAM 06/17/16 Ziprasidone [Geodon] 40 mg PO BID 06/17/16 Cyanocobalamin (Vitamin B-12) [Vitamin B12] 2,500 mcg PO QAM 06/08/18 [place] Xl 300 mg PO TID 06/08/18 Ascorbic Acid [Vitamin C] 500 mg PO QAM 07/21/19 Timolol 0.5% Ophth Soln [Timoptic 0.5% Ophth Soln] 1 drop BOTH EYES QAM 11/22/19 Biotin 10,000 mcg PO QAM 07/12/20 PARoxetine HCL [Paxil Cr] 50 mg PO QAM 09/11/20 Dicyclomine [Bentyl] 10 mg PO BID 10/11/20 Neuro B Complex 1 tab PO QAM 11/02/20 Atomoxetine HCl [Strattera] 25 mg PO BID 08/23/21 metFORMIN HCL [Glucophage] 850 mg PO BID 08/23/21 Oxybutynin Chloride [oxyBUTYnin chloride ER] 10 mg PO QAM 05/23/23 Unk Probiotic 1 tab PO QAM 05/23/23 Diclofenac Sodium Gel [Voltaren Gel] 2 - 3 gm TOPICAL BID PRN 30 Days #100 gm 07/09/23 Gabapentin [Neurontin] 300 mg PO BID 30 Days #60 cap 07/09/23 HYDROcodone/APAP 5-325MG [[place] 5-325] 1 tab PO BID PRN 30 Days #60 tab 07/09/23 HYDROcodone/APAP 5-325MG [[place] 5-325] 1 tab PO Q12HR PRN 30 Days #60 tab 07/09/23 Controlled Substance Measures - Controlled Substance Measures Is patient prescribed a controlled substance at discharge?: Yes When asked, does pt state using other controlled substances?: Yes If prescribed controlled substance>3 days was MAPS reviewed?: Yes
== END ==
LOC: PNWHC3 12:58
PROVIDERS: ATTEND Specialist
DX: M50.321 Other cervical disc degeneration at C4-C5 level (principal); M47.812 Spondylosis without myelopathy or radiculopathy, cervical region; G89.29 Other chronic pain; Z79.891 Long term (current) use of opiate analgesic; Z88.8 Allergy status to other drugs, medicaments and biological substances; Z88.1 Allergy status to other antibiotic agents; Z88.5 Allergy status to narcotic agent
CPT/HCPCS: 99211

== ENCOUNTER → 2023-09-03 | Outpatient (CLI) | payer MEDICARE, BC ==
[2023-09-03 14:36] VITALS: BP 128/87; PULSE 82; RESP 16; TEMP 98.7
--- NOTE | 2023-09-03 14:53 | P.PAINPG ---
PQRS Measure Charge Sheet Comment: A 58 yr old female with a history of severe and chronic LBP secondary to cervical DDD and spondylosis with facet arthropathy without myelopathy presents today for medication refills. Pain level is provoked at 4/10 in intensity, constant, localized in the lumbar spine, achy in character w shooting towards t he BL buttocks. Pain is provoked by standing, bending, lifting. Pain is alleviated with medications, topical, heat, home stretching regimen, repositioning and rest. Interventional pain procedures completed include BL RFA L3-L5 (06/14, 07/16), CHETAN C6-C7 (Jun 2022), BL SI injection Patient is currently on [place] 5/325mg #60, Neurontin 300mg #60, Voltaren gel Patient denies any side effects of the medication(s), denies excessive drowsiness or sleepiness, denies suicidal ideation and reports that the current pain medication is helping to control the pain and improve activities of daily living. Patient denies any motor or sensory deficits. Patient denies any fever or night sweats, denies any change in the bowel movements or urination. Physical Examination: -Constitutional: Cooperative. Not in acute distress . - Neurologic: Cranial nerve II to XII intact. No focal neurological deficits. - Psychatric: Alert & oriented x 3. Matching mood & appropriate affect. Judgment and insight intact. - Musculoskeletal: Cervical spine: Muscle bulk/ tone/ strength in the bilateral upper extremities normal Vertebral body tenderness to palpation over Spurling test positive Distraction test positive Facet loading test positive TTP Thoracic spine Muscle bulk / tone/ strength in the bilateral paraspinal muscles normal Vertebral body tender to palpation over Facet loading test positive TTP Lumbar spine: Motor bulk/ tone/ strength lower extremities , thigh and legs : 5/5 Deep tendon reflexes : Normal Knee Jerk. Normal Ankle Jerk . Vertebral body tenderness to palpation over L4, L5 Lumbar Facet Loading Test positive Straight Leg Raise: positive at 30 degrees right side/ left side Gaenslen's Test positive Sacral spine : Severe tenderness over the Sacroiliac joint: right side / left side Range of motion: Flexion of the lumbar spine <60 degrees Range of motion: Extension of the lumbar spine <20 degrees Gaenslen's Test positive R / L Faraz test: positive right side / left side Thigh Thrust Test positive R / L Sacral Thrust Test positive R/ L Assessment and plan: Chronic neck pain secondary to cervical DDD, spondylosis with facet arthropathy without myelopathy Chronic and current use of high-risk medication (Opioids). The patient was counseled about risk of opioid use, psychological risk associated with opioids and was orally counseled to not overuse , divert or sell medications. Pt is to store medication in a safe location. The patient is counseled against driving while using narcotic medications and also not to use alcohol or any illicit recreational drugs. Patient verbalized understanding that the lack of compliance will result in failure to renew narcotic prescription(s) as well as possible discharge from the clinic Diagnoses, prognosis and treatment options including but not limited to physical therapy, surgical interventions, interventional therapies and medication management including narcotics and adjuvant medication were discussed. All patient questions answered MAPS reviewed and it was appropriate. Blood tox screen from 04/28/23 reviewed and consistent. Prescription refill for Neurontin 300mg #60, [place] 5/325mg #60, Voltaren gel w 1 RF. I have spent less than 30 minutes on patient care today. Dr Jessica was available by phone for the evaluation of this patient. The time was used to review the medical records including relevant urine studies and Prescription history (MAPs), review of the available imaging, evaluation and examination of the patient, coordination of care with the medical staff and if applicable referring physicians, as well as creation of the medical record PQRS Narrative: Smoking Status Never smoker Narcotic Agreement Date Signed 09/16/22 Hx Alcohol Use (MH) Yes: RARE Home Medications: Ambulatory Orders Metoprolol Succinate [Toprol XL] 50 mg PO HS 04/14/14 clonazePAM [KlonoPIN] 1 mg PO BID 04/14/14 Atorvastatin Calcium [Lipitor] 40 mg PO PC-SUPPER 05/22/16 Multivitamins, Thera [Multivitamin] 2 tab PO QAM 06/17/16 Ziprasidone [Geodon] 40 mg PO BID 06/17/16 Cyanocobalamin (Vitamin B-12) [Vitamin B12] 2,500 mcg PO QAM 06/08/18 [place] Xl 300 mg PO TID 06/08/18 Ascorbic Acid [Vitamin C] 500 mg PO QAM 07/21/19 Timolol 0.5% Ophth Soln [Timoptic 0.5% Ophth Soln] 1 drop BOTH EYES QAM 11/22/19 Biotin 10,000 mcg PO QAM 07/12/20 PARoxetine HCL [Paxil Cr] 50 mg PO QAM 09/11/20 Dicyclomine [Bentyl] 10 mg PO BID 10/11/20 Neuro B Complex 1 tab PO QAM 11/02/20 Atomoxetine HCl [Strattera] 25 mg PO BID 08/23/21 metFORMIN HCL [Glucophage] 850 mg PO BID 08/23/21 Oxybutynin Chloride [oxyBUTYnin chloride ER] 10 mg PO QAM 05/23/23 Unk Probiotic 1 tab PO QAM 05/23/23 Diclofenac Sodium Gel [Voltaren 1% Gel] 2 - 3 gm TOPICAL BID PRN 30 Days #100 gm 07/09/23 Gabapentin [Neurontin] 300 mg PO BID 30 Days #60 cap 07/09/23 HYDROcodone/APAP 5-325MG [[place] 5-325] 1 tab PO BID PRN 30 Days #60 tab 07/09/23 HYDROcodone/APAP 5-325MG [[place] 5-325] 1 tab PO Q12HR PRN 30 Days #60 tab 07/09/23 Controlled Substance Measures - Controlled Substance Measures Is patient prescribed a controlled substance at discharge?: No
== END ==
LOC: PNWHC3 12:55
PROVIDERS: ATTEND Specialist
DX: M50.30 Other cervical disc degeneration, unspecified cervical region (principal); M47.812 Spondylosis without myelopathy or radiculopathy, cervical region; G89.29 Other chronic pain; Z79.891 Long term (current) use of opiate analgesic; Z88.8 Allergy status to other drugs, medicaments and biological substances; Z88.1 Allergy status to other antibiotic agents; Z88.5 Allergy status to narcotic agent
CPT/HCPCS: 99211

== ENCOUNTER → 2023-10-29 | Outpatient (CLI) | payer MEDICARE, BC ==
--- NOTE | 2023-10-29 14:42 | XR ---
EXAMINATION TYPE: XR cervical spine limited DATE OF EXAM: 10/29/2023 TECHNIQUE: Frontal, lateral, and open mouth view of the cervical spine are obtained. HISTORY: M50.30 COMPARISON: MRI cervical spine March 19, 2013. Prior cervical spine x-ray January 18, 2013 FINDINGS: The cervical spine is visualized in its entirety from C1 thru the top of T1 level, it is s table and satisfactory in alignment without evidence of acute fracture or dislocation. The pre-verte bral soft tissue remain within normal limits. The C1-C2 articulation is within normal limits on the open mouth view. Persistent anterior fusion plate with at least some ossific fusion from C4 through C 6 levels. Persistent anterior fusion plate with at least some ossific fusion at the C7-T1 level. Over lying soft tissue is unremarkable. IMPRESSION: As above. No significant change from prior x-ray.
== END | disposition home or self-care (01) ==
LOC: RADXRMAIN 14:08
PROVIDERS: ATTEND Physician Assistant Medical
DX: M50.30 Other cervical disc degeneration, unspecified cervical region (principal)
CPT/HCPCS: 72040; 80307

== ENCOUNTER → 2023-10-29 | Outpatient (CLI) | payer MEDICARE, BC ==
--- NOTE | 2023-10-29 13:52 | P.PAINPG ---
PQRS Measure Charge Sheet Comment: A 58 yr old female with a history of severe and chronic neck and LBP secondary to DDD and spondylosis with facet arthropathy without myelopathy presents today for medication refills. Pain level is provoked at 8/10 in intensity, constant, localized in the cervical & lumbar spine, predominantly axial, achy in character w occasional shooting towards the BL buttocks. Neck pain does not radiate. Pain is provoked by standing, bending, lifting. Pain is alleviated with medications, topical, heat, home stretching regimen, repositioning and rest. Cervical disability score of 27. Interventional pain procedures completed include BL RFA L3-L5 (06/14, 07/16), CHETAN C6-C7 (Jun 2022), BL SI injection Patient is currently on [place] 5/325mg #60, Neurontin 300mg #60, Voltaren gel Patient denies any side effects of the medication(s), denies excessive drowsiness or sleepiness, denies suicidal ideation and reports that the current pain medication is helping to control the pain and improve activities of daily living. Patient denies any motor or sensory deficits. Patient denies any fever or night sweats, denies any change in the bowel movements or urination. Physical Examination: -Constitutional: Cooperative. Not in acute distress . - Neurologic: Cranial nerve II to XII intact. No focal neurological deficits. - Psychatric: Alert & oriented x 3. Matching mood & appropriate affect. Judgment and insight intact. - Musculoskeletal: Cervical spine: Muscle bulk/ tone/ strength in the bilateral upper extremities normal Vertebral body tenderness to palpation over C7 Spurling test positive Distraction test positive Facet loading test positive TTP Thoracic spine Muscle bulk / tone/ strength in the bilateral paraspinal muscles normal Vertebral body tender to palpation over Facet loading test positive TTP Lumbar spine: Motor bulk/ tone/ strength lower extremities , thigh and legs : 5/5 Deep tendon reflexes : Normal Knee Jerk. Normal Ankle Jerk . Vertebral body tenderness to palpation over L4, L5 Lumbar Facet Loading Test positive Straight Leg Raise: positive at 30 degrees right side/ left side Gaenslen's Test positive Sacral spine : Severe tenderness over the Sacroiliac joint: right side / left side Range of motion: Flexion of the lumbar spine <60 degrees Range of motion: Extension of the lumbar spine <20 degrees Gaenslen's Test positive R / L Faraz test: positive right side / left side Thigh Thrust Test positive R / L Sacral Thrust Test positive R/ L Assessment and plan: Chronic neck pain and LBP secondary to DDD, spondylosis with facet arthropathy without myelopathy Script for x- ray of the cervical spine M50.30 Chronic and current use of high-risk medication (Opioids). The patient was counseled about risk of opioid use, psychological risk associated with opioids and was orally counseled to not overuse , divert or sell medications. Pt is to store medication in a safe location. The patient is counseled against driving while using narcotic medications and also not to use alcohol or any illicit recreational drugs. Patient verbalized understanding that the lack of compliance will result in failure to renew narcotic prescription(s) as well as possible discharge from the clinic Diagnoses, prognosis and treatment options including but not limited to physical therapy, surgical interventions, interventional therapies and medication management including narcotics and adjuvant medication were discussed. All patient questions answered MAPS reviewed and it was appropriate. UDS collected 10/29/23. Prescription refill for Neurontin 300mg #60, [place] 5/325mg #60, Voltaren gel w 1 RF. I have spent less than 30 minutes on patient care today. Dr Jessica was available by phone for the evaluation of this patient. The time was used to review the medical records including relevant urine studies and Prescription history (MAPs), review of the available imaging, evaluation and examination of the patient, coordination of care with the medical staff and if applicable referring physicians, as well as creation of the medical record PQRS Narrative: Smoking Status Never smoker Narcotic Agreement Date Signed 09/16/22 Hx Alcohol Use (MH) Yes: RARE Home Medications: Ambulatory Orders Metoprolol Succinate [Toprol XL] 50 mg PO HS 04/14/14 clonazePAM [KlonoPIN] 1 mg PO BID 04/14/14 Atorvastatin Calcium [Lipitor] 40 mg PO PC-SUPPER 05/22/16 Multivitamins, Thera [Multivitamin] 2 tab PO QAM 06/17/16 Ziprasidone [Geodon] 40 mg PO BID 06/17/16 Cyanocobalamin (Vitamin B-12) [Vitamin B12] 2,500 mcg PO QAM 06/08/18 [place] Xl 300 mg PO TID 06/08/18 Ascorbic Acid [Vitamin C] 500 mg PO QAM 07/21/19 Timolol 0.5% Ophth Soln [Timoptic 0.5% Ophth Soln] 1 drop BOTH EYES QAM 11/22/19 Biotin 10,000 mcg PO QAM 07/12/20 PARoxetine HCL [Paxil Cr] 50 mg PO QAM 09/11/20 Dicyclomine [Bentyl] 10 mg PO BID 10/11/20 Neuro B Complex 1 tab PO QAM 11/02/20 Atomoxetine HCl [Strattera] 25 mg PO BID 08/23/21 metFORMIN HCL [Glucophage] 850 mg PO BID 08/23/21 Oxybutynin Chloride [oxyBUTYnin chloride ER] 10 mg PO QAM 05/23/23 Unk Probiotic 1 tab PO QAM 05/23/23 Diclofenac Sodium Gel [Voltaren 1% Gel] 2 - 3 gm TOPICAL BID PRN 30 Days #100 gm 10/29/23 Gabapentin [Neurontin] 300 mg PO BID 30 Days #60 cap 10/29/23 HYDROcodone/APAP 5-325MG [[place] 5-325] 1 tab PO BID PRN 30 Days #60 tab 10/29/23 HYDROcodone/APAP 5-325MG [[place] 5-325] 1 tab PO Q12HR PRN 30 Days #60 tab 10/29/23 Controlled Substance Measures - Controlled Substance Measures Is patient prescribed a controlled substance at discharge?: Yes When asked, does pt state using other controlled substances?: No If prescribed controlled substance>3 days was MAPS reviewed?: Yes
[2023-10-29 14:17] VITALS: BP 123/88; PULSE 87; RESP 16; TEMP 97.1
== END ==
LOC: PNWHC3 13:04
PROVIDERS: ATTEND Specialist
DX: M51.36 Other intervertebral disc degeneration, lumbar region (principal); M50.323 Other cervical disc degeneration at C6-C7 level; M47.816 Spondylosis without myelopathy or radiculopathy, lumbar region; M47.812 Spondylosis without myelopathy or radiculopathy, cervical region; G89.29 Other chronic pain; Z79.891 Long term (current) use of opiate analgesic; Z88.8 Allergy status to other drugs, medicaments and biological substances; Z88.1 Allergy status to other antibiotic agents; Z88.5 Allergy status to narcotic agent
CPT/HCPCS: 99212

== ENCOUNTER → 2023-11-12 | Outpatient (CLI) | payer MEDICARE, BC ==
--- NOTE | 2023-11-12 14:08 | P.PN ---
Subjective DATE: 11/12/2023 FOLLOW UP VISIT. Patient with obstructive sleep apnea hypopnea syndrome return to sleep center for follow-up visit. Information from previous visit have been reviewed. Patient is using PAP equipment every night for the whole night, getting PAP supplies in time. The patient does not have significant problems with the mask, PAP unit and humidification. [place] sleepiness scale is 6. I checked information from PAP unit. PAP unit pressure 6 cm H2O. Usage is 100 % for more then 4 hours, average 8.5 hours per night. Leak is 23 l/m, which is in acceptable range. Apnea Hypopnea Index is 1.7, which is normal. MEDICATIONS:1. Toprol 50 mg once a day 2. Gabapentin 300 mg once a day 3. Hydrocortisone 4. Metformin 850 mg twice a day 5. Lipitor 20 mg once a day 6. Paxil 25 mg twice a day During physical exam: GENERAL: A pleasant patient without any distress. VITAL SIGNS: BP 128/85, HR 91, RR 12 , weight 179.4, temperature 97.5, oxygen saturation at room air 97 % . HEENT: PERRLA, EOMI.low position of soft palate, Mallapati 4 . NECK: Supple. No JVD. LUNGS: Clear to percussion and to auscultation. Good air exchange. No wheezing or rhonchi. HEART: S1, S2 regular. ABDOMEN: Soft and nontender.[] EXTREMITIES: No clubbing or cyanosis. 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 No focal deficit. Impressions: 1. Obstructive sleep apnea-hypopnea syndrome. Patient demonstrated great compliance with treatment, benefiting from treatment. 2. Hypertension. 3. Diabetes mellitus. 4. Obesity, patient lost 5 pounds since previous visit, present BMI 33.2. 5. History of fibromyalgia. 6. History of kidney stone on the left side, status post surgical treatment in December 2022. 7. History of depression and anxiety. 8. History of polyarthritis. Plan: 1. Continue using PAP equipment every night for the whole night. 2. To change air filter at least 1-2 times per month. 3. PAP unit should stay lower then position of the head. 4. Advised patient to remove all remaining water from humidifier canister daily and make it dry after each usage. Refill canister with fresh distilled water before each usage. 5. Sleep hygiene with regular time in bed for at least 8 hours. 6. Precautions related to driving. No driving if feel any sleepiness. 7. I will maintain prescription for PAP supplies including mask, tube, filters. 8. Follow up visit in 6 months or earlier if patient has any problems. 9. Watching and continue losing weight. Thank you very much for allowing me to participate in the management of your patient. John Queen MD, PhD, FAASM. Diplomat of [place] [employer], Sleep Medicine Board by [place] [employer] Rubbing Bed Operator [facility] [place]
== END ==
LOC: 3 N SLEEP 13:45
PROVIDERS: ATTEND Internal Medicine
DX: G47.33 Obstructive sleep apnea (adult) (pediatric) (principal); I10 Essential (primary) hypertension; E11.9 Type 2 diabetes mellitus without complications; E66.9 Obesity, unspecified; F32.A Depression, unspecified; F41.9 Anxiety disorder, unspecified; Z79.84 Long term (current) use of oral hypoglycemic drugs; Z79.899 Other long term (current) drug therapy; Z87.442 Personal history of urinary calculi; Z99.89 Dependence on other enabling machines and devices; Z68.33 Body mass index [BMI] 33.0-33.9, adult; Z87.39 Personal history of other diseases of the musculoskeletal system and connective tissue; Z88.1 Allergy status to other antibiotic agents; Z88.8 Allergy status to other drugs, medicaments and biological substances; Z88.5 Allergy status to narcotic agent
CPT/HCPCS: 99212

== ENCOUNTER → 2023-12-24 | Outpatient (CLI) | payer MEDICARE, BC ==
[2023-12-24 12:52] VITALS: BP 112/87; PULSE 95; RESP 16
--- NOTE | 2023-12-24 14:43 | P.PAINPG ---
PQRS Measure Charge Sheet Comment: A 58 yr old female with a history of severe and chronic neck and LBP secondary to DDD and spondylosis with facet arthropathy without myelopathy presents today for medication refills. Pain level is provoked at 8/10 in intensity, constant, localized in the cervical & lumbar spine, predominantly axial, achy in character w occasional shooting towards the BL buttocks. Neck pain does not radiate. Pain is provoked by standing, bending, lifting. Pain is alleviated with medications, topical, heat, home stretching regimen, repositioning and rest. Cervical disability score of 27. Interventional pain procedures completed include BL RFA L3-L5 (06/14, 07/16), CHETAN C6-C7 (Jun 2022), BL SI injection Patient is currently on [place] 5/325mg #60, Neurontin 300mg #60, Voltaren gel Patient denies any side effects of the medication(s), denies excessive drowsiness or sleepiness, denies suicidal ideation and reports that the current pain medication is helping to control the pain and improve activities of daily living. Patient denies any motor or sensory deficits. Patient denies any fever or night sweats, denies any change in the bowel movements or urination. Physical Examination: -Constitutional: Cooperative. Not in acute distress . - Neurologic: Cranial nerve II to XII intact. No focal neurological deficits. - Psychatric: Alert & oriented x 3. Matching mood & appropriate affect. Judgment and insight intact. - Musculoskeletal: Cervical spine: Muscle bulk/ tone/ strength in the bilateral upper extremities normal Vertebral body tenderness to palpation over C7 Spurling test positive Distraction test positive Facet loading test positive TTP Thoracic spine Muscle bulk / tone/ strength in the bilateral paraspinal muscles normal Vertebral body tender to palpation over Facet loading test positive TTP Lumbar spine: Motor bulk/ tone/ strength lower extremities , thigh and legs : 5/5 Deep tendon reflexes : Normal Knee Jerk. Normal Ankle Jerk . Vertebral body tenderness to palpation over L4, L5 Lumbar Facet Loading Test positive Straight Leg Raise: positive at 30 degrees right side/ left side Gaenslen's Test positive Sacral spine : Severe tenderness over the Sacroiliac joint: right side / left side Range of motion: Flexion of the lumbar spine <60 degrees Range of motion: Extension of the lumbar spine <20 degrees Gaenslen's Test positive R / L Faraz test: positive right side / left side Thigh Thrust Test positive R / L Sacral Thrust Test positive R/ L Assessment and plan: Chronic neck pain and LBP secondary to DDD, spondylosis with facet arthropathy without myelopathy Script for x- ray of the cervical spine M50.30 Chronic and current use of high-risk medication (Opioids). The patient was counseled about risk of opioid use, psychological risk associated with opioids and was orally counseled to not overuse , divert or sell medications. Pt is to store medication in a safe location. The patient is counseled against driving while using narcotic medications and also not to use alcohol or any illicit recreational drugs. Patient verbalized understanding that the lack of compliance will result in failure to renew narcotic prescription(s) as well as possible discharge from the clinic Diagnoses, prognosis and treatment options including but not limited to physical therapy, surgical interventions, interventional therapies and medication management including narcotics and adjuvant medication were discussed. All patient questions answered MAPS reviewed and it was appropriate. UDS fr 10/29/23 reviewed and consistent. Prescription refill for Neurontin 300mg #60, [place] 5/325mg #60, Voltaren gel w 1 RF. I have spent less than 30 minutes on patient care today. Dr Jessica was available by phone for the evaluation of this patient. The time was used to review the medical records including relevant urine studies and Prescription history (MAPs), review of the available imaging, evaluation and examination of the patient, coordination of care with the medical staff and if applicable referring physicians, as well as creation of the medical record - Pain Location Bilateral Lower Back Non-Pharmacological Interventions: Heat, Inactivity, Position/Reposition Pharmacological Interventions: PRN Medication, Scheduled Medication, Topical Medication PQRS Narrative: Smoking Status Never smoker Narcotic Agreement Date Signed 09/16/22 Hx Alcohol Use (MH) Yes: RARE Home Medications: Ambulatory Orders Metoprolol Succinate [Toprol XL] 50 mg PO HS 04/14/14 clonazePAM [KlonoPIN] 1 mg PO BID 04/14/14 Atorvastatin Calcium [Lipitor] 40 mg PO PC-SUPPER 05/22/16 Multivitamins, Thera [Multivitamin] 2 tab PO QAM 06/17/16 Ziprasidone [Geodon] 40 mg PO BID 06/17/16 Cyanocobalamin (Vitamin B-12) [Vitamin B12] 2,500 mcg PO QAM 06/08/18 [place] Xl 300 mg PO TID 06/08/18 Ascorbic Acid [Vitamin C] 500 mg PO QAM 07/21/19 Timolol 0.5% Ophth Soln [Timoptic 0.5% Ophth Soln] 1 drop BOTH EYES QAM 11/22/19 Biotin 10,000 mcg PO QAM 07/12/20 PARoxetine HCL [Paxil Cr] 50 mg PO QAM 09/11/20 Dicyclomine [Bentyl] 10 mg PO BID 10/11/20 Neuro B Complex 1 tab PO QAM 11/02/20 Atomoxetine HCl [Strattera] 25 mg PO BID 08/23/21 metFORMIN HCL [Glucophage] 850 mg PO BID 08/23/21 Oxybutynin Chloride [oxyBUTYnin chloride ER] 10 mg PO QAM 05/23/23 Unk Probiotic 1 tab PO QAM 05/23/23 Diclofenac Sodium Gel [Voltaren 1% Gel] 2 - 3 gm TOPICAL BID PRN 30 Days #100 gm 10/29/23 HYDROcodone/APAP 5-325MG [[place] 5-325] 1 tab PO BID PRN 30 Days #60 tab 11/27/23 Gabapentin [Neurontin] 300 mg PO BID 30 Days #60 cap 12/24/23 HYDROcodone/APAP 5-325MG [[place] 5-325] 1 tab PO BID PRN 30 Days #60 tab 12/24/23 HYDROcodone/APAP 5-325MG [[place] 5-325] 1 tab PO Q12HR PRN 30 Days #60 tab 12/24/23 Controlled Substance Measures - Controlled Substance Measures Is patient prescribed a controlled substance at discharge?: Yes When asked, does pt state using other controlled substances?: Yes If prescribed controlled substance>3 days was MAPS reviewed?: Yes
== END ==
LOC: PNWHC3 11:43
PROVIDERS: ATTEND Anesthesiology
DX: M51.36 Other intervertebral disc degeneration, lumbar region (principal); M47.816 Spondylosis without myelopathy or radiculopathy, lumbar region; M54.50 Low back pain, unspecified; M54.2 Cervicalgia; Z79.891 Long term (current) use of opiate analgesic; Z88.1 Allergy status to other antibiotic agents; Z88.8 Allergy status to other drugs, medicaments and biological substances; Z88.6 Allergy status to analgesic agent
CPT/HCPCS: 99211

== ENCOUNTER → 2024-02-18 | Outpatient (CLI) | payer MEDICARE, BC ==
[2024-02-18 13:25] VITALS: BP 105/76; PULSE 94; RESP 15; TEMP 98.6
--- NOTE | 2024-02-18 14:41 | P.PAINPG ---
PQRS Measure Charge Sheet Comment: A 58 yr old female with a history of severe and chronic neck and LBP secondary to DDD and spondylosis with facet arthropathy without myelopathy presents today for medication refills. Pt states she underwent a BL RFA of the L4-L5, L5-S1 in Jun 2023 where she experienced 95% pain relief x 6-7 mo s/p procedure. Pain level is provoked at 8/10 in intensity, constant, localized in the cervical & lumbar spine, predominantly axial, achy in character w occasional shooting towards the BL buttocks. Neck pain does not radiate. Pain is provoked by standing, bending, lifting. Pain is alleviated with medications, topical, heat, home stretching regimen, repositioning and rest. Oswestry pain score of 26. Interventional pain procedures completed include BL RFA L3-L5 (06/14, 07/16), CHETAN C6-C7 (Jun 2022), BL SI injection Patient is currently on [place] 5/325mg #60, Neurontin 300mg #60, Voltaren gel Patient denies any side effects of the medication(s), denies excessive drowsiness or sleepiness, denies suicidal ideation and reports that the current pain medication is helping to control the pain and improve activities of daily living. Patient denies any motor or sensory deficits. Patient denies any fever or night sweats, denies any change in the bowel movements or urination. Physical Examination: -Constitutional: Cooperative. Not in acute distress . - Neurologic: Cranial nerve II to XII intact. No focal neurological deficits. - Psychatric: Alert & oriented x 3. Matching mood & appropriate affect. Judgment and insight intact. - Musculoskeletal: Cervical spine: Muscle bulk/ tone/ strength in the bilateral upper extremities normal Vertebral body tenderness to palpation over C7 Spurling test positive Distraction test positive Facet loading test positive TTP Thoracic spine Muscle bulk / tone/ strength in the bilateral paraspinal muscles normal Vertebral body tender to palpation over Facet loading test positive TTP Lumbar spine: Motor bulk/ tone/ strength lower extremities , thigh and legs : 5/5 Deep tendon reflexes : Normal Knee Jerk. Normal Ankle Jerk . Vertebral body tenderness to palpation over L4, L5 Lumbar Facet Loading Test positive Straight Leg Raise: positive at 30 degrees right side/ left side Gaenslen's Test positive Sacral spine : Severe tenderness over the Sacroiliac joint: right side / left side Range of motion: Flexion of the lumbar spine <60 degrees Range of motion: Extension of the lumbar spine <20 degrees Gaenslen's Test positive R / L Faraz test: positive right side / left side Thigh Thrust Test positive R / L Sacral Thrust Test positive R/ L Assessment and plan: Chronic neck pain and LBP secondary to DDD, spondylosis with facet arthropathy without myelopathy Recommendation of BL RFA L3-L5. Pt exhibited substantial relief w previous RFA of the BL L4-L5, L5-S1 in Jun 2023. Risks, benefits of procedure discussed and pt verbalized understanding. Protocol for discontinuation/ continuation of medications jina procedure discussed. Chronic and current use of high-risk medication (Opioids). The patient was counseled about risk of opioid use, psychological risk associated with opioids and was orally counseled to not overuse , divert or sell medications. Pt is to store medication in a safe location. The patient is counseled against driving while using narcotic medications and also not to use alcohol or any illicit recreational drugs. Patient verbalized understanding that the lack of compliance will result in failure to renew narcotic prescription(s) as well as possible discharge from the clinic Diagnoses, prognosis and treatment options including but not limited to physical therapy, surgical interventions, interventional therapies and medication management including narcotics and adjuvant medication were discussed. All patient questions answered MAPS reviewed and it was appropriate. UDS fr 10/29/23 reviewed and consistent. Prescription refill for Neurontin 300mg #60, [place] 5/325mg #60, Voltaren gel w 1 RF. I have spent less than 30 minutes on patient care today. Dr Jessica was available by phone for the evaluation of this patient. The time was used to review the medical records including relevant urine studies and Prescription history (MAPs), review of the available imaging, evaluation and examination of the patient, coordination of care with the medical staff and if applicable referring physicians, as well as creation of the medical record . PQRS Narrative: Smoking Status Never smoker Narcotic Agreement Date Signed 09/16/22 Hx Alcohol Use (MH) Yes: RARE Home Medications: Ambulatory Orders Metoprolol Succinate [Toprol XL] 50 mg PO HS 04/14/14 clonazePAM [KlonoPIN] 1 mg PO BID 04/14/14 Atorvastatin Calcium [Lipitor] 40 mg PO PC-SUPPER 05/22/16 Multivitamins, Thera [Multivitamin] 2 tab PO QAM 06/17/16 Ziprasidone [Geodon] 40 mg PO BID 06/17/16 Cyanocobalamin (Vitamin B-12) [Vitamin B12] 2,500 mcg PO QAM 06/08/18 [place] Xl 300 mg PO TID 06/08/18 Ascorbic Acid [Vitamin C] 500 mg PO QAM 07/21/19 Timolol 0.5% Ophth Soln [Timoptic 0.5% Ophth Soln] 1 drop BOTH EYES QAM 11/22/19 Biotin 10,000 mcg PO QAM 07/12/20 PARoxetine HCL [Paxil Cr] 50 mg PO QAM 09/11/20 Dicyclomine [Bentyl] 10 mg PO BID 10/11/20 Neuro B Complex 1 tab PO QAM 11/02/20 Atomoxetine HCl [Strattera] 25 mg PO BID 08/23/21 metFORMIN HCL [Glucophage] 850 mg PO BID 08/23/21 Oxybutynin Chloride [oxyBUTYnin chloride ER] 10 mg PO QAM 05/23/23 Unk Probiotic 1 tab PO QAM 05/23/23 Diclofenac Sodium Gel [Voltaren 1% Gel] 2 - 3 gm TOPICAL BID PRN 30 Days #100 gm 10/29/23 HYDROcodone/APAP 5-325MG [[place] 5-325] 1 tab PO BID PRN 30 Days #60 tab 11/27/23 Gabapentin [Neurontin] 300 mg PO BID 30 Days #60 cap 12/24/23 HYDROcodone/APAP 5-325MG [[place] 5-325] 1 tab PO BID PRN 30 Days #60 tab 12/24/23 HYDROcodone/APAP 5-325MG [[place] 5-325] 1 tab PO Q12HR PRN 30 Days #60 tab 12/24/23 Gabapentin [Neurontin] 300 mg PO BID 30 Days #60 cap 02/02/24 Controlled Substance Measures - Controlled Substance Measures Is patient prescribed a controlled substance at discharge?: Yes When asked, does pt state using other controlled substances?: Yes If prescribed controlled substance>3 days was MAPS reviewed?: Yes
== END ==
LOC: PNWHC3 12:39
PROVIDERS: ATTEND Specialist
DX: M51.36 Other intervertebral disc degeneration, lumbar region (principal); M47.816 Spondylosis without myelopathy or radiculopathy, lumbar region; G89.29 Other chronic pain; E11.9 Type 2 diabetes mellitus without complications; Z79.84 Long term (current) use of oral hypoglycemic drugs; Z79.891 Long term (current) use of opiate analgesic; Z88.1 Allergy status to other antibiotic agents; Z88.5 Allergy status to narcotic agent; Z88.8 Allergy status to other drugs, medicaments and biological substances
CPT/HCPCS: 99211

== ENCOUNTER 2024-03-05 12:16 | Day surgery (SDC) | payer MEDICARE, BC ==
[2024-03-05] MEDS: LACTATED RINGERS 1,000 ML IV SCH (13:06)
[2024-03-05 13:11] LABS: Glucose,Whole Blood 130 mg/dL (70-110)
[2024-03-05] MEDS ORDERED: fentaNYL (PF) 50 MCG/ML 2 ML AMP ONE (13:11)
[2024-03-05] MEDS ORDERED: MIDAZOLAM 2 MG/2 ML VIAL ONE (13:11)
[2024-03-05] MEDS ORDERED: methylPREDNISolone ACETATE 40 MG/ML 1 ML VIAL ONE (13:14)
[2024-03-05] MEDS ORDERED: ROPIVACAINE 5MG/ML 20ML VIAL ONE (13:14)
[2024-03-05 13:38] VITALS: RESP 16; TEMP 97.6
--- NOTE | 2024-03-05 13:41 | P.PCN ---
Date of Procedure: 03/05/24 Procedure(s) Performed: PREOPERATIVE DIAGNOSIS: 1-Lumbar Spondylosis with Facet Arthropathy without myelopathy. 2- Lumber degenerative disc disease. POSTOPERATIVE DIAGNOSIS: 1- Lumbar Spondylosis with Facet Arthropathy without myelopathy. 2- Lumber degenerative disc disease. PROCEDURES : Bilateral Radiofrequency thermocoagulation, L3 , L4 , and L5 medial branch, with fluoroscopic guidance (fluoroscopy images available in the radiology department) ( to denervate the facet joint at bilateral L4-5 ,and L5- S1 levels ). ANESTHESIA: Monitored anesthesia care as per anesthesia department . EBL: Minimal PROCEDURE INDICATION: The patient with low back pain secondary to lumbar facet arthropathy who had more than 50% relief of her pain with previous diagnostic lumbar medial branch block with bupivacaine. PROCEDURE DESCRIPTION / TECHNIQUE: The patient was seen and identified in the preoperative area. Risks, benefits, complications, including but not limited to risk of infection ,bleeding , allergic reactions to the medications and no complete pain releife , and alternatives were discussed with the patient, the patient agreed to proceed with the procedure and signed the consent. IV was started. Vital signs remained stable throughout the procedure. Patient was taken to the OR and time out was completed. The patient was placed in the prone position on the procedure table. The lumber area was prepped and draped in the usual sterile fashion. . Vital signs were closely monitored during the procedure .IV sedation was used during the procedure to decrease patients anxiety. Using AP and then oblique fluoroscopy, the ``eye of the [place] dog corresponding to the connection between the superior and transverse articular processes of right L3, L4, and L5 were identified, marked, and localized with 1% lidocaine. Subsequently, a 18 -yq radiofrequency cannula with a 10- mm active tip was advanced guided by fluoroscopy to each of the``eyes of the [place] dog at right L3, L4, and L5. Each site then underwent sensory testing at 50 Hz and 0 to 1 volt and motor testing at 2.5 Hz and 0 to 3 volt with local stimulation, but no radicular symptoms down the legs. Thereafter each sites underwent radiofrequency thermocoagulation at 80 degrees celsius for 90 seconds after injecting 0.5 ml of PF Ropivacaine 1ml, then after the thermocoagulation done , 1 ml of the block solution containing Depo-Medrol 20 mg and 3 ml of Ropivacaine 0.5% was injected at the right L3 , L4 , and L5 , levels after negative aspiration of CSF and blood and with no paresthesias. Cannulas were retracted while injecting lidocaine 1% until the needle is out. The same procedure was repeated at the level of Left L3, L4, and L5 levels. At the end of the procedure, the skin was cleansed and bandages were applied. COMPLICATIONS: No acute complications. DISPOSITION / PLANS: The patient was placed in a supine position and transferred to the recovery area in a stable condition for observation and was discharged from the recovery room after meeting discharge criteria. Home discharge instructions given to the patient by the staff. The patient was reexamined prior to discharge. The patient will schedule a follow up in the [facility] in 2-4 weeks.
[2024-03-05] MEDS: LACTATED RINGERS 1,000 ML IV ONE (13:44)
[2024-03-05 14:21] VITALS: BP 152/75; PULSE 79
--- NOTE | 2024-03-05 16:42 | FL ---
EXAMINATION TYPE: FL guided pain mgmt statistic Intraoperative/procedural fluoroscopic services were provided. Total fluoroscopy time is 15.8 seconds with a total of 6 submitted images to PACS. Please s ee the operative/procedural note for further details. DAP: [id number] mGym2
== END 2024-03-05 14:14 | disposition home or self-care (01) ==
LOC: ORPAIN 12:16
PROVIDERS: ATTEND Specialist
DX: M47.816 Spondylosis without myelopathy or radiculopathy, lumbar region (principal); M51.36 Other intervertebral disc degeneration, lumbar region; E11.9 Type 2 diabetes mellitus without complications; I10 Essential (primary) hypertension; E78.5 Hyperlipidemia, unspecified; G47.33 Obstructive sleep apnea (adult) (pediatric); F31.9 Bipolar disorder, unspecified; F41.0 Panic disorder [episodic paroxysmal anxiety]; K21.9 Gastro-esophageal reflux disease without esophagitis; G40.909 Epilepsy, unspecified, not intractable, without status epilepticus; Z88.1 Allergy status to other antibiotic agents; Z88.8 Allergy status to other drugs, medicaments and biological substances; Z88.5 Allergy status to narcotic agent; Z79.84 Long term (current) use of oral hypoglycemic drugs; Z79.899 Other long term (current) drug therapy; Z95.5 Presence of coronary angioplasty implant and graft
CPT/HCPCS: 64635; 64636 ×2; J2250; J3010; J2795; J1010

== ENCOUNTER → 2024-04-21 | Outpatient (CLI) | payer MEDICARE, BC ==
--- NOTE | 2024-04-21 13:32 | P.PAINPG ---
Objective - Vital Signs Vital signs: Intake & Output 04/20/24 04/21/24 04/21/24 18:59 06:59 18:59 Weight 87.997 kg PQRS Measure Charge Sheet Comment: A 58 yr old female with a history of severe and chronic neck and LBP secondary to DDD and spondylosis with facet arthropathy without myelopathy presents today for medication refills. Pt states she underwent a BL RFA of the L4-L5, L5-S1 in Feb 2024 where she experienced 75% pain relief s/p procedure. Pain level is provoked at 4 /10 in intensity, constant, localized in the cervical & lumbar spine, predominantly axial, achy in character w occasional shooting towards the BL buttocks. Neck pain does not radiate. Pain is provoked by standing, bending, lifting. Pain is alleviated with medications, topical, heat, home stretching regimen, repositioning and rest. Oswestry pain score of 26. Interventional pain procedures completed include BL RFA L3-L5 (06/14, 07/16, 03/17), CHETAN C6-C7 (Jun 2022), BL SI injection Patient is currently on [place] 5/325mg #60, Neurontin 300mg #60, Voltaren gel Patient denies any side effects of the medication(s), denies excessive drowsiness or sleepiness, denies suicidal ideation and reports that the current pain medication is helping to control the pain and improve activities of daily living. Patient denies any motor or sensory deficits. Patient denies any fever or night sweats, denies any change in the bowel movements or urination. Physical Examination: -Constitutional: Cooperative. Not in acute distress . - Neurologic: Cranial nerve II to XII intact. No focal neurological deficits. - Psychatric: Alert & oriented x 3. Matching mood & appropriate affect. Judgment and insight intact. - Musculoskeletal: Cervical spine: Muscle bulk/ tone/ strength in the bilateral upper extremities normal Vertebral body tenderness to palpation over C7 Spurling test positive Distraction test positive Facet loading test positive TTP Thoracic spine Muscle bulk / tone/ strength in the bilateral paraspinal muscles normal Vertebral body tender to palpation over Facet loading test positive TTP Lumbar spine: Motor bulk/ tone/ strength lower extremities , thigh and legs : 5/5 Deep tendon reflexes : Normal Knee Jerk. Normal Ankle Jerk . Vertebral body tenderness to palpation over L4, L5 Lumbar Facet Loading Test positive Straight Leg Raise: positive at 30 degrees right side/ left side Gaenslen's Test positive Sacral spine : Severe tenderness over the Sacroiliac joint: right side / left side Range of motion: Flexion of the lumbar spine <60 degrees Range of motion: Extension of the lumbar spine <20 degrees Gaenslen's Test positive R / L Faraz test: positive right side / left side Thigh Thrust Test positive R / L Sacral Thrust Test positive R/ L Assessment and plan: Chronic neck pain and LBP secondary to DDD, spondylosis with facet arthropathy without myelopathy Chronic and current use of high-risk medication (Opioids). The patient was counseled about risk of opioid use, psychological risk associated with opioids and was orally counseled to not overuse , divert or sell medications. Pt is to store medication in a safe location. The patient is counseled against driving while using narcotic medications and also not to use alcohol or any illicit recreational drugs. Patient verbalized understanding that the lack of compliance will result in failure to renew narcotic prescription(s) as well as possible discharge from the clinic Diagnoses, prognosis and treatment options including but not limited to physical therapy, surgical interventions, interventional therapies and medication management including narcotics and adjuvant medication were discussed. All patient questions answered MAPS reviewed and it was appropriate. UDS fr 10/29/23 reviewed and consistent. Prescription refill for Neurontin 300mg #60, [place] 5/325mg #60, Voltaren gel w 1 RF. I have spent less than 30 minutes on patient care today. Dr Jessica was available by phone for the evaluation of this patient. The time was used to review the medical records including relevant urine studies and Prescription history (MAPs), review of the available imaging, evaluation and examination of the patient, coordination of care with the medical staff and if applicable referring physicians, as well as creation of the medical record . - Pain Location Bilateral Lower Back Non-Pharmacological Interventions: Heat, Inactivity, Position/Reposition Pharmacological Interventions: Epidural, Scheduled Medication PQRS Narrative: Smoking Status Never smoker Narcotic Agreement Date Signed 10/29/23 Hx Alcohol Use (MH) Yes: RARE Home Medications: Ambulatory Orders Metoprolol Succinate [Toprol XL] 50 mg PO HS 04/14/14 clonazePAM [KlonoPIN] 1 mg PO BID 04/14/14 Atorvastatin Calcium [Lipitor] 40 mg PO PC-SUPPER 05/22/16 Multivitamins, Thera [Multivitamin] 2 tab PO QAM 06/17/16 Ziprasidone [Geodon] 40 mg PO BID 06/17/16 Cyanocobalamin (Vitamin B-12) [Vitamin B12] 2,500 mcg PO QAM 06/08/18 [place] Xl 300 mg PO TID 06/08/18 Ascorbic Acid [Vitamin C] 500 mg PO QAM 07/21/19 Timolol 0.5% Ophth Soln [Timoptic 0.5% Ophth Soln] 1 drop BOTH EYES QAM 11/22/19 Biotin 10,000 mcg PO QAM 07/12/20 PARoxetine HCL [Paxil Cr] 50 mg PO QAM 09/11/20 Dicyclomine [Bentyl] 10 mg PO BID 10/11/20 Neuro B Complex 1 tab PO QAM 11/02/20 Atomoxetine HCl [Strattera] 25 mg PO BID 08/23/21 metFORMIN HCL [Glucophage] 850 mg PO BID 08/23/21 Oxybutynin Chloride [oxyBUTYnin chloride ER] 10 mg PO QAM 05/23/23 Unk Probiotic 1 tab PO QAM 05/23/23 Gabapentin [Neurontin] 300 mg PO BID 30 Days #60 cap 02/18/24 [place] Xr 1 tab PO BID 03/04/24 Diclofenac Sodium Gel [Voltaren 1% Gel] 2 - 3 gm TOPICAL BID PRN 30 Days #100 gm 04/21/24 Gabapentin [Neurontin] 300 mg PO BID PRN 30 Days #60 cap 04/21/24 HYDROcodone/APAP 5-325MG [[place] 5-325] 1 tab PO BID PRN 30 Days #60 tab 04/21/24 HYDROcodone/APAP 5-325MG [[place] 5-325] 1 tab PO Q12HR PRN 30 Days #60 tab 04/21/24 Controlled Substance Measures - Controlled Substance Measures Is patient prescribed a controlled substance at discharge?: Yes When asked, does pt state using other controlled substances?: Yes If prescribed controlled substance>3 days was MAPS reviewed?: Yes
[2024-04-21 13:33] VITALS: BP 133/72; PULSE 75; RESP 15; TEMP 98.1
== END ==
LOC: PNWHC3 12:26
PROVIDERS: ATTEND Specialist
DX: M51.36 Other intervertebral disc degeneration, lumbar region (principal); M47.816 Spondylosis without myelopathy or radiculopathy, lumbar region; M50.323 Other cervical disc degeneration at C6-C7 level; M47.812 Spondylosis without myelopathy or radiculopathy, cervical region; Z79.891 Long term (current) use of opiate analgesic; Z88.8 Allergy status to other drugs, medicaments and biological substances; Z88.1 Allergy status to other antibiotic agents; Z88.5 Allergy status to narcotic agent
CPT/HCPCS: 80307; G0463; 99212

== ENCOUNTER → 2024-06-23 | Outpatient (CLI) | payer MEDICARE, BC ==
[2024-06-23 12:36] VITALS: BP 130/88; PULSE 92; RESP 16
--- NOTE | 2024-06-23 14:48 | P.PAINPG ---
PQRS Measure Charge Sheet Comment: A 59 yr old female with a history of severe and chronic neck and LBP secondary to DDD and spondylosis with facet arthropathy without myelopathy presents today for medication refills. Pain level is provoked at 4 - 5/ 10 in intensity, constant, localized in the cervical & lumbar spine, predominantly axial, achy in character w occasional shooting towards the BL buttocks. Neck pain does not radiate. Pain is provoked by standing, bending, lifting. Pain is alleviated with medications, topical, heat, repositioning and rest. Physician guided home stretching documentation provided. Oswestry pain score of 26. Interventional pain procedures completed include BL RFA L3-L5 (06/14, 07/16, 03/17), CHETAN C6-C7 (Jun 2022), BL SI injection Patient is currently on [place] 5/325mg #60, Neurontin 300mg #60, Voltaren gel Patient denies any side effects of the medication(s), denies excessive drowsiness or sleepiness, denies suicidal ideation and reports that the current pain medication is helping to control the pain and improve activities of daily living. Patient denies any motor or sensory deficits. Patient denies any fever or night sweats, denies any change in the bowel movements or urination. Physical Examination: -Constitutional: Cooperative. Not in acute distress . - Neurologic: Cranial nerve II to XII intact. No focal neurological deficits. - Psychatric: Alert & oriented x 3. Matching mood & appropriate affect. Judgment and insight intact. - Musculoskeletal: Cervical spine: Muscle bulk/ tone/ strength in the bilateral upper extremities normal Vertebral body tenderness to palpation over C7 Spurling test positive Distraction test positive Facet loading test positive TTP Thoracic spine Muscle bulk / tone/ strength in the bilateral paraspinal muscles normal Vertebral body tender to palpation over Facet loading test positive TTP Lumbar spine: Motor bulk/ tone/ strength lower extremities , thigh and legs : 5/5 Deep tendon reflexes : Normal Knee Jerk. Normal Ankle Jerk . Vertebral body tenderness to palpation over L4, L5 Lumbar Facet Loading Test positive Straight Leg Raise: positive at 30 degrees right side/ left side Gaenslen's Test positive Sacral spine : Severe tenderness over the Sacroiliac joint: right side / left side Range of motion: Flexion of the lumbar spine <60 degrees Range of motion: Extension of the lumbar spine <20 degrees Gaenslen's Test positive R / L Faraz test: positive right side / left side Thigh Thrust Test positive R / L Sacral Thrust Test positive R/ L Assessment and plan: Chronic neck pain and LBP secondary to DDD, spondylosis with facet arthropathy without myelopathy Recommendation of lumbar xray and physician guided home exercise regimen M54.16 . Chronic and current use of high-risk medication (Opioids). The patient was counseled about risk of opioid use, psychological risk associated with opioids and was orally counseled to not overuse , divert or sell medications. Pt is to store medication in a safe location. The patient is counseled against driving while using narcotic medications and also not to use alcohol or any illicit recreational drugs. Patient verbalized understanding that the lack of compliance will result in failure to renew narcotic prescription(s) as well as possible discharge from the clinic Diagnoses, prognosis and treatment options including but not limited to physical therapy, surgical interventions, interventional therapies and medication management including narcotics and adjuvant medication were discussed. All patient questions answered . Opiate / Narcotic agreement signed 10/29/23 . MAPS reviewed and it was appropriate. UDS fr 10/29/23 reviewed and consistent. Prescription refill for Neurontin 300mg #60, [place] 5/325mg #60, Voltaren gel w 1 RF. I have spent less than 30 minutes on patient care today. Dr Jessica was available by phone for the evaluation of this patient. The time was used to review the medical records including relevant urine studies and Prescription history (MAPs), review of the available imaging, evaluation and examination of the patient, coordination of care with the medical staff and if applicable referring physicians, as well as creation of the medical record. - Pain Location Lower Back Non-Pharmacological Interventions: Stretching Pharmacological Interventions: Medication, PRN Medication PQRS Narrative: Smoking Status Never smoker Narcotic Agreement Date Signed 10/29/23 Hx Alcohol Use (MH) Yes: RARE Home Medications: Ambulatory Orders Metoprolol Succinate [Toprol XL] 50 mg PO HS 04/14/14 clonazePAM [KlonoPIN] 1 mg PO BID 04/14/14 Atorvastatin Calcium [Lipitor] 40 mg PO PC-SUPPER 05/22/16 Multivitamins, Thera [Multivitamin] 2 tab PO QAM 06/17/16 Ziprasidone [Geodon] 40 mg PO BID 06/17/16 Cyanocobalamin (Vitamin B-12) [Vitamin B12] 2,500 mcg PO QAM 06/08/18 [place] Xl 300 mg PO TID 06/08/18 Ascorbic Acid [Vitamin C] 500 mg PO QAM 07/21/19 Timolol 0.5% Ophth Soln [Timoptic 0.5% Ophth Soln] 1 drop BOTH EYES QAM 11/22/19 Biotin 10,000 mcg PO QAM 07/12/20 PARoxetine HCL [Paxil Cr] 50 mg PO QAM 09/11/20 Dicyclomine [Bentyl] 10 mg PO BID 10/11/20 Neuro B Complex 1 tab PO QAM 11/02/20 Atomoxetine HCl [Strattera] 25 mg PO BID 08/23/21 metFORMIN HCL [Glucophage] 850 mg PO BID 08/23/21 Oxybutynin Chloride [oxyBUTYnin chloride ER] 10 mg PO QAM 05/23/23 Unk Probiotic 1 tab PO QAM 05/23/23 Theralift Xr 1 tab PO BID 03/04/24 Diclofenac Sodium Gel [Voltaren 1% Gel] 2 - 3 gm TOPICAL BID PRN 30 Days #100 gm 06/23/24 Gabapentin [Neurontin] 300 mg PO BID PRN 30 Days #60 cap 06/23/24 HYDROcodone/APAP 5-325MG [[place] 5-325] 1 tab PO BID PRN 30 Days #60 tab 06/23/24 HYDROcodone/APAP 5-325MG [[place] 5-325] 1 tab PO Q12HR PRN 30 Days #60 tab 06/23/24 Controlled Substance Measures - Controlled Substance Measures Is patient prescribed a controlled substance at discharge?: Yes When asked, does pt state using other controlled substances?: Yes If prescribed controlled substance>3 days was MAPS reviewed?: Yes
== END ==
LOC: PNWHC3 12:23
PROVIDERS: ATTEND Specialist
DX: M51.36 Other intervertebral disc degeneration, lumbar region (principal); M50.30 Other cervical disc degeneration, unspecified cervical region; M47.816 Spondylosis without myelopathy or radiculopathy, lumbar region; M47.812 Spondylosis without myelopathy or radiculopathy, cervical region; Z79.891 Long term (current) use of opiate analgesic; Z88.8 Allergy status to other drugs, medicaments and biological substances; Z88.5 Allergy status to narcotic agent; Z88.1 Allergy status to other antibiotic agents
CPT/HCPCS: 99211

== ENCOUNTER → 2024-06-23 | Outpatient (CLI) | payer MEDICARE, BC ==
--- NOTE | 2024-06-23 13:26 | XR ---
EXAMINATION TYPE: XR lumbar spine 3V DATE OF EXAM: 06/23/2024 Comparison: None Clinical History: 59-year-old female M54.16 RADICULOPATHY Findings: Slight rotary dextro convex curvature of the lumbar spine. Multiple moderate facet arthropathy lower lumbar spine. Trace grade 1 retrolisthesis L3-L4. Disc spaces and vertebral body heights are preserve d. Impression: Slight dextroconvex curvature of the lumbar spine. Some facet arthropathy mid to lower lumbar spine w ith a trace grade 1 retrolisthesis at L3-L4. No vertebral compression collapse.
== END | disposition home or self-care (01) ==
LOC: RADXRMAIN 13:03
PROVIDERS: ATTEND Physician Assistant Medical
DX: M47.26 Other spondylosis with radiculopathy, lumbar region (principal); M43.16 Spondylolisthesis, lumbar region
CPT/HCPCS: 72100

== ENCOUNTER → 2024-07-14 | Outpatient (CLI) | payer MEDICARE, BC | LOC: 3 N SLEEP 14:00 | PROVIDERS: ATTEND Internal Medicine | CPT/HCPCS: 99212 ==

== ENCOUNTER → 2024-10-13 | Outpatient (CLI) | payer MEDICARE, BC ==
[2024-10-13 14:13] VITALS: BP 113/80; PULSE 97; RESP 18; TEMP 97.9
--- NOTE | 2024-10-13 14:20 | P.PAINPG ---
PQRS Measure Charge Sheet Comment: A 59 yr old female with a history of severe and chronic neck and LBP secondary to radiculopathy, spondylosis with facet arthropathy without myelopathy presents today for medication refills. Pain level is provoked at 4-6 /10 in intensity, constant, localized in the cervical & lumbar spine, predominantly axial, achy in character w occasional shooting towards the BL buttocks. Neck pain does not radiate. Pain is provoked by standing, bending, lifting. Pain is alleviated with medications, topical, heat, repositioning and rest. Physician guided home stretching documentation provided. Interventional pain procedures completed include BL RFA L3-L5 (06/14, 07/16, 03/17), CHETAN C6-C7 (Jun 2022), BL SI injection Patient is currently on [place] 5/325mg #60, Neurontin 300mg #60, Voltaren gel Patient denies any side effects of the medication(s), denies excessive drowsiness or sleepiness, denies suicidal ideation and reports that the current pain medication is helping to control the pain and improve activities of daily living. Patient denies any motor or sensory deficits. Patient denies any fever or night sweats, denies any change in the bowel movements or urination. Physical Examination: -Constitutional: Cooperative. Not in acute distress . - Neurologic: Cranial nerve II to XII intact. No focal neurological deficits. - Psychatric: Alert & oriented x 3. Matching mood & appropriate affect. Judgment and insight intact. - Musculoskeletal: Cervical spine: Muscle bulk/ tone/ strength in the bilateral upper extremities normal Vertebral body tenderness to palpation over C7 Spurling test positive Distraction test positive Facet loading test positive TTP Thoracic spine Muscle bulk / tone/ strength in the bilateral paraspinal muscles normal Vertebral body tender to palpation over Facet loading test positive TTP Lumbar spine: Motor bulk/ tone/ strength lower extremities , thigh and legs : 5/5 Deep tendon reflexes : Normal Knee Jerk. Normal Ankle Jerk . Vertebral body tenderness to palpation over L4, L5 Lumbar Facet Loading Test positive Straight Leg Raise: positive at 30 degrees right side/ left side Gaenslen's Test positive Sacral spine : Severe tenderness over the Sacroiliac joint: right side / left side Range of motion: Flexion of the lumbar spine <60 degrees Range of motion: Extension of the lumbar spine <20 degrees Gaenslen's Test positive R / L Faraz test: positive right side / left side Thigh Thrust Test positive R / L Sacral Thrust Test positive R/ L Assessment and plan: Chronic neck pain and LBP secondary to radiculopathy, spondylosis with facet arthropathy without myelopathy Recommendation of lumbar xray and physician guided home exercise regimen M54.16 . Chronic and current use of high-risk medication (Opioids). The patient was counseled about risk of opioid use, psychological risk associated with opioids and was orally counseled to not overuse , divert or sell medications. Pt is to store medication in a safe location. The patient is counseled against driving while using narcotic medications and also not to use alcohol or any illicit recreational drugs. Patient verbalized understanding that the lack of compliance will result in failure to renew narcotic prescription(s) as well as possible discharge from the clinic Diagnoses, prognosis and treatment options including but not limited to physical therapy, surgical interventions, interventional therapies and medication management including narcotics and adjuvant medication were discussed. All patient questions answered . Opiate / Narcotic agreement signed 10/29/23 . MAPS reviewed and it was appropriate. UDS from 04/21/24 reviewed and consistent. Prescription refill for [place] 5/325mg #60, Neurontin 300mg #60, Voltaren gel w 1 RF. I have spent less than 30 minutes on patient care today. Dr Jessica was available by phone for the evaluation of this patient. The time was used to review the medical records including relevant urine studies and Prescription history (MAPs), review of the available imaging, evaluation and examination of the patient, coordination of care with the medical staff and if applicable referring physicians, as well as creation of the medical record. - Pain Location Lower Back Non-Pharmacological Interventions: Heat PQRS Narrative: Smoking Status Never smoker Narcotic Agreement Date Signed 10/29/23 Hx Alcohol Use (MH) Yes: RARE Home Medications: Ambulatory Orders Metoprolol Succinate [Toprol XL] 50 mg PO HS 04/14/14 clonazePAM [KlonoPIN] 1 mg PO BID 04/14/14 Atorvastatin Calcium [Lipitor] 40 mg PO PC-SUPPER 05/22/16 Multivitamins, Thera [Multivitamin] 2 tab PO QAM 06/17/16 Ziprasidone [Geodon] 40 mg PO BID 06/17/16 Cyanocobalamin (Vitamin B-12) [Vitamin B12] 2,500 mcg PO QAM 06/08/18 [place] Xl 300 mg PO TID 06/08/18 Ascorbic Acid [Vitamin C] 500 mg PO QAM 07/21/19 Timolol 0.5% Ophth Soln [Timoptic 0.5% Ophth Soln] 1 drop BOTH EYES QAM 11/22/19 Biotin 10,000 mcg PO QAM 07/12/20 PARoxetine HCL [Paxil Cr] 50 mg PO QAM 09/11/20 Dicyclomine [Bentyl] 10 mg PO BID 10/11/20 Neuro B Complex 1 tab PO QAM 11/02/20 Atomoxetine HCl [Strattera] 25 mg PO BID 08/23/21 metFORMIN HCL [Glucophage] 850 mg PO BID 08/23/21 Oxybutynin Chloride [oxyBUTYnin chloride ER] 10 mg PO QAM 05/23/23 Unk Probiotic 1 tab PO QAM 05/23/23 Theralift Xr 1 tab PO BID 03/04/24 Diclofenac Sodium Gel [Voltaren 1% Gel] 2 - 3 gm TOPICAL BID PRN 30 Days #100 gm 10/13/24 Gabapentin [Neurontin] 300 mg PO BID PRN 30 Days #60 cap 10/13/24 HYDROcodone/APAP 5-325MG [[place] 5-325] 1 tab PO BID PRN 30 Days #60 tab 10/13/24 HYDROcodone/APAP 5-325MG [[place] 5-325] 1 tab PO Q12HR PRN 30 Days #60 tab 10/13/24 Controlled Substance Measures - Controlled Substance Measures Is patient prescribed a controlled substance at discharge?: Yes When asked, does pt state using other controlled substances?: Yes If prescribed controlled substance>3 days was MAPS reviewed?: Yes
== END ==
LOC: PNWHC3 13:18
PROVIDERS: ATTEND Specialist
DX: M47.22 Other spondylosis with radiculopathy, cervical region (principal); M47.26 Other spondylosis with radiculopathy, lumbar region; Z79.891 Long term (current) use of opiate analgesic; Z88.8 Allergy status to other drugs, medicaments and biological substances; Z88.1 Allergy status to other antibiotic agents; Z88.5 Allergy status to narcotic agent
CPT/HCPCS: 99211

== ENCOUNTER → 2024-12-22 | Outpatient (CLI) | payer MEDICARE, BC ==
[2024-12-22 14:44] VITALS: BP 135/78; PULSE 86; RESP 16
--- NOTE | 2024-12-22 15:47 | P.PAINPG ---
Objective - Vital Signs Vital signs: Vital Signs Temp Pulse 86 12/22/24 14:41 Resp 16 12/22/24 14:41 BP 135/78 12/22/24 14:41 Pulse Ox FiO2 Intake & Output 12/21/24 12/22/24 12/22/24 18:59 06:59 18:59 Weight 86.183 kg PQRS Measure Charge Sheet Mode of Arrival: Ambulatory Comment: A 59 yr old female with a history of severe and chronic neck and LBP secondary to radiculopathy, spondylosis with facet arthropathy without myelopathy presents today for medication refills. Pt underwent a BL RFA L4-L5/ L5-S1 in Feb 2024 where she experienced 80% pain relief x 8 mo s/p procedure. Pain level is pr ovoked at 4-6 /10 in intensity, constant, localized in the cervical & lumbar spine, predominantly axial, achy in character w occasional shooting towards the BL buttocks. Neck pain does not radiate. Pain is provoked by standing, bending, lifting. Pain is alleviated with medications, topical, heat, repositioning and rest. Physician guided home stretching documentation provided. Interventional pain procedures completed include BL RFA L3-L5 (06/14, 07/16, 03/17), CHETAN C6-C7 (Jun 2022), BL SI injection Patient is currently on [place] 5/325mg #60, Neurontin 300mg #60, Voltaren gel Patient denies any side effects of the medication(s), denies excessive drowsiness or sleepiness, denies suicidal ideation and reports that the current pain medication is helping to control the pain and improve activities of daily living. Patient denies any motor or sensory deficits. Patient denies any fever or night sweats, denies any change in the bowel movements or urination. Physical Examination: -Constitutional: Cooperative. Not in acute distress . - Neurologic: Cranial nerve II to XII intact. No focal neurological deficits. - Psychatric: Alert & oriented x 3. Matching mood & appropriate affect. Judgment and insight intact. - Musculoskeletal: Cervical spine: Muscle bulk/ tone/ strength in the bilateral upper extremities normal Vertebral body tenderness to palpation over C7 Spurling test positive Distraction test positive Facet loading test positive TTP Thoracic spine Muscle bulk / tone/ strength in the bilateral paraspinal muscles normal Vertebral body tender to palpation over Facet loading test positive TTP Lumbar spine: Motor bulk/ tone/ strength lower extremities , thigh and legs : 5/5 Deep tendon reflexes : Normal Knee Jerk. Normal Ankle Jerk . Vertebral body tenderness to palpation over L4, L5 Lumbar Facet Loading Test positive BL L4-L5/ L5-S1 Straight Leg Raise: positive at 30 degrees right side/ left side Gaenslen's Test positive Sacral spine : Severe tenderness over the Sacroiliac joint: right side / left side Range of motion: Flexion of the lumbar spine <60 degrees Range of motion: Extension of the lumbar spine <20 degrees Gaenslen's Test positive R / L Faraz test: positive right side / left side Thigh Thrust Test positive R / L Sacral Thrust Test positive R/ L Imaging: MRI non contrast lumbar spine from 06/25/24 reviewed Assessment and plan: Chronic neck pain and LBP secondary to L4-L5 radiculopathy, spondylosis with facet arthropathy without myelopathy Recommendation of BL RFA L4-L5/ L5-S1. Risks, benefits of procedure discussed and pt verbalized understanding. Minimal anesthesia including Fentanyl and Versed if clinically indicated. Chronic and current use of high-risk medication (Opioids). The patient was counseled about risk of opioid use, psychological risk associated with opioids and was orally counseled to not overuse , divert or sell medications. Pt is to store medication in a safe location. The patient is counseled against driving while using narcotic medications and also not to use alcohol or any illicit recreational drugs. Patient verbalized understanding that the lack of compliance will result in failure to renew narcotic prescription(s) as well as possible discharge from the clinic Diagnoses, prognosis and treatment options including but not limited to physical therapy, surgical interventions, interventional therapies and medication management including narcotics and adjuvant medication were discussed. All patient questions answered . Opiate / Narcotic agreement renewed 12/22/24 . MAPS reviewed and it was appropriate. UDS collected 12/22/24. Prescription refill for [place] 5/325mg #60, Neurontin 300mg #60, Voltaren gel w 1 RF. I have spent less than 30 minutes on patient care today. Dr Jessica was available by phone for the evaluation of this patient. The time was used to review the medical records including relevant urine studies and Prescription history (MAPs), review of the available imaging, evaluation and examination of the patient, coordination of care with the medical staff and if applicable referring physicians, as well as creation of the medical record. - Pain Location Lower Back Non-Pharmacological Interventions: Exercise, Heat Pharmacological Interventions: Topical Medication PQRS Narrative: Smoking Status Never smoker Narcotic Agreement Date Signed 10/13/24 Blood Pressure 135/78 Pain Intensity [Lower Back] 7 Scale Used Numeric (1 - 10) Hx Alcohol Use (MH) Yes: RARE Home Medications: Ambulatory Orders Metoprolol Succinate [Toprol XL] 50 mg PO HS 04/14/14 clonazePAM [KlonoPIN] 1 mg PO BID 04/14/14 Atorvastatin Calcium [Lipitor] 40 mg PO PC-SUPPER 05/22/16 Multivitamins, Thera [Multivitamin] 2 tab PO QAM 06/17/16 Ziprasidone [Geodon] 40 mg PO BID 06/17/16 Cyanocobalamin (Vitamin B-12) [Vitamin B12] 2,500 mcg PO QAM 06/08/18 [place] Xl 300 mg PO TID 06/08/18 Ascorbic Acid [Vitamin C] 500 mg PO QAM 07/21/19 Timolol 0.5% Ophth Soln [Timoptic 0.5% Ophth Soln] 1 drop BOTH EYES QAM 11/22/19 Biotin 10,000 mcg PO QAM 07/12/20 PARoxetine HCL [Paxil Cr] 50 mg PO QAM 09/11/20 Dicyclomine [Bentyl] 10 mg PO BID 10/11/20 Neuro B Complex 1 tab PO QAM 11/02/20 Atomoxetine HCl [Strattera] 25 mg PO BID 08/23/21 metFORMIN HCL [Glucophage] 850 mg PO BID 08/23/21 Oxybutynin Chloride [oxyBUTYnin chloride ER] 10 mg PO QAM 05/23/23 Unk Probiotic 1 tab PO QAM 05/23/23 Theralift Xr 1 tab PO BID 03/04/24 Diclofenac Sodium Gel [Voltaren 1% Gel] 2 - 3 gm TOPICAL BID PRN 30 Days #100 gm 12/22/24 Gabapentin [Neurontin] 300 mg PO BID PRN 30 Days #60 cap 12/22/24 HYDROcodone/APAP 5-325MG [[place] 5-325] 1 tab PO BID PRN 30 Days #60 tab 12/22/24 HYDROcodone/APAP 5-325MG [[place] 5-325] 1 tab PO Q12HR PRN 30 Days #60 tab 12/22/24 Controlled Substance Measures - Controlled Substance Measures Is patient prescribed a controlled substance at discharge?: Yes When asked, does pt state using other controlled substances?: Yes If prescribed controlled substance>3 days was MAPS reviewed?: Yes If Rx opioid, was Start Talking consent form obtained?: Yes Was information provided regarding opioid addiction?: Yes
== END ==
LOC: PNWHC3 14:21
PROVIDERS: ATTEND Specialist
DX: M54.16 Radiculopathy, lumbar region (principal); M47.816 Spondylosis without myelopathy or radiculopathy, lumbar region; M54.2 Cervicalgia; G89.29 Other chronic pain; Z79.899 Other long term (current) drug therapy; Z88.5 Allergy status to narcotic agent; Z88.1 Allergy status to other antibiotic agents; Z88.9 Allergy status to unspecified drugs, medicaments and biological substances; Z88.8 Allergy status to other drugs, medicaments and biological substances
CPT/HCPCS: 80307; G0463; 99212

== ENCOUNTER 2025-01-28 11:21 | Day surgery (SDC) | payer MEDICARE, BC ==
[2025-01-26 11:23] VITALS: BMI 35.4
[~2025-01-28 11:21] MED LIST changes: -LIDOCAINE 1% (10MG/ML) FOR IV START INTRADERMA PRN
[2025-01-28 11:54] VITALS: TEMP 96.7
[2025-01-28 12:06] LABS: Glucose,Whole Blood 106 mg/dL (70-110)
[2025-01-28] MEDS: LACTATED RINGERS 1,000 ML IV ONE (12:07)
[2025-01-28] MEDS ORDERED: methylPREDNISolone ACETATE 40 MG/ML 1 ML VIAL ONE (12:45)
[2025-01-28] MEDS ORDERED: ROPIVACAINE 5MG/ML 20ML VIAL ONE (12:45)
[2025-01-28] MEDS ORDERED: MIDAZOLAM 2 MG/2 ML VIAL ONE (12:45)
[2025-01-28] MEDS ORDERED: fentaNYL (PF) 50 MCG/ML 2 ML AMP ONE (12:45)
--- NOTE | 2025-01-28 13:15 | P.PCN ---
Date of Procedure: 01/28/25 Procedure(s) Performed: PREOPERATIVE DIAGNOSIS: 1-Lumbar Spondylosis with Facet Arthropathy without myelopathy. 2- Lumber degenerative disc disease. POSTOPERATIVE DIAGNOSIS: 1- Lumbar Spondylosis with Facet Arthropathy without myelopathy. 2- Lumber degenerative disc disease. PROCEDURES : Bilateral Radiofrequency thermocoagulation, L3 , L4 , and L5 medial branch, with fluoroscopic guidance (fluoroscopy images available in the radiology department) ( to denervate the facet joint at bilateral L4-5 ,and L5- S1 levels ). ANESTHESIA: Sedation with Versed 2 mg and fentanyl 200 mcg. (Sedation start time 12:45, end time 13:12 ) EBL: Minimal PROCEDURE INDICATION: The patient with low back pain secondary to lumbar facet arthropathy who had more than 50% relief of her pain with previous diagnostic lumbar medial branch block with bupivacaine. PROCEDURE DESCRIPTION / TECHNIQUE: The patient was seen and identified in the preoperative area. Risks, benefits, complications, including but not limited to risk of infection ,bleeding , allergic reactions to the medications and no complete pain releife , and alternatives were discussed with the patient, the patient agreed to proceed with the procedure and signed the consent. IV was started. Vital signs remained stable throughout the procedure. Patient was taken to the OR and time out was completed. The patient was placed in the prone position on the procedure table. The lumber area was prepped and draped in the usual sterile fashion. . Vital signs were closely monitored during the procedure .IV sedation was used during the procedure to decrease patients anxiety. Using AP and then oblique fluoroscopy, the ``eye of the [place] dog corresponding to the connection between the superior and transverse articular processes of right L3, L4, and L5 were identified, marked, and localized with 1% lidocaine. Subsequently, a 18 guage ( VENOM ) 100-mm radiofrequency cannula with a 10-mm active tip was advanced guided by fluoroscopy to each of the``eyes of the [place] dog at right L3, L4, and L5. Each site then underwent sensory testing at 50 Hz and 0 to 1 volt and motor testing at 2.5 Hz and 0 to 3 volt with local stimulation, but no radicular symptoms down the legs. Thereafter each sites underwent radiofrequency thermocoagulation at 80 degrees celsius for 90 seconds after injecting 0.5 ml of PF Ropivacaine 1ml, then after the thermocoagulation done , 1 ml of the block solution containing Depo-Medrol 20 mg and 3 ml of Ropivacaine 0.5% was injected at the right L3 , L4 , and L5 , levels after negative aspiration of CSF and blood and with no paresthesias. Ca nnulas were retracted while injecting lidocaine 1% until the needle is out. The same procedure was repeated at the level of Left L3, L4, and L5 levels. At the end of the procedure, the skin was cleansed and bandages were applied. COMPLICATIONS: No acute complications. DISPOSITION / PLANS: The patient was placed in a supine position and transferred to the recovery area in a stable condition for observation and was discharged from the recovery room after meeting discharge criteria. Home discharge instructions given to the patient by the staff. The patient was reexamined prior to discharge. The patient will schedule a follow up in the clinic in 2-4 weeks.
[2025-01-28] MEDS: IV FLUID CONTINUATION 400 ML IV ONE (13:24)
[2025-01-28 13:47] VITALS: BP 142/90; PULSE 82; RESP 18
--- NOTE | 2025-01-28 13:50 | FL ---
EXAMINATION TYPE: FL guided pain mgmt statistic DATE OF EXAM: 01/28/2025 CLINICAL INDICATION: Female, 59 years old with history of PAIN; [facility], TECHNIQUE: Fluoroscopy. COMPARISON: None. FINDINGS: Fluoroscopic guidance was provided during pain relief procedure performed by Dr. Jessica . A total of 49.4 seconds of fluoroscopic time was utilized during the procedure and 8 spot images a re acquired. Images acquired shows needle localization at several levels in the lower lumbar spine an d upper sacrum. Total DAP: [id number] mGym2. IMPRESSION: As Above. [facility], , 01/28/2025 1:48 PM
== END 2025-01-28 14:08 ==
LOC: ORPAIN 11:21
PROVIDERS: ATTEND Specialist
DX: M47.816 Spondylosis without myelopathy or radiculopathy, lumbar region (principal); M51.369 Other intervertebral disc degeneration, lumbar region without mention of lumbar back pain or lower extremity pain
CPT/HCPCS: 64635; 64636; J2250; J3010; J2795; J1010

== ENCOUNTER → 2025-02-21 | Outpatient (CLI) | payer MEDICARE, BC ==
[2025-02-21 14:52] VITALS: BP 127/87; PULSE 93; RESP 16; TEMP 98.1
--- NOTE | 2025-02-21 15:26 | P.PAINPG ---
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 Pt states she experienced 80% pain relief s/p procedure. Pain level is provoked at 3 /10 in intensity, constant, localized in the lumbar spine, predominantly axial, achy in character without shooting pain. Neck pain does not radiate. Pain is provoked by standing, bending, lifting. Pain is alleviated with medications, topical, heat, repositioning and rest. Physician guided home stretching documentation provided. Interventional pain procedures completed include BL RFA L3-L5 (06/14, 07/16, 03/17, 02/15), CHETAN C6-C7 (Jun 2022), BL SI injection Patient is currently on [place] 5/325mg #60, Neurontin 300mg #60, Voltaren gel Patient denies any side effects of the medication(s), denies excessive drowsiness or sleepiness, denies suicidal ideation and reports that the current pain medication is helping to control the pain and improve activities of daily living. Patient denies any motor or sensory deficits. Patient denies any fever or night sweats, denies any change in the bowel movements or urination. Physical Examination: -Constitutional: Cooperative. Not in acute distress . - Neurologic: Cranial nerve II to XII intact. No focal neurological deficits. - Psychatric: Alert & oriented x 3. Matching mood & appropriate affect. Judgment and insight intact. - Musculoskeletal: Cervical spine: Muscle bulk/ tone/ strength in the bilateral upper extremities normal Vertebral body tenderness to palpation over C7 Spurling test positive Distraction test positive Facet loading test positive TTP Thoracic spine Muscle bulk / tone/ strength in the bilateral paraspinal muscles normal Vertebral body tender to palpation over Facet loading test positive TTP Lumbar spine: Motor bulk/ tone/ strength lower extremities , thigh and legs : 5/5 Deep tendon reflexes : Normal Knee Jerk. Normal Ankle Jerk . Vertebral body tenderness to palpation over L4, L5 Lumbar Facet Loading Test positive BL L4-L5/ L5-S1 Straight Leg Raise: positive at 30 degrees right side/ left side Gaenslen's Test positive Sacral spine : Severe tenderness over the Sacroiliac joint: right side / left side Range of motion: Flexion of the lumbar spine <60 degrees Range of motion: Extension of the lumbar spine <20 degrees Gaenslen's Test positive R / L Faraz test: positive right side / left side Thigh Thrust Test positive R / L Sacral Thrust Test positive R/ L Imaging: MRI non contrast lumbar spine from 06/25/24 reviewed Assessment and plan: Chronic neck pain and LBP secondary to L4-L5 radiculopathy, spondylosis with facet arthropathy without myelopathy Recommendation of . Risks, benefits of procedure discussed and pt verbalized understanding. Minimal anesthesia including Fentanyl and Versed if clinically indicated. Chronic and current use of high-risk medication (Opioids). The patient was counseled about risk of opioid use, psychological risk associated with opioids and was orally counseled to not overuse , divert or sell medications. Pt is to store medication in a safe location. The patient is counseled against driving while using narcotic medications and also not to use alcohol or any illicit recreational drugs. Patient verbalized understanding that the lack of compliance will result in failure to renew narcotic prescription(s) as well as possible discharge from the clinic Diagnoses, prognosis and treatment options including but not limited to p hysical therapy, surgical interventions, interventional therapies and medication management including narcotics and adjuvant medication were discussed. All patient questions answered . Opiate / Narcotic agreement renewed 12/22/24 . MAPS reviewed and it was appropriate. UDS from 12/22/24 reviewed and consistent. Prescription refill for [place] 5/325mg #60, Neurontin 300mg #60, Voltaren gel w 1 RF. I have spent less than 30 minutes on patient care today. Dr Jessica was available by phone for the evaluation of this patient. The time was used to review the medical records including relevant urine studies and Prescription history (MAPs), review of the available imaging, evaluation and examination of the patient, coordination of care with the medical staff and if applicable [facility] physicians, as well as creation of the medical record. - Pain Location Bilateral Lower Back Non-Pharmacological Interventions: Heat, Ice Pharmacological Interventions: Block PQRS Narrative: Smoking Status Never smoker Narcotic Agreement Date Signed 10/13/24 Hx Alcohol Use (MH) Yes: RARE Home Medications: Ambulatory Orders Metoprolol Succinate [Toprol XL] 50 mg PO HS 04/14/14 clonazePAM [KlonoPIN] 1 mg PO BID 04/14/14 Atorvastatin Calcium [Lipitor] 40 mg PO PC-SUPPER 05/22/16 Multivitamins, Thera [Multivitamin] 2 tab PO QAM 06/17/16 Ziprasidone [Geodon] 40 mg PO BID 06/17/16 Cyanocobalamin (Vitamin B-12) [Vitamin B12] 2,500 mcg PO QAM 06/08/18 [place] Xl 300 mg PO TID 06/08/18 Ascorbic Acid [Vitamin C] 500 mg PO QAM 07/21/19 Timolol 0.5% Ophth Soln [Timoptic 0.5% Ophth Soln] 1 drop BOTH EYES QAM 11/22/19 Biotin 10,000 mcg PO QAM 07/12/20 PARoxetine HCL [Paxil Cr] 50 mg PO QAM 09/11/20 Dicyclomine [Bentyl] 10 mg PO DIRECTED 10/11/20 Neuro B Complex 1 tab PO QAM 11/02/20 Atomoxetine HCl [Strattera] 25 mg PO BID 08/23/21 metFORMIN HCL [Glucophage] 850 mg PO BID 08/23/21 Unk Probiotic 1 tab PO QAM 05/23/23 Diclofenac Sodium Gel [Voltaren 1% Gel] 2 - 3 gm TOPICAL BID PRN 30 Days #100 gm 12/22/24 Gabapentin [Neurontin] 300 mg PO BID PRN 30 Days #60 cap 12/22/24 HYDROcodone/APAP 5-325MG [[place] 5-325] 1 tab PO BID PRN 30 Days #60 tab 02/21/25 HYDROcodone/APAP 5-325MG [[place] 5-325] 1 tab PO BID PRN 30 Days #60 tab 02/21/25 Controlled Substance Measures - Controlled Substance Measures Is patient prescribed a controlled substance at discharge?: Yes When asked, does pt state using other controlled substances?: No If prescribed controlled substance>3 days was MAPS reviewed?: Yes
== END ==
LOC: PNWHC3 13:23
PROVIDERS: ATTEND Specialist
DX: G89.29 Other chronic pain (principal); M47.26 Other spondylosis with radiculopathy, lumbar region; Z88.8 Allergy status to other drugs, medicaments and biological substances; Z88.1 Allergy status to other antibiotic agents; Z88.5 Allergy status to narcotic agent; Z88.6 Allergy status to analgesic agent
CPT/HCPCS: 99211

== ENCOUNTER → 2025-03-10 | Outpatient (CLI) | payer MEDICARE, BC ==
[2025-03-10 14:25] VITALS: BP 138/83; PULSE 98; RESP 16; TEMP 97.9
--- NOTE | 2025-03-10 14:44 | P.PROGSL ---
Subjective DATE: 03/10/2025 FOLLOW UP VISIT. Patient with obstructive sleep apnea hypopnea syndrome return to sleep center for follow-up visit. Information from previous visit have been reviewed. Patient is using PAP equipment every night for the whole night, getting PAP supplies in time. The patient does not have significant problems with the mask, PAP unit and humidification. Frostproof sleepiness scale is 8, which is normal. I checked information from PAP unit. PAP unit pressure 6 cm H2O. Usage is 100% for more then 4 hours, average 8.5 hours per night. Leak is 20 l/m, which is in acceptable range. Apnea Hypopnea Index is 2.3, which is normal. MEDICATIONS have been reviewed, please see below. During physical exam: GENERAL: A pleasant patient without any distress. VITAL SIGNS: Please see below, weight is 202 lbs. HEENT: PERRLA, EOMI.low position of soft palate, Mallapati 3. NECK: Supple. No JVD. LUNGS: Clear to percussion and to auscultation. Good air exchange. No wheezing or rhonchi. HEART: S1, S2 regular. ABDOMEN: Soft and nontender. Slightly obese EXTREMITIES: No clubbing or cyanosis. 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 No focal deficit. Impressions: 1. Obstructive sleep apnea-hypopnea syndrome. Patient demonstrated great compliance with treatment, benefiting from treatment. 2. Obesity, BMI 37.3, patient increased weight on 15 pounds comparing to the previous visit. 3. Diabetes mellitus. 4. Depression. 5. Hyperlipidemia. Plan: 1. Continue using PAP equipment every night for the whole night. 2. Sleep hygiene with regular time in bed for at least 7.5-8 hours 3. PAP unit should stay lower then position of the head. 4. Advised patient to remove all remaining water from humidifier canister daily and make it dry after each usage. Refill canister with fresh distilled water before each usage. 5. Watching and losing weight. 6. Precautions related to driving. No driving if feel any sleepiness. 7. I will maintain prescription for PAP supplies including mask, tube, filters. 8. Follow up visit in 8 months or earlier if patient has any problems. Thank you very much for allowing me to participate in the management of your patient. John Qeuen MD, PhD, FAASM. Diplomat of [employer], Sleep Medicine Board by [employer] Soft Boarder of [facility] Objective - Vital Signs Vital Signs: Vital Signs Temp 97.9 F 03/10/25 14:23 Pulse 98 03/10/25 14:23 Resp 16 03/10/25 14:23 BP 138/83 03/10/25 14:23 Pulse Ox 96 03/10/25 14:23 FiO2 Intake & Output 03/09/25 03/10/25 03/10/25 18:59 06:59 18:59 Weight 91.626 kg Home Medications: Home Medications Medication Instructions Recorded Confirmed Type Metoprolol Succinate [Toprol XL] 50 mg PO HS 04/14/14 03/10/25 History clonazePAM [KlonoPIN] 1 mg PO BID 04/14/14 03/10/25 History Atorvastatin Calcium [Lipitor] 40 mg PO PC-SUPPER 05/22/16 03/10/25 History Multivitamins, Thera [Multivitamin] 2 tab PO QAM 06/17/16 03/10/25 History Ziprasidone [Geodon] 40 mg PO BID 06/17/16 01/28/25 History Cyanocobalamin (Vitamin B-12) 2,500 mcg PO QAM 06/08/18 03/10/25 History [Vitamin B12] [place] Xl 300 mg PO TID 06/08/18 03/10/25 History Ascorbic Acid [Vitamin C] 500 mg PO QAM 07/21/19 03/10/25 History Timolol 0.5% Ophth Soln [Timoptic 1 drop BOTH EYES QAM 11/22/19 01/28/25 History 0.5% Ophth Soln] Biotin 10,000 mcg PO QAM 07/12/20 03/10/25 History PARoxetine HCL [Paxil Cr] 50 mg PO QAM 09/11/20 03/10/25 History Dicyclomine [Bentyl] 10 mg PO DIRECTED 10/11/20 03/10/25 History Neuro B Complex 1 tab PO QAM 11/02/20 03/10/25 History Atomoxetine HCl [Strattera] 25 mg PO BID 08/23/21 03/10/25 History metFORMIN HCL [Glucophage] 850 mg PO BID 08/23/21 03/10/25 History Unk Probiotic 1 tab PO QAM 05/23/23 03/10/25 History Diclofenac Sodium Gel [Voltaren 1% 2 - 3 gm TOPICAL BID PRN 30 Days 02/21/25 Rx Gel] #100 gm Gabapentin [Neurontin] 300 mg PO BID PRN 30 Days #60 cap 02/21/25 03/10/25 Rx HYDROcodone/APAP 5-325MG [[place] 1 tab PO BID PRN 30 Days #60 tab 02/21/25 Rx 5-325] HYDROcodone/APAP 5-325MG [[place] 1 tab PO BID PRN 30 Days #60 tab 02/21/25 03/10/25 Rx 5-325]
== END ==
LOC: 3 N SLEEP 13:58
PROVIDERS: ATTEND Internal Medicine
DX: G47.33 Obstructive sleep apnea (adult) (pediatric) (principal); E66.9 Obesity, unspecified; E11.9 Type 2 diabetes mellitus without complications; F32.A Depression, unspecified; E78.5 Hyperlipidemia, unspecified; Z68.37 Body mass index [BMI] 37.0-37.9, adult; Z88.1 Allergy status to other antibiotic agents; Z88.8 Allergy status to other drugs, medicaments and biological substances; Z88.6 Allergy status to analgesic agent
CPT/HCPCS: 99212

== ENCOUNTER → 2025-05-18 | Outpatient (CLI) | payer MEDICARE, BC ==
[2025-05-18 13:30] VITALS: BP 126/74; PULSE 95; RESP 18
--- NOTE | 2025-05-18 16:17 | P.PAINPG ---
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 Pain level is provoked at 3-6 /10 in intensity, constant, localized in the lumbar spine, predominantly axial, achy in character without shooting pain. Neck pain does not radiate. Pain is provoked by standing, bending, lifting. Pain is alleviated with medications, topical, heat, repositioning and rest. Physician guided home stretching documentation provided. Interventional pain procedures completed include BL RFA L3-L5 (06/14, 07/16, 03/17, 02/15), CHETAN C6-C7 (Jun 2022), BL SI injection Patient is currently on [place] 5/325mg #60, Neurontin 300mg #60, Voltaren gel Patient denies any side effects of the medication(s), denies excessive drowsiness or sleepiness, denies suicidal ideation and reports that the current pain medication is helping to control the pain and improve activities of daily living. Patient denies any motor or sensory deficits. Patient denies any fever or night sweats, denies any change in the bowel movements or urination. Physical Examination: -Constitutional: Cooperative. Not in acute distress . - Neurologic: Cranial nerve II to XII intact. No focal neurological defic its. - Psychatric: Alert & oriented x 3. Matching mood & appropriate affect. Judgment and insight intact. - Musculoskeletal: Cervical spine: Muscle bulk/ tone/ strength in the bilateral upper extremities normal Vertebral body tenderness to palpation over C7 Spurling test positive Distraction test positive Facet loading test positive TTP Thoracic spine Muscle bulk / tone/ strength in the bilateral paraspinal muscles normal Vertebral body tender to palpation over Facet loading test positive TTP Lumbar spine: Motor bulk/ tone/ strength lower extremities , thigh and legs : 5/5 Deep tendon reflexes : Normal Knee Jerk. Normal Ankle Jerk . Vertebral body tenderness to palpation over L4, L5 Lumbar Facet Loading Test positive BL L4-L5/ L5-S1 Straight Leg Raise: positive at 30 degrees right side/ left side Gaenslen's Test positive Sacral spine : Severe tenderness over the Sacroiliac joint: right side / left side Range of motion: Flexion of the lumbar spine <60 degrees Range of motion: Extension of the lumbar spine <20 degrees Gaenslen's Test positive R / L Faraz test: positive right side / left side Thigh Thrust Test positive R / L Sacral Thrust Test positive R/ L Imaging: MRI non contrast lumbar spine from 06/25/24 reviewed Assessment and plan: Chronic neck pain and LBP secondary to L4-L5 radiculopathy, spondylosis with facet arthropathy without myelopathy Chronic and current use of high-risk medication (Opioids). The patient was counseled about risk of opioid use, psychological risk associated with opioids and was orally counseled to not overuse , divert or sell medications. Pt is to store medication in a safe location. The patient is counseled against driving while using narcotic medications and also not to use alcohol or any illicit recreational drugs. Patient verbalized understanding that the lack of compliance will result in failure to renew narcotic prescription(s) as well as possible discharge from the clinic Diagnoses, prognosis and treatment options including but not limited to physical therapy, surgical interventions, interventional therapies and m edication management including narcotics and adjuvant medication were discussed. All patient questions answered . Opiate / Narcotic agreement renewed 12/22/24 . MAPS reviewed and it was appropriate. UDS from 12/22/24 reviewed and consistent. Prescription refill for [place] 5/325mg #60, Neurontin 300mg #60 w 2 RF. I have spent less than 30 minutes on patient care today. Dr Jessica was available by phone for the evaluation of this patient. The time was used to review the medical records including relevant urine studies and Prescription history (MAPs), review of the available imaging, evaluation and examination of the patient, coordination of care with the medical staff and if applicable referring physicians, as well as creation of the medical record. - Pain Location Lower Back Pharmacological Interventions: Medication PQRS Narrative: Smoking Status Never smoker Narcotic Agreement Date Signed 10/13/24 Hx Alcohol Use (MH) Yes: RARE Home Medications: Ambulatory Orders Metoprolol Succinate [Toprol XL] 50 mg PO HS 04/14/14 clonazePAM [KlonoPIN] 1 mg PO BID 04/14/14 Atorvastatin Calcium [Lipitor] 40 mg PO PC-SUPPER 05/22/16 Multivitamins, Thera [Multivitamin] 2 tab PO QAM 06/17/16 Ziprasidone [Geodon] 40 mg PO BID 06/17/16 Cyanocobalamin (Vitamin B-12) [Vitamin B12] 2,500 mcg PO QAM 06/08/18 [place] Xl 300 mg PO TID 06/08/18 Ascorbic Acid [Vitamin C] 500 mg PO QAM 07/21/19 Timolol 0.5% Ophth Soln [Timoptic 0.5% Ophth Soln] 1 drop BOTH EYES QAM 11/22/19 Biotin 10,000 mcg PO QAM 07/12/20 PARoxetine HCL [Paxil Cr] 50 mg PO QAM 09/11/20 Dicyclomine [Bentyl] 10 mg PO DIRECTED 10/11/20 Neuro B Complex 1 tab PO QAM 11/02/20 Atomoxetine HCl [Strattera] 25 mg PO BID 08/23/21 metFORMIN HCL [Glucophage] 850 mg PO BID 08/23/21 Unk Probiotic 1 tab PO QAM 05/23/23 Diclofenac Sodium Gel [Voltaren 1% Gel] 2 - 3 gm TOPICAL BID PRN 30 Days #100 gm 02/21/25 Diclofenac Sodium Gel [Voltaren 1% Gel] 2 gm TOPICAL BID 30 Days #1 each 04/25/25 Gabapentin [Neurontin] 300 mg PO BID 30 Days #60 cap 05/18/25 HYDROcodone/APAP 5-325MG [[place] 5-325] 1 tab PO BID PRN 30 Days #60 tab 05/18/25 HYDROcodone/APAP 5-325MG [[place] 5-325] 1 tab PO BID PRN 30 Days #60 tab 05/18/25 HYDROcodone/APAP 5-325MG [[place] 5-325] 1 tab PO BID PRN 30 Days #60 tab 05/18/25 Controlled Substance Measures - Controlled Substance Measures Is patient prescribed a controlled substance at discharge?: Yes When asked, does pt state using other controlled substances?: Yes If prescribed controlled substance>3 days was MAPS reviewed?: Yes
== END ==
LOC: PNWHC3 12:59
PROVIDERS: ATTEND Specialist
DX: M47.26 Other spondylosis with radiculopathy, lumbar region (principal); M47.22 Other spondylosis with radiculopathy, cervical region; Z88.8 Allergy status to other drugs, medicaments and biological substances; Z88.1 Allergy status to other antibiotic agents; Z88.6 Allergy status to analgesic agent; Z79.891 Long term (current) use of opiate analgesic
CPT/HCPCS: 99212